=== PATIENT | female | born 1945 | race Caucasian/White ===

== ENCOUNTER 2019-11-22 08:59 | Outpatient (CLI) | payer MEDICARE, OTHER, SELFPAY ==
--- NOTE | ~2019-11-22 | MR_ITS ---
EXAMINATION: MR shoulder RT wo con DATE: 11/22/2019 10:04 INDICATION: Glenoid fracture. Subscapularis weakness. TECHNIQUE: Magnetic resonance imaging (MRI) of the right shoulder was performed without intravenous c ontrast. Sequences included axial PD-weighted FS FSE, coronal oblique PD-weighted FS FSE and T2-weigh rogelio FS FSE, and sagittal oblique T2-weighted FS FSE and T1-weighted FSE. COMPARISON: Right shoulder MRI 04/24/2016 FINDINGS: Coracoacromial arch: The acromion undersurface is curved in morphology with anterior hook (type III). There is severe acro mioclavicular joint osteoarthritis. There is severe subacromial/subdeltoid bursitis in communication with an acromioclavicular joint effusion. Rotator cuff: There is severe supraspinatus and infraspinatus tendinopathy. There is an articular-sided partial-thi ckness tear of supraspinatus tendon and infraspinatus tendons measuring 3.3 cm anterior to posterior by 2.5 cm proximal to distal by up to 60% tendon thickness. There is bursal-sided fraying of supraspi natus and infraspinous tendons and supraspinatus muscle. Teres minor tendon is normal. There is sever e subscapularis tendinopathy. There is no asymmetric fatty atrophy of the rotator cuff muscle bellies . Biceps tendon and glenoid labrum: There is a complete tear of proximal biceps tendon. There is extensive tearing of the glenoid labrum. Fluid: There is a large glenohumeral joint effusion with loose bodies measuring up to 1.7 cm. Bones/cartilage: There is extensive partial thickness cartilage loss of glenoid and humeral head. There is full-thickn ess cartilage loss of central, anterior, and inferior glenoid with cortical remodeling and subchondra l edema-like marrow signal intensity. IMPRESSION: 1. Severe acromioclavicular joint osteoarthritis. 2. Severe rotator cuff tendinopathy with partial-thickness rotator cuff tear. 3. Complete tear of proximal biceps tendon. 4. Severe acromioclavicular joint osteoarthritis. 5. Large glenohumeral joint effusion with loose bodies. 6. Severe subacromial/subdeltoid bursitis communicating with an acromioclavicular joint effusion. Reviewed, dictated and finalized at location A. IMPRESSION: 1. Severe acromioclavicular joint osteoarthritis. 2. Severe rotator cuff tendinopathy with partial-thickness rotator cuff tear. 3. Complete tear of proximal biceps tendon. 4. Severe acromioclavicular joint osteoarthritis. 5. Large glenohumeral joint effusion with loose bodies. 6. Severe subacromial/subdeltoid bursitis communicating with an acromioclavicul ar joint effusion.
== END 2019-11-22 09:00 | disposition home or self-care (01) ==
LOC: ANHIMG 09:06
PROVIDERS: PCP Family Medicine; Visit Provider Orthopaedic Surgery
DX: M19.011 Primary osteoarthritis, right shoulder (principal); M25.411 Effusion, right shoulder; S46.221A Laceration of muscle, fascia and tendon of other parts of biceps, right arm, initial encounter; X58.XXXA Exposure to other specified factors, initial encounter
CPT/HCPCS: 73221

== ENCOUNTER → 2020-02-27 09:18 | Outpatient (CLI) | payer MEDICARE, OTHER, SELFPAY ==
--- NOTE | ~2020-02-27 | MMUS_ITS ---
EXAMINATION: MM diagnostic aury LT w curry, US breast LT limited HISTORY: Six-month follow-up for probably benign left breast mass TECHNIQUE: Craniocaudal, mediolateral, and mediolateral oblique 3-D tomosynthesis images of the left breast were performed and synthetic 2-D images were generated. CAD analysis was submitted and interpr eted. High resolution limited left breast ultrasound was performed. COMPARISON: 07/25/2019, 07/10/2019, 06/09/2018, 06/07/2017 BREAST PARENCHYMAL COMPOSITION: There are scattered areas of fibroglandular density. FINDINGS: MAMMOGRAPHIC FINDINGS: There is an 8 mm oval, obscured, equal density mass in the middle third of the lower breast at the 6: 00 location 5.6 cm from the nipple which has not significantly changed. No suspicious calcification o r architectural distortion are identified. ULTRASOUND: There is a 10 mm x 7 mm oval, circumscribed, parallel, complex cystic and solid mass at the 5:30 loca tion 4 cm from the nipple which appears to have microlobulated margin. No definite posterior features or internal vascularity are noted. IMPRESSION: 1. Suspicious left breast mass. 2. Ultrasound-guided biopsy is recommended. BI-RADS category 4, suspicious findings. Reviewed, dictated and finalized at location A. IMPRESSION: 1. Suspicious left breast mass. 2. Ultrasound-guided biopsy is recommended. BI-RADS category 4, suspicious findings.
== END ==
PROVIDERS: PCP Family Medicine; Visit Provider Obstetrics & Gynecology
DX: R92.8 Other abnormal and inconclusive findings on diagnostic imaging of breast (principal)
CPT/HCPCS: 76642; 77061; 77065; G0279

== ENCOUNTER 2020-08-05 08:53 | Outpatient (CLI) | payer MEDICARE, OTHER, SELFPAY ==
[2020-08-05 09:49] LABS: Hematocrit 44.2 % (37.0-47.0); Mean Corpuscular HGB Conc 33.9 g/dl (32-36); Mean Corpuscular Hemoglobin 31.3 pg (26-34); Mean Corpuscular Volume 92.1 fl (80-100); Mean Platelet Volume 8.9 fl (7.4-10.4); Platelet Count Result 252 k/mm3 (150-375); Red Cell Distribution Width 13.5 % (11.5-14.5); White Blood Count 5.6 K/mm3 (4.5-10.0)
[2020-08-05 10:05] LABS: Alanine Aminotransferase 17 U/L (4-35); Albumin Level 4.3 g/dL (3.5-5.1); Alkaline Phosphatase 91 U/L (38-126); Anion Gap 8 mmol/L (8-16); Aspartate Amino Transferase 30 U/L (14-36); Bilirubin,Total 0.8 mg/dL (0.2-1.3); Blood Urea Nitrogen 21 mg/dL (7-17); Calcium 9.2 mg/dL (8.4-10.2); Carbon Dioxide 31 mmol/L (22-30); Chloride 102 mmol/L (98-107); Estimated Glomerular Filt Rate > 60; Glucose 101 mg/dL (65-105); Potassium 4.2 mmol/L (3.4-5.0); Sodium 141 mmol/L (137-145)
[2020-08-05 10:31] LABS: Vitamin D 25 Hydroxy 40.5 ng/mL
== END 2020-08-05 08:54 | disposition home or self-care (01) ==
LOC: ANHLAB 08:55
PROVIDERS: PCP Family Medicine; Visit Provider Nurse Practitioner Family
DX: R53.83 Other fatigue (principal); I10 Essential (primary) hypertension; E53.8 Deficiency of other specified B group vitamins; Z13.1 Encounter for screening for diabetes mellitus; Z79.899 Other long term (current) drug therapy
CPT/HCPCS: 36415; 80053; 82306; 82607; 84443; 85027

== ENCOUNTER 2020-11-17 14:51 | Outpatient (CLI) | payer MEDICARE, OTHER, SELFPAY ==
--- NOTE | ~2020-11-17 | XR_ITS ---
EXAMINATION: XR_[id number]_CR DATE: 11/17/2020 15:18 INDICATION: Neck pain. TECHNIQUE: 4 views of cervical spine on 5 radiographs were obtained. COMPARISON: None. FINDINGS: There is 4 degrees levocurvature of cervical spine. There is 2 mm retrolisthesis of C4 on C 5 and C5 on C6 and 2 mm anterolisthesis of C6 on C7. There is kyphosis of cervical spine. Vertebral b jeffrey heights are normal. There is mildly decreased disc height at C3-C4 and moderately decreased disc height at C4-C5 and C5-C6. There is multilevel uncovertebral joint osteoarthritis, severe on the left at C4-C5 and bilaterally at C5-C6. There is multilevel mild to moderate facet joint osteoarthritis. There is mild central canal stenosis at C4-C5 and C5-C6. No prevertebral soft tissue swelling. IMPRESSION: 1. Moderate cervical spondylosis. Reviewed, dictated and finalized at location A.
== END 2020-11-17 14:52 | disposition home or self-care (01) ==
PROVIDERS: PCP Family Medicine; Visit Provider Nurse Practitioner Family
DX: M54.2 Cervicalgia (principal); M47.812 Spondylosis without myelopathy or radiculopathy, cervical region
CPT/HCPCS: 72040

== ENCOUNTER 2021-05-01 10:16 | Emergency (ER) | payer MEDICARE, OTHER, SELFPAY ==
[2021-05-01 10:39] VITALS: BP 144/80; PULSE 60; RESP 14; TEMP 36.6; O2SAT 100
--- NOTE | 2021-05-01 13:31 | ECG_ITS ---
Measurements Intervals [place] Rate: 59 P: 23 MT: 133 QRS: -29 QRSD: 127 T: 18 QT: 452 QTc: 449 Interpretive Statements SINUS BRADYCARDIA WITH SINUS ARRHYTHMIA INTRAVENTRICULAR CONDUCTION DELAY DELAYED PRECORDIAL R/S TRANSITION BASELINE ARTIFACT- I, II, III, AVR, AVL, AVF BORDERLINE ECG Electronically Signed On 05-01-2021 19:02:10 CDT by Ugo Villa D.O.
[2021-05-01] MEDS: MECLIZINE HCL 25 MG TABLET PO (13:58)
--- NOTE | 2021-05-01 15:00 | ED.GENADULT ---
HPI - General Adult General Chief complaint: Dizziness Stated complaint: dizzy Time Seen by Provider: 05/01/21 13:15 History of Present Illness HPI narrative: Patient is a 76-year-old female who presents ER with dizziness. Began this morning while eating breakfast. Spinning in nature. Associate with nausea. No sweats or chest pain. She reports has been having left ear pain for a few days and had had sinus congestion over the last week. She stopped taking her Mucinex. Has not had similar symptoms before. Symptoms seem to have improved prior to arrival here. Related Data Home Medications Medication Instructions Recorded Confirmed oxybutynin chloride 10 mg 10 mg PO DAILY 07/31/19 01/14/21 tablet,extended release 24 hr aspirin 325 mg tablet 325 mg PO DAILY 05/19/20 01/14/21 multivitamin,zh-wzvv-oiknmvqd 1 tablet PO DAILY 05/19/20 01/14/21 Allergies Allergy/AdvReac Type Severity Reaction Status Date / Time Cephalosporins Allergy Severe RASH Verified 01/21/21 12:34 erythromycin base Allergy Severe RASH Verified 01/21/21 12:34 ketoconazole Allergy Severe RASH Verified 01/21/21 12:34 Penicillins Allergy Severe HALLUCINATI Verified 01/21/21 12:34 ONS Quinolones Allergy Severe SWELLING Verified 01/21/21 12:34 tetracycline Allergy Severe RASH Verified 01/21/21 12:34 cefazolin [From Ancef] Allergy Mild Rash Verified 01/21/21 12:34 bacitracin Allergy Unknown Unknown Verified 01/21/21 12:34 ciprofloxacin Allergy Unknown DIFFICULTY Verified 01/21/21 12:34 BREATHING gramicidin D Allergy Unknown Unknown Verified 01/21/21 12:34 hydrocodone Allergy Unknown Unknown Verified 01/21/21 12:34 nitrofurantoin Allergy Unknown Unknown Verified 01/21/21 12:34 polymyxin B Allergy Unknown Unknown Verified 01/21/21 12:34 BACITRACIN ZINC Allergy Unknown Unknown Uncoded 01/21/21 12:34 CEPHALEXIN MONOHYDRATE Allergy Unknown EYES Uncoded 01/21/21 12:34 SWELLED, HIVES, MOUTH SWELLING CIPROFLOXACIN HCL Allergy Unknown DIFFICULTY Uncoded 01/21/21 12:34 BREATHING HYDROCODONE BIT Allergy Unknown Unknown Uncoded 01/21/21 12:34 NEOMYCIN SULFATE Allergy Unknown Unknown Uncoded 01/21/21 12:34 NITROFURANTOIN MACROCRYSTAL Allergy Unknown Unknown Uncoded 01/21/21 12:34 POLYMYXIN B SULFATE Allergy Unknown Unknown Uncoded 01/21/21 12:34 Review of Systems Review of Systems: All systems reviewed & are unremarkable except as noted in HPI and below Constitutional: Constitutional: Denies chills, Denies fever(s) and Denies weakness ENT: Reports dizziness, Reports nasal congestion and Denies sore throat Comments: Ear pain Cardiovascular: Cardiovascular: Denies chest pain, Denies rapid heart rate and Denies radiating jaw, neck or arm pain Respiratory: Respiratory: Denies cough and Denies dyspnea Gastrointestinal: Gastrointestinal: Denies abdominal pain, Denies diarrhea, Reports nausea and Denies vomiting Neurologic: Denies confusion, Denies headache(s), Denies focal weakness and Denies numbness PMFSH Past Medical History Medical History BMI 38.0-38.9,adult Essential (primary) hypertension H/O vaginal delivery x3 Mixed hyperlipidemia Morbid (severe) obesity due to excess calories Surgical History Surgical History H/O hand surgery H/O shoulder replacement H/O total hysterectomy History of bladder surgery History of knee replacement bilateral Family History Family History Mother Hypertension Family history of diabetes mellitus in first degree relative Father Carcinoma of colon, Onset Age: 200 Patient's father is Grandparent Family history of malignant neoplasm of breast, Onset Age: 198 Daughter Ovarian cancer Son Son Cornea transplant recipient Other Family histo
== END 2021-05-01 15:46 | disposition home or self-care (01) ==
PROVIDERS: Emergency Provider Emergency Medicine; PCP Family Medicine
DX: R42 Dizziness and giddiness (principal); H61.23 Impacted cerumen, bilateral; I10 Essential (primary) hypertension; E78.2 Mixed hyperlipidemia; E66.01 Morbid (severe) obesity due to excess calories; Z68.37 Body mass index [BMI] 37.0-37.9, adult; Z96.619 Presence of unspecified artificial shoulder joint; Z96.653 Presence of artificial knee joint, bilateral; Z77.22 Contact with and (suspected) exposure to environmental tobacco smoke (acute) (chronic); Z79.82 Long term (current) use of aspirin
CPT/HCPCS: 69209; 69210; 93005; 99283; A9270

== ENCOUNTER → 2021-06-11 10:48 | Outpatient (CLI) | payer MEDICARE, OTHER, SELFPAY ==
--- NOTE | ~2021-06-11 | DEXA_ITS ---
Bone Density Report Name: Raven Gomez Age: 76 Sex: Female Ethnicity: White Date of : 1945 Indication: postmenopausal; screening for osteoporosis; height loss; prior fracture; hysterectomy; Referring Provider: RUY RUANO Study: Bone densitometry was performed. Exam Date: June 11, 2021 Accession number: [id number] Bone Density: Region BMD T-score Z-score Classification AP Spine (L1-L4) 1.019 -0.3 2.2 Normal Femoral Neck (Left) 0.795 -0.5 1.6 Normal Total Hip (Left) 0.997 0.5 2.2 Normal Femoral Neck (Right) 0.768 -0.7 1.4 Normal Total Hip (Right) 0.984 0.3 2.1 Normal Total Hip Mean 0.991 0.4 2.2 Normal World Health Organization criteria for BMD impression classify patients as: Normal (T-score at or above -1.0), Osteopenia (T-score between -1.0 and -2.5), or Osteoporosis (T-score at or below -2.5). 10-year Fracture Risk: FRAX not reported because: All T-scores for Spine Total, Hip Total, Femoral Neck at or above -1.0 Previous Exams: Region Exam Age BMD T-score BMD Change BMD Change Date g/cm2 vs Baseline vs Previous AP Spine(L1-L4) 06/11/2021 76 1.019 -0.3 0.107 0.029* 06/01/2016 71 0.990 -0.5 0.078 0.015 05/28/2014 69 0.975 -0.7 0.063 0.063 08/07/2008 63 0.912 -1.2 Total Hip(Left) 06/11/2021 76 0.997 0.5 0.011 0.000 06/09/2018 73 0.998 0.5 0.011 -0.049* 06/01/2016 71 1.047 0.9 0.061 0.021 05/28/2014 69 1.027 0.7 0.040 0.040 08/07/2008 63 0.987 0.4 Total Hip(Right) 06/11/2021 76 0.984 0.3 -0.035 -0.042* 06/09/2018 73 1.026 0.7 0.007 0.003 06/01/2016 71 1.023 0.7 0.003 -0.003 05/28/2014 69 1.026 0.7 0.006 0.006 08/07/2008 63 1.020 0.6 *Denotes significance at 95% confidence level, LSC for AP Spine = 0.022 g/cm2, LSC for Total Hip = 0.027 g/cm2 Clinical Information Provided by Patient: Has had a low trauma fracture Has used the following medications: Calcium Has the following medical conditions: Hysterectomy Patient maximum height was 66 Menopause Age: 46 Drinks caffeinated beverages Onset of menses at age 13 Number of children 3 Impression: The patient has normal bone mass. The patient has risk factors, including: previous fracture. T
== END ==
PROVIDERS: PCP Family Medicine; Visit Provider Obstetrics & Gynecology
DX: Z78.0 Asymptomatic menopausal state (principal)
CPT/HCPCS: 77080

== ENCOUNTER 2021-07-24 00:36 | Day surgery (SDC) | payer MEDICARE, OTHER, SELFPAY ==
[2021-07-10 08:24] VITALS: BMI 37.8
--- NOTE | 2021-07-23 15:46 | PM.HPGS ---
History of Present Illness History of Present Illness Consent: Risks, benefits, and alternatives have been discussed and questions answered. Patient agrees to proceed with procedure. Chief complaint: hx of colon polyps Narrative: Raven Gomez is a 76 year old female Referred for colon cancer screening. She has a history of polyps having had 1 removed about 5 years ago [facility] Past Medical History Medical History BMI 38.0-38.9,adult BMI 39.0-39.9,adult Essential (primary) hypertension H/O vaginal delivery x3 Mixed hyperlipidemia Surgical History Surgical History H/O hand surgery H/O shoulder replacement H/O total hysterectomy History of bladder surgery History of knee replacement bilateral Family History Family History Mother Hypertension Family history of diabetes mellitus in first degree relative Father Carcinoma of colon, Onset Age: 200 Patient's father is Grandparent Family history of malignant neoplasm of breast, Onset Age: 198 Daughter Ovarian cancer Son Son Cornea transplant recipient Other Family history of lupus erythematosus Family history of malignant neoplasm of ovary Social History Social History Smoking status: Never smoker Second hand tobacco smoke exposure: Yes Alcohol intake: never Substance use: never Substance use type: does not use Living arrangements: alone 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 Gender identity (if verbalized by the patient): Female Sexual Orientation (if Verbalized by the Patient): Straight or Heterosexual Spiritual care concerns: No Agree to blood products: Yes Meds Home Medications and Allergies Home Medications Medication Instructions Recorded Confirmed Type oxybutynin chloride 10 mg 10 mg PO DAILY 07/31/19 07/10/21 History tablet,extended release 24 hr aspirin 325 mg tablet 325 mg PO DAILY 05/19/20 07/10/21 History multivitamin,mu-axco-xziocjhy 1 tablet PO DAILY 05/19/20 07/10/21 History atorvastatin 10 mg tablet 10 mg PO DAILY #90 tablet 03/09/21 07/10/21 Rx furosemide 40 mg tablet 40 mg PO QAM #90 tablet 06/08/21 07/10/21 Rx metoprolol tartrate 50 mg tablet 50 mg PO DAILY #90 tablet 06/08/21 07/10/21 Rx potassium chloride 10 mEq 10 meq PO DAILY #90 tablet 06/08/21 07/10/21 Rx tablet,extended release calcium carb-D3-mag ox-zinc ox 3 tab-cap PO DAILY 07/10/21 07/10/21 History carbamide peroxide [Debrox] 5 drp EACH EAR Q12H PRN 07/10/21 07/10/21 History cetirizine 10 mg PO DAILY 07/10/21 07/10/21 History cilostazol 50 mg PO BID 07/10/21 07/10/21 History naproxen sodium [Aleve] 220 mg PO BID 07/10/21 07/10/21 History Allergies Allergy/AdvReac Type Severity Reaction Status Date / Time Cephalosporins Allergy Severe RASH Verified 07/24/21 12:48 ciprofloxacin Allergy Severe Anaphylaxis Verified 07/24/21 12:48 erythromycin base Allergy Severe RASH Verified 07/24/21 12:48 ketoconazole Allergy Severe RASH Verified 07/24/21 12:48 Penicillins Allergy Severe HALLUCINATI Verified 07/24/21 12:48 ONS Quinolones Allergy Severe SWELLING Verified 07/24/21 12:48 tetracycline Allergy Severe RASH Verified 07/24/21 12:48 bacitracin Allergy Intermediate Hives Verified 07/24/21 12:48 cefazolin [From Ancef] Allergy Mild Rash Verified 07/24/21 12:48 gramicidin D Allergy Unknown Unknown Verified 07/24/21 12:48 hydrocodone Allergy Unknown Unknown Verified 07/24/21 12:48 nitrofurantoin Allergy Unknown Unknown Verified 07/24/21 12:48 polymyxin B Allergy Unknown Unknown Verified 07/24/21 12:48 CEPHALEXIN MONOHYDRATE Allergy Severe Anaphylaxis Uncoded 07/24/21 12:48 CIPROFLOXACIN HCL Allergy Severe Anaphylaxis Uncoded 07/24/21 12:48 BACITRACI
[2021-07-24 12:50] VITALS: BP 136/66; PULSE 54; RESP 22; TEMP 36.4; O2SAT 98; BMI 39.7
[2021-07-24] MEDS: LACTATED RINGERS 1,000 ML 150 ML IV CONT (13:08)
--- NOTE | 2021-07-24 13:09 | WPDANESEPPF ---
Anes - Initial Pre Proc Eval Procedure: Operation Date: 07/24/21 14:00 Proposed Procedures p Screening Colonoscopy - Ramesh Palacios MD Date/Time: 07/24/21 13:09 Surgeon: Ramesh Palacios MD Pre Op Diagnosis: hx of colon polyps Patient Data Age: 76 Gender: F Height: 1.63 m Weight: 105 kg Last Vital Signs Temp 36.4 C L 07/24/21 12:50 Pulse 54 L 07/24/21 12:50 Resp 22 H 07/24/21 12:50 BP 136/66 07/24/21 12:50 Pulse Ox 98 07/24/21 12:50 Allergies Allergy/AdvReac Type Severity Reaction Status Date / Time Cephalosporins Allergy Severe RASH Verified 07/24/21 12:48 ciprofloxacin Allergy Severe Anaphylaxis Verified 07/24/21 12:48 erythromycin base Allergy Severe RASH Verified 07/24/21 12:48 ketoconazole Allergy Severe RASH Verified 07/24/21 12:48 Penicillins Allergy Severe HALLUCINATI Verified 07/24/21 12:48 ONS Quinolones Allergy Severe SWELLING Verified 07/24/21 12:48 tetracycline Allergy Severe RASH Verified 07/24/21 12:48 bacitracin Allergy Intermediate Hives Verified 07/24/21 12:48 cefazolin [From Ancef] Allergy Mild Rash Verified 07/24/21 12:48 gramicidin D Allergy Unknown Unknown Verified 07/24/21 12:48 hydrocodone Allergy Unknown Unknown Verified 07/24/21 12:48 nitrofurantoin Allergy Unknown Unknown Verified 07/24/21 12:48 polymyxin B Allergy Unknown Unknown Verified 07/24/21 12:48 CEPHALEXIN MONOHYDRATE Allergy Severe Anaphylaxis Uncoded 07/24/21 12:48 CIPROFLOXACIN HCL Allergy Severe Anaphylaxis Uncoded 07/24/21 12:48 BACITRACIN ZINC Allergy Unknown Unknown Uncoded 07/24/21 12:48 HYDROCODONE BIT Allergy Unknown Unknown Uncoded 07/24/21 12:48 NEOMYCIN SULFATE Allergy Unknown Unknown Uncoded 07/24/21 12:48 NITROFURANTOIN MACROCRYSTAL Allergy Unknown Unknown Uncoded 07/24/21 12:48 POLYMYXIN B SULFATE Allergy Unknown Unknown Uncoded 07/24/21 12:48 Home Medications Medication Instructions Recorded Confirmed Type oxybutynin chloride 10 mg 10 mg PO DAILY 07/31/19 07/10/21 History tablet,extended release 24 hr aspirin 325 mg tablet 325 mg PO DAILY 05/19/20 07/10/21 History multivitamin,ve-bjxb-qgwteutc 1 tablet PO DAILY 05/19/20 07/10/21 History atorvastatin 10 mg tablet 10 mg PO DAILY #90 tablet 03/09/21 07/10/21 Rx furosemide 40 mg tablet 40 mg PO QAM #90 tablet 06/08/21 07/10/21 Rx metoprolol tartrate 50 mg tablet 50 mg PO DAILY #90 tablet 06/08/21 07/10/21 Rx potassium chloride 10 mEq 10 meq PO DAILY #90 tablet 06/08/21 07/10/21 Rx tablet,extended release calcium carb-D3-mag ox-zinc ox 3 tab-cap PO DAILY 07/10/21 07/10/21 History carbamide peroxide [Debrox] 5 drp EACH EAR Q12H PRN 07/10/21 07/10/21 History cetirizine 10 mg PO DAILY 07/10/21 07/10/21 History cilostazol 50 mg PO BID 07/10/21 07/10/21 History naproxen sodium [Aleve] 220 mg PO BID 07/10/21 07/10/21 History Patient hx anesthesia problems: none Family hx anesthesia problems: none Results Review: All pre-operative results and documents have been reviewed as part of the pre-operative evaluation. [facility] Past Medical History Medical History (Updated 07/24/21 @ 13:09 by Félix Story DO) BMI 38.0-38.9,adult BMI 39.0-39.9,adult Essential (primary) hypertension H/O vaginal delivery x3 Mixed hyperlipidemia Surgical History Surgical History H/O hand surgery H/O shoulder replacement H/O total hysterectomy History of bladder surgery History of knee replacement bilateral Family History Family History Mother Hypertension Family history of diabetes mellitus in first degree relative Father Carcinoma of colon, Onset Age: 200 Patient's father is Grandparent Family history of malignant neoplasm of breast, Onset Age: 198 Daughter Ovarian cancer Son Son Cornea transplant recipient Other Family history of lupus erythemat
[2021-07-24 14:49] VITALS: BP 118/59; PULSE 63; RESP 22; O2SAT 99
[2021-07-24 14:53] VITALS: BP 121/65; PULSE 63; RESP 22; O2SAT 96
[2021-07-24 15:01] VITALS: BP 119/65; PULSE 60; RESP 22; O2SAT 100
== END 2021-07-24 15:15 | disposition home or self-care (01) ==
PROVIDERS: PCP Family Medicine; Visit Provider Internal Medicine Gastroenterology
PROC: 0DJD8ZZ Inspection of Lower Intestinal Tract, Via Natural or Artificial Opening Endoscopic (ICD-10-PCS; CPT 45378; principal; 2021-07-24 14:00)
DX: Z12.11 Encounter for screening for malignant neoplasm of colon (principal); K57.30 Diverticulosis of large intestine without perforation or abscess without bleeding; Z86.010 Personal history of colon polyps; I10 Essential (primary) hypertension; E78.2 Mixed hyperlipidemia; Z79.82 Long term (current) use of aspirin; E66.9 Obesity, unspecified; Z68.39 Body mass index [BMI] 39.0-39.9, adult
CPT/HCPCS: G0105; J2704; J7120

== ENCOUNTER 2021-08-12 08:30 | Outpatient (RCR) | payer MEDICARE, OTHER, SELFPAY ==
--- NOTE | 2021-06-30 11:35 | PTOPEVAL ---
INITIAL PHYSICAL THERAPY EVALUATION and PLAN OF CARE Thank you for referring Raven Gomez to [facility] [place].? Ghada is scheduled to be seen for physical therapy?1x/week for 6 weeks. Please review, sign, date and return this plan of care ARUN. I agree with and certify that the following plan of care is medically necessary. Referring Physician Date Admitting Provider: Attending Provider: Godfrey Siddiqi MD Referring Provider: *PT Outpatient Evaluation Start: 06/30/21 10:16 Freq: Status: Active Protocol: Document 06/30/21 10:15 DEMETRIA (Rec: 06/30/21 11:35 DEMETRIA [id number]) Therapy Assessment Status Assessment Status Assessment Status Evaluation Outpatient Past Medical History Past Medical History Source of Past Medical History Recalled from Previous Visit, Confirmed with Patient/Family Neurological History Hx Neurological Disorders No Significant History Cardiovascular History Hx Hypercholesterolemia Yes Hx Hypertension Yes Respiratory History Hx Respiratory Disorders No Significant History Gastrointestinal History Hx Gastrointestinal Disorders No Significant History Genitourinary History Hx Genitourinary Disorders No Significant History Musculoskeletal History Hx Joint Replacement Yes: TKA Hematological History Hx Hematological Disorders No Significant History Endocrine History Hx Endocrine Disorders No Significant History HEENT History Hx HEENT Disorders No Significant History Integumentary History Hx Skin Disorders No Significant History Reproductive History Hx Other Reproductive Disorders Yes: hysterectomy w bladder suspension 25 yrs ago,Dr Mart bladder surgery Psychosocial History Hx Psychiatric Disorders No Significant History Pain History History of Any Previous or Ongoing No Significant History Instance of Pain Anesthesia History Hx Anesthesia Reactions No Significant History Other History Hx Other Surgeries Yes: Dr Saleh robotic bladder surgery 2010 Evaluation Information Problem Diagnosis Pelvic and perineal pain Onset 4-5 yrs ago Subjective Information Raven reports that she isn't Query Text:As Reported By Patient/ having any pain - but with [employer] Family exam prolapse was noted. Once in a while will have some urinary leakage. Some urge sensation present after taking diuretic in the morning. Will have a pressure sensation in lower pelvic region at times Britany
--- NOTE | 2021-08-12 08:50 | PTOPEVAL ---
PHYSICAL THERAPY DISCHARGE NOTE Thank you for referring Raven Gomez to [facility].?Please review, sign, date and return this plan of care ARUN. I agree with and certify that the following plan of care is medically necessary. Referring Physician Date Attending Provider: Godfrey Siddiqi MD Discharge Diagnosis Pelvic and perineal pain Onset 4-5 yrs ago Subjective Information Raven has no complaints at Query Text:As Reported By Patient/ this time. States that she can Family sleep through the night without having to go to the bathroom. The urgency she once felt when she came into the house after shopping has reduced and she does not have to rodriguez to go to the bathroom. She is very pleased with the results and confortable continuing her exercises. Pain Assessment Timing of Pain Assessment Timing of Pain Assessment Assessment Self Report Self Report Pain Level 0 Pain Score Pain Score 0: Self Report Pelvic Health Evaluation Pelvic Floor Assessment Permission Received for External/ Yes Internal Perineal Exam External Perineal Body Mobility Present Voluntary External Perineal Body Mobility Present Involuntary External Perineal Body Palpation no increase in tenderness or tissue tension Internal Perineal Body Palpation no increase in discomfort or tissue tension Mild bladder prolapse felt with bearing down muscle contraction Sustained Levator Ani Strength 4 Quick Levator Ani Contraction in 15 10 Seconds PT Clinical Summary Urinary Distress Inventory 3% Pelvic Organ Prolapse Distress Inventory - 0% Ghada presents with normal pelvic floor function based on her pelvic floor distress inventory and based on verbalizing how well she is doing. She does not require further skilled therapy intervention; therefore, we will discharge from PT at this time. PT Services Indicated No Rehabilitation Potential Good Patient/Caregiver's Personal Goals for decrease pelvic pressure
== END 2021-08-12 14:33 | disposition home or self-care (01) ==
LOC: ANHPT 08:30
PROVIDERS: PCP Family Medicine; Visit Provider Obstetrics & Gynecology
DX: R10.2 Pelvic and perineal pain (principal)
CPT/HCPCS: 97110; 97161

== ENCOUNTER 2022-06-11 09:29 | Outpatient (CLI) | payer MEDICARE, OTHER, SELFPAY ==
[2022-06-11 19:38] LABS: Basophils Absolute Auto 0.1 K/mm3 (0.0-0.1); Basophils Percent Auto 0.9 % (0.2-1.2); Eosinophils Absolute Auto 0.1 K/mm3 (0-0.3); Eosinophils Percent Auto 2.4 % (0-4.4); Immature Granulocyte Absolute 0.02 K/mm3 (0.00-0.031); Immature Granulocyte Percent A 0.3 % (0-0.5); Lymphocytes Absolute Auto 0.86 K/mm3 (0.9-3.2); Lymphocytes Percent Auto 14.8 % (18.3-44.2); Mean Corpuscular HGB Conc 33.3 g/dl (32-36); Mean Corpuscular Hemoglobin 31.5 pg (26-34); Mean Corpuscular Volume 94.6 fl (80-100); Mean Platelet Volume 9.3 fl (7.4-10.4); Monocytes Absolute Auto 0.4 K/mm3 (0.1-0.6); Monocytes Percent Auto 6.5 % (2.6-8.5); Neutrophils Absolute Auto 4.4 K/mm3 (1.3-6.7); Neutrophils Percent Auto 75.1 % (45.5-73.1); Platelet Count Result 273 k/mm3 (150-375); Red Blood Count 4.44 M/mm3 (4.2-5.4); Red Cell Distribution Width 13.8 % (11.5-14.5); White Blood Count 5.8 K/mm3 (4.5-10.0)
[2022-06-11 19:40] LABS: Alanine Aminotransferase 21 U/L (6-35); Albumin Level 4.3 g/dL (3.5-5.1); Alkaline Phosphatase 101 U/L (38-126); Anion Gap 12 mmol/L (8-16); Aspartate Amino Transferase 43 U/L (14-36); Bilirubin,Total 0.6 mg/dL (0.2-1.3); Blood Urea Nitrogen 18 mg/dL (7-17); Calcium 8.7 mg/dL (8.4-10.2); Carbon Dioxide 24 mmol/L (22-30); Chloride 105 mmol/L (98-107); Cholesterol 143 mg/dL (0-200); Estimated Glomerular Filt Rate > 60; Glucose 100 mg/dL (65-110); HDL Direct 40 mg/dL; Potassium 4.1 mmol/L (3.4-5.0); Sodium 141 mmol/L (137-145); Triglycerides 151 mg/dL (<150)
[2022-06-11 19:51] LABS: LDL Cholesterol Direct 69 mg/dL
== END 2022-06-11 09:30 | disposition home or self-care (01) ==
PROVIDERS: PCP Family Medicine; Visit Provider Physician Assistant Medical
DX: E78.5 Hyperlipidemia, unspecified (principal); E53.8 Deficiency of other specified B group vitamins
CPT/HCPCS: 36415; 80053; 80061; 85025

== ENCOUNTER 2022-07-06 09:01 | Outpatient (CLI) | payer MEDICARE, OTHER, SELFPAY ==
[2022-07-06 09:27] LABS: Aspartate Amino Transferase 29 U/L (14-36)
== END 2022-07-06 09:02 | disposition home or self-care (01) ==
LOC: ANHLAB 09:03
PROVIDERS: PCP Family Medicine; Visit Provider Physician Assistant Medical
DX: R79.89 Other specified abnormal findings of blood chemistry (principal)
CPT/HCPCS: 36415; 84450

== ENCOUNTER 2022-08-19 12:30 | Outpatient (RCR) | payer MEDICARE, OTHER, SELFPAY ==
--- NOTE | 2022-08-19 13:37 | PTOPEVAL1 ---
Assessment and note entered by Elías Mcdonough, PT, DPT Evaluation Information Assessment Status Evaluation Diagnosis Cervicalgia Onset 2 months Subjective Information Pt states she has facial tingling and an itching sensation. She states she has been performing neck stretches and these have been helping. She states this started about 2 months ago, and after 2 weeks of muscle relaxers her pain went away. She has been off of the muscle relaxers for over a month and only has very random tingling sensations that goes away on its own instantly. She denies any headaches, jaw pain, and no tingling in her arms. Reported Pain Level Pain Score 0: Self Report Assessment PT Clinical Summary Ravne presents to therapy today for her initial evaluation with a diagnosis of cervicalgia. She reports a history of intermittent facial tingling that has been decreasing in frequency in the last 2 months. She demonstrates functional cervical motion in all directions, she is mildly limited in cervical extension and lateral flexion but does not report an increase in symptoms any of these motions. She demonstrates good strength ROM. Passive cervical side glides feel equal and do not cause an increase in symptoms. She was instructed in a HEP today to promote improved body and body mechanics during sitting tasks, and was also educated on pillow placement while sleeping. She is scheduled to follow up in 4 wks or sooner if needed. Plan of Care Interventions Electrical Stimulation,Hot Pack/Cold Pack,Manual Therapy,Neuro Re-education,Patient/Caregiver Educati,Therapeutic Activities,Therapeutic Exercise PT Services Indicated Yes Treatment Frequency and follow up in 1 month, if needed Duration These treatments will address the objective and functional deficits as defined above. The patient will be advanced safely and appropriately in order for the patient to progress towards his/her prior level of function. Additional exercises will be introduced and as well as a comprehensive home exercise program upon discharge, if needed, ?to ensure carryover of functional gains achieved in the clinic. This treatment plan has been reviewed and agreement upon by the patient.
--- NOTE | 2022-09-14 10:59 | PTOPDC ---
Assessment and note entered by Elías Mcdonough, PT, DPT Evaluation Information Assessment Status Discharge - Pt Not Present Diagnosis Cervicalgia Onset 2 months Subjective Information Raven called and cancelled her follow up appointment for later this week, she states she is doing well and does not need to continue therapy. Assessment PT Clinical Summary Raven completed her initial evaluation on and has since been completing her HEP daily. She would like to be discharged at this time. If she needs additional therapy at a later date, she will need a new order. Plan of Care Treatment Frequency and to be discharged Duration
== END 2022-09-14 11:47 | disposition home or self-care (01) ==
LOC: ANHGOSHPT 12:30
PROVIDERS: PCP Family Medicine; Visit Provider Physician Assistant Medical
DX: M54.2 Cervicalgia (principal)
CPT/HCPCS: 97110; 97161

== ENCOUNTER → 2022-09-17 11:17 | Outpatient (CLI) | payer MEDICARE, OTHER, SELFPAY ==
--- NOTE | ~2022-09-17 | MM_ITS ---
EXAMINATION: MM screening aury BI w curry HISTORY: Screening TECHNIQUE: Craniocaudal and mediolateral oblique 3-D tomosynthesis images were obtained and synthetic 2-D images were generated. CAD analysis was submitted and interpreted. COMPARISON: Comparison to multiple prior studies sequentially, with oldest reviewed study dated 05/22. BREAST PARENCHYMAL COMPOSITION: There are scattered areas of fibroglandular density. FINDINGS: There is a mass in the mid outer aspect of the right breast, slightly larger than on prior examinations. No new masses, calcifications or architectural distortion in the left breast. No signif icant interval change. IMPRESSION: 1. Enlarging right breast mass, mid outer breast. 2. Additional mammographic views and possible breast ultrasound are recommended. BI-RADS Category 0: Incomplete: Needs additional imaging evaluation. Reviewed, dictated and finalized at location A. CIATE PROFESSOR OF LITERATURE IMPRESSION: 1. Enlarging right breast mass, mid outer breast. 2. Additional mammographic views and possible breast ultrasound are recommended . BI-RADS Category 0: Incomplete: Needs additional imaging evaluation.
== END ==
PROVIDERS: PCP Family Medicine; Visit Provider Obstetrics & Gynecology
DX: Z12.31 Encounter for screening mammogram for malignant neoplasm of breast (principal); N63.0 Unspecified lump in unspecified breast
CPT/HCPCS: 77063; 77067

== ENCOUNTER → 2022-10-08 08:32 | Outpatient (CLI) | payer MEDICARE, OTHER, SELFPAY ==
--- NOTE | ~2022-10-08 | MMUS_ITS ---
EXAMINATION: MM diagnostic aury RT w curry, US breast RT limited HISTORY: Enlarging right breast mass, mid outer breast, reported on 09/17/2022 screening mammogram exa mination TECHNIQUE: Additional 3-D tomosynthesis images of the right breast were performed and synthetic 2-D i mages were generated. CAD analysis was submitted and interpreted. High resolution lower outer quadran t and lower inner quadrant right breast ultrasound examination was performed. COMPARISON: 09/17/2019 bilateral screening mammogram FINDINGS: MAMMOGRAPHIC FINDINGS: Approximately 8 mm circumscribed mass is noted in the posterior lower outer quadrant. Partially circumscribed approximately 4 mm opacity is noted posteriorly in the central lower right br east. ULTRASOUND: 6:00 2 cm from nipple: 2.7 x 3.8 mm probable cyst 7:00 3.5 cm from nipple: 5 x 10 mm sonolucency with through transmission and posterior enhancement, n o internal vascularity, consistent with simple cyst IMPRESSION: 1. Benign findings 2. Routine annual mammographic screening is recommended BI-RADS Category 2: Benign finding(s). Reviewed, dictated and finalized at location A. EY ENGINE FIRER IMPRESSION: 1. Benign findings 2. Routine annual mammographic screening is recommended BI-RADS Category 2: Benign finding(s).
== END ==
PROVIDERS: PCP Family Medicine; Visit Provider Obstetrics & Gynecology
DX: R92.8 Other abnormal and inconclusive findings on diagnostic imaging of breast (principal)
CPT/HCPCS: 76642; 77061; 77065; G0279

== ENCOUNTER 2023-02-01 13:31 | Outpatient (CLI) | payer MEDICARE, OTHER, SELFPAY ==
--- NOTE | ~2023-02-01 | XR_ITS ---
EXAMINATION: XR lg joint inject/asp w image DATE: 02/01/2023 14:41 INDICATION: Osteoarthritis of left shoulder. TECHNIQUE: A time-out was performed to verify the patient's name, date of , and procedure to b e performed. The procedure including the risks, benefits, and alternatives was discussed with the pat ient. Risks discussed included bleeding and infection. The patient understood the risks and agreed to proceed. The skin overlying the left glenohumeral joint was prepped and draped in usual sterile fas hion. Anesthetic was administered with 1% lidocaine subcutaneously. A 22 G needle was advanced unde r fluoroscopic guidance into the joint. Subsequently, injectate consisting of 4 mL 1% lidocaine and 1 mL 80 mg/mL Depo-Medrol was instilled. The needle was removed and the entry site was cleaned and dr essed. There were no immediate complications. Fluoroscopy exposure time was 0.1 minutes. The total n umber of images was 1. FINDINGS: Real-time fluoroscopy demonstrates the needle in the left glenohumeral joint. Patient's gena n prior to procedure:0/10. IMPRESSION: 1. Fluoroscopy guided left glenohumeral joint injection of local anesthetic and steroid. Reviewed, dictated and finalized at location A.
== END 2023-02-01 13:32 | disposition home or self-care (01) ==
LOC: ANHIMG 13:38
PROVIDERS: PCP Family Medicine; Visit Provider Orthopaedic Surgery
DX: M19.012 Primary osteoarthritis, left shoulder (principal)
CPT/HCPCS: 20610; 77002; J1040

== ENCOUNTER 2023-06-09 08:10 | Outpatient (CLI) | payer MEDICARE, OTHER, SELFPAY ==
[2023-06-09 19:03] LABS: Basophils Percent Auto 0.7 % (0.2-1.2); Eosinophils Absolute Auto 0.2 K/mm3 (0-0.3); Eosinophils Percent Auto 2.8 % (0-4.4); Hemoglobin 14.4 g/dL (12.0-15.0); Immature Granulocyte Absolute 0.02 K/mm3 (0.00-0.031); Immature Granulocyte Percent A 0.3 % (0-0.5); Lymphocytes Absolute Auto 1.02 K/mm3 (0.9-3.2); Lymphocytes Percent Auto 16.9 % (18.3-44.2); Mean Corpuscular HGB Conc 32.7 g/dl (32-36); Mean Corpuscular Hemoglobin 30.8 pg (26-34); Mean Corpuscular Volume 94.2 fl (80-100); Mean Platelet Volume 9.3 fl (7.4-10.4); Monocytes Absolute Auto 0.5 K/mm3 (0.1-0.6); Monocytes Percent Auto 8.6 % (2.6-8.5); Neutrophils Absolute Auto 4.3 K/mm3 (1.3-6.7); Neutrophils Percent Auto 70.7 % (45.5-73.1); Platelet Count Result 281 k/mm3 (150-375); Red Blood Count 4.67 M/mm3 (4.2-5.4); Red Cell Distribution Width 13.8 % (11.5-14.5)
[2023-06-09 19:15] LABS: Alanine Aminotransferase 21 U/L (6-35); Albumin Level 4.4 g/dL (3.5-5.1); Alkaline Phosphatase 95 U/L (38-126); Anion Gap 7 mmol/L (8-16); Aspartate Amino Transferase 34 U/L (14-36); Bilirubin,Total 0.7 mg/dL (0.2-1.3); Blood Urea Nitrogen 16 mg/dL (7-17); Calcium 8.8 mg/dL (8.4-10.2); Carbon Dioxide 29 mmol/L (22-30); Chloride 100 mmol/L (98-107); Cholesterol 169 mg/dL (0-200); Estimated Glomerular Filt Rate > 60; Glucose 116 mg/dL (65-110); HDL Direct 41 mg/dL; Potassium 4.1 mmol/L (3.4-5.0); Sodium 136 mmol/L (137-145); Triglycerides 212 mg/dL (<150)
[2023-06-09 21:34] LABS: LDL Cholesterol Direct 79 mg/dL
[2023-06-10 13:35] LABS: Hemoglobin A1C 6.1 % (<5.7)
== END 2023-06-09 08:11 | disposition home or self-care (01) ==
PROVIDERS: PCP Family Medicine; Visit Provider Physician Assistant Medical
DX: R73.01 Impaired fasting glucose (principal); E66.9 Obesity, unspecified; Z79.899 Other long term (current) drug therapy; R79.89 Other specified abnormal findings of blood chemistry; I10 Essential (primary) hypertension; E78.5 Hyperlipidemia, unspecified
CPT/HCPCS: 36415; 80053; 80061; 83036; 84443; 85025

== ENCOUNTER 2023-09-14 08:33 | Outpatient (CLI) | payer MEDICARE, OTHER, SELFPAY ==
[2023-09-14 20:28] LABS: Hemoglobin A1C 6.2 % (<5.7)
== END 2023-09-14 08:34 | disposition home or self-care (01) ==
LOC: ANHGOSHLAB 08:34
PROVIDERS: PCP Family Medicine; Visit Provider Physician Assistant Medical
DX: R73.03 Prediabetes (principal)
CPT/HCPCS: 36415; 83036

== ENCOUNTER 2023-09-27 11:47 | Emergency (ER) | payer MEDICARE, OTHER, SELFPAY ==
--- NOTE | ~2023-09-27 | CT_ITS ---
EXAMINATION: CT brain wo con INDICATION: Facial numbness COMPARISON: None TECHNIQUE: Standard unenhanced head CT. The dose-length product (DLP) was 605.33 mGy-cm. The mA was a djusted according to patient size. Iterative reconstruction technique was employed. FINDINGS: No acute intraparenchymal hemorrhage. No evidence of mass lesion. No evidence of acute infa rction. There is mild periventricular and subcortical hypodensity probably related to small vessel is chemic disease. There is mild prominence of the sulci and ventricles related to cerebral atrophy. Int racranial calcified cerebral atherosclerosis is noted. No extra-axial collections. No mass effect or midline shift. Changes in the globes are likely from ocular lens surgery. The visualized sinuses and mastoid air cells are well aerated. IMPRESSION: 1. No acute intracranial abnormality. 2. Age related findings. Reviewed, dictated and finalized at location L. [facility]
--- NOTE | ~2023-09-27 | XR_ITS ---
EXAMINATION: XR chest 2V DATE: 09/27/2023 12:34 INDICATION: Facial numbness TECHNIQUE: PA and lateral views of the chest are obtained. COMPARISON: 12/11/2015 FINDINGS: The lungs are free of acute opacities. No pleural effusion or pneumothorax. The cardiomedia stinal silhouette is normal. There are bridging osteophytes at multiple levels in the spine, consiste nt with diffuse idiopathic skeletal hyperostosis (DISH). There are changes of right total shoulder ar throplasty. A lucent centered calcification of the left upper quadrant could relate to the splenic ar morris. IMPRESSION: 1. No acute cardiopulmonary abnormality. Reviewed, dictated and finalized at location L. [facility] CHECK[facility]
[2023-09-27 11:51] VITALS: BP 116/90; PULSE 60; RESP 17; TEMP 36.4; O2SAT 99
[2023-09-27 12:00] VITALS: BP 134/64; PULSE 58; RESP 18; TEMP 36.7; O2SAT 100
--- NOTE | 2023-09-27 12:00 | ECG_ITS ---
Measurements Intervals [place] Rate: 54 P: 70 TN: 140 QRS: -14 QRSD: 126 T: -2 QT: 421 QTc: 401 Interpretive Statements SINUS BRADYCARDIA MODERATE INTRAVENTRICULAR CONDUCTION DELAY [110+ ms QRS DURATION] COMPARED TO ECG 05/01/2021 13:24:20 NO SIGNIFICANT CHANGES Electronically Signed On 09-27-2023 13:52:54 LOFTSMAN by Kenney Mccurdy M.D.
[2023-09-27 12:06] LABS: Glucose Point of Care 94 mg/dl (65-105)
[2023-09-27 12:26] LABS: Basophils Percent Auto 0.4 % (0.2-1.2); Eosinophils Absolute Auto 0.1 K/mm3 (0-0.3); Eosinophils Percent Auto 1.6 % (0-4.4); Hematocrit 45.7 % (37.0-47.0); Hemoglobin 15.1 g/dL (12.0-15.0); Immature Granulocyte Absolute 0.02 K/mm3 (0.00-0.031); Immature Granulocyte Percent A 0.3 % (0-0.5); Lymphocytes Absolute Auto 1.15 K/mm3 (0.9-3.2); Lymphocytes Percent Auto 14.9 % (18.3-44.2); Mean Corpuscular Hemoglobin 30.4 pg (26-34); Mean Corpuscular Volume 92.1 fl (80-100); Monocytes Absolute Auto 0.6 K/mm3 (0.1-0.6); Monocytes Percent Auto 7.5 % (2.6-8.5); Neutrophils Absolute Auto 5.8 K/mm3 (1.3-6.7); Neutrophils Percent Auto 75.3 % (45.5-73.1); Platelet Count Result 276 k/mm3 (150-375); Red Blood Count 4.96 M/mm3 (4.2-5.4); Red Cell Distribution Width 13.5 % (11.5-14.5); White Blood Count 7.7 K/mm3 (4.5-10.0)
[2023-09-27 12:36] LABS: Partial Thromboplastin Time 26.9 SECONDS (22.3-36.8); Prothrombin Time 13.1 Seconds (11.1-14.7)
[2023-09-27 12:38] LABS: Alanine Aminotransferase 21 U/L (6-35); Albumin Level 4.5 g/dL (3.5-5.1); Alkaline Phosphatase 94 U/L (38-126); Anion Gap 10 mmol/L (8-16); Aspartate Amino Transferase 31 U/L (14-36); Bilirubin,Total 0.8 mg/dL (0.2-1.3); Blood Urea Nitrogen 18 mg/dL (7-17); Calcium 9.8 mg/dL (8.4-10.2); Carbon Dioxide 26 mmol/L (22-30); Chloride 103 mmol/L (98-107); Estimated CRCL calculation 59 ml/min; Estimated Glomerular Filt Rate > 60; Glucose 95 mg/dL (65-110); Potassium 4.2 mmol/L (3.4-5.0); Sodium 139 mmol/L (137-145)
[2023-09-27 12:49] LABS: Troponin I < 0.012 ng/mL (0.000-0.034)
[2023-09-27 13:00] VITALS: BP 142/73; PULSE 54; RESP 18; TEMP 36.7; O2SAT 100
--- NOTE | 2023-09-27 13:26 | ED.GENADULT ---
HPI - General Adult General Chief complaint: Unspecified Stated complaint: Low blood sugar Time Seen by Provider: 09/27/23 12:38 History of Present Illness HPI narrative: Patient is a 78-year-old female with a history of hyperlipidemia, hypertension presenting with a sensation of quivering. Patient states that since yesterday she has felt like she is sitting on a vibrating bed. She states that she is shaking all over. It comes and goes. States that she has never had this before and she and her grandson wanted her to get checked out. No other complaints. No numbness or weakness. No facial droop, speech or vision changes. No pain anywhere. No fevers or infectious symptoms. Related Data Home Medications Medication Instructions Recorded Confirmed oxybutynin chloride 10 mg 10 mg PO DAILY 07/31/19 06/01/23 tablet,extended release 24 hr aspirin 325 mg tablet 325 mg PO DAILY 05/19/20 06/01/23 multivitamin,tz-noei-ykfxqvet 1 tablet PO DAILY 05/19/20 06/01/23 (Complete Multivitamin tablet) naproxen sodium 220 mg capsule 220 mg PO BID 07/10/21 06/01/23 (Aleve) dorzolamide 2 % eye drops 1 drp LEFT EYE BID 09/28/23 Allergies Allergy/AdvReac Type Severity Reaction Status Date / Time cephalexin Allergy Severe Anaphylaxis Verified 09/28/23 08:48 Cephalosporins Allergy Severe RASH Verified 09/28/23 08:48 ciprofloxacin Allergy Severe Anaphylaxis Verified 09/28/23 08:48 erythromycin base Allergy Severe RASH Verified 09/28/23 08:48 ketoconazole Allergy Severe RASH Verified 09/28/23 08:48 Penicillins Allergy Severe HALLUCINATI Verified 09/28/23 08:48 ONS Quinolones Allergy Severe SWELLING Verified 09/28/23 08:48 tetracycline Allergy Severe RASH Verified 09/28/23 08:48 bacitracin Allergy Intermediate Hives Verified 09/28/23 08:48 cefazolin [From Ancef] Allergy Mild Rash Verified 09/28/23 08:48 dexamethasone Allergy Mild Unknown Verified 09/28/23 08:48 [From Maxitrol (neomycin sulf)] neomycin Allergy Mild Unknown Verified 09/28/23 08:48 [From Maxitrol (neomycin sulf)] gramicidin D Allergy Unknown Unknown Verified 09/28/23 08:48 hydrocodone Allergy Unknown Unknown Verified 09/28/23 08:48 nitrofurantoin Allergy Unknown Unknown Verified 09/28/23 08:48 polymyxin B Allergy Unknown Unknown Verified 09/28/23 08:48 Review of Systems Review of Systems: All systems reviewed & are unremarkable except as noted in HPI and below PMFSH Past Medical History Medical History BMI 38.0-38.9,adult BMI 39.0-39.9,adult Body mass index (BMI) of 40.1 to 44.9 in adult Essential (primary) hypertension H/O vaginal delivery x3 Mixed hyperlipidemia Surgical History Surgical History H/O hand surgery H/O shoulder replacement H/O total hysterectomy History of bladder surgery History of knee replacement bilateral Family History Family History Mother Hypertension Family history of diabetes mellitus in first degree relative Father Carcinoma of colon, Onset Age: 200 Patient's father is Grandparent Family history of malignant neoplasm of breast, Onset Age: 198 Daughter Ovarian cancer Son Son Cornea transplant recipient Sibling Diabetes mellitus Hernia Kidney failure Other Family history of lupus erythematosus Family history of malignant neoplasm of ovary Social History Social History Smoking status: Never smoker Second hand tobacco smoke exposure: Yes Alcohol intake: never Substance use: never Substance use type: does not use Lack of Transportation: No Lack of Food: Sometimes True Current Housing: I Have Housing Concerned About Future Housing: No Difficulty Paying Gas/Electric Bills: No Difficult
[2023-09-27 14:00] VITALS: BP 124/60; PULSE 54; RESP 18; TEMP 36.8; O2SAT 100
== END 2023-09-27 14:22 | disposition home or self-care (01) ==
PROVIDERS: Physician Assistant; Emergency Provider Emergency Medicine; PCP Family Medicine
DX: Z04.89 Encounter for examination and observation for other specified reasons (principal); I10 Essential (primary) hypertension; E78.2 Mixed hyperlipidemia; Z96.619 Presence of unspecified artificial shoulder joint; Z96.653 Presence of artificial knee joint, bilateral; Z90.710 Acquired absence of both cervix and uterus; Z79.82 Long term (current) use of aspirin; Z77.22 Contact with and (suspected) exposure to environmental tobacco smoke (acute) (chronic); I45.9 Conduction disorder, unspecified; R00.1 Bradycardia, unspecified
CPT/HCPCS: 36415; 70450; 71046; 80053; 82948; 84484; 85025; 85610; 85730; 93005; 99284

== ENCOUNTER 2023-11-09 12:53 | Outpatient (CLI) | payer MEDICARE, OTHER, SELFPAY ==
--- NOTE | ~2023-11-09 | XR_ITS ---
Left Shoulder Technique: AP and scapular Y views were obtained. Clinical History: Osteoarthritis Findings: No fracture or dislocation is seen. There is severe degenerative change of the glenohumeral joint, with large inferomedial humeral head osteophyte, as well as joint space narrowing and reactiv e stenosis. There is mild AC joint degenerative change.. Soft tissues are unremarkable. Impression: Severe glenohumeral joint degenerative change. Mild AC joint degenerative change. Reviewed, dictated and finalized at location . Impression: Severe glenohumeral joint degenerative change. Mild AC joint degenerative change.
== END 2023-11-09 12:54 | disposition home or self-care (01) ==
LOC: ANHIMG 12:56
PROVIDERS: PCP Family Medicine; Visit Provider Orthopaedic Surgery
DX: M19.012 Primary osteoarthritis, left shoulder (principal)
CPT/HCPCS: 73030

== ENCOUNTER 2023-12-05 15:54 | Outpatient (CLI) | payer MEDICARE, OTHER, SELFPAY ==
--- NOTE | ~2023-12-05 | CT_ITS ---
EXAMINATION: CT shoulder LT wo con DATE: 12/05/2023 16:17 INDICATION: Left shoulder primary osteoarthritis. Preoperative planning. TECHNIQUE: Computed tomography (CT) of the left shoulder was performed without intravenous contrast. Automated exposure control and iterative reconstruction technique were employed. The dose-length prod uct was 369.47 mGy-cm. COMPARISON: Left shoulder radiographs 11/09/2023 FINDINGS: Bone alignment is normal. No fracture. There is severe osteoarthritis of glenohumeral joint including bone volume loss of the glenoid. There is severe acromioclavicular joint osteoarthritis. T here is no asymmetric fatty atrophy of rotator cuff muscle bellies. IMPRESSION: 1. Severe osteoarthritis of glenohumeral joint and acromioclavicular joint. Reviewed, dictated and finalized at location E.
== END 2023-12-05 15:55 | disposition home or self-care (01) ==
LOC: ANHIMG 15:57
PROVIDERS: PCP Family Medicine; Visit Provider Orthopaedic Surgery
DX: M19.012 Primary osteoarthritis, left shoulder (principal)
CPT/HCPCS: 73200

== ENCOUNTER 2024-01-27 11:37 | Outpatient (CLI) | payer MEDICARE, OTHER, SELFPAY ==
[2024-01-27 12:53] LABS: Basophils Absolute Auto 0.1 K/mm3 (0.0-0.1); Basophils Percent Auto 0.8 % (0.2-1.2); Eosinophils Absolute Auto 0.3 K/mm3 (0-0.3); Eosinophils Percent Auto 2.8 % (0-4.4); Hematocrit 43.6 % (37.0-47.0); Hemoglobin 14.2 g/dL (12.0-15.0); Immature Granulocyte Absolute 0.03 K/mm3 (0.00-0.031); Immature Granulocyte Percent A 0.3 % (0-0.5); Lymphocytes Absolute Auto 1.25 K/mm3 (0.9-3.2); Lymphocytes Percent Auto 13.4 % (18.3-44.2); Mean Corpuscular HGB Conc 32.6 g/dl (32-36); Mean Corpuscular Hemoglobin 30.8 pg (26-34); Mean Corpuscular Volume 94.6 fl (80-100); Mean Platelet Volume 8.9 fl (7.4-10.4); Monocytes Absolute Auto 0.8 K/mm3 (0.1-0.6); Monocytes Percent Auto 8.1 % (2.6-8.5); Neutrophils Percent Auto 74.6 % (45.5-73.1); Platelet Count Result 250 k/mm3 (150-375); Red Blood Count 4.61 M/mm3 (4.2-5.4); Red Cell Distribution Width 13.3 % (11.5-14.5); White Blood Count 9.3 K/mm3 (4.5-10.0)
[2024-01-27 13:04] LABS: Anion Gap 6 mmol/L (4-12); Blood Urea Nitrogen 24 mg/dL (7-17); Calcium 9.3 mg/dL (8.4-10.2); Carbon Dioxide 29 mmol/L (22-30); Chloride 104 mmol/L (98-107); Estimated Glomerular Filt Rate > 60; Glucose 86 mg/dL (65-110); Potassium 4.2 mmol/L (3.4-5.0); Sodium 139 mmol/L (137-145)
[2024-01-27 14:06] LABS: MRSA (PCR) NOT DETECTED (NOT DETECTE)
== END 2024-01-27 11:38 | disposition home or self-care (01) ==
LOC: ANHSURGERY 11:42
PROVIDERS: Anesthesiology; PCP Family Medicine; Visit Provider Orthopaedic Surgery
DX: Z01.818 Encounter for other preprocedural examination (principal); Z51.81 Encounter for therapeutic drug level monitoring; M19.012 Primary osteoarthritis, left shoulder
CPT/HCPCS: 36415; 80048; 85025; 87641

== ENCOUNTER 2024-02-21 00:38 | Day surgery (SDC) | payer MEDICARE, OTHER, SELFPAY ==
[2024-01-27 12:08] VITALS: BP 145/60; PULSE 56; RESP 16; TEMP 36.9; O2SAT 98; BMI 39.2
--- NOTE | 2024-01-27 12:24 | PC.NURSE ---
Report to the Outpatient Waiting Room, entrance under the green pavilion located off [facility], at time __6:00AM on date ___02/21/24____. Planned Procedure Time: ___7:30AM . Time changes happen often and if your time is changed the preop area will call you the afternoon before. - You and your visitor will be asked to self-screen and do not enter if you have any COVID symptoms. - A mask is optional within the hospital at this time. Patients may have clear liquids (water, carbonated beverages, clear teas, apple juice) until 3 hours prior to surgery with a maximum of 20 ounces. - No food from midnight until time of surgery. Take the following medications with a SIP of water the morning of surgery: ___METOPROLOL AND EYE DROPS. MAY TAKE MECLIZINE NEEDED FOR DIZZINESS. DO NOT STOP ANY OF YOUR OTHER PRESCRIPTION MEDICATIONS PRIOR TO SURGERY ?EXCEPT THE FOLLOWING Medications to discontinue per physician __HOLD ALEVE (NSAID), ASPIRIN AND CILOSTAZOL FOR 7 DAYS PRE-OP- LAST DOSE-02/13/24. HOLD ALL VITAMINS/SUPPLEMENTS 3 DAYS PRE-OP PER ANESTHESIA- LAST DOSE 02/17/24. Please no make-up, nail peruvian, hairspray, perfume, deodorant, or body powder the day of surgery. No jewelry (including any body piercings) or valuables the day of surgery, leave them at home. Please take a shower or bath the night before, or the morning of, surgery with an antibacterial soap. Wear comfortable, loose fitting clothing. - Jewelry must be removed prior to entering the operating room. Rings and piercings that are not removed may be cut off. - The hospital will not accept responsibility for valuables. - Please leave all valuables, including medications, at home the day of surgery. If you are going home after surgery, a licensed maintenance truck driver must drive you home. - NO public transportation without another adult if you receive anesthesia. - We recommend that an adult stay with you for 24 hours following discharge. - We also recommend that you do not drive, make important decision, drink alcoholic beverages, or take any drugs that were not prescribed by your health care provider for at least 24 hours after your discharge time. Follow any additional instructions given to you from your surgeon. If you or anyone in your household have experienced Covid symptoms in the past week, please notify your surgeon or the nurse liaison at the phone number below for possible testing. Telephone instructions given to ___PATIENT and asked if any additional questions and then verbalized understanding. Patient advised to call surgeon office or pre surgery nurse liaison [phone] if any additional questions.
[2024-02-21] VITALS (20 sets, daily range): BP systolic 119–151; BP diastolic 54–83; PULSE 58–70; RESP 13–18; TEMP 36.2–36.8; O2SAT 92–100; BMI 38.6
--- NOTE | ~2024-02-21 | XR_ITS ---
EXAMINATION: XR shoulder LT min 2V DATE: 02/21/2024 11:21 INDICATION: Status post left total shoulder arthroplasty TECHNIQUE: AP and transscapular Y views of the left shoulder were obtained. COMPARISON: CT dated 12/05/2023 FINDINGS: Interval placement of a noncemented reverse left total shoulder arthroplasty which is in near-anatomi c alignment. No acute fracture. Moderate left acromioclavicular osteoarthritis. Partially visualized plate and screw fixation at the margin of the AP image likely for fixation at the distal left radius. Expected small amount of postoperative gas in the soft tissues about the left shoulder. IMPRESSION: Placement of a reverse left total shoulder arthroplasty, negative for postoperative purposes. Reviewed, dictated and finalized at location B. IMPRESSION: Placement of a reverse left total shoulder arthroplasty, negative for postopera tive purposes.
[2024-02-21] MEDS: ACETAMINOPHEN 500 MG TABLET 1000 MG PO (06:59)
--- NOTE | 2024-02-21 07:05 | WPDHPUPDATE1 ---
History and Physical Update Update Date/Time: 02/21/24 07:05 History and Physical has been reviewed, including an updated exam of the patient. There are NO changes in the patient's condition. Risks, benefits, and alternatives have been discussed and questions answered. Patient agrees to proceed with procedure.
[2024-02-21] MEDS: LACTATED RINGERS 1,000 ML 30 ML IV CONT ×2 (07:15→09:51)
--- NOTE | 2024-02-21 07:18 | WPDANESEPPF ---
Anes - Initial Pre Proc Eval Procedure: Operation Date: 02/21/24 07:30 Proposed Procedures p Left Reverse Total Shoulder Arthroplasty - Armando Maya MD Date/Time: 02/21/24 07:18 Surgeon: Armando Maya MD Pre Op Diagnosis: Prim O A Left Shoulder Patient Data Age: 78 Gender: F Height: 1.63 m Weight: 102.1 kg Last Vital Signs Temp 36.8 C 02/21/24 06:35 Pulse 58 L 02/21/24 06:35 Resp 16 01/27/24 12:08 BP 151/83 H 02/21/24 06:35 Pulse Ox 99 02/21/24 06:35 O2 Del Method Room Air 02/21/24 06:35 Allergies Allergy/AdvReac Type Severity Reaction Status Date / Time cephalexin Allergy Severe Anaphylaxis Verified 02/21/24 06:08 Cephalosporins Allergy Severe RASH Verified 02/21/24 06:08 ciprofloxacin Allergy Severe Anaphylaxis Verified 02/21/24 06:08 erythromycin base Allergy Severe RASH Verified 02/21/24 06:08 ketoconazole Allergy Severe RASH Verified 02/21/24 06:08 Penicillins Allergy Severe HALLUCINATI Verified 02/21/24 06:08 ONS Quinolones Allergy Severe SWELLING Verified 02/21/24 06:08 tetracycline Allergy Severe RASH Verified 02/21/24 06:08 cefazolin [From Ancef] Allergy Mild Rash Verified 02/21/24 06:08 dexamethasone Allergy Mild Unknown Verified 02/21/24 06:08 [From Maxitrol (neomycin sulf)] neomycin Allergy Mild Unknown Verified 02/21/24 06:08 [From Maxitrol (neomycin sulf)] gramicidin D Allergy Unknown Unknown Verified 02/21/24 06:08 nitrofurantoin Allergy Unknown Unknown Verified 02/21/24 06:08 Home Medications Medication Instructions Recorded Confirmed Type oxybutynin chloride 10 mg 10 mg PO DAILY 07/31/19 01/31/24 History tablet,extended release 24 hr aspirin 325 mg tablet 325 mg PO DAILY 05/19/20 01/31/24 History multivitamin,zn-huil-gwsyogga 1 tablet PO DAILY 05/19/20 01/31/24 History (Complete Multivitamin tablet) naproxen sodium 220 mg capsule 220 mg PO BID 07/10/21 01/31/24 History (Aleve) meclizine 25 mg tablet 25 mg PO BID PRN dizziness #20 tabs 06/01/23 01/31/24 Rx dorzolamide 2 % eye drops 1 drp LEFT EYE BID 09/28/23 01/31/24 History atorvastatin 10 mg tablet (Lipitor) 10 mg PO DAILY #90 tabs 11/02/23 01/31/24 Rx furosemide 40 mg tablet 40 mg PO QAM #90 tabs 11/02/23 01/31/24 Rx potassium chloride 10 mEq 10 meq PO DAILY #90 tabs 11/02/23 01/31/24 Rx tablet,extended release (Klor-Con) blood sugar diagnostic (Accu-Chek #100 ea 01/04/24 01/31/24 Rx Jackie Plus test strips) blood-glucose meter #1 ea 01/04/24 01/31/24 Rx cilostazol 50 mg tablet 50 mg PO BID 01/04/24 01/31/24 History lancets (Accu-Chek Softclix #100 ea 01/04/24 01/31/24 Rx Lancets) metoprolol tartrate 50 mg tablet See Rx Instructions .Route 01/31/24 01/31/24 Rx .COMPLEX #90 tabs Patient hx anesthesia problems: none Family hx anesthesia problems: none Results Review: All pre-operative results and documents have been reviewed as part of the pre-operative evaluation. [facility] Past Medical History Medical History BMI 38.0-38.9,adult Essential (primary) hypertension H/O vaginal delivery x3 Mixed hyperlipidemia Surgical History Surgical History H/O hand surgery H/O shoulder replacement H/O total hysterectomy History of bladder surgery History of knee replacement bilateral Family History Family History Mother Hypertension Family history of diabetes mellitus in first degree relative Father Carcinoma of colon, Onset Age: 200 Patient's father is Grandparent Family history of malignant neoplasm of breast, Onset Age: 198 Daughter Ovarian cancer Son Son Cornea transplant recipient Sibling Diabetes mellitus Hernia Kidney failure Other Family history of lupus erythematosus Family h
[2024-02-21] MEDS: CLINDAMYCIN 900 MG/D5W 50 ML 900 MG/50 ML PIGGYBACK 50 MG IVPB (07:22)
[2024-02-21] MEDS: TRANEXAMIC ACID 1,000MG/ISO100 1,000 MG/100 ML BAG 200 MG IVPB (07:22)
[2024-02-21] MEDS: SODIUM CHLORIDE 0.9% IV 37.7 ML, MORPHINE SULFATE INJ (*CRX) 2 MG, ROPivacaine HCL 1% 2... INFILTRATE (08:15)
[2024-02-21] MEDS: VANCOMYCIN HCL 1,000 MG VIAL 1000 MG TOPICAL (08:15)
--- NOTE | 2024-02-21 09:33 | P.OP_ITS ---
Procedure Note - Detailed Date of Procedure 02/21/24 Pre-op Diagnosis Severe osteoarthritis, left shoulder Post-op Diagnosis Same Procedure Performed Reverse total shoulder arthroplasty, left Surgeon Armando Maya MD Musical String Maker Inés Mcintosh PA-C Anesthesia General and Regional (Interscalene block.) Findings Satisfactory bone quality. 10 degree posterior glenoid wear. Corrected with 5 degree augmented base plate. Size 1 humerus due to slightly soft bone. The cephalic vein was suture ligated. Description of Procedure The patient was given an interscalene block in the preoperative area. Preoperative antibiotics were given. The patient was transferred to the operating room and a general anesthetic was administered. The beach chair position was used at 45 degrees. All bony prominences were padded. The head was carefully stabilized on the [facility] head of merchandise buying. A sterile prep and drape was performed in the usual manner with ChloraPrep. A longitudinal incision was created at the anterior shoulder just lateral to the deltopectoral interval. Careful dissection was performed to expose the interval and protect the cephalic vein. The vein was retracted medially. Anterior circumflex vessel branches were suture ligated. The biceps was tenotomized. A subscapularis tenotomy was performed. The inferior capsule was released, exposing the humeral head. Osteophytes were removed. Care was taken to stay on bone to protect the axillary nerve. The anatomic head cut was taken with the oscillating saw. The guide pin was placed, central drilling performed, and the broach trial inserted. The neck anteversion and inclination were carefully assessed. The cut protector was placed, and attention was turned to the glenoid. Retractors were placed. Releases were carried out for exposure. The subscapularis was mobilized, the i nferior capsule and long head of triceps released, and the superior and middle glenohumeral ligaments released as well. Labral tissue was resected as needed. The sizing template was used to assess the baseplate position low on the glenoid. A guide pin was placed. Minimal reaming was used to accomplish a flat surface without violating the subchondral bone. Version was corrected according to preoperative templating. The boss was drilled, and the real component was impacted into position. Supplemental locking screws were placed centrally, superiorly, and inferiorly. The glenosphere was impacted into the taper. The proximal humerus was reamed for the inset component. The humeral components were trialed. The real humeral stem, tray, and insert were impacted into position. The shoulder was copiously irrigated periodically with pulsatile lavage. The shoulder was reduced and stability confirmed. 1 gram of Vancomycin powder was placed in the joint. The deltopectoral space was reapproximated with number 1 Vicryl. The remaining tissue was closed with 0 Quill and 2-0 Quill running suture and steri-strips. A sterile silver occlusive dressing and shoulder immobilizer were placed. The patient was transferred to the recovery room. Physician patient support assistant, Inés Mcintosh PA-C, required for surgery; including patient positioning, draping, tissue retraction, maintaining instrument position, cement removal, wound closure, and dressing placement. Implants Shoulder Innovations reverse TSA size 1 stem. +3 polyethylene insert. 5 augmented baseplate. 33 +3 mm glenosphere. Central compression screw. Three peripheral locking screws. Estimated Blood Loss 100 Drains No Pathology None sent Complications No immediate complications Condition Stable Disposition PACU [facility] Billing Surgery - Charge Forward: Surgery Jonathan
--- NOTE | 2024-02-21 11:59 | ADMGEN ---
This patient, Raven Gomez, was admitted to [facility] Surg Room 311-01. Patient/family oriented to hospital policies and general routines including ID bracelet, bed and alarms, visiting hours, pain management, procedures, bathroom and other care routines, personal items, smoking policy, room service/diet, and visiting hours. Information on how to activate the Rapid Response Team has been discussed. Patient/Family are encouraged to report perceived risks to care and to ask questions if they do not understand what they are told or what they should do.
[2024-02-21] MEDS: ACETAMINOPHEN 325 MG TABLET 650 MG PO ×2 (14:04→17:14)
[2024-02-21] MEDS: SENNA/DOCUSATE SODIUM TABLET 2 TAB PO (17:14)
[2024-02-21] MEDS: DORZOLAMIDE HCL 2% OPHTH DROPS 1 DROP LEFT EYE (17:14)
[2024-02-21] MEDS: cilostazoL 50 MG TABLET PO (17:14)
[2024-02-21] MEDS: FAMOTIDINE 20 MG TABLET PO (20:48)
[2024-02-21] MEDS: VANCOMYCIN 1,000 MG/NS 250 ML 1,000 MG/250 ML BAG 100 MG IVPB (20:52)
[2024-02-21] MEDS: CYCLOBENZAPRINE HCL 5 MG TABLET PO (20:56)
[2024-02-22 01:34] VITALS: BP 142/58; PULSE 64; RESP 16; TEMP 36.5; O2SAT 98
[2024-02-22] MEDS: cilostazoL 50 MG TABLET PO (05:23)
[2024-02-22] MEDS: ACETAMINOPHEN 325 MG TABLET 650 MG PO ×2 (05:23→12:50)
[2024-02-22 05:34] VITALS: BP 127/46; PULSE 67; RESP 16; TEMP 36.6; O2SAT 99
[2024-02-22 06:13] LABS: Basophils Percent Auto 0.2 % (0.2-1.2); Eosinophils Percent Auto 0.1 % (0-4.4); Hemoglobin 12.6 g/dL (12.0-15.0); Immature Granulocyte Absolute 0.09 K/mm3 (0.00-0.031); Immature Granulocyte Percent A 0.6 % (0-0.5); Lymphocytes Absolute Auto 0.61 K/mm3 (0.9-3.2); Lymphocytes Percent Auto 3.8 % (18.3-44.2); Mean Corpuscular HGB Conc 32.3 g/dl (32-36); Mean Corpuscular Hemoglobin 30.9 pg (26-34); Mean Corpuscular Volume 95.6 fl (80-100); Mean Platelet Volume 9.4 fl (7.4-10.4); Monocytes Absolute Auto 0.9 K/mm3 (0.1-0.6); Monocytes Percent Auto 5.4 % (2.6-8.5); Neutrophils Absolute Auto 14.6 K/mm3 (1.3-6.7); Neutrophils Percent Auto 89.9 % (45.5-73.1); Platelet Count Result 223 k/mm3 (150-375); Red Blood Count 4.08 M/mm3 (4.2-5.4); Red Cell Distribution Width 13.4 % (11.5-14.5); White Blood Count 16.2 K/mm3 (4.5-10.0)
[2024-02-22 06:24] LABS: Anion Gap 5 mmol/L (4-12); Blood Urea Nitrogen 17 mg/dL (7-17); Calcium 8.5 mg/dL (8.4-10.2); Carbon Dioxide 25 mmol/L (22-30); Chloride 109 mmol/L (98-107); Estimated CRCL calculation 78 ml/min; Estimated Glomerular Filt Rate > 60; Glucose 144 mg/dL (65-110); Potassium 4.1 mmol/L (3.4-5.0); Sodium 139 mmol/L (137-145)
--- NOTE | 2024-02-22 08:00 | PM.DS ---
DS: Admitting Diagnosis Discharge Date 02/22/24 Admitting Diagnosis Glenohumeral joint arthritis. DS: Discharge Diagnosis Discharge Diagnosis (1) Status post reverse total arthroplasty of left shoulder: Code(s): Z96.612 - Presence of left artificial shoulder joint Status: Acute (2) Orthopedic aftercare for joint replacement: Code(s): Z47.1 - Aftercare following joint replacement surgery Status: Acute Plan Postop day 1: Left Reverse total shoulder arthroplasty. Patient tolerated procedure well. No complications. Pain manageable with pain medication. No numbness or tingling. We had a lengthy discussion regarding postoperative wound care, limitations, expectations, and exercises. Patient shows good understanding. She has had initial physical therapy and is tolerating it well. DVT prophylaxis: Continue normal ASA dose. Pain medication: Percocet. Patient has followup appointment with Dr. Maya in 3 weeks. DS: Summary Hospital Course Hospital Course: Patient tolerated procedure well. No complications. Tolerating PT/OT. Returning to baseline. Status at Discharge Functional status at discharge: independent ambulation Overall status at discharge: patient is progressing back to baseline Time Spent with Patient Time attestation: Total time spent providing and/or coordinating discharge services: Exam Narrative: Overweight 78 y/o Female. Resting comfortably in chair. Wearing sling. Dressing dry and intact with no drainage. Moderate swelling. Moderate ecchymosis distal to the incision. No erythema. No hematoma. Range of motion limited due to pain. Calf nontender. Neurologic status intact. No varicosities. Distal pulses palpable. DS: Data Data Completed and Pending Labs on day of discharge: Labs from last 24 hours 02/22/24 05:39 WBC 16.2 H RBC 4.08 L Hgb 12.6 Hct 39.0 MCV 95.6 MCH 30.9 MCHC 32.3 RDW 13.4 Plt Count 223 MPV 9.4 Immature Gran % (Auto) 0.6 H Neut % (Auto) 89.9 H Lymph % (Auto) 3.8 L Petroleum % (Auto) 5.4 Eos % (Auto) 0.1 Baso % (Auto) 0.2 Lymph # (Auto) 0.61 L Petroleum # (Auto) 0.9 H Eos # (Auto) 0.0 Baso # (Auto) 0.0 Abs Immat Gran (auto) 0.09 H Absolute Neuts (auto) 14.6 H Absolute Nucleated RBC 0.000 Nucleated RBC % 0.0 Sodium 139 Potassium 4.1 Chloride 109 H Carbon Dioxide 25 Anion Gap 5 BUN 17 Creatinine 0.60 L Estim Creat Clear Calc 78 Estimated GFR > 60 Glucose 144 H Calcium 8.5 Discharge Plan Discharge Patient Disposition: Home, Self-Care Discharge Instructions: See green instruction sheets Patient Instructions: Pain Management (DC), Joint Replacement Surgery (DC) Stand Alone Forms: General Discharge Instructions Follow-up/Referrals: Inés Mcintosh PA [Physician Slack Cooper] - Discharge Medications: New oxycodone-acetaminophen 5-325 mg tablet 1 - 2 tablet PO Q4-6H MDD 6 PRN (Reason: pain) Qty: 30 0RF Continued oxybutynin chloride 10 mg tablet extended release 24hr 10 mg PO DAILY cilostazol 50 mg tablet 50 mg PO BID Rx Instructions: TAKE 1 TABLET BY MOUTH TWICE DAILY (DME) blood-glucose meter Misc See Rx Instructions .ROUTE .MEDSUPPLY Qty: 1 0RF Rx Instructions: As directed for pre diabetes (DME) lancets [Accu-Chek Softclix Lancets] Misc See Rx Instructions .ROUTE .MEDSUPPLY Qty: 100 0RF Rx Instructions: Check glucose bid prn for pre-diabetes (DME) Accu-Chek Jackie Plus test strp Strip See Rx Instructions .ROUTE .MEDSUPPLY Qty: 100 0RF Rx Instructions: Check glucose bid prn for pre diabetes aspirin 325 mg tablet 325 mg PO DAILY Complete Multivitamin Tablet 1 tablet PO DAILY meclizine 25 mg tablet 25 mg PO BID PRN (Reason: dizziness) Qty: 20 0RF dorzolamide 2 % drops 1 drp LEFT EYE BID naproxen sodium [Aleve] 220 mg Capsule 220 mg PO BID metoprolol tartrate
[2024-02-22] MEDS: ASPIRIN 325 MG TABLET PO (08:34)
[2024-02-22] MEDS: ATORVASTATIN 10 MG TABLET PO (08:34)
[2024-02-22] MEDS: oxyCODONE/ACETAMINOPHEN (*CRX) 5-325 MG TABLET 1 TABLET PO (08:35)
[2024-02-22] MEDS: FAMOTIDINE 20 MG TABLET PO (08:35)
[2024-02-22] MEDS: DORZOLAMIDE HCL 2% OPHTH DROPS 1 DROP LEFT EYE (08:35)
[2024-02-22] MEDS: FUROSEMIDE 40 MG TABLET PO (08:35)
[2024-02-22] MEDS: SENNA/DOCUSATE SODIUM TABLET 2 TAB PO (08:35)
[2024-02-22] MEDS: polyethylene glycoL 3350 17 GM POWD.PACK PO (08:35)
[2024-02-22] MEDS: oxyBUTYnin CHLORIDE XL 5 MG TAB.ER.24 10 MG PO (08:35)
[2024-02-22] MEDS: VANCOMYCIN 1,000 MG/NS 250 ML 1,000 MG/250 ML BAG 250 MG IVPB (08:36)
[2024-02-22 09:07] VITALS: O2SAT 95
[2024-02-22 09:34] VITALS: BP 151/79; PULSE 64; RESP 16; TEMP 36.6; O2SAT 100
== END 2024-02-22 13:03 | disposition home or self-care (01) ==
LOC: ANHSURGERY 10:02 → ANH3MEDSUR 11:56
PROVIDERS: Physician Assistant Surgical; PCP Family Medicine; Visit Provider Orthopaedic Surgery
PROC: (CPT 23472; principal; 2024-02-21 07:30)
DX: M19.012 Primary osteoarthritis, left shoulder (principal); M25.712 Osteophyte, left shoulder; I10 Essential (primary) hypertension; E78.2 Mixed hyperlipidemia; E66.9 Obesity, unspecified; Z68.38 Body mass index [BMI] 38.0-38.9, adult; Z79.82 Long term (current) use of aspirin; Z79.1 Long term (current) use of non-steroidal anti-inflammatories (NSAID); Z98.890 Other specified postprocedural states; Z80.0 Family history of malignant neoplasm of digestive organs; Z80.3 Family history of malignant neoplasm of breast; Z80.41 Family history of malignant neoplasm of ovary
CPT/HCPCS: 23472; 36415; 73030; 80048; 85025; 86850; 86900; 86901; 97110; 97116; 97161; 97165; 97535; A4565; A9270; C1776; J0171; J0330; J1170; J1885; J2250; J2270; J2371; J2405; J2704; J2795; J3010; J3370; J7120

== ENCOUNTER 2024-04-11 08:40 | Outpatient (CLI) | payer MEDICARE, OTHER, SELFPAY ==
--- NOTE | ~2024-04-11 | XR_ITS ---
XR shoulder LT min 2V Ordering provider: Armando Maya MD History: . Z47.1 - Aftercare following joint replacement surgery . Comparison: February 21, 2024 FINDINGS: BONES: No acute fracture or dislocation. JOINT SPACES: The acromioclavicular joint is normal. Left shoulder arthroplasty. SOFT TISSUES: Normal. IMPRESSION: No acute osseous abnormality. Left shoulder arthroplasty. Reviewed, dictated and finalized at location A.
== END 2024-04-11 08:41 | disposition home or self-care (01) ==
PROVIDERS: PCP Family Medicine; Visit Provider Orthopaedic Surgery
DX: Z47.1 Aftercare following joint replacement surgery (principal)
CPT/HCPCS: 73030

== ENCOUNTER 2024-07-10 07:56 | Outpatient (CLI) | payer MEDICARE, OTHER, SELFPAY ==
[2024-07-10 13:45] LABS: Alanine Aminotransferase 16 U/L (6-35); Albumin Level 4.2 g/dL (3.5-5.1); Alkaline Phosphatase 98 U/L (38-126); Anion Gap 5 mmol/L (4-12); Aspartate Amino Transferase 42 U/L (14-36); Basophils Absolute Auto 0.1 K/mm3 (0.0-0.1); Basophils Percent Auto 0.8 % (0.2-1.2); Bilirubin,Total 0.8 mg/dL (0.2-1.3); Blood Urea Nitrogen 14 mg/dL (7-17); Calcium 8.7 mg/dL (8.4-10.2); Carbon Dioxide 32 mmol/L (22-30); Chloride 100 mmol/L (98-107); Cholesterol 159 mg/dL (0-200); Eosinophils Absolute Auto 0.2 K/mm3 (0-0.3); Eosinophils Percent Auto 3.5 % (0-4.4); Estimated Glomerular Filt Rate > 60; Glucose 101 mg/dL (65-110); HDL Direct 41 mg/dL; Hematocrit 44.4 % (37.0-47.0); Hemoglobin 14.5 g/dL (12.0-15.0); Immature Granulocyte Absolute 0.01 K/mm3 (0.00-0.031); Immature Granulocyte Percent A 0.2 % (0-0.5); Lymphocytes Absolute Auto 1.01 K/mm3 (0.9-3.2); Lymphocytes Percent Auto 15.9 % (18.3-44.2); Mean Corpuscular HGB Conc 32.7 g/dl (32-36); Mean Corpuscular Hemoglobin 30.9 pg (26-34); Mean Corpuscular Volume 94.7 fl (80-100); Mean Platelet Volume 9.3 fl (7.4-10.4); Monocytes Absolute Auto 0.5 K/mm3 (0.1-0.6); Monocytes Percent Auto 8.3 % (2.6-8.5); Neutrophils Absolute Auto 4.6 K/mm3 (1.3-6.7); Neutrophils Percent Auto 71.3 % (45.5-73.1); Platelet Count Result 262 k/mm3 (150-375); Red Blood Count 4.69 M/mm3 (4.2-5.4); Red Cell Distribution Width 13.8 % (11.5-14.5); Sodium 137 mmol/L (137-145); Triglycerides 196 mg/dL (<150); White Blood Count 6.4 K/mm3 (4.5-10.0)
[2024-07-10 14:16] LABS: LDL Cholesterol Direct 72 mg/dL
== END 2024-07-10 07:57 | disposition home or self-care (01) ==
LOC: ANHGOSHLAB 07:57
PROVIDERS: PCP Family Medicine; Visit Provider Physician Assistant Medical
DX: E78.5 Hyperlipidemia, unspecified (principal); R73.03 Prediabetes; R79.89 Other specified abnormal findings of blood chemistry; E66.9 Obesity, unspecified
CPT/HCPCS: 36415; 80053; 80061; 85025

== ENCOUNTER 2024-08-08 13:55 | Outpatient (CLI) | payer MEDICARE, OTHER, SELFPAY ==
--- NOTE | ~2024-08-08 | MM_ITS ---
EXAMINATION: MM screening aury BI w curry HISTORY: Screening TECHNIQUE: Craniocaudal and mediolateral oblique 3-D tomosynthesis images were obtained and synthetic 2-D images were generated. CAD analysis was submitted and interpreted. COMPARISON: Comparison to multiple prior studies sequentially, with oldest reviewed study dated 05/22. BREAST PARENCHYMAL COMPOSITION: Not dense: There are scattered areas of fibroglandular density. FINDINGS: The left breast is stable without evidence for malignancy. There is an enlarging mass in th e upper outer quadrant of the right breast, posterior third. IMPRESSION: 1. Enlarging right breast mass. 2. Additional mammographic views and possible breast ultrasound are recommended. BI-RADS Category 0: Incomplete: Needs additional imaging evaluation. Reviewed, dictated and finalized at location B. CIPAL INVESTIGATOR IMPRESSION: 1. Enlarging right breast mass. 2. Additional mammographic views and possible breast ultrasound are recommended . BI-RADS Category 0: Incomplete: Needs additional imaging evaluation.
== END 2024-08-08 13:56 | disposition home or self-care (01) ==
LOC: MICIMG 13:57
PROVIDERS: PCP Family Medicine; Visit Provider Nurse Practitioner Obstetrics & Gynecology
DX: Z12.31 Encounter for screening mammogram for malignant neoplasm of breast (principal); R92.8 Other abnormal and inconclusive findings on diagnostic imaging of breast
CPT/HCPCS: 77063; 77067

== ENCOUNTER 2024-08-10 09:55 | Outpatient (CLI) | payer MEDICARE, OTHER, SELFPAY ==
[2024-08-10 18:25] LABS: Alanine Aminotransferase 15 U/L (6-35); Albumin Level 4.1 g/dL (3.5-5.1); Alkaline Phosphatase 99 U/L (38-126); Aspartate Amino Transferase 54 U/L (14-36); Bilirubin,Total 0.6 mg/dL (0.2-1.3)
== END 2024-08-10 09:56 | disposition home or self-care (01) ==
LOC: ANHGOSHLAB 09:56
PROVIDERS: PCP Family Medicine; Visit Provider Physician Assistant Medical
DX: R74.8 Abnormal levels of other serum enzymes (principal)
CPT/HCPCS: 36415; 80076

== ENCOUNTER 2024-08-29 09:19 | Outpatient (CLI) | payer MEDICARE, OTHER, SELFPAY ==
--- NOTE | ~2024-08-29 | MMUS_ITS ---
EXAMINATION: MM diagnostic aury RT w curry, US breast RT limited HISTORY: Follow-up right breast mass TECHNIQUE: Additional 3-D tomosynthesis images of the right breast were performed and synthetic 2-D i mages were generated. CAD analysis was submitted and interpreted. High resolution Limited right breas t ultrasound was performed. COMPARISON: Comparison to multiple prior studies sequentially, with oldest reviewed study dated 06/22. BREAST PARENCHYMAL COMPOSITION: Not dense: There are scattered areas of fibroglandular density. FINDINGS: MAMMOGRAPHIC FINDINGS: There is a low-density mass in the lower outer quadrant of the right breast, middle-posterior depth. There is a single layering calcification. No suspicious calcifications or architectural distortion. ULTRASOUND: Limited right breast ultrasound: At 7:00, 3 cm from the nipple there is a 1 cm cyst. This corresponds to the area of mammographic concern. No suspicious masses to suggest malignancy. IMPRESSION: 1. No evidence for malignancy in the right breast. Benign finding. 2. Routine yearly screening mammogram and regular clinical breast examination are recommended. BI-RADS Category 2: Benign finding(s). Reviewed, dictated and finalized at location [] RIBUTION CLERK IMPRESSION: 1. No evidence for malignancy in the right breast. Benign finding. 2. Routine yearly screening mammogram and regular clinical breast examination a re recommended. BI-RADS Category 2: Benign finding(s).
== END 2024-08-29 09:20 | disposition home or self-care (01) ==
LOC: MICIMG 09:20
PROVIDERS: PCP Family Medicine; Visit Provider Nurse Practitioner Obstetrics & Gynecology
DX: R92.8 Other abnormal and inconclusive findings on diagnostic imaging of breast (principal)
CPT/HCPCS: 76642; 77061; 77065; G0279

== ENCOUNTER 2024-09-03 09:22 | Outpatient (CLI) | payer MEDICARE, OTHER, SELFPAY ==
--- NOTE | ~2024-09-03 | US_ITS ---
Complete ABDOMINAL ULTRASOUND (Doppler ultrasound interrogation techniques used as needed for this ex am.) Ordering provider: Iliana Harrison, PAC History: . R79.89 - Other specified abnormal findings of blood chemi... . Comparison: None. FINDINGS: PANCREAS: Normal echotexture and size. PORTAL VEIN: Hepatopedal flow demonstrated. LIVER: Normal size and increased echotexture. No focal hepatic lesions or perihepatic fluid collectio ns are identified. BILIARY DUCTS: No intra or extrahepatic biliary dilation. Common bile duct measures 4.4 mm in diamete r which is normal for patient's age. GALLBLADDER: Polyps is seen measuring 1.2 x 1.4 x 1 mm. Multiple gallbladder stones are noted. No sl udge, gallbladder wall thickening or pericholecystic fluid. Negative sonographic Delcid's sign. Spleen: Normal. Measures 10.3 cm. RIGHT KIDNEY: Normal size. 11 X 4.2 X 4.8 cm. No hydronephrosis, solid renal mass, renal calculi or p erinephric fluid collections. Cysts are seen with the largest seen inferiorly measuring 3 x 2.9 x 3. 8 cm. Left kidney:Normal size. 11 X 5.3 X 5.1 cm. No hydronephrosis, solid renal mass, renal calculi or per inephric fluid collections. Aorta: Proximal measures 1.9 cm. Distal measures 2.4 cm. A right iliac artery measures 1 cm. The left measures 1.1 cm. FREE FLUID: None visualized within the upper abdomen. IMPRESSION: Fat infiltration of the liver. Cholelithiasis. Gallbladder polyp. Right renal cyst. Slight dilatation of the distal aorta. Otherwise, normal abdominal ultrasound. Reviewed, dictated and finalized at location A. RUMENTATION TECH IMPRESSION: Fat infiltration of the liver. Cholelithiasis. Gallbladder polyp. Right renal c yst. Slight dilatation of the distal aorta. Otherwise, normal abdominal ultras ound.
== END 2024-09-03 09:23 | disposition home or self-care (01) ==
LOC: ANHIMG 09:24
PROVIDERS: PCP Family Medicine; Visit Provider Physician Assistant Medical
DX: K76.0 Fatty (change of) liver, not elsewhere classified (principal); K80.20 Calculus of gallbladder without cholecystitis without obstruction; N28.1 Cyst of kidney, acquired; R79.89 Other specified abnormal findings of blood chemistry
CPT/HCPCS: 76700

== ENCOUNTER 2024-11-09 09:15 | Outpatient (CLI) | payer MEDICARE, OTHER, SELFPAY ==
--- OUTSIDE RECORDS SUMMARY | 2024-11-09 10:13 | XMS_ITS | Encounter Summary ---
Author Organization [facility] Address [address] [place] [address] Care Team Providers Care Per Diem Physical Therapist Assistant Name Role Phone Wilber Esquivel DO Primary Care Provider Encounter Details Date Type Department Care Team (Late st Contact Info) Description 04/04/[address] 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
--- OUTSIDE RECORDS SUMMARY | 2024-11-09 10:13 | XMS_ITS | Encounter Summary ---
Author Organization [facility] Address [address] [place] [address] Care Team Providers Care Phonograph Cartridge Assembler Name Role Phone Wilber Esquivel DO Primary Care Provider Encounter Details Date Type Department Care Team (Late st Contact Info) Description 07/18/2002 Outpatient [facility] Primary Care - [address] [place] [address] Wilber Esquivel DO * Social History Tobacco Use Types Packs/Day Years Used Date Smoking Tobacco: Never Assessed Comments Unknown Sex and Gender Information Value Date Recorded Sex Assigned at Not on file Legal Sex Female 5:20 AM INLAYER Gender Identity Not on file Sexual Orientation Not on file documented as of this encounter Plan of Treatment Not on file documented as of this encounter Visit Diagnoses Not on filedocumented in this encounter Care Teams Phonograph Cartridge Assembler Relationship Specialty Start Date End Date Wilber Esquivel DO * PCP - General 03/13/01 documented as of this encounter
--- OUTSIDE RECORDS SUMMARY | 2024-11-09 10:13 | XMS_ITS | Encounter Summary ---
Author Organization [facility] Address 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
--- OUTSIDE RECORDS SUMMARY | 2024-11-09 10:13 | XMS_ITS | Encounter Summary ---
Author Organization [facility] Address 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
--- OUTSIDE RECORDS SUMMARY | 2024-11-09 10:13 | XMS_ITS | Encounter Summary ---
Author Organization [facility] Address [address] [place] [address] Care Team Providers Care Electro Optics Engineer Name Role Phone Wilber Esquivel DO Primary Care Provider [phone] Encounter Details Date Type Department Care Team (Late st Contact Info) Description 12/23/2003 Outpatient [facility] Primary Care - [address] [place] [address] Wilber Esquivel DO * Social History Tobacco Use Types Packs/Day Years Used Date Smoking Tobacco: Never Assessed Comments Unknown Sex and Gender Information Value Date Recorded Sex Assigned at Not on file Legal Sex Female 5:20 AM COTTON 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
--- OUTSIDE RECORDS SUMMARY | 2024-11-09 10:13 | XMS_ITS | Encounter Summary ---
Author Organization [facility] Address [address] [place] [address] Care Team Providers Care Dietary Tech Name Role Phone Wilber Esquivel DO Primary Care Provider Encounter Details Date Type Department Care Team (Late st Contact Info) Description 02/13/2003 Outpatient [facility] Primary Care - [address] [place] [address] Wilber Esquivel DO * Social History Tobacco Use Types Packs/Day Years Used Date Smoking Tobacco: Never Assessed Comments Unknown Sex and Gender Information Value Date Recorded Sex Assigned at Not on file Legal Sex Female 5:20 AM STORAGE ADMINISTRATOR Gender Identity Not on file Sexual Orientation Not on file documented as of this encounter Plan of Treatment Not on file documented as of this encounter Visit Diagnoses Not on filedocumented in this encounter Care Teams Dietary Tech Relationship Specialty Start Date End Date Wilber Esquivel DO * PCP - General 03/13/01 documented as of this encounter
--- OUTSIDE RECORDS SUMMARY | 2024-11-09 10:13 | XMS_ITS | Encounter Summary ---
Author Organization [facility] Address [address] [place] [address] Care Team Providers Care Medical Lab Tech Instructor Name Role Phone Wilber Esquivel DO Primary Care Provider Encounter Details Date Type Department Care Team (Late st Contact Info) Description 08/01/2003 Outpatient [facility] Primary Care - [address] [place] [address] Wilber Esquivel DO * Social History Tobacco Use Types Packs/Day Years Used Date Smoking Tobacco: Never Assessed Comments Unknown Sex and Gender Information Value Date Recorded Sex Assigned at Not on file Legal Sex Female 5:20 AM RADIATION THERAPIST Gender Identity Not on file Sexual Orientation Not on file documented as of this encounter Plan of Treatment Not on file documented as of this encounter Visit Diagnoses Not on filedocumented in this encounter Care Teams Medical Lab Tech Instructor Relationship Specialty Start Date End Date Wilber Esquivel DO * PCP - General 03/13/01 documented as of this encounter
--- OUTSIDE RECORDS SUMMARY | 2024-11-09 10:13 | XMS_ITS | Encounter Summary ---
Author Organization [facility] Address 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
--- OUTSIDE RECORDS SUMMARY | 2024-11-09 10:13 | XMS_ITS | Encounter Summary ---
Author Organization [facility] Address 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
--- OUTSIDE RECORDS SUMMARY | 2024-11-09 10:13 | XMS_ITS | Encounter Summary ---
Author Organization Address [address] [place] [address] Care Team Providers Care Appraiser Irrigation Tax Name Role Phone Wilber Esquivel DO Primary Care Provider [phone] Encounter Details Date Type Department Care Team (Latest Contact Info) Description 12/14/2001 Outpatient Historical [facility] Wilber Esquivel DO * BONE & CARTILAGE DIS NOS (Primary Dx) Social History Tobacco Use Types Packs/Day Years Used Date Smoking Tobacco: Never Assessed Comments Unknown Sex and Gender Information Value Date Recorded Sex Assigned at Not on file Legal Sex Female 5:20 AM IMMIGRATION GUARD Gender Identity Not on file Sexual Orientation Not on file documented as of this encounter Plan of Treatment Not on file documented as of this encounter Visit Diagnoses Diagnosis Disorder of bone and cartilage, unspecified- Primary documented in this encounter Care Teams Appraiser Irrigation Tax Relationship Specialty Start Date End Date Wilber Esquivel DO * PCP - General 03/13/01 documented as of this encounter
--- OUTSIDE RECORDS SUMMARY | 2024-11-09 10:13 | XMS_ITS | Encounter Summary ---
Author Organization [facility] Address [address] [place] [address] Care Team Providers Care Starchmaker Name Role Phone Wilber Esquivel DO Primary Care Provider Encounter Details Date Type Department Care Team (Late st Contact Info) Description 12/14/2001 Outpatient [facility] Primary Care - [address] [place] [address] Wilber Esquivel DO * Social History Tobacco Use Types Packs/Day Years Used Date Smoking Tobacco: Never Assessed Comments Unknown Sex and Gender Information Value Date Recorded Sex Assigned at Not on file Legal Sex Female 5:20 AM CONTRACTING ENGINEER Gender Identity Not on file Sexual Orientation Not on file documented as of this encounter Plan of Treatment Not on file documented as of this encounter Visit Diagnoses Not on filedocumented in this encounter Care Teams Starchmaker Relationship Specialty Start Date End Date Wilber Esquivel DO * PCP - General 03/13/01 documented as of this encounter
--- OUTSIDE RECORDS SUMMARY | 2024-11-09 10:13 | XMS_ITS | Encounter Summary ---
Author Organization [facility] Address [address] [place] [address] Care Team Providers Care Oil Well Driller Name Role Phone Wilber Esquivel DO Primary Care Provider [phone] Encounter Details Date Type Department Care Team (Late st Contact Info) Description 03/06/2003 Outpatient [facility] Primary Care - [address] [place] [address] Wilber Esquivel DO * Social History Tobacco Use Types Packs/Day Years Used Date Smoking Tobacco: Never Assessed Comments Unknown Sex and Gender Information Value Date Recorded Sex Assigned at Not on file Legal Sex Female 5:20 AM PHYSICIAN GENERAL INTERNAL MEDICINE Gender Identity Not on file Sexual Orientation Not on file documented as of this encounter Plan of Treatment Not on file documented as of this encounter Visit Diagnoses Not on filedocumented in this encounter Care Teams Oil Well Driller Relationship Specialty Start Date End Date Wilber Esquivel DO * PCP - General 03/13/01 documented as of this encounter
--- OUTSIDE RECORDS SUMMARY | 2024-11-09 10:13 | XMS_ITS | Encounter Summary ---
Author Organization [facility] Address [address] [place] [address] Care Team Providers Care Tunnel Man Name Role Phone Wilber Esquivel DO Primary Care Provider [phone] Encounter Details Date Type Department Care Team (Latest Contact Info) Description 12/26/2003 Outpatient Historical [facility] Wilber Esquivel DO * PNEUMONIA, ORGANISM NOS (Primary Dx) Social History Tobacco Use Types Packs/Day Years Used Date Smoking Tobacco: Never Assessed Comments Unknown Sex and Gender Information Value Date Recorded Sex Assigned at Not on file Legal Sex Female 5:20 AM FINANCE EFFECTIVENESS MANAGER Gender Identity Not on file Sexual Orientation Not on file documented as of this encounter Plan of Treatment Not on file documented as of this encounter Visit Diagnoses Diagnosis Pneumonia, organism unspecified(486)- Primary Pneumonia, organism unspecified documented in this encounter Care Teams Tunnel Man Relationship Specialty Start Date End Date Wilber Esquivel DO * PCP - General 03/13/01 documented as of this encounter
--- OUTSIDE RECORDS SUMMARY | 2024-11-09 10:13 | XMS_ITS | Encounter Summary ---
Author Organization [facility] Address [address] [place] [address] Care Team Providers Care Solar Sales Energy Advisor Name Role Phone Wilber Esquivel DO Primary Care Provider Encounter Details Date Type Department Care Team (Late st Contact Info) Description 07/02/2003 Outpatient [facility] Primary Care - [address] [place] [address] Wilber Esquivel DO * Social History Tobacco Use Types Packs/Day Years Used Date Smoking Tobacco: Never Assessed Comments Unknown Sex and Gender Information Value Date Recorded Sex Assigned at Not on file Legal Sex Female 5:20 AM NUCLEAR MEDICINE TECHNOLOGIST Gender Identity Not on file Sexual Orientation Not on file documented as of this encounter Plan of Treatment Not on file documented as of this encounter Visit Diagnoses Not on filedocumented in this encounter Care Teams Solar Sales Energy Advisor Relationship Specialty Start Date End Date Wilber Esquivel DO * PCP - General 03/13/01 documented as of this encounter
--- OUTSIDE RECORDS SUMMARY | 2024-11-09 10:13 | XMS_ITS | Encounter Summary ---
Author Organization [facility] Address [address] [place] [address] Care Team Providers Care Operating Room Manager Name Role Phone Wilber Esquivel DO Primary Care Provider [phone] Encounter Details Date Type Department Care Team (Latest Contact Info) Description 03/06/2003 Outpatient Historical HIS [facility] Wilber Esquivel DO * SCREENING MAMM-MAILG NEOPL-OTHER (Primary Dx) Social History Tobacco Use Types Packs/Day Years Used Date Smoking Tobacco: Never Assessed Comments Unknown Sex and Gender Information Value Date Recorded Sex Assigned at Not on file Legal Sex Female 5:20 AM CORE FEEDER Gender Identity Not on file Sexual Orientation Not on file documented as of this encounter Plan of Treatment Not on file documented as of this encounter Visit Diagnoses Diagnosis Other screening mammogram- Primary documented in this encounter Care Teams Operating Room Manager Relationship Specialty Start Date End Date Wilber Esquivel DO * PCP - General 03/13/01 documented as of this encounter
--- OUTSIDE RECORDS SUMMARY | 2024-11-09 10:13 | XMS_ITS | Encounter Summary ---
Author Organization [facility] Address [address] [place] [address] Care Team Providers Care Cadd Technician Name Role Phone Wilber Esquivel DO Primary Care Provider Encounter Details Date Type Department Care Team (Late st Contact Info) Description 01/23/2003 Outpatient [facility] Primary Care - [address] [place] [address] Wilber Esquivel DO * Social History Tobacco Use Types Packs/Day Years Used Date Smoking Tobacco: Never Assessed Comments Unknown Sex and Gender Information Value Date Recorded Sex Assigned at Not on file Legal Sex Female 5:20 AM TALLOW PUMPER Gender Identity Not on file Sexual Orientation Not on file documented as of this encounter Plan of Treatment Not on file documented as of this encounter Visit Diagnoses Not on filedocumented in this encounter Care Teams Cadd Technician Relationship Specialty Start Date End Date Wilber Esquivel DO * PCP - General 03/13/01 documented as of this encounter
--- OUTSIDE RECORDS SUMMARY | 2024-11-09 10:13 | XMS_ITS | Encounter Summary ---
Author Organization [facility] Address [address] [place] [address] Care Team Providers Care Human Resources Support Specialist Name Role Phone Wilber Esquivel DO Primary Care Provider [phone] Encounter Details Date Type Department Care Team (Late st Contact Info) Description 06/17/1998 Outpatient [facility] Primary Care - [address] [place] [address] Wilber Esquivel DO * Social History Tobacco Use Types Packs/Day Years Used Date Smoking Tobacco: Never Assessed Comments Unknown Sex and Gender Information Value Date Recorded Sex Assigned at Not on file Legal Sex Female 5:20 AM RISK CONTROL CONSULTANT Gender Identity Not on file Sexual Orientation Not on file documented as of this encounter Plan of Treatment Not on file documented as of this encounter Visit Diagnoses Not on filedocumented in this encounter Care Teams Human Resources Support Specialist Relationship Specialty Start Date End Date Wilber Esquivel DO * PCP - General 03/13/01 documented as of this encounter
--- OUTSIDE RECORDS SUMMARY | 2024-11-09 10:13 | XMS_ITS | Encounter Summary ---
Author Organization [facility] Address [address] [place] [address] Care Team Providers Care Mortar Carrier Name Role Phone Wilber Esquivel DO Primary Care Provider Encounter Details Date Type Department Care Team (Late st Contact Info) Description 09/08/1998 Outpatient [facility] Primary Care - [address] [place] [address] Wilber Esquivel DO * Social History Tobacco Use Types Packs/Day Years Used Date Smoking Tobacco: Never Assessed Comments Unknown Sex and Gender Information Value Date Recorded Sex Assigned at Not on file Legal Sex Female 5:20 AM HOG FEEDER Gender Identity Not on file Sexual Orientation Not on file documented as of this encounter Plan of Treatment Not on file documented as of this encounter Visit Diagnoses Not on filedocumented in this encounter Care Teams Mortar Carrier Relationship Specialty Start Date End Date Wilber Esquivel DO * PCP - General 03/13/01 documented as of this encounter
--- OUTSIDE RECORDS SUMMARY | 2024-11-09 10:13 | XMS_ITS | Encounter Summary ---
Author Organization [facility] Address [address] [place] [address] Care Team Providers Care Tower Equipment Repairer Name Role Phone Wilber Esquivel DO Primary Care Provider Encounter Details Date Type Department Care Team (Late st Contact Info) Description 01/02/2003 Outpatient [facility] Primary Care - [address] [place] [address] Wilber Esquivel DO * Social History Tobacco Use Types Packs/Day Years Used Date Smoking Tobacco: Never Assessed Comments Unknown Sex and Gender Information Value Date Recorded Sex Assigned at Not on file Legal Sex Female 5:20 AM IMPRESSION PRINTER Gender Identity Not on file Sexual Orientation Not on file documented as of this encounter Plan of Treatment Not on file documented as of this encounter Visit Diagnoses Not on filedocumented in this encounter Care Teams Tower Equipment Repairer Relationship Specialty Start Date End Date Wilber Esquivel DO * PCP - General 03/13/01 documented as of this encounter
--- OUTSIDE RECORDS SUMMARY | 2024-11-09 10:14 | XMS_ITS | Encounter Summary ---
Author Organization [facility] Address [address] [place] [address] Care Team Providers Care Ton Container Filler Name Role Phone Wilber Esquivel DO Primary Care Provider Encounter Details Date Type Department Care Team (Late st Contact Info) Description 11/22/2006 Outpatient [facility] Primary Care - [address] [place] [address] Wilber Esquivel DO * Social History Tobacco Use Types Packs/Day Years Used Date Smoking Tobacco: Never Assessed Comments Unknown Sex and Gender Information Value Date Recorded Sex Assigned at Not on file Legal Sex Female 5:20 AM JIG WORKER Gender Identity Not on file Sexual Orientation Not on file documented as of this encounter Plan of Treatment Not on file documented as of this encounter Visit Diagnoses Not on filedocumented in this encounter Care Teams Ton Container Filler Relationship Specialty Start Date End Date Wilber Esquivel DO * PCP - General 03/13/01 documented as of this encounter
--- OUTSIDE RECORDS SUMMARY | 2024-11-09 10:14 | XMS_ITS | Encounter Summary ---
Author Organization [facility] Address [address] [place] [address] Care Team Providers Care Plastic Mould Maker Name Role Phone Wilber Esquivel DO Primary Care Provider Encounter Details Date Type Department Care Team (Late st Contact Info) Description 06/21/2001 Outpatient [facility] Primary Care - [address] [place] [address] Wilber Esquivel DO * Social History Tobacco Use Types Packs/Day Years Used Date Smoking Tobacco: Never Assessed Comments Unknown Sex and Gender Information Value Date Recorded Sex Assigned at Not on file Legal Sex Female 5:20 AM BELT LOOP CUTTER Gender Identity Not on file Sexual Orientation Not on file documented as of this encounter Plan of Treatment Not on file documented as of this encounter Visit Diagnoses Not on filedocumented in this encounter Care Teams Plastic Mould Maker Relationship Specialty Start Date End Date Wilber Esquivel DO * PCP - General 03/13/01 documented as of this encounter
--- OUTSIDE RECORDS SUMMARY | 2024-11-09 10:14 | XMS_ITS | Encounter Summary ---
Author Organization [facility] Address [address] [place] [address] Care Team Providers Care Psychologist Experimental Name Role Phone Wilber Esquivel DO Primary Care Provider [phone] Encounter Details Date Type Department Care Team (Late st Contact Info) Description 12/21/2000 Outpatient [facility] Primary Care - [address] [place] [address] Wilber Esquivel DO * Social History Tobacco Use Types Packs/Day Years Used Date Smoking Tobacco: Never Assessed Comments Unknown Sex and Gender Information Value Date Recorded Sex Assigned at Not on file Legal Sex Female 5:20 AM ALCOHOL RUBBER Gender Identity Not on file Sexual Orientation Not on file documented as of this encounter Plan of Treatment Not on file documented as of this encounter Visit Diagnoses Not on filedocumented in this encounter Care Teams Psychologist Experimental Relationship Specialty Start Date End Date Wilber Esquivel DO * PCP - General 03/13/01 documented as of this encounter
--- OUTSIDE RECORDS SUMMARY | 2024-11-09 10:14 | XMS_ITS | Encounter Summary ---
Author Organization [facility] Address [address] [place] [address] Care Team Providers Care Orthopedic Nurse Name Role Phone Wilber Esquivel DO Primary Care Provider Encounter Details Date Type Department Care Team (Late st Contact Info) Description 1999 Outpatient [facility] Primary Care - [address] [place] [address] Wilber Esquivel DO * Social History Tobacco Use Types Packs/Day Years Used Date Smoking Tobacco: Never Assessed Comments Unknown Sex and Gender Information Value Date Recorded Sex Assigned at Not on file Legal Sex Female 5:20 AM JIRA DEVELOPER Gender Identity Not on file Sexual Orientation Not on file documented as of this encounter Plan of Treatment Not on file documented as of this encounter Visit Diagnoses Not on filedocumented in this encounter Care Teams Orthopedic Nurse Relationship Specialty Start Date End Date Wilber Esquivel DO * PCP - General 03/13/01 documented as of this encounter
--- OUTSIDE RECORDS SUMMARY | 2024-11-09 10:14 | XMS_ITS | Encounter Summary ---
Author Organization [facility] Address [address] [place] [address] Care Team Providers Care Business Education Professor Name Role Phone Wilber Esquivel DO Primary Care Provider Encounter Details Date Type Department Care Team (Late st Contact Info) Description 11/08/2006 Outpatient [facility] Primary Care - [address] [place] [address] Wilber Esquivel DO * Social History Tobacco Use Types Packs/Day Years Used Date Smoking Tobacco: Never Assessed Comments Unknown Sex and Gender Information Value Date Recorded Sex Assigned at Not on file Legal Sex Female 5:20 AM RETORT LOAD EXPEDITER Gender Identity Not on file Sexual Orientation Not on file documented as of this encounter Plan of Treatment Not on file documented as of this encounter Visit Diagnoses Not on filedocumented in this encounter Care Teams Business Education Professor Relationship Specialty Start Date End Date Wilber Esquivel DO * PCP - General 03/13/01 documented as of this encounter
--- OUTSIDE RECORDS SUMMARY | 2024-11-09 10:14 | XMS_ITS | Encounter Summary ---
Author Organization [facility] Address [address] [place] [address] Care Team Providers Care Sportspersons Name Role Phone Wilber Esquivel DO Primary Care Provider [phone] Encounter Details Date Type Department Care Team (Late st Contact Info) Description 02/26/2000 Outpatient [facility] Primary Care - [address] [place] [address] Wilber Esquivel DO * Social History Tobacco Use Types Packs/Day Years Used Date Smoking Tobacco: Never Assessed Comments Unknown Sex and Gender Information Value Date Recorded Sex Assigned at Not on file Legal Sex Female 5:20 AM TAX CREDIT LEASING CONSULTANT Gender Identity Not on file Sexual Orientation Not on file documented as of this encounter Plan of Treatment Not on file documented as of this encounter Visit Diagnoses Not on filedocumented in this encounter Care Teams Sportspersons Relationship Specialty Start Date End Date Wilber Esquivel DO * PCP - General 03/13/01 documented as of this encounter
--- OUTSIDE RECORDS SUMMARY | 2024-11-09 10:14 | XMS_ITS | Encounter Summary ---
Author Organization [facility] Address [address] [place] [address] Care Team Providers Care Touch Up Edger Name Role Phone Wilber Esquivel DO Primary Care Provider [phone] Encounter Details Date Type Department Care Team (Late st Contact Info) Description 10/14/1998 Outpatient [facility] Primary Care - [address] [place] [address] Wilber Esquivel DO * Social History Tobacco Use Types Packs/Day Years Used Date Smoking Tobacco: Never Assessed Comments Unknown Sex and Gender Information Value Date Recorded Sex Assigned at Not on file Legal Sex Female 5:20 AM TECHNICAL DOCUMENT WRITER Gender Identity Not on file Sexual Orientation Not on file documented as of this encounter Plan of Treatment Not on file documented as of this encounter Visit Diagnoses Not on filedocumented in this encounter Care Teams Touch Up Edger Relationship Specialty Start Date End Date Wilber Esquivel DO * PCP - General 03/13/01 documented as of this encounter
--- OUTSIDE RECORDS SUMMARY | 2024-11-09 10:14 | XMS_ITS | Encounter Summary ---
Author Organization [facility] Address [address] [place] [address] Care Team Providers Care Lawn Care Technician Name Role Phone Wilber Esquivel DO Primary Care Provider [phone] Encounter Details Date Type Department Care Team (Late st Contact Info) Description 10/26/2000 Outpatient [facility] Primary Care - [address] [place] [address] Wilber Esquivel DO * Social History Tobacco Use Types Packs/Day Years Used Date Smoking Tobacco: Never Assessed Comments Unknown Sex and Gender Information Value Date Recorded Sex Assigned at Not on file Legal Sex Female 5:20 AM MANAGEMENT TRAINEE PROGRAM STORES Gender Identity Not on file Sexual Orientation Not on file documented as of this encounter Plan of Treatment Not on file documented as of this encounter Visit Diagnoses Not on filedocumented in this encounter Care Teams Lawn Care Technician Relationship Specialty Start Date End Date Wilber Esquivel DO * PCP - General 03/13/01 documented as of this encounter
--- OUTSIDE RECORDS SUMMARY | 2024-11-09 10:14 | XMS_ITS | Clinical Summary ---
Author Organization [facility] Address [address] Manzanaresn: Epic Prelude ADT [place] [address] Care Team Providers Care Dry Mill Operator Name Role Phone Wilber Esquivel DO Primary Care Provider [phone] Social History Tobacco Use Types Packs/Day Years Used Date Smoking Tobacco: Never Assessed Comments Unknown Sex and Gender Information Value Date Recorded Sex Assigned at Not on file Legal Sex Female 5:20 AM MEDICAL TRANSCRIPTION RADIOLOGY Gender Identity Not on file Sexual Orientation Not on file Plan of Treatment Health Maintenance Due Date Last Done Comments DTAP/TDAP/TD VACCINES (1 - Tdap) 1965 PNEUMOCOCCAL VACCINE 50+ YEA RS (1 of 1 - PCV) 1996 ZOSTER VACCINE (1 of 2) 1996 OSTEOPOROSIS SCREENING 2011 RSV VACCINE (60+ or ) (1 - 1-dose 75+ series) 2021 INFLUENZA VACCINE (#1) 2024 Colorectal Cancer Screening Discontinued FIT/FOBT Q 1 year Discontinued 11/30/1999, 11/05/1998 COLORECTAL SCREENING Discontinued FIT-DNA Q 3 years Discontinued Flex Sig/CT Colonography Q 5 years Discontinued Care Teams Dry Mill Operator Relationship Specialty Start Date End Date Wilber Esquivel DO * PCP - General 03/13/01
--- OUTSIDE RECORDS SUMMARY | 2024-11-09 10:14 | XMS_ITS | Encounter Summary ---
Author Organization [facility] Address [address] [place] [address] Care Team Providers Care Rectifying Operator Name Role Phone Wilber Esquivel DO Primary Care Provider Encounter Details Date Type Department Care Team (Late st Contact Info) Description 10/12/2000 Outpatient [facility] Primary Care - [address] [place] [address] Wilber Esquivel DO * Social History Tobacco Use Types Packs/Day Years Used Date Smoking Tobacco: Never Assessed Comments Unknown Sex and Gender Information Value Date Recorded Sex Assigned at Not on file Legal Sex Female 5:20 AM EMPLOYMENT AGENCY MANAGER Gender Identity Not on file Sexual Orientation Not on file documented as of this encounter Plan of Treatment Not on file documented as of this encounter Visit Diagnoses Not on filedocumented in this encounter Care Teams Rectifying Operator Relationship Specialty Start Date End Date Wilber Esquivel DO * PCP - General 03/13/01 documented as of this encounter
--- OUTSIDE RECORDS SUMMARY | 2024-11-09 10:14 | XMS_ITS | Encounter Summary ---
Author Organization [facility] Address [address] [place] [address] Care Team Providers Care Sawmill Relief Worker Name Role Phone Wilber Esquivel DO Primary Care Provider [phone] Encounter Details Date Type Department Care Team (Late st Contact Info) Description 10/16/1999 Outpatient [facility] Primary Care - [address] [place] [address] Wilber Esquivel DO * Social History Tobacco Use Types Packs/Day Years Used Date Smoking Tobacco: Never Assessed Comments Unknown Sex and Gender Information Value Date Recorded Sex Assigned at Not on file Legal Sex Female 5:20 AM OPTICIANRY TEACHER Gender Identity Not on file Sexual Orientation Not on file documented as of this encounter Plan of Treatment Not on file documented as of this encounter Visit Diagnoses Not on filedocumented in this encounter Care Teams Sawmill Relief Worker Relationship Specialty Start Date End Date Wilber Esquivel DO * PCP - General 03/13/01 documented as of this encounter
--- OUTSIDE RECORDS SUMMARY | 2024-11-09 10:14 | XMS_ITS | Encounter Summary ---
Author Organization [facility] Address [address] [place] [address] Care Team Providers Care Field Laborer Name Role Phone Wilber Esquivel DO Primary Care Provider Encounter Details Date Type Department Care Team (Late st Contact Info) Description 06/18/1999 Outpatient [facility] Primary Care - [address] [place] [address] Wilber Esquivel DO * Social History Tobacco Use Types Packs/Day Years Used Date Smoking Tobacco: Never Assessed Comments Unknown Sex and Gender Information Value Date Recorded Sex Assigned at Not on file Legal Sex Female 5:20 AM TOPOLOGY TEACHER Gender Identity Not on file Sexual Orientation Not on file documented as of this encounter Plan of Treatment Not on file documented as of this encounter Visit Diagnoses Not on filedocumented in this encounter Care Teams Field Laborer Relationship Specialty Start Date End Date Wilber Esquivel DO * PCP - General 03/13/01 documented as of this encounter
--- OUTSIDE RECORDS SUMMARY | 2024-11-09 10:14 | XMS_ITS | Encounter Summary ---
Author Organization [facility] Address [address] [place] [address] Care Team Providers Care Rolled Gold Plater Name Role Phone Wilber Esquivel DO Primary Care Provider [phone] Encounter Details Date Type Department Care Team (Latest Contact Info) Description 03/13/2001 Outpatient Historical HIS IMG[facility] Wilber Esquivel DO * Other screening mammogram (Primary Dx) Social History Tobacco Use Types Packs/Day Years Used Date Smoking Tobacco: Never Assessed Comments Unknown Sex and Gender Information Value Date Recorded Sex Assigned at Not on file Legal Sex Female 5:20 AM SHIP DESIGN TEACHER Gender Identity Not on file Sexual Orientation Not on file documented as of this encounter Plan of Treatment Not on file documented as of this encounter Visit Diagnoses Diagnosis Other screening mammogram- Primary documented in this encounter Care Teams Rolled Gold Plater Relationship Specialty Start Date End Date Wilber Esquivel DO * PCP - General 03/13/01 documented as of this encounter
--- OUTSIDE RECORDS SUMMARY | 2024-11-09 10:14 | XMS_ITS | Encounter Summary ---
Author Organization [facility] Address 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
--- OUTSIDE RECORDS SUMMARY | 2024-11-09 10:14 | XMS_ITS | Encounter Summary ---
Author Organization [facility] Address [address] [place] [address] Care Team Providers Care Optical Engineering Manager Name Role Phone Wilber Esquivel DO Primary Care Provider Encounter Details Date Type Department Care Team (Late st Contact Info) Description 01/25/2002 Outpatient [facility] Primary Care - [address] [place] [address] Wilber Esquivel DO * Social History Tobacco Use Types Packs/Day Years Used Date Smoking Tobacco: Never Assessed Comments Unknown Sex and Gender Information Value Date Recorded Sex Assigned at Not on file Legal Sex Female 5:20 AM LOW HEEL BUILDER Gender Identity Not on file Sexual Orientation Not on file documented as of this encounter Plan of Treatment Not on file documented as of this encounter Visit Diagnoses Not on filedocumented in this encounter Care Teams Optical Engineering Manager Relationship Specialty Start Date End Date Wilber Esquivel DO * PCP - General 03/13/01 documented as of this encounter
--- OUTSIDE RECORDS SUMMARY | 2024-11-09 10:14 | XMS_ITS | Encounter Summary ---
Author Organization [facility] Address 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
--- OUTSIDE RECORDS SUMMARY | 2024-11-09 10:14 | XMS_ITS | Encounter Summary ---
Author Organization [facility] Address [address] [place] [address] Care Team Providers Care Unit Operator Name Role Phone Wilber Esquivel DO Primary Care Provider Encounter Details Date Type Department Care Team (Late st Contact Info) Description 07/28/2000 Outpatient [facility] Primary Care - [address] [place] [address] Wilber Esquivel DO * Social History Tobacco Use Types Packs/Day Years Used Date Smoking Tobacco: Never Assessed Comments Unknown Sex and Gender Information Value Date Recorded Sex Assigned at Not on file Legal Sex Female 5:20 AM VISION THERAPIST Gender Identity Not on file Sexual Orientation Not on file documented as of this encounter Plan of Treatment Not on file documented as of this encounter Visit Diagnoses Not on filedocumented in this encounter Care Teams Unit Operator Relationship Specialty Start Date End Date Wilber Esquivel DO * PCP - General 03/13/01 documented as of this encounter
--- OUTSIDE RECORDS SUMMARY | 2024-11-09 10:14 | XMS_ITS | Encounter Summary ---
Author Organization Address [address] [place] [address] Care Team Providers Care Aircraft Armorer Name Role Phone Wilber Esquivel DO Primary Care Provider [phone] Encounter Details Date Type Department Care Team (Late st Contact Info) Description 04/05/2000 Outpatient [facility] Primary Care - [address] [place] [address] Wilber Esquivel DO * Social History Tobacco Use Types Packs/Day Years Used Date Smoking Tobacco: Never Assessed Comments Unknown Sex and Gender Information Value Date Recorded Sex Assigned at Not on file Legal Sex Female 5:20 AM AFTER SCHOOL PROGRAM DIRECTOR Gender Identity Not on file Sexual Orientation Not on file documented as of this encounter Plan of Treatment Not on file documented as of this encounter Visit Diagnoses Not on filedocumented in this encounter Care Teams Aircraft Armorer Relationship Specialty Start Date End Date Wilber Esquivel DO * PCP - General 03/13/01 documented as of this encounter
--- OUTSIDE RECORDS SUMMARY | 2024-11-09 10:14 | XMS_ITS | Encounter Summary ---
Author Organization [facility] Address [address] [place] [address] Care Team Providers Care Stores Despatch Hand Name Role Phone Wibler Esquivel DO Primary Care Provider Encounter Details Date Type Department Care Team (Latest Contact Info) Description 09/24/2006 Outpatient Historical HIS [facility] Wilber Esquivel DO * Essential Hypertension, Benign (Primary Dx) Social History Tobacco Use Types Packs/Day Years Used Date Smoking Tobacco: Never Assessed Comments Unknown Sex and Gender Information Value Date Recorded Sex Assigned at Not on file Legal Sex Female 5:20 AM REFERRAL RN Gender Identity Not on file Sexual Orientation Not on file documented as of this encounter Plan of Treatment Not on file documented as of this encounter Procedures Procedure Name Priority Date/Time Associated Diagnosis Comments HEPATIC FUNCTION PANEL Routine 09/24/2006 10:17 AM REFERRAL RN LIPID PANEL Routine 09/24/2006 10:17 AM REFERRAL RN BASIC METABOLIC PANEL Routine 09/24/2006 10:17 AM REFERRAL RN documented in this encounter Results * HEPATIC FUNCTION PANEL (09/24/2006 10:17 AM REFERRAL RN) ALKALINE PHOSPHATASE 97 35 - 104 U/L INTERFACE SYSTEM AST 22 12 - 32 U/L INTERFACE SYSTEM ALT 21 0 - 31 U/L INTERFACE SYSTEM TOTAL PROTEIN 7.6 6.3 - 8.6 g/dL INTERFACE SYSTEM ALBUMIN 4.4 3.4 - 4.8 g/dL INTERFACE SYSTEM BILIRUBIN TOTAL 0.4 0.2 - 1.0 mg/dL INTERFACE SYSTEM BILIRUBIN DIRECT 0.1 0.0 - 0.3 mg/dL INTERFACE SYSTEM 09/24/2006 10:1 7 AM REFERRAL RN Ceci Cox MD CHEMISTRY ORDERABLES Edited Performing Organization Address [facility] de Phone Number INTERFACE SYSTEM Refer to clinic/hospital department * LIPID PANEL (09/24/2006 10:17 AM REFERRAL RN) CHOLESTEROL 173 100 - 199 mg/dL INTERFACE SYSTEM TRIGLYCERIDE 90 10 - 149 mg/dL INTERFACE SYSTEM HDL 53 40 - 59 mg/dL INTERFACE SYSTEM CHOL/HDL RATIO 3.3 2.0 - 5.0 INTER FACE SYSTEM LDL CALCULATED 102 <=99 mg/dL INTERFACE SYSTEM LIPID PANEL COMMENT See Below INTERFACE SYSTEM Comment: The adult ATP and pediatric NCEP classifications for lipids are available on the [facility] Intranet at: [email or web address] hospital medical centerMino Wireless USAet/[employer]/[email or web address] Select: Lab Policies and Procedures Select: Reference Ranges - Lipids 09/24/2006 10:1 7 AM REFERRAL RN Result [facility] Ceci Cox MD CHEMISTRY ORDERABLES Final R esult Performing Organization Address [facility] de Phone Number INTERFACE SYSTEM Refer to clinic/hospital department * BASIC METABOLIC PANEL (09/24/2006 10:17 AM REFERRAL RN) GLUCOSE 86 65 - 99 mg/dL INTERFACE SYSTEM CREATININE 0.74 0.51 - 0.95 mg/dL INTERFACE SYSTEM CALCIUM 9.0 8.4 - 10.2 mg/dL INTERFACE SYSTEM BUN 18 6 - 20 mg/dL INTERFACE SYSTEM SODIUM 140 135 - 145 mmol/L INTERFACE SYSTEM POTASSIUM 4.0 3.5 - 4.9 mmol/L INTERFACE SYSTEM CHLORIDE 103 96 - 108 mmol/L INTERFACE SYSTEM CO2 29 22 - 30 mmol/L INTERFACE SYSTEM GFR, >60 >=60 mL/min/1.7 sq meter INTERFACE SYSTEM GFR >60 >=60 mL/min/1.7 sq meter INTERFACE SYSTEM Comment: Estimated GFR rate interpretative information for both Americans and non- Americans is available on the [facility] Intranet at: [email or web address] medical [email or web address] mary's sacred heart hospitalTre[facility]/unity/[email or web address] Select: Lab Policies and Procedures Select: Reference Ranges - GFR 09/24/2006 10:1 7 AM REFERRAL RN us Ceci Cox MD CHEMISTRY ORDERABLES Edited INTERFACE SYSTEM Refer to clinic/hospital department documented in this encounter Visit Diagnoses Diagnosis Essential hypertension, benign- Primary documented in this encounter Care Teams Stores Despatch Hand Relationship Specialty Start Date End Date Wilber Esquivel DO * PCP - General 03/13/01 documented as of this encounter
--- OUTSIDE RECORDS SUMMARY | 2024-11-09 10:14 | XMS_ITS | Encounter Summary ---
Author Organization [facility] Address 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) Social History Tobacco Use Types Packs/Day Years Used Date Smoking Tobacco: Never Assessed Comments Unknown Sex and Gender Information Value Date Recorded Sex Assigned at Not on file Legal Sex Female 5:20 AM LOOM CHANGER Gender Identity Not on file Sexual Orientation Not on file documented as of this encounter Plan of Treatment Not on file documented as of this encounter Visit Diagnoses Diagnosis Knee joint replacement by other means- Primary documented in this encounter Care Teams Coal Crusher Operator Relationship Specialty Start Date End Date Wilber Esquivel DO * PCP - General 03/13/01 documented as of this encounter
--- OUTSIDE RECORDS SUMMARY | 2024-11-09 10:14 | XMS_ITS | Encounter Summary ---
Author Organization [facility] Address 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
--- OUTSIDE RECORDS SUMMARY | 2024-11-09 10:14 | XMS_ITS | Encounter Summary ---
Author Organization [facility] Address [address] [place] [address] Care Team Providers Care Director Of Epidemiology Name Role Phone Wilber Esquivel DO Primary Care Provider Encounter Details Date Type Department Care Team (Late st Contact Info) Description 12/07/2000 Outpatient [facility] Primary Care - [address] [place] [address] Wilber Esquivel DO * Social History Tobacco Use Types Packs/Day Years Used Date Smoking Tobacco: Never Assessed Comments Unknown Sex and Gender Information Value Date Recorded Sex Assigned at Not on file Legal Sex Female 5:20 AM ORCHARD MANAGER Gender Identity Not on file Sexual Orientation Not on file documented as of this encounter Plan of Treatment Not on file documented as of this encounter Visit Diagnoses Not on filedocumented in this encounter Care Teams Director Of Epidemiology Relationship Specialty Start Date End Date Wilber Esquivel DO * PCP - General 03/13/01 documented as of this encounter
--- OUTSIDE RECORDS SUMMARY | 2024-11-09 10:14 | XMS_ITS | Encounter Summary ---
Author Organization [facility] Address [address] [place] [address] Care Team Providers Care Health Care Liaison Name Role Phone Wliber Esquivel DO Primary Care Provider [phone] Encounter Details Date Type Department Care Team (Latest Contact Info) Description 01/25/2007 Outpatient Historical HIS [facility] Wilber Esquivel DO * Pure Hypercholesterolemia (Primary Dx) Social History Tobacco Use Types Packs/Day Years Used Date Smoking Tobacco: Never Assessed Comments Unknown Sex and Gender Information Value Date Recorded Sex Assigned at Not on file Legal Sex Female 5:20 AM AREA RELIEF PILOT Gender Identity Not on file Sexual Orientation Not on file documented as of this encounter Plan of Treatment Not on file documented as of this encounter Procedures Procedure Name Priority Date/Time Associated Diagnosis Comments CBC WITH DIFFERENTIAL Routine 01/25/2007 2:57 PM CDT CBC WITH DIFFERENTIAL Routine 01/25/2007 2:57 PM CDT VITAMIN B12 LEVEL Routine 01/25/2007 2:5 7 PM CDT HEPATIC FUNCTION PANEL Routine 01/25/2007 2:57 PM CDT LIPID PANEL Routine 01/25/2007 2:57 PM CDT documented in this encounter Results * CBC WITH DIFFERENTIAL (01/25/2007 2:57 PM CDT) NEUTROPHILS 61 45 - 70 % INTERFAC E SYSTEM LYMPHOCYTES 26 16 - 45 % INTERFAC E SYSTEM MONOCYTES 9 3 - 13 % INTERFACE SYSTEM EOSINOPHILS 4 0 - 7 % INTERFAC E SYSTEM BASOPHILS 1 0 - 2 % INTERFACE SYSTEM NEUTROPHIL ABSOLUTE 3.68 1.90 - 7.00 K/uL INTERFACE SYSTEM LYMPHOCYTE ABSOLUTE 1.54 0.70 - 4.50 K/uL INTERFACE SYSTEM MONOCYTE ABSOLUTE 0.53 0.10 - 1.30 K/uL INTERFACE SYSTEM EOSINOPHIL ABSOLUTE 0.23 0.00 - 0.70 K/uL INTERFACE SYSTEM BASOPHILS ABSOLUTE 0.03 0.00 - 0.20 K/uL INTERFACE SYSTEM 01/25/2007 2:57 PM CDT Narrative INTERFACE SYSTEM - 01/25/2007 5:59 PM CDT Ordered by an unspecified provider. Historical Provider HEMATOLOGY ORDERABLES Edited Performing Organization Address City/[facility] Co de Phone Number INTERFACE SYSTEM Refer to clinic/hospital department * CBC WITH DIFFERENTIAL (01/25/2007 2:57 PM CDT) Pathologist [facility] WBC 6.0 4.0 - 9.8 K/uL INTERFACE SYSTEM RBC 4.75 3.90 - 4.90 M/uL INTERFACE SYSTEM HEMOGLOBIN 13.9 11.8 - 14.8 g/dL INTERFACE SYSTEM HEMATOCRIT 41.2 35.5 - 44.0 % INTERFACE SYSTEM MCV 86.7 82.0 - 99.0 fL INTERFACE SYSTEM MCH 29.3 27.2 - 32.6 pg INTERFACE SYSTEM MCHC 33.7 31.5 - 35.5 % INTERFACE SYSTEM RDW 13.7 11.5 - 14.5 % INTERFACE SYSTEM RDW-STDEV 43.3 37.1 - 48.7 fL INTERFACE SYSTEM PLATELETS 347 140 - 350 K/uL INTERFACE SYSTEM MPV 9.9 9.3 - 12.4 fL INTERFACE SYSTEM 01/25/2007 2:57 PM CDT Narrative INTERFACE SYSTEM - 01/25/2007 5:59 PM CDT Ordered by an unspecified provider. Historical Provider HEMATOLOGY ORDERABLES Edited Performing Organization Address [facility] Co de Phone Number INTERFACE SYSTEM Refer to clinic/hospital department * (ABNORMAL) VITAMIN B12 (01/25/2007 2:57 PM CDT) VITAMIN B12 >1800(H) 211 - 946 pg/mL INTERFACE SYSTEM Comment: Note: New reference range effective 2006. It has been reported that between 5 to 10% of patients with values between 200 and 400 pg/mL may experience neuropsychiatric and hematologic abnormalities due to occult B12 deficiency. Less than 1% of patients with values above 400 pg/mL will have symptoms. 01/25/2007 2:57 PM CDT Narrative INTERFACE SYSTEM - 01/25/2007 7:25 PM CDT Ordered by an unspecified provider. Historical Provider CHEMISTRY ORDERABLES Edited Performing Organization Address [facility] de Phone Number INTERFACE SYSTEM Refer to clinic/hospital department * HEPATIC FUNCTION PANEL (01/25/2007 2:57 PM CDT) ALKALINE PHOSPHATASE 97 35 - 104 U/L INTERFACE SYSTEM AST 30 12 - 32 U/L INTERFACE SYSTEM ALT 22 0 - 31 U/L INTERFACE SYSTEM TOTAL PROTEIN 8.0 6.3 - 8.6 g/dL INTERFACE SYSTEM ALBUMIN 4.5 3.4 - 4.8 g/dL INTERFACE SYSTEM BILIRUBIN TOTAL 0.5 0.2 - 1.0 mg/dL INTERFACE SYSTEM BILIRUBIN DIRECT 0.2 0.0 - 0.3 mg/dL INTERFACE SYSTEM 01/25/2007 2:57 PM CDT Narrative INTERFACE SYSTEM - 01/25/2007 6:08 PM CDT Ordered by an unspecified provider. Historical Provider CHEMISTRY ORDERABLES Edited Performing Organization Address [facility] Co de Phone Number INTERFACE SYSTEM Refer to clinic/hospital department * LIPID PANEL (01/25/2007 2:57 PM CDT) CHOLESTEROL 152 100 - 199 mg/dL INTERFACE SYSTEM TRIGLYCERIDE 77 10 - 149 mg/dL INTERFACE SYSTEM HDL 53 40 - 59 mg/dL INTERFACE SYSTEM CHOL/HDL RATIO 2.9 2.0 - 5.0 INTER FACE SYSTEM LDL CALCULATED 84 <=99 mg/dL INTERFACE SYSTEM LIPID PANEL COMMENT See Below INTERFACE SYSTEM Comment: The adult ATP and pediatric NCEP classifications for lipids are available on the [facility] Intranet at: [email or web address] for childrenTamocosoutheast georg[facility] system brunswicket/unity/[email or web address].nsf Select: Lab Policies and Procedures Select: Reference Ranges - Lipids 01/25/2007 2:57 PM CDT Narrative INTERFACE SYSTEM - 01/25/2007 6:08 PM CDT Ordered by an unspecified provider. us Historical Provider CHEMISTRY ORDERABLES Edited INTERFACE SYSTEM Refer to clinic/hospital department documented in this encounter Visit Diagnoses Diagnosis Pure hypercholesterolemia- Primary documented in this encounter Care Teams Health Care Liaison Relationship Specialty Start Date End Date Wilber Esquivel DO * PCP - General 03/13/01 documented as of this encounter
--- OUTSIDE RECORDS SUMMARY | 2024-11-09 10:14 | XMS_ITS | Encounter Summary ---
Author Organization [facility] Address [address] [place] [address] Care Team Providers Care General Pediatrician Name Role Phone Wilber Esquivel DO Primary Care Provider Encounter Details Date Type Department Care Team (Late st Contact Info) Description 10/14/2006 Outpatient [facility] Primary Care - [address] [place] [address] Wilber Esquivel DO * Social History Tobacco Use Types Packs/Day Years Used Date Smoking Tobacco: Never Assessed Comments Unknown Sex and Gender Information Value Date Recorded Sex Assigned at Not on file Legal Sex Female 5:20 AM SKIVER BLOCKERS Gender Identity Not on file Sexual Orientation Not on file documented as of this encounter Plan of Treatment Not on file documented as of this encounter Visit Diagnoses Not on filedocumented in this encounter Care Teams General Pediatrician Relationship Specialty Start Date End Date Wilber Esquivel DO * PCP - General 03/13/01 documented as of this encounter
--- OUTSIDE RECORDS SUMMARY | 2024-11-09 10:14 | XMS_ITS | Encounter Summary ---
Author Organization [facility] Address [address] [place] [address] Care Team Providers Care Work Checker Name Role Phone Wilber Esquivel DO Primary Care Provider [phone] Encounter Details Date Type Department Care Team (Latest Contact Info) Description 01/25/2002 Outpatient Historical [facility] Wilber Esquivel DO * SCREENING MAMM-MAILG NEOPL-OTHER (Primary Dx) Social History Tobacco Use Types Packs/Day Years Used Date Smoking Tobacco: Never Assessed Comments Unknown Sex and Gender Information Value Date Recorded Sex Assigned at Not on file Legal Sex Female 5:20 AM SUPERVISOR SILVERING DEPARTMENT Gender Identity Not on file Sexual Orientation Not on file documented as of this encounter Plan of Treatment Not on file documented as of this encounter Visit Diagnoses Diagnosis Other screening mammogram- Primary documented in this encounter Care Teams Work Checker Relationship Specialty Start Date End Date Wilber Esquivel DO * PCP - General 03/13/01 documented as of this encounter
--- OUTSIDE RECORDS SUMMARY | 2024-11-09 10:14 | XMS_ITS | Encounter Summary ---
Author Organization [facility] Address [address] [place] [address] Care Team Providers Care Motorcoach Operator Name Role Phone Wilber Esquivel DO Primary Care Provider Encounter Details Date Type Department Care Team (Late st Contact Info) Description 12/06/2006 Outpatient [facility] Primary Care - [address] [place] [address] Wilber Esquivel DO * Social History Tobacco Use Types Packs/Day Years Used Date Smoking Tobacco: Never Assessed Comments Unknown Sex and Gender Information Value Date Recorded Sex Assigned at Not on file Legal Sex Female 5:20 AM CASINO FLOOR WALKER Gender Identity Not on file Sexual Orientation Not on file documented as of this encounter Plan of Treatment Not on file documented as of this encounter Visit Diagnoses Not on filedocumented in this encounter Care Teams Motorcoach Operator Relationship Specialty Start Date End Date Wilber Esquivel DO * PCP - General 03/13/01 documented as of this encounter
--- OUTSIDE RECORDS SUMMARY | 2024-11-09 10:14 | XMS_ITS | Clinical Summary ---
Author Organization [facility] Address [address] [place] [address] Care Team Providers Care Interlocking And Signal Mechanic Name Role Phone Unavailable Primary Care Provider Unavailabl e Social History Tobacco Use Types Packs/Day Years Used Date Smoking Tobacco: Never Assessed Comments Unknown Sex and Gender Information Value Date Recorded Sex Assigned at Not on file Legal Sex Female 12:56 PM CDT Gender Identity Not on file Sexual Orientation Not on file Plan of Treatment Health Maintenance Due Date Last Done Comments Hepatitis C 1964 DTaP, Tdap and Td Vaccines ( 1 - Tdap) 1965 Zoster Vaccines (1 of 2) 1996 Dexa Scan (General) 2011 Pneumococcal Vaccine: 65+ Ye ars (1 of 1 - PCV) 2011 RSV Immunization or 60+ Years (1 - 1-dose 75+ series) 2021 COVID-19 Vaccine (2023-2 5 season) 2024 Influenza Adult (#1) 2024 Meningococcal B Vaccine Aged Out No l onger eligible based on patient's age to complete this topic Meningococcal Vaccine Aged Out No baldemar anjelica eligible based on patient's age to complete this topic RSV Immunizations Under 20 Months Aged Out No longer eligible based on patient's age to complete this topic
--- OUTSIDE RECORDS SUMMARY | 2024-11-09 10:14 | XMS_ITS | Encounter Summary ---
Author Organization [facility] Address [address] [place] [address] Care Team Providers Care Cementer Machine Joiner Name Role Phone Wilber Esquivel DO Primary Care Provider Encounter Details Date Type Department Care Team (Late st Contact Info) Description 12/02/1998 Outpatient [facility] Primary Care - [address] [place] [address] Wilber Esquivel DO * Social History Tobacco Use Types Packs/Day Years Used Date Smoking Tobacco: Never Assessed Comments Unknown Sex and Gender Information Value Date Recorded Sex Assigned at Not on file Legal Sex Female 5:20 AM HAND II CUTTER Gender Identity Not on file Sexual Orientation Not on file documented as of this encounter Plan of Treatment Not on file documented as of this encounter Visit Diagnoses Not on filedocumented in this encounter Care Teams Cementer Machine Joiner Relationship Specialty Start Date End Date Wilber Esquivel DO * PCP - General 03/13/01 documented as of this encounter
--- OUTSIDE RECORDS SUMMARY | 2024-11-09 10:14 | XMS_ITS | Encounter Summary ---
Author Organization [facility] Address [address] [place] [address] Care Team Providers Care Grill Attendant Name Role Phone Wilber Esquivel DO Primary Care Provider [phone] Encounter Details Date Type Department Care Team (Late st Contact Info) Description 11/05/1998 Outpatient [facility] Primary Care - [address] [place] [address] Wilber Esquivel DO * Social History Tobacco Use Types Packs/Day Years Used Date Smoking Tobacco: Never Assessed Comments Unknown Sex and Gender Information Value Date Recorded Sex Assigned at Not on file Legal Sex Female 5:20 AM PRIMER ASSEMBLER Gender Identity Not on file Sexual Orientation Not on file documented as of this encounter Plan of Treatment Not on file documented as of this encounter Visit Diagnoses Not on filedocumented in this encounter Care Teams Grill Attendant Relationship Specialty Start Date End Date Wilber Esquivel DO * PCP - General 03/13/01 documented as of this encounter
--- OUTSIDE RECORDS SUMMARY | 2024-11-09 10:14 | XMS_ITS | Encounter Summary ---
Author Organization [facility] Address [address] [place] [address] Care Team Providers Care Certified Surgical Tech/First Assistant Name Role Phone Wilber Esquivel DO Primary Care Provider [phone] Encounter Details Date Type Department Care Team (Late st Contact Info) Description 08/04/2000 Outpatient [facility] Primary Care - [address] [place] [address] Wilber Esquivel DO * Social History Tobacco Use Types Packs/Day Years Used Date Smoking Tobacco: Never Assessed Comments Unknown Sex and Gender Information Value Date Recorded Sex Assigned at Not on file Legal Sex Female 5:20 AM WELDING ESTIMATOR Gender Identity Not on file Sexual Orientation Not on file documented as of this encounter Plan of Treatment Not on file documented as of this encounter Visit Diagnoses Not on filedocumented in this encounter Care Teams Certified Surgical Tech/First Assistant Relationship Specialty Start Date End Date Wilber Esquivel DO * PCP - General 03/13/01 documented as of this encounter
--- OUTSIDE RECORDS SUMMARY | 2024-11-09 10:14 | XMS_ITS | Encounter Summary ---
Author Organization [facility] Address [address] [place] [address] Care Team Providers Care Line Welder Name Role Phone Wilber Esquivel DO Primary Care Provider [phone] Encounter Details Date Type Department Care Team (Late st Contact Info) Description 06/20/2002 Outpatient [facility] Primary Care - [address] [place] [address] Wilber Esquivel DO * Social History Tobacco Use Types Packs/Day Years Used Date Smoking Tobacco: Never Assessed Comments Unknown Sex and Gender Information Value Date Recorded Sex Assigned at Not on file Legal Sex Female 5:20 AM NUTRITION INTERNSHIP Gender Identity Not on file Sexual Orientation Not on file documented as of this encounter Plan of Treatment Not on file documented as of this encounter Visit Diagnoses Not on filedocumented in this encounter Care Teams Line Welder Relationship Specialty Start Date End Date Wilber Esquivel DO * PCP - General 03/13/01 documented as of this encounter
--- OUTSIDE RECORDS SUMMARY | 2024-11-09 10:14 | XMS_ITS | Encounter Summary ---
Author Organization [facility] Address [address] [place] [address] Care Team Providers Care Industrial Hygenist Name Role Phone Wilber Esquivel DO Primary Care Provider Encounter Details Date Type Department Care Team (Late st Contact Info) Description 11/30/1999 Outpatient [facility] Primary Care - [address] [place] [address] Wilber Esquivel DO * Social History Tobacco Use Types Packs/Day Years Used Date Smoking Tobacco: Never Assessed Comments Unknown Sex and Gender Information Value Date Recorded Sex Assigned at Not on file Legal Sex Female 5:20 AM WINDOW SHADE CUTTER AND MOUNTER Gender Identity Not on file Sexual Orientation Not on file documented as of this encounter Plan of Treatment Not on file documented as of this encounter Visit Diagnoses Not on filedocumented in this encounter Care Teams Industrial Hygenist Relationship Specialty Start Date End Date Wilber Esquivel DO * PCP - General 03/13/01 documented as of this encounter
--- OUTSIDE RECORDS SUMMARY | 2024-11-09 10:14 | XMS_ITS | Encounter Summary ---
Author Organization [facility] Address [address] [place] [address] Care Team Providers Care Early Childhood Aide Classroom Name Role Phone Wibler Esquivel DO Primary Care Provider Encounter Details Date Type Department Care Team (Late st Contact Info) Description 05/28/1999 Outpatient Historical [facility] Primary Care - [address] [place] [address] Wilber Esquivel DO * Social History Tobacco Use Types Packs/Day Years Used Date Smoking Tobacco: Never Assessed Comments Unknown Sex and Gender Information Value Date Recorded Sex Assigned at Not on file Legal Sex Female 5:20 AM GIS ANALYST Gender Identity Not on file Sexual Orientation Not on file documented as of this encounter Plan of Treatment Not on file documented as of this encounter Visit Diagnoses Not on filedocumented in this encounter Care Teams Early Childhood Aide Classroom Relationship Specialty Start Date End Date Wilber Esquivel DO * PCP - General 03/13/01 documented as of this encounter
--- OUTSIDE RECORDS SUMMARY | 2024-11-09 10:14 | XMS_ITS | Encounter Summary ---
Author Organization [facility] Address [address] [place] [address] Care Team Providers Care Plastic Welder Name Role Phone Wilber Esquivel DO Primary Care Provider [phone] Encounter Details Date Type Department Care Team (Late st Contact Info) Description 12/31/1999 Outpatient [facility] Primary Care - [address] [place] [address] Wilber Esquivel DO * Social History Tobacco Use Types Packs/Day Years Used Date Smoking Tobacco: Never Assessed Comments Unknown Sex and Gender Information Value Date Recorded Sex Assigned at Not on file Legal Sex Female 5:20 AM MINE SURVEYOR Gender Identity Not on file Sexual Orientation Not on file documented as of this encounter Plan of Treatment Not on file documented as of this encounter Visit Diagnoses Not on filedocumented in this encounter Care Teams Plastic Welder Relationship Specialty Start Date End Date Wilber Esquivel DO * PCP - General 03/13/01 documented as of this encounter
--- OUTSIDE RECORDS SUMMARY | 2024-11-09 10:14 | XMS_ITS | Encounter Summary ---
Author Organization [facility] Address [address] [place] [address] Care Team Providers Care Commercial Appraiser Name Role Phone Wilber Esquivel DO Primary Care Provider Encounter Details Date Type Department Care Team (Late st Contact Info) Description 12/21/2006 Outpatient [facility] Primary Care - [address] [place] [address] Wilber Esquivel DO * Social History Tobacco Use Types Packs/Day Years Used Date Smoking Tobacco: Never Assessed Comments Unknown Sex and Gender Information Value Date Recorded Sex Assigned at Not on file Legal Sex Female 5:20 AM SLATE MIXER Gender Identity Not on file Sexual Orientation Not on file documented as of this encounter Plan of Treatment Not on file documented as of this encounter Visit Diagnoses Not on filedocumented in this encounter Care Teams Commercial Appraiser Relationship Specialty Start Date End Date Wilber Esquivel DO * PCP - General 03/13/01 documented as of this encounter
--- OUTSIDE RECORDS SUMMARY | 2024-11-09 10:14 | XMS_ITS | Encounter Summary ---
Author Organization [facility] Address [address] [place] [address] Care Team Providers Care Machine Set Up Operator Paper Goods Name Role Phone Wilber Esquivel DO Primary Care Provider Encounter Details Date Type Department Care Team (Late st Contact Info) Description 06/06/2002 Outpatient [facility] Primary Care - [address] [place] [address] Wilber Esquivel DO * Social History Tobacco Use Types Packs/Day Years Used Date Smoking Tobacco: Never Assessed Comments Unknown Sex and Gender Information Value Date Recorded Sex Assigned at Not on file Legal Sex Female 5:20 AM DIRECTOR OF PUPIL PERSONNEL PROGRAM Gender Identity Not on file Sexual Orientation Not on file documented as of this encounter Plan of Treatment Not on file documented as of this encounter Visit Diagnoses Not on filedocumented in this encounter Care Teams Machine Set Up Operator Paper Goods Relationship Specialty Start Date End Date Wilber Esquivel DO * PCP - General 03/13/01 documented as of this encounter
--- OUTSIDE RECORDS SUMMARY | 2024-11-09 10:14 | XMS_ITS | Encounter Summary ---
Author Organization [facility] Address [address] [place] [address] Care Team Providers Care Director Of Assisted Living Name Role Phone Wilber Esquivel DO Primary Care Provider [phone] Encounter Details Date Type Department Care Team (Late st Contact Info) Description 01/25/2007 Outpatient [facility] Primary Care - [address] [place] [address] Wilber Esquivel DO * Social History Tobacco Use Types Packs/Day Years Used Date Smoking Tobacco: Never Assessed Comments Unknown Sex and Gender Information Value Date Recorded Sex Assigned at Not on file Legal Sex Female 5:20 AM SIGNAL INTEGRITY ENGINEER Gender Identity Not on file Sexual Orientation Not on file documented as of this encounter Plan of Treatment Not on file documented as of this encounter Visit Diagnoses Not on filedocumented in this encounter Care Teams Director Of Assisted Living Relationship Specialty Start Date End Date Wilber Esquivel DO * PCP - General 03/13/01 documented as of this encounter
--- OUTSIDE RECORDS SUMMARY | 2024-11-09 10:15 | XMS_ITS | Encounter Summary ---
Author Organization [facility] Address [address] [place] [address] Care Team Providers Care Lead Web Application Developer Name Role Phone Wilber Esquivel DO Primary Care Provider [phone] Encounter Details Date Type Department Care Team (Late st Contact Info) Description 02/04/2004 Outpatient [facility] Primary Care - [address] [place] [address] Wilber Esquivel DO * Social History Tobacco Use Types Packs/Day Years Used Date Smoking Tobacco: Never Assessed Comments Unknown Sex and Gender Information Value Date Recorded Sex Assigned at Not on file Legal Sex Female 5:20 AM EXTENSION COURSE COORDINATOR Gender Identity Not on file Sexual Orientation Not on file documented as of this encounter Plan of Treatment Not on file documented as of this encounter Visit Diagnoses Not on filedocumented in this encounter Care Teams Lead Web Application Developer Relationship Specialty Start Date End Date Wilber Esquivel DO * PCP - General 03/13/01 documented as of this encounter
--- OUTSIDE RECORDS SUMMARY | 2024-11-09 10:15 | XMS_ITS | Encounter Summary ---
Author Organization [facility] Address [address] [place] [address] Care Team Providers Care Wet Roaster Name Role Phone Wilber Esquivel DO Primary Care Provider Encounter Details Date Type Department Care Team (Late st Contact Info) Description 10/11/[address] [facility] Primary Care - [address] [place] [address] Wilber Esquivel DO * Social History Tobacco Use Types Packs/Day Years Used Date Smoking Tobacco: Never Assessed Comments Unknown Sex and Gender Information Value Date Recorded Sex Assigned at Not on file Legal Sex Female 5:20 AM PASSENGER SCREENER Gender Identity Not on file Sexual Orientation Not on file documented as of this encounter Plan of Treatment Not on file documented as of this encounter Visit Diagnoses Not on filedocumented in this encounter Care Teams Wet Roaster Relationship Specialty Start Date End Date Wilber Esquivel DO * PCP - General 03/13/01 documented as of this encounter
--- OUTSIDE RECORDS SUMMARY | 2024-11-09 10:15 | XMS_ITS | Encounter Summary ---
Author Organization [facility] Address [address] [place] [address] Care Team Providers Care Aluminum Molding Machine Operator Name Role Phone Wilber Esquivel DO Primary Care Provider Encounter Details Date Type Department Care Team (Late st Contact Info) Description 12/03/2004 Outpatient [facility] Primary Care - [address] [place] [address] Wilber Esquivel DO * Social History Tobacco Use Types Packs/Day Years Used Date Smoking Tobacco: Never Assessed Comments Unknown Sex and Gender Information Value Date Recorded Sex Assigned at Not on file Legal Sex Female 5:20 AM MEMS PROCESS ENGINEER Gender Identity Not on file Sexual Orientation Not on file documented as of this encounter Plan of Treatment Not on file documented as of this encounter Visit Diagnoses Not on filedocumented in this encounter Care Teams Aluminum Molding Machine Operator Relationship Specialty Start Date End Date Wilber Esquivel DO * PCP - General 03/13/01 documented as of this encounter
--- OUTSIDE RECORDS SUMMARY | 2024-11-09 10:15 | XMS_ITS | Encounter Summary ---
Author Organization [facility] Address [address] [place] [address] Care Team Providers Care Ticket Clerk Name Role Phone Wilber Esquivel DO Primary Care Provider [phone] Encounter Details Date Type Department Care Team (Latest Contact Info) Description 04/06/2005 Outpatient Historical [facility] Wilber Esquivel DO * OSTEOARTHROS NOS-L/LEG (Primary Dx) Social History Tobacco Use Types Packs/Day Years Used Date Smoking Tobacco: Never Assessed Comments Unknown Sex and Gender Information Value Date Recorded Sex Assigned at Not on file Legal Sex Female 5:20 AM SUPERVISOR KOSHER DIETARY SERVICE Gender Identity Not on file Sexual Orientation Not on file documented as of this encounter Plan of Treatment Not on file documented as of this encounter Visit Diagnoses Diagnosis Osteoarthrosis, unspecified whether generalized or localized, lower leg- Primary documented in this encounter Care Teams Ticket Clerk Relationship Specialty Start Date End Date Wilber Esquivel DO * PCP - General 03/13/01 documented as of this encounter
--- OUTSIDE RECORDS SUMMARY | 2024-11-09 10:15 | XMS_ITS | Encounter Summary ---
Author Organization [facility] Address [address] [place] [address] Care Team Providers Care Middle School Coach Name Role Phone Wilber Esquivel DO Primary Care Provider Encounter Details Date Type Department Care Team (Late st Contact Info) Description 07/21/2004 Outpatient [facility] Primary Care - [address] [place] [address] Wilber Esquivel DO * Social History Tobacco Use Types Packs/Day Years Used Date Smoking Tobacco: Never Assessed Comments Unknown Sex and Gender Information Value Date Recorded Sex Assigned at Not on file Legal Sex Female 5:20 AM LEARNING SUPPORT SERVICES DIRECTOR Gender Identity Not on file Sexual Orientation Not on file documented as of this encounter Plan of Treatment Not on file documented as of this encounter Visit Diagnoses Not on filedocumented in this encounter Care Teams Middle School Coach Relationship Specialty Start Date End Date Wilber Esquivel DO * PCP - General 03/13/01 documented as of this encounter
--- OUTSIDE RECORDS SUMMARY | 2024-11-09 10:15 | XMS_ITS | Encounter Summary ---
Author Organization [facility] Address [address] [place] [address] Care Team Providers Care Powerbuilder Name Role Phone Wilber Esquivel DO Primary Care Provider [phone] Encounter Details Date Type Department Care Team (Late st Contact Info) Description 03/11/2005 Outpatient [facility] Primary Care - [address] [place] [address] Wilber Esquivel DO * Social History Tobacco Use Types Packs/Day Years Used Date Smoking Tobacco: Never Assessed Comments Unknown Sex and Gender Information Value Date Recorded Sex Assigned at Not on file Legal Sex Female 5:20 AM WAFER FAB OPERATOR Gender Identity Not on file Sexual Orientation Not on file documented as of this encounter Plan of Treatment Not on file documented as of this encounter Visit Diagnoses Not on filedocumented in this encounter Care Teams Powerbuilder Relationship Specialty Start Date End Date Wilber Esquivel DO * PCP - General 03/13/01 documented as of this encounter
--- OUTSIDE RECORDS SUMMARY | 2024-11-09 10:15 | XMS_ITS | Encounter Summary ---
Author Organization [facility] Address [address] [place] [address] Care Team Providers Care Mowing Machine Operator Name Role Phone Wilber Esquivel DO Primary Care Provider [phone] Encounter Details Date Type Department Care Team (Latest Contact Info) Description 10/11/2006 Outpatient Historical HIS [facility] Wilber Esquivel DO * Pure Hypercholesterolemia (Primary Dx) Social History Tobacco Use Types Packs/Day Years Used Date Smoking Tobacco: Never Assessed Comments Unknown Sex and Gender Information Value Date Recorded Sex Assigned at Not on file Legal Sex Female 5:20 AM FACULTY RESEARCH ASSISTANT Gender Identity Not on file Sexual Orientation Not on file documented as of this encounter Plan of Treatment Not on file documented as of this encounter Procedures Procedure Name Priority Date/Time Associated Diagnosis Comments HEMOGLOBIN A1C Routine 10/11/2006 10:24 AM FACULTY RESEARCH ASSISTANT FOLATE RBC AND HEMATOCRIT Routine 10/11/2006 10:24 AM FACULTY RESEARCH ASSISTANT VITAMIN B12 LEVEL Routine 10/11/2006 10: 24 AM FACULTY RESEARCH ASSISTANT documented in this encounter Results * HEMOGLOBIN A1C (10/11/2006 10:24 AM FACULTY RESEARCH ASSISTANT) HEMOGLOBIN A1C 5.8 4.1 - 6.1 % of Hgb INTERFACE SYSTEM GLUCOSE, MEAN BLOOD 129 mg/dL INTERFACE SYSTEM 10/11/2006 10:2 4 AM FACULTY RESEARCH ASSISTANT Narrative INTERFACE SYSTEM - 10/11/2006 7:41 PM FACULTY RESEARCH ASSISTANT Ordered by an unspecified provider. [facility] Provider CHEMISTRY ORDERABLES Edited Performing Organization Address [facility] Phone Number INTERFACE SYSTEM Refer to clinic/hospital department * FOLATE RBC AND HEMATOCRIT (10/11/2006 10:24 AM FACULTY RESEARCH ASSISTANT) HEMATOCRIT, FOLATE 43.7 35.5 - 44.0 % INTERFACE SYSTEM RBC FOLATE 1036 >=533 ng/mL INTERFACE SYSTEM Comment: RBC Folate Interpretation: Deficient <110 ng/mL 10/11/2006 10:2 4 AM FACULTY RESEARCH ASSISTANT Narrative INTERFACE SYSTEM - 10/11/2006 3:06 PM FACULTY RESEARCH ASSISTANT Ordered by an unspecified provider. [facility] Provider CHEMISTRY ORDERABLES Edited Performing Organization Address [facility] Phone Number INTERFACE SYSTEM Refer to clinic/hospital department * VITAMIN B12 (10/11/2006 10:24 AM FACULTY RESEARCH ASSISTANT) VITAMIN B12 294 243 - 894 pg/mL INTERFACE SYSTEM Comment: It has been reported that between 5 to 10% of patients with values between 200 and 400 pg/mL may experience neuropsychiatric and hematologic abnormalities due to occult B12 deficiency. Less than 1% of patients with values above 400 pg/mL will have symptoms. 10/11/2006 10:2 4 AM FACULTY RESEARCH ASSISTANT Narrative INTERFACE SYSTEM - 10/11/2006 2:16 PM FACULTY RESEARCH ASSISTANT Ordered by an unspecified provider. [facility] Provider CHEMISTRY ORDERABLES Edited Performing Organization Address [facility] Phone Number INTERFACE SYSTEM Refer to clinic/hospital department documented in this encounter Visit Diagnoses Diagnosis Pure hypercholesterolemia- Primary documented in this encounter Care Teams Mowing Machine Operator Relationship Specialty Start Date End Date Wilber Esquivel DO * PCP - General 03/13/01 documented as of this encounter
--- OUTSIDE RECORDS SUMMARY | 2024-11-09 10:15 | XMS_ITS | Encounter Summary ---
Author Organization [facility] Address [address] [place] [address] Care Team Providers Care Silver Steward Name Role Phone Wilber Esquivel DO Primary Care Provider [phone] Encounter Details Date Type Department Care Team (Latest Contact Info) Description 03/18/2004 Outpatient Historical HIS [facility] Wilber Esquivel DO * SCREENING MAMM-MAILG NEOPL-OTHER (Primary Dx) Social History Tobacco Use Types Packs/Day Years Used Date Smoking Tobacco: Never Assessed Comments Unknown Sex and Gender Information Value Date Recorded Sex Assigned at Not on file Legal Sex Female 5:20 AM MANUFACTURED BUILDINGS REPAIRER Gender Identity Not on file Sexual Orientation Not on file documented as of this encounter Plan of Treatment Not on file documented as of this encounter Visit Diagnoses Diagnosis Other screening mammogram- Primary documented in this encounter Care Teams Silver Steward Relationship Specialty Start Date End Date Wilber Esquivel DO * PCP - General 03/13/01 documented as of this encounter
--- OUTSIDE RECORDS SUMMARY | 2024-11-09 10:15 | XMS_ITS | Encounter Summary ---
Author Organization [facility] Address [address] [place] [address] Care Team Providers Care Terrazzo Roller Name Role Phone Wilber Esquivel DO Primary Care Provider [phone] Encounter Details Date Type Department Care Team (Late st Contact Info) Description 01/06/2004 Outpatient [facility] Primary Care - [address] [place] [address] Wilber Esquivel DO * Social History Tobacco Use Types Packs/Day Years Used Date Smoking Tobacco: Never Assessed Comments Unknown Sex and Gender Information Value Date Recorded Sex Assigned at Not on file Legal Sex Female 5:20 AM COUNTER HELPER Gender Identity Not on file Sexual Orientation Not on file documented as of this encounter Plan of Treatment Not on file documented as of this encounter Visit Diagnoses Not on filedocumented in this encounter Care Teams Terrazzo Roller Relationship Specialty Start Date End Date Wilber Esquivel DO * PCP - General 03/13/01 documented as of this encounter
--- OUTSIDE RECORDS SUMMARY | 2024-11-09 10:15 | XMS_ITS | Encounter Summary ---
Author Organization [facility] Address [address] [place] [address] Care Team Providers Care Airport Operations Supervisor Name Role Phone Wilber Esquivel DO Primary Care Provider Encounter Details Date Type Department Care Team (Late st Contact Info) Description 03/18/2005 Outpatient [facility] Primary Care - [address] [place] [address] Wilber Esquivel DO * Social History Tobacco Use Types Packs/Day Years Used Date Smoking Tobacco: Never Assessed Comments Unknown Sex and Gender Information Value Date Recorded Sex Assigned at Not on file Legal Sex Female 5:20 AM HOGSHEAD WEIGHER Gender Identity Not on file Sexual Orientation Not on file documented as of this encounter Plan of Treatment Not on file documented as of this encounter Visit Diagnoses Not on filedocumented in this encounter Care Teams Airport Operations Supervisor Relationship Specialty Start Date End Date Wilber Esquivel DO * PCP - General 03/13/01 documented as of this encounter
--- OUTSIDE RECORDS SUMMARY | 2024-11-09 10:15 | XMS_ITS | Encounter Summary ---
Author Organization [facility] Address [address] [place] [address] Care Team Providers Care Employee Relations Administrator Name Role Phone Wilber Esquivel DO Primary Care Provider Encounter Details Date Type Department Care Team (Late st Contact Info) Description 09/08/2005 Outpatient [facility] Primary Care - [address] [place] [address] Wilber Esquivel DO * Social History Tobacco Use Types Packs/Day Years Used Date Smoking Tobacco: Never Assessed Comments Unknown Sex and Gender Information Value Date Recorded Sex Assigned at Not on file Legal Sex Female 5:20 AM LAMINATED PLASTICS ASSEMBLER AND GLUER Gender Identity Not on file Sexual Orientation Not on file documented as of this encounter Plan of Treatment Not on file documented as of this encounter Visit Diagnoses Not on filedocumented in this encounter Care Teams Employee Relations Administrator Relationship Specialty Start Date End Date Wilber Esquivel DO * PCP - General 03/13/01 documented as of this encounter
--- OUTSIDE RECORDS SUMMARY | 2024-11-09 10:15 | XMS_ITS | Encounter Summary ---
Author Organization [facility] Address [address] [place] [address] Care Team Providers Care Counselor At Law Name Role Phone Wilber Esquivel DO Primary Care Provider [phone] Encounter Details Date Type Department Care Team (Late st Contact Info) Description 06/03/2005 Outpatient [facility] Primary Care - [address] [place] [address] Wilber Esquivel DO * Social History Tobacco Use Types Packs/Day Years Used Date Smoking Tobacco: Never Assessed Comments Unknown Sex and Gender Information Value Date Recorded Sex Assigned at Not on file Legal Sex Female 5:20 AM RECLAMATION ENGINEER Gender Identity Not on file Sexual Orientation Not on file documented as of this encounter Plan of Treatment Not on file documented as of this encounter Visit Diagnoses Not on filedocumented in this encounter Care Teams Counselor At Law Relationship Specialty Start Date End Date Wilber Esquivel DO * PCP - General 03/13/01 documented as of this encounter
--- OUTSIDE RECORDS SUMMARY | 2024-11-09 10:15 | XMS_ITS | Encounter Summary ---
Author Organization [facility] Address 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
--- OUTSIDE RECORDS SUMMARY | 2024-11-09 10:15 | XMS_ITS | Encounter Summary ---
Author Organization [facility] Address [address] [place] [address] Care Team Providers Care Hotel Dining Room Cashier Name Role Phone Wilber Esquivel DO Primary Care Provider [phone] Encounter Details Date Type Department Care Team (Latest Contact Info) Description 03/18/2005 Outpatient Historical HIS 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
--- OUTSIDE RECORDS SUMMARY | 2024-11-09 10:15 | XMS_ITS | Encounter Summary ---
Author Organization [facility] Address [address] [place] [address] Care Team Providers Care Learning And Development Manager Name Role Phone Wilber Esquivel DO Primary Care Provider [phone] Encounter Details Date Type Department Care Team (Late st Contact Info) Description 09/24/2006 Outpatient [facility] [address] Primary Care - [address] [place] [address] Ceci Cox MD NO ADDRESS ON FILE Social History Tobacco Use Types Packs/Day Years Used Date Smoking Tobacco: Never Assessed Comments Unknown Sex and Gender Information Value Date Recorded Sex Assigned at Not on file 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
--- OUTSIDE RECORDS SUMMARY | 2024-11-09 10:15 | XMS_ITS | Encounter Summary ---
Author Organization [facility] Address 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
--- OUTSIDE RECORDS SUMMARY | 2024-11-09 10:15 | XMS_ITS | Encounter Summary ---
Author Organization [facility] Address 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
--- OUTSIDE RECORDS SUMMARY | 2024-11-09 10:15 | XMS_ITS | Encounter Summary ---
Author Organization [facility] Address 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
--- OUTSIDE RECORDS SUMMARY | 2024-11-09 10:15 | XMS_ITS | Encounter Summary ---
Author Organization [facility] Address 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
--- OUTSIDE RECORDS SUMMARY | 2024-11-09 10:15 | XMS_ITS | Encounter Summary ---
Author Organization [facility] Address 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 Gender Identity Not on file Sexual Orientation Not on file documented as of this encounter Plan of Treatment Not on file documented as of this encounter Procedures Procedure Name Priority Date/Time Associated Diagnosis Comments T4 TOTAL Routine 05/16/2006 11:15 AM CDT CBC WITH DIFFERENTIAL Routine 05/16/2006 11:13 AM CDT CBC WITH DIFFERENTIAL Routine 05/16/2006 11:13 AM CDT URINALYSIS W/REFLEX MICROSCOPIC Routine 05/16/2006 11:13 AM CDT TSH Routine 05/16/2006 11:13 AM CDT HEPATIC FUNCTION PANEL Routine 05/16/2006 11:13 AM CDT LIPID PANEL Routine 05/16/2006 11:13 AM CDT BASIC METABOLIC PANEL Routine 05/16/2006 11:13 AM CDT documented in this encounter Results * T4 TOTAL (05/16/2006 11:15 AM CDT) T4 TOTAL 5.8 4.5 - 12.5 ug/dL INTERFACE SYSTEM Comment: [facility] [id number] [place] [address] ALICIA GALAN MD 05/16/2006 11:1 5 AM CDT us Historical Provider CHEMISTRY ORDERABLES Final R esult Performing Organization Address [facility] Phone Number INTERFACE SYSTEM Refer to clinic/hospital department * (ABNORMAL) URINALYSIS (05/16/2006 11:13 AM CDT) COLOR UA Yellow INTERFACE SYSTEM CLARITY UA Slt. Cloudy(A) Clear INTERFACE SYSTEM SPECIFIC GRAVITY UA 1.020 1.001 - 1.035 INTERFACE SYSTEM PH UA 5.5 5.0 - 8.0 INTERFACE SYSTEM LEUKOCYTE ESTERASE UA Trace(A) Negative INTERFACE SYSTEM NITRITE UA Negative Negative INTERFACE SYSTEM PROTEIN UA Trace(A) Negative INTERFACE SYSTEM GLUCOSE UA Negative Negative INTERFACE SYSTEM KETONES UA Negative Negative INTERFACE SYSTEM UROBILINOGEN UA <1 <=1 mg/dL INTE RFACE SYSTEM BILIRUBIN UA Negative Negative INTERFA CE SYSTEM BLOOD UA 1+(A) Negative INTERFACE SYSTEM WBC UA <1 0 - 5 /HPF INTERFACE SYSTEM RBC UA 8(H) 0 - 4 /HPF INTERFACE SYSTEM EPITHELIAL CELLS, URINE 5-10 /HPF INTERFACE SYSTEM 05/16/2006 11:1 3 AM CDT us Historical Provider URINE ORDERABLES Final Resul t Performing Organization Address [facility] Phone Number INTERFACE SYSTEM Refer to clinic/hospital department * (ABNORMAL) CBC WITH DIFFERENTIAL (05/16/2006 11:13 AM CDT) NEUTROPHILS 49 45 - 70 % INTERFAC E SYSTEM LYMPHOCYTES 18 16 - 45 % INTERFAC E SYSTEM MONOCYTES 7 3 - 13 % INTERFACE SYSTEM EOSINOPHILS 25(H) 0 - 7 % INTERFAC E SYSTEM BASOPHILS 1 0 - 2 % INTERFACE SYSTEM NEUTROPHIL ABSOLUTE 4.63 1.90 - 7.00 K/uL INTERFACE SYSTEM LYMPHOCYTE ABSOLUTE 1.72 0.70 - 4.50 K/uL INTERFACE SYSTEM MONOCYTE ABSOLUTE 0.63 0.10 - 1.30 K/uL INTERFACE SYSTEM EOSINOPHIL ABSOLUTE 2.35(H) 0.00 - 0.70 K/uL INTERFACE SYSTEM BASOPHILS ABSOLUTE 0.10 0.00 - 0.20 K/uL INTERFACE SYSTEM 05/16/2006 11:1 3 AM CDT us Historical Provider HEMATOLOGY ORDERABLES Final Result INTERFACE SYSTEM Refer to clinic/hospital department * (ABNORMAL) CBC WITH DIFFERENTIAL (05/16/2006 11:13 AM CDT) WBC 9.4 4.0 - 9.8 K/uL INTERFACE SYSTEM RBC 4.51 3.90 - 4.90 M/uL INTERFACE SYSTEM HEMOGLOBIN 13.6 11.8 - 14.8 g/dL INTERFACE SYSTEM HEMATOCRIT 40.0 35.5 - 44.0 % INTERFACE SYSTEM MCV 88.7 82.0 - 99.0 fL INTERFACE SYSTEM MCH 30.2 27.2 - 32.6 pg INTERFACE SYSTEM MCHC 34.0 31.5 - 35.5 % INTERFACE SYSTEM RDW 13.5 11.5 - 14.5 % INTERFACE SYSTEM RDW-STDEV 44.0 37.1 - 48.7 fL INTERFACE SYSTEM PLATELETS 385(H) 140 - 350 K/uL INTERFACE SYSTEM Comment:WBC and Platelets ve rified by smear review. MPV 10.0 9.3 - 12.4 fL INTERFACE SYSTEM 05/16/2006 11:1 3 AM CDT us Historical Provider HEMATOLOGY ORDERABLES Final Result INTERFACE SYSTEM Refer to clinic/hospital department * TSH (05/16/2006 11:13 AM CDT) TSH 2.50 0.27 - 4.20 uU/mL INTERFACE SYSTEM 05/16/2006 11:1 3 AM CDT Historical Provider CHEMISTRY ORDERABLES Final R esult Performing Organization Address [facility] de Phone Number INTERFACE SYSTEM Refer to clinic/hospital department * (ABNORMAL) HEPATIC FUNCTION PANEL (05/16/2006 11:13 AM CDT) ALKALINE PHOSPHATASE 106(H) 35 - 104 U/L INTERFACE SYSTEM AST 26 12 - 32 U/L INTERFACE SYSTEM ALT 24 0 - 31 U/L INTERFACE SYSTEM TOTAL PROTEIN 7.6 6.3 - 8.6 g/dL INTERFACE SYSTEM ALBUMIN 4.4 3.4 - 4.8 g/dL INTERFACE SYSTEM BILIRUBIN TOTAL 0.4 0.2 - 1.0 mg/dL INTERFACE SYSTEM BILIRUBIN DIRECT 0.1 0.0 - 0.3 mg/dL INTERFACE SYSTEM 05/16/2006 11:1 3 AM CDT Historical Provider CHEMISTRY ORDERABLES Final R [facility] Performing Organization Address [facility] Phone Number INTERFACE SYSTEM Refer to clinic/hospital department * LIPID PANEL (05/16/2006 11:13 AM CDT) CHOLESTEROL 147 100 - 199 mg/dL INTERFACE SYSTEM TRIGLYCERIDE 83 10 - 149 mg/dL INTERFACE SYSTEM HDL 56 40 - 59 mg/dL INTERFACE SYSTEM CHOL/HDL RATIO 2.6 2.0 - 5.0 INTER FACE SYSTEM LDL CALCULATED 74 <=99 mg/dL INTERFACE SYSTEM LIPID PANEL COMMENT See Below INTERFACE SYSTEM Comment: The adult ATP and pediatric NCEP classifications for lipids are available on the [facility] Intranet at: [email or web address] Select: Lab Policies and Procedures Select: Reference Ranges - Lipids 05/16/2006 11:1 3 AM CDT Historical Provider CHEMISTRY ORDERABLES Final R esult Performing Organization Address [facility] Co de Phone Number INTERFACE SYSTEM Refer to clinic/hospital department * BASIC METABOLIC PANEL (05/16/2006 11:13 AM CDT) GLUCOSE 76 65 - 99 mg/dL INTERFACE SYSTEM CREATININE 0.9 0.4 - 1.2 mg/dL INTERFACE SYSTEM CALCIUM 9.0 8.4 - 10.2 mg/dL INTERFACE SYSTEM BUN 15 6 - 20 mg/dL INTERFACE SYSTEM SODIUM 142 135 - 145 mmol/L INTERFACE SYSTEM POTASSIUM 4.3 3.5 - 4.9 mmol/L INTERFACE SYSTEM CHLORIDE 106 96 - 108 mmol/L INTERFACE SYSTEM CO2 28 22 - 30 mmol/L INTERFACE SYSTEM 05/16/2006 11:1 3 AM CDT us Historical Provider CHEMISTRY ORDERABLES Final R esult INTERFACE SYSTEM Refer to clinic/hospital department documented in this encounter Visit Diagnoses Diagnosis Pure hypercholesterolemia- Primary documented in this encounter Care Teams Assistant Director Of Public Works Relationship Specialty Start Date End Date Wilber Esquivel DO * PCP - General 03/13/01 documented as of this encounter
--- OUTSIDE RECORDS SUMMARY | 2024-11-09 10:15 | XMS_ITS | Encounter Summary ---
Author Organization [facility] Address 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
--- OUTSIDE RECORDS SUMMARY | 2024-11-09 10:15 | XMS_ITS | Encounter Summary ---
Author Organization [facility] Address 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
--- OUTSIDE RECORDS SUMMARY | 2024-11-09 10:15 | XMS_ITS | Encounter Summary ---
Author Organization [facility] Address 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
--- OUTSIDE RECORDS SUMMARY | 2024-11-09 10:15 | XMS_ITS | Encounter Summary ---
Author Organization [facility] Address 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
--- OUTSIDE RECORDS SUMMARY | 2024-11-09 10:15 | XMS_ITS | Encounter Summary ---
Author Organization [facility] Address 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
--- OUTSIDE RECORDS SUMMARY | 2024-11-09 10:15 | XMS_ITS | Encounter Summary ---
Author Organization [facility] Address [address] [place] [address] Care Team Providers Care Commodity Broker Name Role Phone Wilber Esquivel DO Primary Care Provider Encounter Details Date Type Department Care Team (Late st Contact Info) Description 01/13/2004 Outpatient [facility] Primary Care - [address] [place] [address] Wilber Esquivel DO * Social History Tobacco Use Types Packs/Day Years Used Date Smoking Tobacco: Never Assessed Comments Unknown Sex and Gender Information Value Date Recorded Sex Assigned at Not on file Legal Sex Female 5:20 AM COOKEE Gender Identity Not on file Sexual Orientation Not on file documented as of this encounter Plan of Treatment Not on file documented as of this encounter Visit Diagnoses Not on filedocumented in this encounter Care Teams Commodity Broker Relationship Specialty Start Date End Date Wilber Esquivel DO * PCP - General 03/13/01 documented as of this encounter
--- OUTSIDE RECORDS SUMMARY | 2024-11-09 10:15 | XMS_ITS | Encounter Summary ---
Author Organization [facility] Address 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
--- OUTSIDE RECORDS SUMMARY | 2024-11-09 10:15 | XMS_ITS | Encounter Summary ---
Author Organization [facility] Address 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
--- OUTSIDE RECORDS SUMMARY | 2024-11-09 10:15 | XMS_ITS | Encounter Summary ---
Author Organization [facility] Address 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
--- OUTSIDE RECORDS SUMMARY | 2024-11-09 10:15 | XMS_ITS | Encounter Summary ---
Author Organization [facility] Address [address] [place] [address] Care Team Providers Care Elementary School Teacher'S Aide Name Role Phone Wilber Esquivel DO Primary Care Provider Encounter Details Date Type Department Care Team (Late st Contact Info) Description 09/28/2004 Outpatient [facility] Primary Care - [address] [place] [address] Wilber Esquivel DO * Social History Tobacco Use Types Packs/Day Years Used Date Smoking Tobacco: Never Assessed Comments Unknown Sex and Gender Information Value Date Recorded Sex Assigned at Not on file Legal Sex Female 5:20 AM CHEF DE CUISINE Gender Identity Not on file Sexual Orientation Not on file documented as of this encounter Plan of Treatment Not on file documented as of this encounter Visit Diagnoses Not on filedocumented in this encounter Care Teams Elementary School Teacher'S Aide Relationship Specialty Start Date End Date Wilber Esquivel DO * PCP - General 03/13/01 documented as of this encounter
[2024-11-09 13:55] LABS: Alanine Aminotransferase 18 U/L (6-35); Albumin Level 4.3 g/dL (3.5-5.1); Alkaline Phosphatase 101 U/L (38-126); Aspartate Amino Transferase 49 U/L (14-36); Bilirubin,Total 0.8 mg/dL (0.2-1.3)
[2024-11-09 14:41] LABS: Hepatitis B Surface Antigen Negative (Negative)
[2024-11-09 14:47] LABS: HAV RESULT Negative (Negative); Hepatitis B Core IgM Result Negative (Negative)
[2024-11-09 14:58] LABS: Hepatitis C Virus Antibody Negative (Negative)
[2024-11-10 06:33] LABS: GGT 21 U/L (3-65)
== END 2024-11-09 09:16 | disposition home or self-care (01) ==
LOC: ANHGOSHLAB 09:16
PROVIDERS: PCP Family Medicine; Visit Provider Physician Assistant Medical
DX: R74.01 Elevation of levels of liver transaminase levels (principal); R79.89 Other specified abnormal findings of blood chemistry
CPT/HCPCS: 36415; 80074; 80076; 82977

== ENCOUNTER 2025-02-01 08:36 | Outpatient (CLI) | payer MEDICARE, OTHER, SELFPAY ==
--- OUTSIDE RECORDS SUMMARY | 2025-02-01 08:41 | XMS_ITS | Encounter Summary ---
Author Organization [facility] Address 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
--- OUTSIDE RECORDS SUMMARY | 2025-02-01 08:41 | XMS_ITS | Encounter Summary ---
Author Organization [facility] Address 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
--- OUTSIDE RECORDS SUMMARY | 2025-02-01 08:41 | XMS_ITS | Encounter Summary ---
Author Organization [facility] Address 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
--- OUTSIDE RECORDS SUMMARY | 2025-02-01 08:41 | XMS_ITS | Encounter Summary ---
Author Organization [facility] Address 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
--- OUTSIDE RECORDS SUMMARY | 2025-02-01 08:41 | XMS_ITS | Encounter Summary ---
Author Organization [facility] Address 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
--- OUTSIDE RECORDS SUMMARY | 2025-02-01 08:41 | XMS_ITS | Encounter Summary ---
Author Organization [facility] Address [address] [place] [address] Care Team Providers Care Dressmaking Teacher Name Role Phone Wilber Esquivel DO Primary Care Provider [phone] Encounter Details Date Type Department Care Team (Late st Contact Info) Description 05/17/2006 Outpatient Historical [facility] Silvano Jones MD [address] [place] [address] [place] [address] Benign Neoplasm of Colon (Primary Dx) Social History Tobacco Use Types Packs/Day Years Used Date Smoking Tobacco: Never Assessed Comments Unknown Sex and Gender Information Value Date Recorded Sex Assigned at Not on file Legal Sex Female 5:20 AM MAMMAL CONTROL AGENT Gender Identity Not on file Sexual Orientation Not on file documented as of this encounter Plan of Treatment Not on file documented as of this encounter Visit Diagnoses Diagnosis Benign neoplasm of colon- Primary documented in this encounter Care Teams Dressmaking Teacher Relationship Specialty Start Date End Date Wilber Esquivel DO * PCP - General 03/13/01 documented as of this encounter
--- OUTSIDE RECORDS SUMMARY | 2025-02-01 08:41 | XMS_ITS | Encounter Summary ---
Author Organization [facility] Address [address] [place] [address] Care Team Providers Care Client Relationship Consultant Name Role Phone Wilber Esquivel DO Primary Care Provider [phone] Encounter Details Date Type Department Care Team (Latest Contact Info) Description 06/03/2005 Outpatient Historical [facility] Wilber Esquivel DO * COUGH (Primary Dx) Social History Tobacco Use Types Packs/Day Years Used Date Smoking Tobacco: Never Assessed Comments Unknown Sex and Gender Information Value Date Recorded Sex Assigned at Not on file Legal Sex Female 5:20 AM DOCUMENT CONTROL ASSOCIATE Gender Identity Not on file Sexual Orientation Not on file documented as of this encounter Plan of Treatment Not on file documented as of this encounter Visit Diagnoses Diagnosis Cough- Primary documented in this encounter Care Teams Client Relationship Consultant Relationship Specialty Start Date End Date Wilber Esquivel DO * PCP - General 03/13/01 documented as of this encounter
--- OUTSIDE RECORDS SUMMARY | 2025-02-01 08:41 | XMS_ITS | Encounter Summary ---
Author Organization Address 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
--- OUTSIDE RECORDS SUMMARY | 2025-02-01 08:41 | XMS_ITS | Encounter Summary ---
Author Organization [facility] Address 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
--- OUTSIDE RECORDS SUMMARY | 2025-02-01 08:41 | XMS_ITS | Encounter Summary ---
Author Organization [facility] Address 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
--- OUTSIDE RECORDS SUMMARY | 2025-02-01 08:41 | XMS_ITS | Encounter Summary ---
Author Organization [facility] Address [address] [place] [address] Care Team Providers Care Glue Drier Operator Name Role Phone Wilber Esquivel DO Primary Care Provider Encounter Details Date Type Department Care Team (Late st Contact Info) Description 06/03/2005 Outpatient [facility] Primary Care - [address] [place] [address] Wilber Esquivel DO * Social History Tobacco Use Types Packs/Day Years Used Date Smoking Tobacco: Never Assessed Comments Unknown Sex and Gender Information Value Date Recorded Sex Assigned at Not on file Legal Sex Female 5:20 AM DAMAGE CUTTER Gender Identity Not on file Sexual Orientation Not on file documented as of this encounter Plan of Treatment Not on file documented as of this encounter Visit Diagnoses Not on filedocumented in this encounter Care Teams Glue Drier Operator Relationship Specialty Start Date End Date Wilber Esquivel DO * PCP - General 03/13/01 documented as of this encounter
--- OUTSIDE RECORDS SUMMARY | 2025-02-01 08:41 | XMS_ITS | Encounter Summary ---
Author Organization [facility] Address 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
--- OUTSIDE RECORDS SUMMARY | 2025-02-01 08:41 | XMS_ITS | Encounter Summary ---
Author Organization [facility] Address 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
--- OUTSIDE RECORDS SUMMARY | 2025-02-01 08:41 | XMS_ITS | Encounter Summary ---
Author Organization [facility] Address [address] [place] [address] Care Team Providers Care Utility Aircrewman Name Role Phone Wilber Esquivel DO Primary Care Provider [phone] Encounter Details Date Type Department Care Team (Latest Contact Info) Description 12/26/2003 Outpatient Historical [facility] Wilber Esquivel DO * PNEUMONIA, ORGANISM NOS (Primary Dx) Social History Tobacco Use Types Packs/Day Years Used Date Smoking Tobacco: Never Assessed Comments Unknown Sex and Gender Information Value Date Recorded Sex Assigned at Not on file Legal Sex Female 5:20 AM PSYCHOLOGIST Gender Identity Not on file Sexual Orientation Not on file documented as of this encounter Plan of Treatment Not on file documented as of this encounter Visit Diagnoses Diagnosis Pneumonia, organism unspecified(486)- Primary Pneumonia, organism unspecified documented in this encounter Care Teams Utility Aircrewman Relationship Specialty Start Date End Date Wilber Esquivel DO * PCP - General 03/13/01 documented as of this encounter
--- OUTSIDE RECORDS SUMMARY | 2025-02-01 08:41 | XMS_ITS | Encounter Summary ---
Author Organization [facility] Address 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 Gender Identity Not on file Sexual Orientation Not on file documented as of this encounter Plan of Treatment Not on file documented as of this encounter Procedures Procedure Name Priority Date/Time Associated Diagnosis Comments HEMOGLOBIN A1C Routine 10/11/2006 10:24 AM LABORER SHELLFISH PROCESSING FOLATE RBC AND HEMATOCRIT Routine 10/11/2006 10:24 AM LABORER SHELLFISH PROCESSING VITAMIN B12 LEVEL Routine 10/11/2006 10: 24 AM LABORER SHELLFISH PROCESSING documented in this encounter Results * HEMOGLOBIN A1C (10/11/2006 10:24 AM LABORER SHELLFISH PROCESSING) HEMOGLOBIN A1C 5.8 4.1 - 6.1 % of Hgb INTERFACE SYSTEM GLUCOSE, MEAN BLOOD 129 mg/dL INTERFACE SYSTEM 10/11/2006 10:2 4 AM LABORER SHELLFISH PROCESSING Narrative INTERFACE SYSTEM - 10/11/2006 7:41 PM LABORER SHELLFISH PROCESSING Ordered by an unspecified provider. [facility] Provider CHEMISTRY ORDERABLES Edited Performing Organization Address [facility] Phone Number INTERFACE SYSTEM Refer to clinic/hospital department * FOLATE RBC AND HEMATOCRIT (10/11/2006 10:24 AM LABORER SHELLFISH PROCESSING) HEMATOCRIT, FOLATE 43.7 35.5 - 44.0 % INTERFACE SYSTEM RBC FOLATE 1036 >=533 ng/mL INTERFACE SYSTEM Comment: RBC Folate Interpretation: Deficient <110 ng/mL 10/11/2006 10:2 4 AM LABORER SHELLFISH PROCESSING Narrative INTERFACE SYSTEM - 10/11/2006 3:06 PM LABORER SHELLFISH PROCESSING Ordered by an unspecified provider. [facility] Provider CHEMISTRY ORDERABLES Edited Performing Organization Address [facility] Phone Number INTERFACE SYSTEM Refer to clinic/hospital department * VITAMIN B12 (10/11/2006 10:24 AM LABORER SHELLFISH PROCESSING) VITAMIN B12 294 243 - 894 pg/mL INTERFACE SYSTEM Comment: It has been reported that between 5 to 10% of patients with values between 200 and 400 pg/mL may experience neuropsychiatric and hematologic abnormalities due to occult B12 deficiency. Less than 1% of patients with values above 400 pg/mL will have symptoms. 10/11/2006 10:2 4 AM LABORER SHELLFISH PROCESSING Narrative INTERFACE SYSTEM - 10/11/2006 2:16 PM LABORER SHELLFISH PROCESSING Ordered by an unspecified provider. [facility] Provider CHEMISTRY ORDERABLES Edited Performing Organization Address [facility] Phone Number INTERFACE SYSTEM Refer to clinic/hospital department documented in this encounter Visit Diagnoses Diagnosis Pure hypercholesterolemia- Primary documented in this encounter Care Teams Bingo Attendant Relationship Specialty Start Date End Date Wilber Esquivel DO * PCP - General 03/13/01 documented as of this encounter
--- OUTSIDE RECORDS SUMMARY | 2025-02-01 08:41 | XMS_ITS | Encounter Summary ---
Author Organization [facility] Address 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
--- OUTSIDE RECORDS SUMMARY | 2025-02-01 08:41 | XMS_ITS | Encounter Summary ---
Author Organization [facility] Address 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
--- OUTSIDE RECORDS SUMMARY | 2025-02-01 08:41 | XMS_ITS | Encounter Summary ---
Author Organization [facility] Address 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
--- OUTSIDE RECORDS SUMMARY | 2025-02-01 08:41 | XMS_ITS | Encounter Summary ---
Author Organization [facility] Address 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
--- OUTSIDE RECORDS SUMMARY | 2025-02-01 08:41 | XMS_ITS | Encounter Summary ---
Author Organization [facility] Address 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
--- OUTSIDE RECORDS SUMMARY | 2025-02-01 08:41 | XMS_ITS | Encounter Summary ---
Author Organization [facility] Address 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
--- OUTSIDE RECORDS SUMMARY | 2025-02-01 08:41 | XMS_ITS | Encounter Summary ---
Author Organization [facility] Address 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
--- OUTSIDE RECORDS SUMMARY | 2025-02-01 08:41 | XMS_ITS | Encounter Summary ---
Author Organization [facility] Address 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
--- OUTSIDE RECORDS SUMMARY | 2025-02-01 08:41 | XMS_ITS | Encounter Summary ---
Author Organization [facility] Address 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
--- OUTSIDE RECORDS SUMMARY | 2025-02-01 08:41 | XMS_ITS | Encounter Summary ---
Author Organization [facility] Address [address] [place] [address] Care Team Providers Care Accounting Office Manager Name Role Phone Wilber Esquivel DO Primary Care Provider [phone] Encounter Details Date Type Department Care Team (Late st Contact Info) Description 12/21/2000 Outpatient [facility] Primary Care - [address] [place] [address] Wilber Esquivel DO * Social History Tobacco Use Types Packs/Day Years Used Date Smoking Tobacco: Never Assessed Comments Unknown Sex and Gender Information Value Date Recorded Sex Assigned at Not on file Legal Sex Female 5:20 AM SORT LINE Gender Identity Not on file Sexual Orientation Not on file documented as of this encounter Plan of Treatment Not on file documented as of this encounter Visit Diagnoses Not on filedocumented in this encounter Care Teams Accounting Office Manager Relationship Specialty Start Date End Date Wilber Esquivel DO * PCP - General 03/13/01 documented as of this encounter
--- OUTSIDE RECORDS SUMMARY | 2025-02-01 08:41 | XMS_ITS | Encounter Summary ---
Author Organization [facility] Address [address] [place] [address] Care Team Providers Care Associate Professor Of Art Name Role Phone Wilber Esquivel DO Primary Care Provider Encounter Details Date Type Department Care Team (Latest Contact Info) Description 03/13/2001 Outpatient Historical [facility] Wilber Esquivel DO * Other screening mammogram (Primary Dx) Social History Tobacco Use Types Packs/Day Years Used Date Smoking Tobacco: Never Assessed Comments Unknown Sex and Gender Information Value Date Recorded Sex Assigned at Not on file Legal Sex Female 5:20 AM DAIRY NUTRITION SPECIALIST Gender Identity Not on file Sexual Orientation Not on file documented as of this encounter Plan of Treatment Not on file documented as of this encounter Visit Diagnoses Diagnosis Other screening mammogram- Primary documented in this encounter Care Teams Associate Professor Of Art Relationship Specialty Start Date End Date Wilber Esquivel DO * PCP - General 03/13/01 documented as of this encounter
--- OUTSIDE RECORDS SUMMARY | 2025-02-01 08:41 | XMS_ITS | Encounter Summary ---
Author Organization [facility] Address [address] [place] [address] Care Team Providers Care Youth Teacher Name Role Phone Wilber Esquivel DO Primary Care Provider Encounter Details Date Type Department Care Team (Late st Contact Info) Description 09/15/1998 Outpatient [facility] Primary Care - [address] [place] [address] Wilber Esquivel DO * Social History Tobacco Use Types Packs/Day Years Used Date Smoking Tobacco: Never Assessed Comments Unknown Sex and Gender Information Value Date Recorded Sex Assigned at Not on file Legal Sex Female 5:20 AM LOCKMAKER Gender Identity Not on file Sexual Orientation Not on file documented as of this encounter Plan of Treatment Not on file documented as of this encounter Visit Diagnoses Not on filedocumented in this encounter Care Teams Youth Teacher Relationship Specialty Start Date End Date Wilber Esquivel DO * PCP - General 03/13/01 documented as of this encounter
--- OUTSIDE RECORDS SUMMARY | 2025-02-01 08:41 | XMS_ITS | Encounter Summary ---
Author Organization [facility] Address [address] [place] [address] Care Team Providers Care Neurological Physiotherapist Name Role Phone Wilber Esquivle DO Primary Care Provider Encounter Details Date Type Department Care Team (Late st Contact Info) Description 09/08/2005 Outpatient [facility] Primary Care - [address] [place] [address] Wilber Esquivel DO * Social History Tobacco Use Types Packs/Day Years Used Date Smoking Tobacco: Never Assessed Comments Unknown Sex and Gender Information Value Date Recorded Sex Assigned at Not on file Legal Sex Female 5:20 AM PRODUCTION COUNTER Gender Identity Not on file Sexual Orientation Not on file documented as of this encounter Plan of Treatment Not on file documented as of this encounter Visit Diagnoses Not on filedocumented in this encounter Care Teams Neurological Physiotherapist Relationship Specialty Start Date End Date Wilber Esquivel DO * PCP - General 03/13/01 documented as of this encounter
--- OUTSIDE RECORDS SUMMARY | 2025-02-01 08:41 | XMS_ITS | Encounter Summary ---
Author Organization [facility] Address [address] [place] [address] Care Team Providers Care Certified Surgical Technologist Name Role Phone Wilber Esquivel DO Primary Care Provider Encounter Details Date Type Department Care Team (Late st Contact Info) Description 07/16/2002 Outpatient Historical [facility] Silvano Jones MD [address] [place] [address] [place] [address] SCREENING MAL NEOP-COLON (Primary Dx) Social History Tobacco Use Types Packs/Day Years Used Date Smoking Tobacco: Never Assessed Comments Unknown Sex and Gender Information Value Date Recorded Sex Assigned at Not on file Legal Sex Female 5:20 AM ACADEMIC SUPPORT CENTER DIRECTOR Gender Identity Not on file Sexual Orientation Not on file documented as of this encounter Plan of Treatment Not on file documented as of this encounter Visit Diagnoses Diagnosis Special screening for malignant neoplasms, colon- Primary documented in this encounter Care Teams Certified Surgical Technologist Relationship Specialty Start Date End Date Wilber Esquivel DO * PCP - General 03/13/01 documented as of this encounter
--- OUTSIDE RECORDS SUMMARY | 2025-02-01 08:41 | XMS_ITS | Encounter Summary ---
Author Organization [facility] Address [address] [place] [address] Care Team Providers Care Inventory Specialist Name Role Phone Wilber Esquivel DO Primary Care Provider Encounter Details Date Type Department Care Team (Late st Contact Info) Description 08/01/2003 Outpatient [facility] Primary Care - [address] [place] [address] Wilber Esquivel DO * Social History Tobacco Use Types Packs/Day Years Used Date Smoking Tobacco: Never Assessed Comments Unknown Sex and Gender Information Value Date Recorded Sex Assigned at Not on file Legal Sex Female 5:20 AM MUFF WINDER Gender Identity Not on file Sexual Orientation Not on file documented as of this encounter Plan of Treatment Not on file documented as of this encounter Visit Diagnoses Not on filedocumented in this encounter Care Teams Inventory Specialist Relationship Specialty Start Date End Date Wilber Esquivel DO * PCP - General 03/13/01 documented as of this encounter
--- OUTSIDE RECORDS SUMMARY | 2025-02-01 08:41 | XMS_ITS | Encounter Summary ---
Author Organization [facility] Address [address] [place] [address] Care Team Providers Care Deputy K 9 Name Role Phone Wilber Esquivel DO Primary Care Provider Encounter Details Date Type Department Care Team (Late st Contact Info) Description 06/20/2002 Outpatient [facility] Primary Care - [address] [place] [address] Wilber Esquivel DO * Social History Tobacco Use Types Packs/Day Years Used Date Smoking Tobacco: Never Assessed Comments Unknown Sex and Gender Information Value Date Recorded Sex Assigned at Not on file Legal Sex Female 5:20 AM VENEER SPLICER Gender Identity Not on file Sexual Orientation Not on file documented as of this encounter Plan of Treatment Not on file documented as of this encounter Visit Diagnoses Not on filedocumented in this encounter Care Teams Deputy K 9 Relationship Specialty Start Date End Date Wilber Esquivel DO * PCP - General 03/13/01 documented as of this encounter
--- OUTSIDE RECORDS SUMMARY | 2025-02-01 08:41 | XMS_ITS | Encounter Summary ---
Author Organization [facility] Address [address] [place] [address] Care Team Providers Care Strike Off Machine Operator Name Role Phone Wilber Esquivel DO Primary Care Provider [phone] Encounter Details Date Type Department Care Team (Late st Contact Info) Description 01/23/2003 Outpatient [facility] Primary Care - [address] [place] [address] Wilber Esquivel DO * Social History Tobacco Use Types Packs/Day Years Used Date Smoking Tobacco: Never Assessed Comments Unknown Sex and Gender Information Value Date Recorded Sex Assigned at Not on file Legal Sex Female 5:20 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
--- OUTSIDE RECORDS SUMMARY | 2025-02-01 08:41 | XMS_ITS | Encounter Summary ---
Author Organization [facility] Address [address] [place] [address] Care Team Providers Care Freelance Digital Project Manager Name Role Phone Wilber Esquivel DO Primary Care Provider [phone] Encounter Details Date Type Department Care Team (Latest Contact Info) Description 03/06/2003 Outpatient Historical [facility] Wilber Esquivel DO * SCREENING MAMM-MAILG NEOPL-OTHER (Primary Dx) Social History Tobacco Use Types Packs/Day Years Used Date Smoking Tobacco: Never Assessed Comments Unknown Sex and Gender Information Value Date Recorded Sex Assigned at Not on file Legal Sex Female 5:20 AM POCKET SETTER Gender Identity Not on file Sexual Orientation Not on file documented as of this encounter Plan of Treatment Not on file documented as of this encounter Visit Diagnoses Diagnosis Other screening mammogram- Primary documented in this encounter Care Teams Freelance Digital Project Manager Relationship Specialty Start Date End Date Wilber Esquivel DO * PCP - General 03/13/01 documented as of this encounter
--- OUTSIDE RECORDS SUMMARY | 2025-02-01 08:41 | XMS_ITS | Encounter Summary ---
Author Organization [facility] Address [address] [place] [address] Care Team Providers Care Primary Health Organisation Manager Name Role Phone Wilber Esquivel DO Primary Care Provider Encounter Details Date Type Department Care Team (Late st Contact Info) Description 04/04/2001 Outpatient [facility] Primary Care - [address] [place] [address] Wilber Esquivel DO * Social History Tobacco Use Types Packs/Day Years Used Date Smoking Tobacco: Never Assessed Comments Unknown Sex and Gender Information Value Date Recorded Sex Assigned at Not on file Legal Sex Female 5:20 AM TEAROOM HOST/HOSTESS Gender Identity Not on file Sexual Orientation Not on file documented as of this encounter Plan of Treatment Not on file documented as of this encounter Visit Diagnoses Not on filedocumented in this encounter Care Teams Primary Health Organisation Manager Relationship Specialty Start Date End Date Wilber Esquivel DO * PCP - General 03/13/01 documented as of this encounter
--- OUTSIDE RECORDS SUMMARY | 2025-02-01 08:41 | XMS_ITS | Encounter Summary ---
Author Organization [facility] Address 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
--- OUTSIDE RECORDS SUMMARY | 2025-02-01 08:41 | XMS_ITS | Encounter Summary ---
Author Organization [facility] Address [address] [place] [address] Care Team Providers Care Equipment Operator/Laborer Name Role Phone Wilber Esquivel DO Primary Care Provider [phone] Encounter Details Date Type Department Care Team (Late st Contact Info) Description 09/24/2006 Outpatient [facility] Primary Care - [address] [place] [address] Ceci Cox MD NO ADDRESS ON FILE Social History Tobacco Use Types Packs/Day Years Used Date Smoking Tobacco: Never Assessed Comments Unknown Sex and Gender Information Value Date Recorded Sex Assigned at Not on file Legal Sex Female 5:20 AM ART HANDLER Gender Identity Not on file Sexual Orientation Not on file documented as of this encounter Plan of Treatment Not on file documented as of this encounter Visit Diagnoses Not on filedocumented in this encounter Care Teams Equipment Operator/Laborer Relationship Specialty Start Date End Date Wilber Esquivel DO * PCP - General 03/13/01 documented as of this encounter
--- OUTSIDE RECORDS SUMMARY | 2025-02-01 08:41 | XMS_ITS | Encounter Summary ---
Author Organization [facility] Address [address] [place] [address] Care Team Providers Care Livestock Feeder Name Role Phone Wilber Esquivel DO Primary Care Provider Encounter Details Date Type Department Care Team (Late st Contact Info) Description 10/14/2006 Outpatient [facility] Primary Care - [address] [place] [address] Wilber Esquivel DO * Social History Tobacco Use Types Packs/Day Years Used Date Smoking Tobacco: Never Assessed Comments Unknown Sex and Gender Information Value Date Recorded Sex Assigned at Not on file Legal Sex Female 5:20 AM STAGE SET DESIGNER Gender Identity Not on file Sexual Orientation Not on file documented as of this encounter Plan of Treatment Not on file documented as of this encounter Visit Diagnoses Not on filedocumented in this encounter Care Teams Livestock Feeder Relationship Specialty Start Date End Date Wilber Esquivel DO * PCP - General 03/13/01 documented as of this encounter
--- OUTSIDE RECORDS SUMMARY | 2025-02-01 08:41 | XMS_ITS | Encounter Summary ---
Author Organization [facility] Address [address] [place] [address] Care Team Providers Care Tool Die Maker Name Role Phone Wilber Esquivel DO Primary Care Provider Encounter Details Date Type Department Care Team (Late st Contact Info) Description 06/06/2002 Outpatient [facility] Primary Care - [address] [place] [address] Wilber Esquivel DO * Social History Tobacco Use Types Packs/Day Years Used Date Smoking Tobacco: Never Assessed Comments Unknown Sex and Gender Information Value Date Recorded Sex Assigned at Not on file Legal Sex Female 5:20 AM DIE REPAIRER FORGING Gender Identity Not on file Sexual Orientation Not on file documented as of this encounter Plan of Treatment Not on file documented as of this encounter Visit Diagnoses Not on filedocumented in this encounter Care Teams Tool Die Maker Relationship Specialty Start Date End Date Wilber Esquivel DO * PCP - General 03/13/01 documented as of this encounter
--- OUTSIDE RECORDS SUMMARY | 2025-02-01 08:41 | XMS_ITS | Encounter Summary ---
Author Organization [facility] Address [address] [place] [address] Care Team Providers Care Hide Worker Name Role Phone Wilber Esquivel DO Primary Care Provider [phone] Encounter Details Date Type Department Care Team (Latest Contact Info) Description 05/16/2006 Outpatient Historical [facility] Wilber Esquivel DO * Pure Hypercholesterolemia (Primary Dx) Social History Tobacco Use Types Packs/Day Years Used Date Smoking Tobacco: Never Assessed Comments Unknown Sex and Gender Information Value Date Recorded Sex Assigned at Not on file Legal Sex Female 5:20 AM OFFSET DUPLICATING MACHINE OPERATOR Gender Identity Not on file [...] INTERFACE SYSTEM Comment: Lab test performed by: [facility] [id number] [place] [address] ALICIA GALAN MD 05/16/2006 11:1 5 AM CDT us Historical Provider CHEMISTRY ORDERABLES Final R esult Performing Organization Address [facility] Phone Number INTERFACE SYSTEM [...] ORDERABLES Final Resul t Performing Organization Address [facility] Phone Number INTERFACE SYSTEM [...] ORDERABLES Final R esult Performing Organization Address City/[facility] de Phone Number INTERFACE SYSTEM Refer to [...] CDT Historical Provider CHEMISTRY ORDERABLES Final [facility] Performing Organization Address [facility] Phone Number INTERFACE SYSTEM [...] classifications for lipids are available on the [facility] Intranet at: [email or web address] Select: Lab Policies and Procedures Select: Reference Ranges - Lipids 05/16/2006 11:1 3 AM CDT Historical Provider CHEMISTRY ORDERABLES Final R esult Performing Organization Address City/[facility] Co de Phone Number INTERFACE SYSTEM [...] Primary documented in this encounter Care Teams Hide Worker Relationship Specialty Start Date End Date Wilber Esquivel DO * PCP - General 03/13/01 documented as of this encounter
--- OUTSIDE RECORDS SUMMARY | 2025-02-01 08:41 | XMS_ITS | Encounter Summary ---
Author Organization [facility] Address [address] [place] [address] Care Team Providers Care Dairy Technician Name Role Phone Wilber Esquivel DO Primary Care Provider [phone] Encounter Details Date Type Department Care Team (Latest Contact Info) Description 03/18/2005 Outpatient Historical [facility] Wilber Esquivel DO * SCREENING MAMM-MAILG NEOPL-OTHER (Primary Dx) Social History Tobacco Use Types Packs/Day Years Used Date Smoking Tobacco: Never Assessed Comments Unknown Sex and Gender Information Value Date Recorded Sex Assigned at Not on file Legal Sex Female 5:20 AM STAFF SOFTWARE ENGINEER Gender Identity Not on file Sexual Orientation Not on file documented as of this encounter Plan of Treatment Not on file documented as of this encounter Visit Diagnoses Diagnosis Other screening mammogram- Primary documented in this encounter Care Teams Dairy Technician Relationship Specialty Start Date End Date Wilber Esquivel DO * PCP - General 03/13/01 documented as of this encounter
--- OUTSIDE RECORDS SUMMARY | 2025-02-01 08:41 | XMS_ITS | Encounter Summary ---
Author Organization [facility] Address [address] [place] [address] Care Team Providers Care Block Cableman Name Role Phone Wilber Esquivel DO Primary Care Provider [phone] Encounter Details Date Type Department Care Team (Late st Contact Info) Description 06/21/2001 Outpatient [facility] Primary Care - [address] [place] [address] Wilber Esquivel DO * Social History Tobacco Use Types Packs/Day Years Used Date Smoking Tobacco: Never Assessed Comments Unknown Sex and Gender Information Value Date Recorded Sex Assigned at Not on file Legal Sex Female 5:20 AM PUBLIC HEALTH DENTIST Gender Identity Not on file Sexual Orientation Not on file documented as of this encounter Plan of Treatment Not on file documented as of this encounter Visit Diagnoses Not on filedocumented in this encounter Care Teams Block Cableman Relationship Specialty Start Date End Date Wilber Esquivel DO * PCP - General 03/13/01 documented as of this encounter
--- OUTSIDE RECORDS SUMMARY | 2025-02-01 08:41 | XMS_ITS | Encounter Summary ---
Author Organization [facility] Address [address] [place] [address] Care Team Providers Care Clinical Coder Name Role Phone Wilber Esquivel DO Primary Care Provider Encounter Details Date Type Department Care Team (Late st Contact Info) Description 01/25/2002 Outpatient [facility] Primary Care - [address] [place] [address] Wilber Esquivel DO * Social History Tobacco Use Types Packs/Day Years Used Date Smoking Tobacco: Never Assessed Comments Unknown Sex and Gender Information Value Date Recorded Sex Assigned at Not on file Legal Sex Female 5:20 AM STAFF RADIOLOGIST Gender Identity Not on file Sexual Orientation Not on file documented as of this encounter Plan of Treatment Not on file documented as of this encounter Visit Diagnoses Not on filedocumented in this encounter Care Teams Clinical Coder Relationship Specialty Start Date End Date Wilber Esquivel DO * PCP - General 03/13/01 documented as of this encounter
--- OUTSIDE RECORDS SUMMARY | 2025-02-01 08:41 | XMS_ITS | Encounter Summary ---
Author Organization [facility] Address [address] [place] [address] Care Team Providers Care Felting Machine Operator Helper Name Role Phone Wilber Esquivel DO Primary Care Provider [phone] Encounter Details Date Type Department Care Team (Late st Contact Info) Description 10/11/2006 Outpatient [facility] Primary Care - [address] [place] [address] Wilber Esquivel DO * Social History Tobacco Use Types Packs/Day Years Used Date Smoking Tobacco: Never Assessed Comments Unknown Sex and Gender Information Value Date Recorded Sex Assigned at Not on file Legal Sex Female 5:20 AM SENIOR PARTNER Gender Identity Not on file Sexual Orientation Not on file documented as of this encounter Plan of Treatment Not on file documented as of this encounter Visit Diagnoses Not on filedocumented in this encounter Care Teams Felting Machine Operator Helper Relationship Specialty Start Date End Date Wilber Esquivel DO * PCP - General 03/13/01 documented as of this encounter
--- OUTSIDE RECORDS SUMMARY | 2025-02-01 08:41 | XMS_ITS | Encounter Summary ---
Author Organization [facility] Address [address] [place] [address] Care Team Providers Care Control Chemist Name Role Phone Wilber Esquivel DO Primary Care Provider [phone] Encounter Details Date Type Department Care Team (Latest Contact Info) Description 09/24/2006 Outpatient Historical HIS [facility] Wilber Esquivel DO * Essential Hypertension, Benign (Primary Dx) Social History Tobacco Use Types Packs/Day Years Used Date Smoking Tobacco: Never Assessed Comments Unknown Sex and Gender Information Value Date Recorded Sex Assigned at Not on file Legal Sex Female 5:20 AM HARDWARE INSTALLATION COORDINATOR Gender Identity Not on file Sexual Orientation Not on file documented as of this encounter Plan of Treatment Not on file documented as of this encounter Procedures Procedure Name Priority Date/Time Associated Diagnosis Comments HEPATIC FUNCTION PANEL Routine 09/24/2006 10:17 AM HARDWARE INSTALLATION COORDINATOR LIPID PANEL Routine 09/24/2006 10:17 AM HARDWARE INSTALLATION COORDINATOR BASIC METABOLIC PANEL Routine 09/24/2006 10:17 AM HARDWARE INSTALLATION COORDINATOR documented in this encounter Results * HEPATIC FUNCTION PANEL (09/24/2006 10:17 AM HARDWARE INSTALLATION COORDINATOR) ALKALINE PHOSPHATASE 97 35 - 104 U/L [...] mg/dL INTERFACE SYSTEM 09/24/2006 10:1 7 AM HARDWARE INSTALLATION COORDINATOR Ceci Cox MD CHEMISTRY ORDERABLES Edited Performing Organization Address [facility] de Phone Number INTERFACE SYSTEM Refer to clinic/hospital department * LIPID PANEL (09/24/2006 10:17 AM HARDWARE INSTALLATION COORDINATOR) CHOLESTEROL 173 100 - 199 mg/dL INTERFACE SYSTEM TRIGLYCERIDE 90 10 - 149 mg/dL INTERFACE SYSTEM HDL 53 40 - 59 mg/dL INTERFACE SYSTEM CHOL/HDL RATIO 3.3 2.0 - 5.0 INTER FACE SYSTEM LDL CALCULATED 102 <=99 mg/dL INTERFACE SYSTEM LIPID PANEL COMMENT See Below INTERFACE SYSTEM Comment: The adult ATP and pediatric NCEP classifications for lipids are available on the [facility] Intranet at: [email or web address] Select: Lab Policies and Procedures Select: Reference Ranges - Lipids 09/24/2006 10:1 7 AM HARDWARE INSTALLATION COORDINATOR Result [facility] Ceci Cox MD CHEMISTRY ORDERABLES Final R esult Performing Organization Address [facility] de Phone Number INTERFACE SYSTEM Refer to clinic/hospital department * BASIC METABOLIC PANEL (09/24/2006 10:17 AM HARDWARE INSTALLATION COORDINATOR) GLUCOSE 86 65 - 99 mg/dL INTERFACE [...] and non- Americans is available on the [facility] Intranet at: [email or web address] Select: Lab Policies and Procedures Select: Reference Ranges - GFR 09/24/2006 10:1 7 AM HARDWARE INSTALLATION COORDINATOR us Ceci Cox MD CHEMISTRY ORDERABLES Edited INTERFACE SYSTEM Refer to clinic/hospital department documented in this encounter Visit Diagnoses Diagnosis Essential hypertension, benign- Primary documented in this encounter Care Teams Control Chemist Relationship Specialty Start Date End Date Wilber Esquivel DO * PCP - General 03/13/01 documented as of this encounter
--- OUTSIDE RECORDS SUMMARY | 2025-02-01 08:41 | XMS_ITS | Encounter Summary ---
Author Organization [facility] Address [address] [place] [address] Care Team Providers Care Heavy Equipment Sales Manager Name Role Phone Wilber Esquivel DO Primary Care Provider [phone] Encounter Details Date Type Department Care Team (Latest Contact Info) Description 05/16/2006 Outpatient Historical [facility] Wilber Esquivel DO * Other Screening Mammogram (Primary Dx) Social History Tobacco Use Types Packs/Day Years Used Date Smoking Tobacco: Never Assessed Comments Unknown Sex and Gender Information Value Date Recorded Sex Assigned at Not on file Legal Sex Female 5:20 AM MALTHOUSE LABORER Gender Identity Not on file Sexual Orientation Not on file documented as of this encounter Plan of Treatment Not on file documented as of this encounter Visit Diagnoses Diagnosis Other screening mammogram- Primary documented in this encounter Care Teams Heavy Equipment Sales Manager Relationship Specialty Start Date End Date Wilber Esquivel DO * PCP - General 03/13/01 documented as of this encounter
--- OUTSIDE RECORDS SUMMARY | 2025-02-01 08:41 | XMS_ITS | Encounter Summary ---
Author Organization [facility] Address [address] [place] [address] Care Team Providers Care Ice Handler Name Role Phone Wilber Esquivel DO Primary Care Provider Encounter Details Date Type Department Care Team (Late st Contact Info) Description 03/13/2001 Outpatient [facility] Primary Care - [address] [place] [address] Wilber Esquivel DO * Social History Tobacco Use Types Packs/Day Years Used Date Smoking Tobacco: Never Assessed Comments Unknown Sex and Gender Information Value Date Recorded Sex Assigned at Not on file Legal Sex Female 5:20 AM CONFIGURATION MANAGEMENT ANALYST Gender Identity Not on file Sexual Orientation Not on file documented as of this encounter Plan of Treatment Not on file documented as of this encounter Visit Diagnoses Not on filedocumented in this encounter Care Teams Ice Handler Relationship Specialty Start Date End Date Wilber Esquivel DO * PCP - General 03/13/01 documented as of this encounter
--- OUTSIDE RECORDS SUMMARY | 2025-02-01 08:41 | XMS_ITS | Encounter Summary ---
Author Organization [facility] Address [address] [place] [address] Care Team Providers Care Excelsior Machine Feeder Name Role Phone Wilber Esquivel DO Primary Care Provider Encounter Details Date Type Department Care Team (Late st Contact Info) Description 06/17/1998 Outpatient [facility] Primary Care - [address] [place] [address] Wilber Esquivel DO * Social History Tobacco Use Types Packs/Day Years Used Date Smoking Tobacco: Never Assessed Comments Unknown Sex and Gender Information Value Date Recorded Sex Assigned at Not on file Legal Sex Female 5:20 AM BUNK ASSEMBLER Gender Identity Not on file Sexual Orientation Not on file documented as of this encounter Plan of Treatment Not on file documented as of this encounter Visit Diagnoses Not on filedocumented in this encounter Care Teams Excelsior Machine Feeder Relationship Specialty Start Date End Date Wilber Esquivel DO * PCP - General 03/13/01 documented as of this encounter
--- OUTSIDE RECORDS SUMMARY | 2025-02-01 08:41 | XMS_ITS | Encounter Summary ---
Author Organization [facility] Address [address] [place] [address] Care Team Providers Care Cigar Packing Examiner Name Role Phone Wilber Esquivel DO Primary Care Provider [phone] Encounter Details Date Type Department Care Team (Latest Contact Info) Description 12/14/2001 Outpatient Historical [facility] Wilber Esquivel DO * BONE & CARTILAGE DIS NOS (Primary Dx) Social History Tobacco Use Types Packs/Day Years Used Date Smoking Tobacco: Never Assessed Comments Unknown Sex and Gender Information Value Date Recorded Sex Assigned at Not on file Legal Sex Female 5:20 AM SIX PACK PACKER Gender Identity Not on file Sexual Orientation Not on file documented as of this encounter Plan of Treatment Not on file documented as of this encounter Visit Diagnoses Diagnosis Disorder of bone and cartilage, unspecified- Primary documented in this encounter Care Teams Cigar Packing Examiner Relationship Specialty Start Date End Date Wilber Esquivel DO * PCP - General 03/13/01 documented as of this encounter
--- OUTSIDE RECORDS SUMMARY | 2025-02-01 08:41 | XMS_ITS | Encounter Summary ---
Author Organization [facility] Address [address] [place] [address] Care Team Providers Care Cabana Attendant Name Role Phone Wilber Esquivel DO Primary Care Provider Encounter Details Date Type Department Care Team (Late st Contact Info) Description 02/13/2003 Outpatient [facility] Primary Care - [address] [place] [address] Wilber Esquivel DO * Social History Tobacco Use Types Packs/Day Years Used Date Smoking Tobacco: Never Assessed Comments Unknown Sex and Gender Information Value Date Recorded Sex Assigned at Not on file Legal Sex Female 5:20 AM CUSTOM SHOE DESIGNER AND MAKER Gender Identity Not on file Sexual Orientation Not on file documented as of this encounter Plan of Treatment Not on file documented as of this encounter Visit Diagnoses Not on filedocumented in this encounter Care Teams Cabana Attendant Relationship Specialty Start Date End Date Wilber Esquivel DO * PCP - General 03/13/01 documented as of this encounter
--- OUTSIDE RECORDS SUMMARY | 2025-02-01 08:42 | XMS_ITS | Encounter Summary ---
Author Organization [facility] Address [address] [place] [address] Care Team Providers Care Tan Room Supervisor Name Role Phone Wilber Esquivel DO Primary Care Provider Encounter Details Date Type Department Care Team (Late st Contact Info) Description 02/26/2000 Outpatient [facility] Primary Care - [address] [place] [address] Wilber Esquivel DO * Social History Tobacco Use Types Packs/Day Years Used Date Smoking Tobacco: Never Assessed Comments Unknown Sex and Gender Information Value Date Recorded Sex Assigned at Not on file Legal Sex Female 5:20 AM EPIC ANALYST Gender Identity Not on file Sexual Orientation Not on file documented as of this encounter Plan of Treatment Not on file documented as of this encounter Visit Diagnoses Not on filedocumented in this encounter Care Teams Tan Room Supervisor Relationship Specialty Start Date End Date Wilber Esquivel DO * PCP - General 03/13/01 documented as of this encounter
--- OUTSIDE RECORDS SUMMARY | 2025-02-01 08:42 | XMS_ITS | Encounter Summary ---
Author Organization [facility] Address [address] [place] [address] Care Team Providers Care Store Administrative Assistant Name Role Phone Wilber Esquivel DO Primary Care Provider Encounter Details Date Type Department Care Team (Late st Contact Info) Description 07/21/2004 Outpatient [facility] Primary Care - [address] [place] [address] Wilber Esquivel DO * Social History Tobacco Use Types Packs/Day Years Used Date Smoking Tobacco: Never Assessed Comments Unknown Sex and Gender Information Value Date Recorded Sex Assigned at Not on file Legal Sex Female 5:20 AM PERSONAL BANKING OFFICER Gender Identity Not on file Sexual Orientation Not on file documented as of this encounter Plan of Treatment Not on file documented as of this encounter Visit Diagnoses Not on filedocumented in this encounter Care Teams Store Administrative Assistant Relationship Specialty Start Date End Date Wilber Esquivel DO * PCP - General 03/13/01 documented as of this encounter
--- OUTSIDE RECORDS SUMMARY | 2025-02-01 08:42 | XMS_ITS | Encounter Summary ---
Author Organization [facility] Address [address] [place] [address] Care Team Providers Care Commercial Leasing Manager Name Role Phone Wilber Esquivel DO Primary Care Provider [phone] Encounter Details Date Type Department Care Team (Late st Contact Info) Description 1999 Outpatient [facility] Primary Care - [address] [place] [address] Wilber Esquivel DO * Social History Tobacco Use Types Packs/Day Years Used Date Smoking Tobacco: Never Assessed Comments Unknown Sex and Gender Information Value Date Recorded Sex Assigned at Not on file Legal Sex Female 5:20 AM CARD TENDER Gender Identity Not on file Sexual Orientation Not on file documented as of this encounter Plan of Treatment Not on file documented as of this encounter Visit Diagnoses Not on filedocumented in this encounter Care Teams Commercial Leasing Manager Relationship Specialty Start Date End Date Wilber Esquivel DO * PCP - General 03/13/01 documented as of this encounter
--- OUTSIDE RECORDS SUMMARY | 2025-02-01 08:42 | XMS_ITS | Encounter Summary ---
Author Organization Address [address] [place] [address] Care Team Providers Care Certified Marine Mechanic Name Role Phone Wilber Esquivel DO Primary Care Provider Encounter Details Date Type Department Care Team (Late st Contact Info) Description 03/18/2005 Outpatient [facility] Primary Care - [address] [place] [address] Wilber Esquivel DO * Social History Tobacco Use Types Packs/Day Years Used Date Smoking Tobacco: Never Assessed Comments Unknown Sex and Gender Information Value Date Recorded Sex Assigned at Not on file Legal Sex Female 5:20 AM CHUTE BOSS Gender Identity Not on file Sexual Orientation Not on file documented as of this encounter Plan of Treatment Not on file documented as of this encounter Visit Diagnoses Not on filedocumented in this encounter Care Teams Certified Marine Mechanic Relationship Specialty Start Date End Date Wilber Esquivel DO * PCP - General 03/13/01 documented as of this encounter
--- OUTSIDE RECORDS SUMMARY | 2025-02-01 08:42 | XMS_ITS | Clinical Summary ---
Author Organization [facility] Address [address] Manzanaresn: Epic Prelude ADT [place] [address] Care Team Providers Care Pin Sorter And Bagger Name Role Phone Wilber Esquivel DO Primary Care Provider [phone] Social History Tobacco Use Types Packs/Day Years Used Date Smoking Tobacco: Never Assessed Comments Unknown Sex and Gender Information Value Date Recorded Sex Assigned at Not on file Legal Sex Female 5:20 AM WEB OPERATIONS MANAGER Gender Identity Not on file Sexual [...] Colonography Q 5 years Discontinued Care Teams Pin Sorter And Bagger Relationship Specialty Start Date End Date Wilber Esquivel DO * PCP - General 03/13/01
--- OUTSIDE RECORDS SUMMARY | 2025-02-01 08:42 | XMS_ITS | Encounter Summary ---
Author Organization [facility] Address [address] [place] [address] Care Team Providers Care Valet Runner Name Role Phone Wibler Esquivel DO Primary Care Provider Encounter Details Date Type Department Care Team (Late st Contact Info) Description 01/06/2004 Outpatient [facility] Primary Care - [address] [place] [address] Wilber Esquivel DO * Social History Tobacco Use Types Packs/Day Years Used Date Smoking Tobacco: Never Assessed Comments Unknown Sex and Gender Information Value Date Recorded Sex Assigned at Not on file Legal Sex Female 5:20 AM GEEK SQUAD AUTOTECH Gender Identity Not on file Sexual Orientation Not on file documented as of this encounter Plan of Treatment Not on file documented as of this encounter Visit Diagnoses Not on filedocumented in this encounter Care Teams Valet Runner Relationship Specialty Start Date End Date Wilber Esquivel DO * PCP - General 03/13/01 documented as of this encounter
--- OUTSIDE RECORDS SUMMARY | 2025-02-01 08:42 | XMS_ITS | Encounter Summary ---
Author Organization [facility] Address [address] [place] [address] Care Team Providers Care Flower Shop Laborer/Designer Name Role Phone Wliber Esquivel DO Primary Care Provider Encounter Details Date Type Department Care Team (Late st Contact Info) Description 02/04/2004 Outpatient [facility] Primary Care - [address] [place] [address] Wilber Esquivel DO * Social History Tobacco Use Types Packs/Day Years Used Date Smoking Tobacco: Never Assessed Comments Unknown Sex and Gender Information Value Date Recorded Sex Assigned at Not on file Legal Sex Female 5:20 AM BRIDGE/STRUCTURE INSPECTION TEAM LEADER Gender Identity Not on file Sexual Orientation Not on file documented as of this encounter Plan of Treatment Not on file documented as of this encounter Visit Diagnoses Not on filedocumented in this encounter Care Teams Flower Shop Laborer/Designer Relationship Specialty Start Date End Date Wilber Esquivel DO * PCP - General 03/13/01 documented as of this encounter
--- OUTSIDE RECORDS SUMMARY | 2025-02-01 08:42 | XMS_ITS | Encounter Summary ---
Author Organization [facility] Address [address] [place] [address] Care Team Providers Care Metal Sprayer Name Role Phone Wilber Esquivel DO Primary Care Provider [phone] Encounter Details Date Type Department Care Team (Latest Contact Info) Description 04/06/2005 Outpatient Historical [facility] Wilber Esquivel DO * OSTEOARTHROS NOS-L/LEG (Primary Dx) Social History Tobacco Use Types Packs/Day Years Used Date Smoking Tobacco: Never Assessed Comments Unknown Sex and Gender Information Value Date Recorded Sex Assigned at Not on file Legal Sex Female 5:20 AM ASSISTANT EXECUTIVE HOUSEKEEPER Gender Identity Not on file Sexual Orientation Not on file documented as of this encounter Plan of Treatment Not on file documented as of this encounter Visit Diagnoses Diagnosis Osteoarthrosis, unspecified whether generalized or localized, lower leg- Primary documented in this encounter Care Teams Metal Sprayer Relationship Specialty Start Date End Date Wilber Esquivel DO * PCP - General 03/13/01 documented as of this encounter
--- OUTSIDE RECORDS SUMMARY | 2025-02-01 08:42 | XMS_ITS | Encounter Summary ---
Author Organization [facility] Address [address] [place] [address] Care Team Providers Care Forex Trader Name Role Phone Wilber Esquivel DO Primary Care Provider [phone] Encounter Details Date Type Department Care Team (Latest Contact Info) Description 03/18/2004 Outpatient Historical [facility] Wilber Esquivel DO * SCREENING MAMM-MAILG NEOPL-OTHER (Primary Dx) Social History Tobacco Use Types Packs/Day Years Used Date Smoking Tobacco: Never Assessed Comments Unknown Sex and Gender Information Value Date Recorded Sex Assigned at Not on file Legal Sex Female 5:20 AM HOSTEL MANAGER Gender Identity Not on file Sexual Orientation Not on file documented as of this encounter Plan of Treatment Not on file documented as of this encounter Visit Diagnoses Diagnosis Other screening mammogram- Primary documented in this encounter Care Teams Forex Trader Relationship Specialty Start Date End Date Wilber Esquivel DO * PCP - General 03/13/01 documented as of this encounter
--- OUTSIDE RECORDS SUMMARY | 2025-02-01 08:42 | XMS_ITS | Encounter Summary ---
Author Organization [facility] Address 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
--- OUTSIDE RECORDS SUMMARY | 2025-02-01 08:42 | XMS_ITS | Encounter Summary ---
Author Organization [facility] Address [address] [place] [address] Care Team Providers Care Tmr Teacher Name Role Phone Wilber Esquivel DO Primary Care Provider Encounter Details Date Type Department Care Team (Late st Contact Info) Description 12/31/1999 Outpatient [facility] Primary Care - [address] [place] [address] Wilber Esquivel DO * Social History Tobacco Use Types Packs/Day Years Used Date Smoking Tobacco: Never Assessed Comments Unknown Sex and Gender Information Value Date Recorded Sex Assigned at Not on file Legal Sex Female 5:20 AM PYROGLAZER Gender Identity Not on file Sexual Orientation Not on file documented as of this encounter Plan of Treatment Not on file documented as of this encounter Visit Diagnoses Not on filedocumented in this encounter Care Teams Tmr Teacher Relationship Specialty Start Date End Date Wilber Esquivel DO * PCP - General 03/13/01 documented as of this encounter
--- OUTSIDE RECORDS SUMMARY | 2025-02-01 08:42 | XMS_ITS | Encounter Summary ---
Author Organization [facility] Address 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 Co de Phone Number INTERFACE SYSTEM Refer to clinic/hospital department * CBC WITH DIFFERENTIAL (01/25/2007 2:57 PM CDT) Pathologist [facility] WBC 6.0 4.0 - 9.8 K/uL INTERFACE [...] Provider HEMATOLOGY ORDERABLES Edited Performing Organization Address City/[facility] Co de Phone Number INTERFACE SYSTEM [...] Provider CHEMISTRY ORDERABLES Edited Performing Organization Address [facility] de Phone Number INTERFACE SYSTEM [...] Provider CHEMISTRY ORDERABLES Edited Performing Organization Address [facility] Co de Phone Number INTERFACE SYSTEM [...] classifications for lipids are available on the [facility] Intranet at: [email or web address] Select: Lab Policies and Procedures Select: Reference Ranges - Lipids 01/25/2007 2:57 PM CDT Narrative INTERFACE SYSTEM - 01/25/2007 6:08 PM CDT Ordered by an unspecified provider. us Historical Provider CHEMISTRY ORDERABLES Edited INTERFACE SYSTEM Refer to clinic/hospital department documented in this encounter Visit Diagnoses Diagnosis Pure hypercholesterolemia- Primary documented in this encounter Care Teams Meatcutter Relationship Specialty Start Date End Date Wilber Esquivel DO * PCP - General 03/13/01 documented as of this encounter
--- OUTSIDE RECORDS SUMMARY | 2025-02-01 08:42 | XMS_ITS | Encounter Summary ---
Author Organization [facility] Address [address] [place] [address] Care Team Providers Care Administration Manager Name Role Phone Wilber Esquivel DO Primary Care Provider Encounter Details Date Type Department Care Team (Late st Contact Info) Description 12/03/2004 Outpatient [facility] Primary Care - [address] [place] [address] Wilbre Esquivel DO * Social History Tobacco Use Types Packs/Day Years Used Date Smoking Tobacco: Never Assessed Comments Unknown Sex and Gender Information Value Date Recorded Sex Assigned at Not on file Legal Sex Female 5:20 AM GRAIN SHOVELER Gender Identity Not on file Sexual Orientation Not on file documented as of this encounter Plan of Treatment Not on file documented as of this encounter Visit Diagnoses Not on filedocumented in this encounter Care Teams Administration Manager Relationship Specialty Start Date End Date Wilber Esquivel DO * PCP - General 03/13/01 documented as of this encounter
--- OUTSIDE RECORDS SUMMARY | 2025-02-01 08:42 | XMS_ITS | Encounter Summary ---
Author Organization [facility] Address [address] [place] [address] Care Team Providers Care Career Guidance Counselor Name Role Phone Wilber Esquivel DO Primary Care Provider Encounter Details Date Type Department Care Team (Late st Contact Info) Description 10/26/2000 Outpatient [facility] Primary Care - [address] [place] [address] Wilber Esquivel DO * Social History Tobacco Use Types Packs/Day Years Used Date Smoking Tobacco: Never Assessed Comments Unknown Sex and Gender Information Value Date Recorded Sex Assigned at Not on file Legal Sex Female 5:20 AM JAZZ MUSICIAN Gender Identity Not on file Sexual Orientation Not on file documented as of this encounter Plan of Treatment Not on file documented as of this encounter Visit Diagnoses Not on filedocumented in this encounter Care Teams Career Guidance Counselor Relationship Specialty Start Date End Date Wilber Esquivel DO * PCP - General 03/13/01 documented as of this encounter
--- OUTSIDE RECORDS SUMMARY | 2025-02-01 08:42 | XMS_ITS | Encounter Summary ---
Author Organization [facility] Address [address] [place] [address] Care Team Providers Care Brass Burnisher Name Role Phone Wilber Esquivel DO Primary Care Provider [phone] Encounter Details Date Type Department Care Team (Late st Contact Info) Description 03/18/2004 Outpatient [facility] Primary Care - [address] [place] [address] Wilber Esquivel DO * Social History Tobacco Use Types Packs/Day Years Used Date Smoking Tobacco: Never Assessed Comments Unknown Sex and Gender Information Value Date Recorded Sex Assigned at Not on file Legal Sex Female 5:20 AM BEAN SPROUT LABORER Gender Identity Not on file Sexual Orientation Not on file documented as of this encounter Plan of Treatment Not on file documented as of this encounter Visit Diagnoses Not on filedocumented in this encounter Care Teams Brass Burnisher Relationship Specialty Start Date End Date Wilber Esquivel DO * PCP - General 03/13/01 documented as of this encounter
--- OUTSIDE RECORDS SUMMARY | 2025-02-01 08:42 | XMS_ITS | Encounter Summary ---
Author Organization [facility] Address [address] [place] [address] Care Team Providers Care Meat And Seafood Clerk Name Role Phone Wilber Esquivel DO Primary Care Provider Encounter Details Date Type Department Care Team (Late st Contact Info) Description 10/14/1998 Outpatient [facility] Primary Care - [address] [place] [address] Wilber Esquivel DO * Social History Tobacco Use Types Packs/Day Years Used Date Smoking Tobacco: Never Assessed Comments Unknown Sex and Gender Information Value Date Recorded Sex Assigned at Not on file Legal Sex Female 5:20 AM STYLIST ASSISTANT Gender Identity Not on file Sexual Orientation Not on file documented as of this encounter Plan of Treatment Not on file documented as of this encounter Visit Diagnoses Not on filedocumented in this encounter Care Teams Meat And Seafood Clerk Relationship Specialty Start Date End Date Wilber Esquivel DO * PCP - General 03/13/01 documented as of this encounter
--- OUTSIDE RECORDS SUMMARY | 2025-02-01 08:42 | XMS_ITS | Encounter Summary ---
Author Organization [facility] Address [address] [place] [address] Care Team Providers Care Band Saw Marker Name Role Phone Wilber Esquivel DO Primary Care Provider [phone] Encounter Details Date Type Department Care Team (Late st Contact Info) Description 08/04/2000 Outpatient [facility] Primary Care - [address] [place] [address] Wilber Esquivel DO * Social History Tobacco Use Types Packs/Day Years Used Date Smoking Tobacco: Never Assessed Comments Unknown Sex and Gender Information Value Date Recorded Sex Assigned at Not on file Legal Sex Female 5:20 AM PUNCH MOLDER Gender Identity Not on file Sexual Orientation Not on file documented as of this encounter Plan of Treatment Not on file documented as of this encounter Visit Diagnoses Not on filedocumented in this encounter Care Teams Band Saw Marker Relationship Specialty Start Date End Date Wilber Esquivel DO * PCP - General 03/13/01 documented as of this encounter
--- OUTSIDE RECORDS SUMMARY | 2025-02-01 08:42 | XMS_ITS | Encounter Summary ---
Author Organization [facility] Address [address] [place] [address] Care Team Providers Care Pen Or Pencil Assembly Machine Operator Name Role Phone Wilber Esquivel DO Primary Care Provider [phone] Encounter Details Date Type Department Care Team (Late st Contact Info) Description 11/19/2004 Outpatient [facility] Primary Care - [address] [place] [address] Wilber Esquivel DO * Social History Tobacco Use Types Packs/Day Years Used Date Smoking Tobacco: Never Assessed Comments Unknown Sex and Gender Information Value Date Recorded Sex Assigned at Not on file Legal Sex Female 5:20 AM DRAW FURNACE TENDER Gender Identity Not on file Sexual Orientation Not on file documented as of this encounter Plan of Treatment Not on file documented as of this encounter Visit Diagnoses Not on filedocumented in this encounter Care Teams Pen Or Pencil Assembly Machine Operator Relationship Specialty Start Date End Date Wilber Esquivel DO * PCP - General 03/13/01 documented as of this encounter
--- OUTSIDE RECORDS SUMMARY | 2025-02-01 08:42 | XMS_ITS | Encounter Summary ---
Author Organization [facility] Address [address] [place] [address] Care Team Providers Care Real Estate Instructor Name Role Phone Wilber Esquivel DO Primary Care Provider Encounter Details Date Type Department Care Team (Late st Contact Info) Description 01/13/2004 Outpatient [facility] Primary Care - [address] [place] [address] Wilber Esquivel DO * Social History Tobacco Use Types Packs/Day Years Used Date Smoking Tobacco: Never Assessed Comments Unknown Sex and Gender Information Value Date Recorded Sex Assigned at Not on file Legal Sex Female 5:20 AM VAUDEVILLE ACTOR Gender Identity Not on file Sexual Orientation Not on file documented as of this encounter Plan of Treatment Not on file documented as of this encounter Visit Diagnoses Not on filedocumented in this encounter Care Teams Real Estate Instructor Relationship Specialty Start Date End Date Wilber Esquivel DO * PCP - General 03/13/01 documented as of this encounter
--- OUTSIDE RECORDS SUMMARY | 2025-02-01 08:42 | XMS_ITS | Encounter Summary ---
Author Organization [facility] Address [address] [place] [address] Care Team Providers Care Senior Systems Programmer Name Role Phone Wilber Esquivel DO Primary Care Provider [phone] Encounter Details Date Type Department Care Team (Late st Contact Info) Description 11/30/1999 Outpatient [facility] Primary Care - [address] [place] [address] Wilber Esquivel DO * Social History Tobacco Use Types Packs/Day Years Used Date Smoking Tobacco: Never Assessed Comments Unknown Sex and Gender Information Value Date Recorded Sex Assigned at Not on file Legal Sex Female 5:20 AM DATABASE ADMINISTRATION MANAGER Gender Identity Not on file Sexual Orientation Not on file documented as of this encounter Plan of Treatment Not on file documented as of this encounter Visit Diagnoses Not on filedocumented in this encounter Care Teams Senior Systems Programmer Relationship Specialty Start Date End Date Wilber Esquivel DO * PCP - General 03/13/01 documented as of this encounter
--- OUTSIDE RECORDS SUMMARY | 2025-02-01 08:42 | XMS_ITS | Encounter Summary ---
Author Organization [facility] Address [address] [place] [address] Care Team Providers Care Paper Box Maker Name Role Phone Wilber Esquivel DO Primary Care Provider Encounter Details Date Type Department Care Team (Late st Contact Info) Description 05/28/1999 Outpatient Historical [facility] Primary Care - [address] [place] [address] Wilber Esquivel DO * Social History Tobacco Use Types Packs/Day Years Used Date Smoking Tobacco: Never Assessed Comments Unknown Sex and Gender Information Value Date Recorded Sex Assigned at Not on file Legal Sex Female 5:20 AM CONSUMER INSIGHTS SPECIALIST Gender Identity Not on file Sexual Orientation Not on file documented as of this encounter Plan of Treatment Not on file documented as of this encounter Visit Diagnoses Not on filedocumented in this encounter Care Teams Paper Box Maker Relationship Specialty Start Date End Date Wilber Esquivel DO * PCP - General 03/13/01 documented as of this encounter
--- OUTSIDE RECORDS SUMMARY | 2025-02-01 08:42 | XMS_ITS | Encounter Summary ---
Author Organization [facility] Address 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) Social History Tobacco Use Types Packs/Day Years Used Date Smoking Tobacco: Never Assessed Comments Unknown Sex and Gender Information Value Date Recorded Sex Assigned at Not on file Legal Sex Female 5:20 AM HEEL SEAT FLAP STAPLER Gender Identity Not on file Sexual Orientation Not on file documented as of this encounter Plan of Treatment Not on file documented as of this encounter Visit Diagnoses Diagnosis Knee joint replacement by other means- Primary documented in this encounter Care Teams Lombardi Developer Relationship Specialty Start Date End Date Wilber Esquivel DO * PCP - General 03/13/01 documented as of this encounter
--- OUTSIDE RECORDS SUMMARY | 2025-02-01 08:42 | XMS_ITS | Encounter Summary ---
Author Organization [facility] Address [address] [place] [address] Care Team Providers Care Production Or Plant Engineer Name Role Phone Wilber Esquivel DO Primary Care Provider [phone] Encounter Details Date Type Department Care Team (Late st Contact Info) Description 01/25/2007 Outpatient [facility] Primary Care - [address] [place] [address] Wilber Esquivel DO * Social History Tobacco Use Types Packs/Day Years Used Date Smoking Tobacco: Never Assessed Comments Unknown Sex and Gender Information Value Date Recorded Sex Assigned at Not on file Legal Sex Female 5:20 AM HELP DESK CONSULTANT Gender Identity Not on file Sexual Orientation Not on file documented as of this encounter Plan of Treatment Not on file documented as of this encounter Visit Diagnoses Not on filedocumented in this encounter Care Teams Production Or Plant Engineer Relationship Specialty Start Date End Date Wilber Esquivel DO * PCP - General 03/13/01 documented as of this encounter
--- OUTSIDE RECORDS SUMMARY | 2025-02-01 08:42 | XMS_ITS | Encounter Summary ---
Author Organization [facility] Address [address] [place] [address] Care Team Providers Care Cheese Maker Name Role Phone Wilber Esquivel DO Primary Care Provider [phone] Encounter Details Date Type Department Care Team (Latest Contact Info) Description 11/19/2004 Outpatient Historical [facility] Wilber Esquivel DO * CERVICAL DISC DEGEN (Primary Dx) Social History Tobacco Use Types Packs/Day Years Used Date Smoking Tobacco: Never Assessed Comments Unknown Sex and Gender Information Value Date Recorded Sex Assigned at Not on file Legal Sex Female 5:20 AM OPTICAL GLASS INSPECTOR Gender Identity Not on file Sexual Orientation Not on file documented as of this encounter Plan of Treatment Not on file documented as of this encounter Visit Diagnoses Diagnosis Degeneration of cervical intervertebral disc- Primary documented in this encounter Care Teams Cheese Maker Relationship Specialty Start Date End Date Wilber Esquivel DO * PCP - General 03/13/01 documented as of this encounter
--- OUTSIDE RECORDS SUMMARY | 2025-02-01 08:42 | XMS_ITS | Encounter Summary ---
Author Organization [facility] Address [address] [place] [address] Care Team Providers Care Gas Roller Operator Name Role Phone Wilber Esquivel DO Primary Care Provider [phone] Encounter Details Date Type Department Care Team (Late st Contact Info) Description 12/31/2004 Outpatient [facility] Primary Care - [address] [place] [address] Wilber Esquivel DO * Social History Tobacco Use Types Packs/Day Years Used Date Smoking Tobacco: Never Assessed Comments Unknown Sex and Gender Information Value Date Recorded Sex Assigned at Not on file Legal Sex Female 5:20 AM MANAGER FIRE Gender Identity Not on file Sexual Orientation Not on file documented as of this encounter Plan of Treatment Not on file documented as of this encounter Visit Diagnoses Not on filedocumented in this encounter Care Teams Gas Roller Operator Relationship Specialty Start Date End Date Wilber Esquivel DO * PCP - General 03/13/01 documented as of this encounter
--- OUTSIDE RECORDS SUMMARY | 2025-02-01 08:42 | XMS_ITS | Encounter Summary ---
Author Organization [facility] Address [address] [place] [address] Care Team Providers Care Motorcycle Racer Name Role Phone Wilber Esquivel DO Primary Care Provider [phone] Encounter Details Date Type Department Care Team (Late st Contact Info) Description 11/05/1998 Outpatient [facility] Primary Care - [address] [place] [address] Wilber Esquivel DO * Social History Tobacco Use Types Packs/Day Years Used Date Smoking Tobacco: Never Assessed Comments Unknown Sex and Gender Information Value Date Recorded Sex Assigned at Not on file Legal Sex Female 5:20 AM HOME FURNISHINGS SALES REPRESENTATIVE Gender Identity Not on file Sexual Orientation Not on file documented as of this encounter Plan of Treatment Not on file documented as of this encounter Visit Diagnoses Not on filedocumented in this encounter Care Teams Motorcycle Racer Relationship Specialty Start Date End Date Wilber Esquivel DO * PCP - General 03/13/01 documented as of this encounter
--- OUTSIDE RECORDS SUMMARY | 2025-02-01 08:42 | XMS_ITS | Encounter Summary ---
Author Organization [facility] Address [address] [place] [address] Care Team Providers Care Buckle Sorter Name Role Phone Wilber Esquivel DO Primary Care Provider [phone] Encounter Details Date Type Department Care Team (Late st Contact Info) Description 10/08/2004 Outpatient [facility] Primary Care - [address] [place] [address] Wilber Esquivel DO * Social History Tobacco Use Types Packs/Day Years Used Date Smoking Tobacco: Never Assessed Comments Unknown Sex and Gender Information Value Date Recorded Sex Assigned at Not on file Legal Sex Female 5:20 AM CASHIER SELF SERVICE GASOLINE Gender Identity Not on file Sexual Orientation Not on file documented as of this encounter Plan of Treatment Not on file documented as of this encounter Visit Diagnoses Not on filedocumented in this encounter Care Teams Buckle Sorter Relationship Specialty Start Date End Date Wilber Esquivel DO * PCP - General 03/13/01 documented as of this encounter
--- OUTSIDE RECORDS SUMMARY | 2025-02-01 08:42 | XMS_ITS | Encounter Summary ---
Author Organization [facility] Address [address] [place] [address] Care Team Providers Care Tone Artist Apprentice Name Role Phone Wilber Esquivel DO Primary Care Provider Encounter Details Date Type Department Care Team (Late st Contact Info) Description 12/02/1998 Outpatient [facility] Primary Care - [address] [place] [address] Wilber Esquivel DO * Social History Tobacco Use Types Packs/Day Years Used Date Smoking Tobacco: Never Assessed Comments Unknown Sex and Gender Information Value Date Recorded Sex Assigned at Not on file Legal Sex Female 5:20 AM TITLE I TEACHER Gender Identity Not on file Sexual Orientation Not on file documented as of this encounter Plan of Treatment Not on file documented as of this encounter Visit Diagnoses Not on filedocumented in this encounter Care Teams Tone Artist Apprentice Relationship Specialty Start Date End Date Wilber Esquivel DO * PCP - General 03/13/01 documented as of this encounter
--- OUTSIDE RECORDS SUMMARY | 2025-02-01 08:42 | XMS_ITS | Encounter Summary ---
Author Organization [facility] Address [address] [place] [address] Care Team Providers Care Line Haul Truck Driver Name Role Phone Wilber Esquivel DO Primary Care Provider Encounter Details Date Type Department Care Team (Late st Contact Info) Description 09/28/2004 Outpatient [facility] Primary Care - [address] [place] [address] Wilber Esquivel DO * Social History Tobacco Use Types Packs/Day Years Used Date Smoking Tobacco: Never Assessed Comments Unknown Sex and Gender Information Value Date Recorded Sex Assigned at Not on file Legal Sex Female 5:20 AM EFFICIENCY EXPERT Gender Identity Not on file Sexual Orientation Not on file documented as of this encounter Plan of Treatment Not on file documented as of this encounter Visit Diagnoses Not on filedocumented in this encounter Care Teams Line Haul Truck Driver Relationship Specialty Start Date End Date Wilber Esquivel DO * PCP - General 03/13/01 documented as of this encounter
--- OUTSIDE RECORDS SUMMARY | 2025-02-01 08:42 | XMS_ITS | Encounter Summary ---
Author Organization [facility] Address [address] [place] [address] Care Team Providers Care Laboratory Machinist Name Role Phone Wilber Esquivel DO Primary Care Provider Encounter Details Date Type Department Care Team (Late st Contact Info) Description 04/27/2005 Outpatient [facility] Primary Care - [address] [place] [address] Wilber Esquivel DO * Social History Tobacco Use Types Packs/Day Years Used Date Smoking Tobacco: Never Assessed Comments Unknown Sex and Gender Information Value Date Recorded Sex Assigned at Not on file Legal Sex Female 5:20 AM EMPLOYMENT CASE MANAGER Gender Identity Not on file Sexual Orientation Not on file documented as of this encounter Plan of Treatment Not on file documented as of this encounter Visit Diagnoses Not on filedocumented in this encounter Care Teams Laboratory Machinist Relationship Specialty Start Date End Date Wilber Esquivel DO * PCP - General 03/13/01 documented as of this encounter
--- OUTSIDE RECORDS SUMMARY | 2025-02-01 08:42 | XMS_ITS | Encounter Summary ---
Author Organization [facility] Address [address] [place] [address] Care Team Providers Care Drywall Professional Name Role Phone Wilber Esquivel DO Primary Care Provider [phone] Encounter Details Date Type Department Care Team (Late st Contact Info) Description 01/04/2007 Outpatient [facility] Primary Care - [address] [place] [address] Wilber Esquivel DO * Social History Tobacco Use Types Packs/Day Years Used Date Smoking Tobacco: Never Assessed Comments Unknown Sex and Gender Information Value Date Recorded Sex Assigned at Not on file Legal Sex Female 5:20 AM PRESCRIPTION EYEGLASS MAKER Gender Identity Not on file Sexual Orientation Not on file documented as of this encounter Plan of Treatment Not on file documented as of this encounter Visit Diagnoses Not on filedocumented in this encounter Care Teams Drywall Professional Relationship Specialty Start Date End Date Wilber Esquivel DO * PCP - General 03/13/01 documented as of this encounter
--- OUTSIDE RECORDS SUMMARY | 2025-02-01 08:42 | XMS_ITS | Encounter Summary ---
Author Organization [facility] Address 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
--- OUTSIDE RECORDS SUMMARY | 2025-02-01 08:42 | XMS_ITS | Encounter Summary ---
Author Organization [facility] Address [address] [place] [address] Care Team Providers Care Liquefied Natural Gas Operator Name Role Phone Wilber Esquivel DO Primary Care Provider [phone] Encounter Details Date Type Department Care Team (Late st Contact Info) Description 10/16/1999 Outpatient [facility] Primary Care - [address] [place] [address] Wilber Esquivel DO * Social History Tobacco Use Types Packs/Day Years Used Date Smoking Tobacco: Never Assessed Comments Unknown Sex and Gender Information Value Date Recorded Sex Assigned at Not on file Legal Sex Female 5:20 AM 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
--- OUTSIDE RECORDS SUMMARY | 2025-02-01 08:42 | XMS_ITS | Encounter Summary ---
Author Organization [facility] Address [address] [place] [address] Care Team Providers Care Talent Acquisition Sourcer Name Role Phone Wilber Esquivel DO Primary Care Provider [phone] Encounter Details Date Type Department Care Team (Late st Contact Info) Description 04/06/2005 Outpatient [facility] Primary Care - [address] [place] [address] Wilber Esquivel DO * Social History Tobacco Use Types Packs/Day Years Used Date Smoking Tobacco: Never Assessed Comments Unknown Sex and Gender Information Value Date Recorded Sex Assigned at Not on file 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
--- OUTSIDE RECORDS SUMMARY | 2025-02-01 08:42 | XMS_ITS | Encounter Summary ---
Author Organization [facility] Address 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
--- OUTSIDE RECORDS SUMMARY | 2025-02-01 08:42 | XMS_ITS | Encounter Summary ---
Author Organization [facility] Address 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
[2025-02-01 12:23] LABS: Basophils Percent Auto 0.5 % (0.2-1.2); Eosinophils Absolute Auto 0.3 K/mm3 (0-0.3); Eosinophils Percent Auto 4.5 % (0-4.4); Hematocrit 43.7 % (37.0-47.0); Hemoglobin 14.4 g/dL (12.0-15.0); Immature Granulocyte Absolute 0.03 K/mm3 (0.00-0.031); Immature Granulocyte Percent A 0.5 % (0-0.5); Lymphocytes Absolute Auto 0.74 K/mm3 (0.9-3.2); Lymphocytes Percent Auto 12.3 % (18.3-44.2); Mean Corpuscular Hemoglobin 31.2 pg (26-34); Mean Corpuscular Volume 94.6 fl (80-100); Mean Platelet Volume 9.3 fl (7.4-10.4); Monocytes Absolute Auto 0.5 K/mm3 (0.1-0.6); Monocytes Percent Auto 7.5 % (2.6-8.5); Neutrophils Absolute Auto 4.5 K/mm3 (1.3-6.7); Neutrophils Percent Auto 74.7 % (45.5-73.1); Platelet Count Result 308 k/mm3 (150-375); Red Blood Count 4.62 M/mm3 (4.2-5.4); Red Cell Distribution Width 13.8 % (11.5-14.5)
[2025-02-01 12:31] LABS: Iron 71 ug/dL (37-170)
[2025-02-01 12:34] LABS: Prothrombin Time 12.8 Seconds (11.1-14.7)
[2025-02-01 12:35] LABS: Alanine Aminotransferase 21 U/L (6-35); Albumin Level 4.3 g/dL (3.5-5.1); Alkaline Phosphatase 107 U/L (38-126); Anion Gap 8 mmol/L (4-12); Aspartate Amino Transferase 48 U/L (14-36); Bilirubin,Total 0.6 mg/dL (0.2-1.3); Blood Urea Nitrogen 15 mg/dL (7-17); Calcium 9.4 mg/dL (8.4-10.2); Carbon Dioxide 28 mmol/L (22-30); Chloride 103 mmol/L (98-107); Estimated Glomerular Filt Rate 59; Glucose 121 mg/dL (65-110); Potassium 4.2 mmol/L (3.4-5.0); Sodium 139 mmol/L (137-145); Total Protein 7.4 g/dL (6.3-8.2)
[2025-02-01 12:41] LABS: Percent Iron Saturation 23 % (20-50)
[2025-02-02 06:49] LABS: Ceruloplasmin 27 mg/dL (14-48)
[2025-02-05 23:38] LABS: Actin Antibody (IgG) <20 U (<20)
[2025-02-06 06:33] LABS: LKM 1 Antibody <=20.0 U (<=20.0)
[2025-02-06 20:18] LABS: Mitochondrial (M2) Ab (IgG) <20.0 U
== END 2025-02-01 08:37 | disposition home or self-care (01) ==
LOC: ANHGOSHLAB 08:38
PROVIDERS: PCP Family Medicine; Visit Provider Nurse Practitioner Family
DX: R79.89 Other specified abnormal findings of blood chemistry (principal)
CPT/HCPCS: 36415; 80053; 81596; 82104; 82390; 82728; 83520; 83540; 83550; 85025; 85610; 86038; 86039; 86364; 86376

== ENCOUNTER 2025-04-11 11:00 | Outpatient (RCR) | payer MEDICARE, OTHER, SELFPAY ==
--- NOTE | 2025-01-31 10:20 | OPREHPOC ---
Outpatient Therapy Plan of Care This is a Multidisciplinary Plan of Care that may contain components documented by all disciplines (PT, OT, and ST.) PT Problem 1 PT Problem #1 Knowledge Deficit PT Goal 1 Goal / Goal Update Patient to demonstrate independence with HEP for improved self-reliance of symptom management. Target Visit 5 PT Problem 2 PT Problem #2 Impaired Strength PT Goal 1 Goal / Goal Update 1. Patient to perform 5xSTS from 15 sec to 12 sec to demonstrate an increase in B LE functional strength. 2. Patient to demonstrate B hip abduction strength >=4+/5 for improved functional stability required for ADLs. Target Visit 10 PT Problem 3 PT Problem #3 Impaired Balance PT Goal 1 Goal / Goal Update Patient to improve outcome measure score on the Tinetti from 13 to 19 points or greater to improve fall risk from high to moderate to increase safety with mobility. Target Visit 10 PT Problem 4 PT Problem #4 Impaired Endurance PT Goal 1 Goal / Goal Update Patient to improve distance ambulated during 2MWT from 300 feet to 350 feet to demonstrate an improvement in ADL endurance. Target Visit 10
--- NOTE | 2025-01-31 10:20 | PTOPEVAL1 ---
Assessment and note entered by Norma Chung, PT Evaluation Information Assessment Status Evaluation Diagnosis historyof falls, ataxia unspecified ICD-10 Condition Codes (PT) Repeated falls R29.6,Abnormalities of gait and mobility R26.9 Onset Aug Subjective Information Pt presents to skilled PT with decreased balance posing fall risk/safety risk. Pt has had 2 falls in the last 6 months, was outside working in her yard and felt unsteady both times. She reports difficulty with raising her feet high enough to clear her retaining wall and the flight of stairs in her home. She did not seek medical care at the time of her falls. Pt does not use an AD. Pt has had vertigo in the past but this feels different. She keeps telling her doctor she thinks she has neuropathy, she reports burning in the tops of her feet. She also reports zingers going up to her knees at random. She reports having to sit or stand still after a transitional movement before she starts walking to get her bearings. Pt has trouble with sit to stand/standing/walking/ stairs. Reported Pain Level Pain Score 0: Self Report Assessment PT Clinical Summary Pt is a 79 year old female who presents to physical therapy with a primary complaint of repeated falls and unsteadiness on feet. Pt demonstrates B hip weakness, decreased mobility, abnormal posture, gait deficit, and decreased endurance that limit their ability to perform ADLs . the pt is also a high fall risk per her Tinetti score of 13/28. Pt will benefit from skilled physical therapy to address the above listed deficits and return to PLOF. HEP instructed and written handout provided, EX tolerated well with no adverse effects to note post-session. Pt was educated on importance of adherence to HEP. Pt was also educated on anatomy, prognosis, safety, home environment modifications , and PT POC. Plan of Care Interventions Gait Training,Hot Pack/Cold Pack,Manual Therapy, Neuro Re-education,Therapeutic Activities, Therapeutic Exercise PT Services Indicated Yes Treatment Frequency and 2/wk for 10 visits Duration These treatments will address the objective and functional deficits as defined above. The patient will be advanced safely and appropriately in order for the patient to progress towards his/her prior level of function. Additional exercises will be introduced and as well as a comprehensive home exercise program upon discharge, if needed, ?to ensure carryover of functional gains achieved in the clinic. This treatment plan has been reviewed and agreement upon by the patient.
--- NOTE | 2025-02-21 15:41 | PCPTNOTE ---
Pt was called and stated she forget her appointment scheduled for today. Pt was reminded about her future appointments with verbal confirmation.
--- NOTE | 2025-03-07 13:15 | OPREHPOC ---
Outpatient Therapy Plan of Care This is a Multidisciplinary Plan of Care that may contain components documented by all disciplines (PT, OT, and ST.) PT Problem 1 PT Problem #1 Knowledge Deficit PT Goal 1 Goal / Goal Update Patient to demonstrate independence with HEP for improved self-reliance of symptom management. Target Visit 5 Progress Met PT Problem 2 PT Problem #2 Impaired Strength PT Goal 1 Goal / Goal Update 1. Patient to perform 5xSTS from 15 sec to 12 sec to demonstrate an increase in B LE functional strength. (03/07/25 no change) 2. Patient to demonstrate B hip abduction strength >=4+/5 for improved functional stability required for ADLs. (03/07/25 progressing, R 4+/5, L 4/5) Target Visit 10 Progress Partially Met PT Problem 3 PT Problem #3 Impaired Balance PT Goal 1 Goal / Goal Update Patient to improve outcome measure score on the Tinetti from 13 to 19 points or greater to improve fall risk from high to moderate to increase safety with mobility. (03/07/25 progression ) Target Visit 10 Progress Partially Met PT Problem 4 PT Problem #4 Impaired Endurance PT Goal 1 Goal / Goal Update Patient to improve distance ambulated during 2MWT from 300 feet to 350 feet to demonstrate an improvement in ADL endurance. Target Visit 10 Progress Met PT Goal 2 Goal / Goal Update Patient to improve distance ambulated during 2MWT with a SC from 275 feet to 325 feet to demonstrate an improvement in ADL endurance. Target Visit 10
--- NOTE | 2025-03-07 13:15 | PTOPEVAL1 ---
Assessment and note entered by Norma Chung, PT Evaluation Information Assessment Status Evaluation Diagnosis history of falls, ataxia unspecified ICD-10 Condition Codes (PT) Repeated falls R29.6,Abnormalities of gait and mobility R26.9 Onset Aug Subjective Information Pt denies falling since first starting therapy. She reports using the straight cane about 45% of the time. She mainly uses it if she has to go to an unknown environment, longer distances, or uneven surfaces. She thinks it provides her with stability and balance. She does not think the numbness has changed in her feet. Overall, since first starting therapy the pt reports feeling 55% improvement. She feels off balance the most when initially standing up, quick turns, and prolonged walking. Reported Pain Level Pain Score 0: Self Report Assessment PT Clinical Summary Patient's condition has improved overall as evidenced by advancements in symptoms, mobility, strength, and overall balance. However, some limitations are still present evident by a Tinetti score of 16/28, limited L hip abduction strength, no change in 5xSTS time, and decreased endurance. Patient would benefit from continued skilled PT services to address the above listed impairments and facilitate a return to their PLOF. Plan of Care Interventions Gait Training,Hot Pack/Cold Pack,Manual Therapy, Neuro Re-education,Therapeutic Activities, Therapeutic Exercise PT Services Indicated Yes Treatment Frequency and 2/wk for 10 visits Duration These treatments will address the objective and functional deficits as defined above. The patient will be advanced safely and appropriately in order for the patient to progress towards his/her prior level of function. Additional exercises will be introduced and as well as a comprehensive home exercise program upon discharge, if needed, ?to ensure carryover of functional gains achieved in the clinic. This treatment plan has been reviewed and agreement upon by the patient.
--- NOTE | 2025-03-15 09:09 | PCPTNOTE ---
Pt called to cancel her appt this date, states she is having GI issues
--- NOTE | 2025-04-11 11:31 | PTOPDC ---
Assessment and note entered by Norma Chung, PT Evaluation Information Assessment Status Discharge Diagnosis history of falls, ataxia unspecified ICD-10 Condition Codes (PT) Repeated falls R29.6,Abnormalities of gait and mobility R26.9 Onset Aug Subjective Information Pt denies falling since first starting therapy. She reports using the straight cane about 45-50% of the time. She mainly uses it if she has to go to the grocery store, longer distances, or uneven surfaces. She thinks it provides her with stability and balance. She does not use it in the house. Overall, since first starting therapy the pt reports feeling 55% improvement. She feels off balance the most with prolonged walking, feels like she is staggering. she reports having a family h/o Parkinson's and wants to ask her doctor about this at her next visit. She feels like she is quivering inside sometimes, no external tremors noted. Reported Pain Level Pain Score 0: Self Report Assessment PT Clinical Summary Pt has made steady improvements throughout her skilled PT sessions completing 18 total. Her B hip abduction strength during MMT has improved. However, functionally she still displays a Trendelenburg gait pattern. She continues to demonstrate limited balance and scores 16/28 on the Tinetti. Her STS score has also been unchanged since her last progress note. Her endurance and safety with a straight cane has improved overall. The pt subjective reports of improvement also remains at 55% this date. At this time the pt has optimized her CLOF and has plateaued is her ability to make progress towards her remaining therapy goals. The patient displayed curiosity in her familial history of Parkinson's disease and was educated on common signs and symptoms. Pt was educated on the current gait deficits and balance impairments she has. Pt was educated that PT can not diagnose her with this disease and she will be consulting with her physician at her upcoming appointment regarding this topic. Plan of Care PT Services Indicated Yes
--- NOTE | 2025-04-11 11:38 | PCPTNOTE ---
spoke with receptionist telephone operator at Dr. Galeano office to inform them of pt's DC from Pt and her questions about PD
== END 2025-04-11 16:21 | disposition home or self-care (01) ==
LOC: ANHGOSHPT 11:00
PROVIDERS: PCP Family Medicine; Visit Provider Physician Assistant Medical
DX: R27.0 Ataxia, unspecified (principal); Z91.81 History of falling
CPT/HCPCS: 97110; 97112; 97116; 97161; 97530

== ENCOUNTER 2025-04-30 09:27 | Outpatient (CLI) | payer MEDICARE, OTHER, SELFPAY ==
--- OUTSIDE RECORDS SUMMARY | 2025-04-30 10:30 | XMS_ITS | Encounter Summary ---
Author Organization [facility] Address 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
--- OUTSIDE RECORDS SUMMARY | 2025-04-30 10:30 | XMS_ITS | Encounter Summary ---
Author Organization [facility] Address 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
--- OUTSIDE RECORDS SUMMARY | 2025-04-30 10:31 | XMS_ITS | Encounter Summary ---
Author Organization [facility] Address 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
--- OUTSIDE RECORDS SUMMARY | 2025-04-30 10:31 | XMS_ITS | Encounter Summary ---
Author Organization [facility] Address [address] [place] [address] Care Team Providers Care Burial Vault Deliverer And Installer Name Role Phone Wilber Esquivel DO Primary Care Provider Encounter Details Date Type Department Care Team (Late st Contact Info) Description 04/06/2005 Outpatient [facility] Primary Care - [address] [place] [address] Wilber Esquivel DO * Social History Tobacco Use Types Packs/Day Years Used Date Smoking Tobacco: Never Assessed Comments Unknown Sex and Gender Information Value Date Recorded Sex Assigned at Not on file Legal Sex Female 5:20 AM MILLING MACHINE OPERATOR GEAR Gender Identity Not on file Sexual Orientation Not on file documented as of this encounter Plan of Treatment Not on file documented as of this encounter Visit Diagnoses Not on filedocumented in this encounter Care Teams Burial Vault Deliverer And Installer Relationship Specialty Start Date End Date Wilber Esquivel DO * PCP - General 03/13/01 documented as of this encounter
--- OUTSIDE RECORDS SUMMARY | 2025-04-30 10:31 | XMS_ITS | Encounter Summary ---
Author Organization [facility] Address [address] [place] [address] Care Team Providers Care Pattern Changer Name Role Phone Wilber Esquivel DO Primary Care Provider Encounter Details Date Type Department Care Team (Late st Contact Info) Description 11/30/1999 Outpatient [facility] Primary Care - [address] [place] [address] Wilber Esquivel DO * Social History Tobacco Use Types Packs/Day Years Used Date Smoking Tobacco: Never Assessed Comments Unknown Sex and Gender Information Value Date Recorded Sex Assigned at Not on file Legal Sex Female 5:20 AM BLOCKING MACHINE OPERATOR SECOND Gender Identity Not on file Sexual Orientation Not on file documented as of this encounter Plan of Treatment Not on file documented as of this encounter Visit Diagnoses Not on filedocumented in this encounter Care Teams Pattern Changer Relationship Specialty Start Date End Date Wilber Esquivel DO * PCP - General 03/13/01 documented as of this encounter
--- OUTSIDE RECORDS SUMMARY | 2025-04-30 10:31 | XMS_ITS | Encounter Summary ---
Author Organization [facility] Address 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
--- OUTSIDE RECORDS SUMMARY | 2025-04-30 10:31 | XMS_ITS | Encounter Summary ---
Author Organization [facility] Address [address] [place] [address] Care Team Providers Care Media Producer Name Role Phone Wilber Esquivel DO Primary Care Provider [phone] Encounter Details Date Type Department Care Team (Latest Contact Info) Description 06/03/2005 Outpatient Historical [facility] IMG-LAB [facility] Wilber Esquivel DO * COUGH (Primary Dx) Social History Tobacco Use Types Packs/Day Years Used Date Smoking Tobacco: Never Assessed Comments Unknown Sex and Gender Information Value Date Recorded Sex Assigned at Not on file Legal Sex Female 5:20 AM PERINATOLOGY PHYSICIAN Gender Identity Not on file Sexual Orientation Not on file documented as of this encounter Plan of Treatment Not on file documented as of this encounter Visit Diagnoses Diagnosis Cough- Primary documented in this encounter Care Teams Media Producer Relationship Specialty Start Date End Date Wilber Esquivel DO * PCP - General 03/13/01 documented as of this encounter
--- OUTSIDE RECORDS SUMMARY | 2025-04-30 10:31 | XMS_ITS | Encounter Summary ---
Author Organization [facility] Address 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
--- OUTSIDE RECORDS SUMMARY | 2025-04-30 10:31 | XMS_ITS | Encounter Summary ---
Author Organization [facility] Address 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
--- OUTSIDE RECORDS SUMMARY | 2025-04-30 10:31 | XMS_ITS | Encounter Summary ---
Author Organization [facility] Address [address] [place] [address] Care Team Providers Care Zigzagger Name Role Phone Wilber Esquivel DO Primary Care Provider [phone] Encounter Details Date Type Department Care Team (Late st Contact Info) Description 03/27/1998 Outpatient [facility] Primary Care - [address] [place] [address] Wilber Esquivel DO * Social History Tobacco Use Types Packs/Day Years Used Date Smoking Tobacco: Never Assessed Comments Unknown Sex and Gender Information Value Date Recorded Sex Assigned at Not on file Legal Sex Female 5:20 AM VOLTMETER OPERATOR Gender Identity Not on file Sexual Orientation Not on file documented as of this encounter Plan of Treatment Not on file documented as of this encounter Visit Diagnoses Not on filedocumented in this encounter Care Teams Zigzagger Relationship Specialty Start Date End Date Wilber Esquivel DO * PCP - General 03/13/01 documented as of this encounter
--- OUTSIDE RECORDS SUMMARY | 2025-04-30 10:31 | XMS_ITS | Encounter Summary ---
Author Organization [facility] Address [address] [place] [address] Care Team Providers Care Manager Program Name Role Phone Wilber Esquivel DO Primary Care Provider Encounter Details Date Type Department Care Team (Late st Contact Info) Description 07/18/2002 Outpatient [facility] Primary Care - [address] [place] [address] Wilber Esquivel DO * Social History Tobacco Use Types Packs/Day Years Used Date Smoking Tobacco: Never Assessed Comments Unknown Sex and Gender Information Value Date Recorded Sex Assigned at Not on file Legal Sex Female 5:20 AM LAW LIBRARIAN Gender Identity Not on file Sexual Orientation Not on file documented as of this encounter Plan of Treatment Not on file documented as of this encounter Visit Diagnoses Not on filedocumented in this encounter Care Teams Manager Program Relationship Specialty Start Date End Date Wilber Esquivel DO * PCP - General 03/13/01 documented as of this encounter
--- OUTSIDE RECORDS SUMMARY | 2025-04-30 10:31 | XMS_ITS | Encounter Summary ---
Author Organization [facility] Address [address] [place] [address] Care Team Providers Care Superintendent Of Schools Name Role Phone Wilber Esquivel DO Primary Care Provider Encounter Details Date Type Department Care Team (Late st Contact Info) Description 01/23/2003 Outpatient [facility] Primary Care - [address] [place] [address] Wilber Esquivel DO * Social History Tobacco Use Types Packs/Day Years Used Date Smoking Tobacco: Never Assessed Comments Unknown Sex and Gender Information Value Date Recorded Sex Assigned at Not on file Legal Sex Female 5:20 AM HEALTH DATA ADMINISTRATOR Gender Identity Not on file Sexual Orientation Not on file documented as of this encounter Plan of Treatment Not on file documented as of this encounter Visit Diagnoses Not on filedocumented in this encounter Care Teams Superintendent Of Schools Relationship Specialty Start Date End Date Wilber Esquivel DO * PCP - General 03/13/01 documented as of this encounter
--- OUTSIDE RECORDS SUMMARY | 2025-04-30 10:31 | XMS_ITS | Encounter Summary ---
Author Organization [facility] Address 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
--- OUTSIDE RECORDS SUMMARY | 2025-04-30 10:31 | XMS_ITS | Encounter Summary ---
Author Organization [facility] Address [address] [place] [address] Care Team Providers Care Micropaleontologist Name Role Phone Wilber Esquivel DO Primary Care Provider [phone] Encounter Details Date Type Department Care Team (Late st Contact Info) Description 11/08/2006 Outpatient [facility] Primary Care - [address] [place] [address] Wilber Esquivel DO * Social History Tobacco Use Types Packs/Day Years Used Date Smoking Tobacco: Never Assessed Comments Unknown Sex and Gender Information Value Date Recorded Sex Assigned at Not on file Legal Sex Female 5:20 AM FAMILY ASSESSMENT WORKER Gender Identity Not on file Sexual Orientation Not on file documented as of this encounter Plan of Treatment Not on file documented as of this encounter Visit Diagnoses Not on filedocumented in this encounter Care Teams Micropaleontologist Relationship Specialty Start Date End Date Wilber Esquivel DO * PCP - General 03/13/01 documented as of this encounter
--- OUTSIDE RECORDS SUMMARY | 2025-04-30 10:31 | XMS_ITS | Encounter Summary ---
Author Organization [facility] Address 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
--- OUTSIDE RECORDS SUMMARY | 2025-04-30 10:31 | XMS_ITS | Encounter Summary ---
Author Organization [facility] Address 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
--- OUTSIDE RECORDS SUMMARY | 2025-04-30 10:31 | XMS_ITS | Encounter Summary ---
Author Organization [facility] Address 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
--- OUTSIDE RECORDS SUMMARY | 2025-04-30 10:31 | XMS_ITS | Encounter Summary ---
Author Organization [facility] Address 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
--- OUTSIDE RECORDS SUMMARY | 2025-04-30 10:31 | XMS_ITS | Encounter Summary ---
Author Organization [facility] Address [address] [place] [address] Care Team Providers Care Advertising Clerk Name Role Phone Wilber Esquivel DO Primary Care Provider Encounter Details Date Type Department Care Team (Late st Contact Info) Description 04/27/2005 Outpatient [facility] [address] Primary Care - [address] [place] [address] Wilber Esquivel DO * Social History Tobacco Use Types Packs/Day Years Used Date Smoking Tobacco: Never Assessed Comments Unknown Sex and Gender Information Value Date Recorded Sex Assigned at Not on file Legal Sex Female 5:20 AM PIN DRAFTER OPERATOR Gender Identity Not on file Sexual Orientation Not on file documented as of this encounter Plan of Treatment Not on file documented as of this encounter Visit Diagnoses Not on filedocumented in this encounter Care Teams Advertising Clerk Relationship Specialty Start Date End Date Wilber Esquivel DO * PCP - General 03/13/01 documented as of this encounter
--- OUTSIDE RECORDS SUMMARY | 2025-04-30 10:31 | XMS_ITS | Encounter Summary ---
Author Organization [facility] Address [address] [place] [address] Care Team Providers Care Gumming Machine Operator Name Role Phone Wilber Esquivel DO Primary Care Provider Encounter Details Date Type Department Care Team (Late st Contact Info) Description 12/31/1999 Outpatient [facility] Primary Care - [address] [place] [address] Wilber Esquivel DO * Social History Tobacco Use Types Packs/Day Years Used Date Smoking Tobacco: Never Assessed Comments Unknown Sex and Gender Information Value Date Recorded Sex Assigned at Not on file Legal Sex Female 5:20 AM PHYSICIAN ASSISTANT PRIMARY CARE Gender Identity Not on file Sexual Orientation Not on file documented as of this encounter Plan of Treatment Not on file documented as of this encounter Visit Diagnoses Not on filedocumented in this encounter Care Teams Gumming Machine Operator Relationship Specialty Start Date End Date Wilber Esquivel DO * PCP - General 03/13/01 documented as of this encounter
--- OUTSIDE RECORDS SUMMARY | 2025-04-30 10:31 | XMS_ITS | Encounter Summary ---
Author Organization [facility] Address 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
--- OUTSIDE RECORDS SUMMARY | 2025-04-30 10:31 | XMS_ITS | Encounter Summary ---
Author Organization [facility] Address [address] [place] [address] Care Team Providers Care Automatic Dispenser Mechanic Name Role Phone Wilber Esquivel DO Primary Care Provider [phone] Encounter Details Date Type Department Care Team (Late st Contact Info) Description 06/03/2005 Outpatient [facility] Primary Care - [address] [place] [address] Wilber Esquivel DO * Social History Tobacco Use Types Packs/Day Years Used Date Smoking Tobacco: Never Assessed Comments Unknown Sex and Gender Information Value Date Recorded Sex Assigned at Not on file Legal Sex Female 5:20 AM BILLING ASSISTANT Gender Identity Not on file Sexual Orientation Not on file documented as of this encounter Plan of Treatment Not on file documented as of this encounter Visit Diagnoses Not on filedocumented in this encounter Care Teams Automatic Dispenser Mechanic Relationship Specialty Start Date End Date Wilber Esquivel DO * PCP - General 03/13/01 documented as of this encounter
--- OUTSIDE RECORDS SUMMARY | 2025-04-30 10:31 | XMS_ITS | Encounter Summary ---
Author Organization [facility] Address [address] [place] [address] Care Team Providers Care Molding Technician Name Role Phone Wilber Esquivel DO Primary Care Provider [phone] Encounter Details Date Type Department Care Team (Late st Contact Info) Description 07/02/2003 Outpatient [facility] Primary Care - [address] [place] [address] Wilber Esquivel DO * Social History Tobacco Use Types Packs/Day Years Used Date Smoking Tobacco: Never Assessed Comments Unknown Sex and Gender Information Value Date Recorded Sex Assigned at Not on file Legal Sex Female 5:20 AM ELECTRICAL WIRING LINEMAN Gender Identity Not on file Sexual Orientation Not on file documented as of this encounter Plan of Treatment Not on file documented as of this encounter Visit Diagnoses Not on filedocumented in this encounter Care Teams Molding Technician Relationship Specialty Start Date End Date Wilber Esquivel DO * PCP - General 03/13/01 documented as of this encounter
--- OUTSIDE RECORDS SUMMARY | 2025-04-30 10:31 | XMS_ITS | Encounter Summary ---
Author Organization [facility] Address [address] [place] [address] Care Team Providers Care Rn Relief Charge Name Role Phone Wilber Esquivel DO Primary Care Provider [phone] Encounter Details Date Type Department Care Team (Latest Contact Info) Description 03/06/2003 Outpatient Historical 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
--- OUTSIDE RECORDS SUMMARY | 2025-04-30 10:31 | XMS_ITS | Encounter Summary ---
Author Organization [facility] Address [address] [place] [address] Care Team Providers Care Clinical Account Manager Name Role Phone Wilber Esquivel DO Primary Care Provider Encounter Details Date Type Department Care Team (Late st Contact Info) Description 11/22/2006 Outpatient [facility] Primary Care - [address] [place] [address] Wilber Esquivel DO * Social History Tobacco Use Types Packs/Day Years Used Date Smoking Tobacco: Never Assessed Comments Unknown Sex and Gender Information Value Date Recorded Sex Assigned at Not on file Legal Sex Female 5:20 AM CONCRETE PAVING SUPERVISOR Gender Identity Not on file Sexual Orientation Not on file documented as of this encounter Plan of Treatment Not on file documented as of this encounter Visit Diagnoses Not on filedocumented in this encounter Care Teams Clinical Account Manager Relationship Specialty Start Date End Date Wilber Esquivel DO * PCP - General 03/13/01 documented as of this encounter
--- OUTSIDE RECORDS SUMMARY | 2025-04-30 10:31 | XMS_ITS | Encounter Summary ---
Author Organization [facility] Address [address] [place] [address] Care Team Providers Care Lithoduplicator Operator Name Role Phone Wilber Esquivel DO Primary Care Provider Encounter Details Date Type Department Care Team (Late st Contact Info) Description 12/21/2006 Outpatient [facility] Primary Care - [address] [place] [address] Wilbre Esquivel DO * Social History Tobacco Use Types Packs/Day Years Used Date Smoking Tobacco: Never Assessed Comments Unknown Sex and Gender Information Value Date Recorded Sex Assigned at Not on file Legal Sex Female 5:20 AM BUSINESS OPERATIONS MANAGER Gender Identity Not on file Sexual Orientation Not on file documented as of this encounter Plan of Treatment Not on file documented as of this encounter Visit Diagnoses Not on filedocumented in this encounter Care Teams Lithoduplicator Operator Relationship Specialty Start Date End Date Wilber Esquivel DO * PCP - General 03/13/01 documented as of this encounter
--- OUTSIDE RECORDS SUMMARY | 2025-04-30 10:31 | XMS_ITS | Encounter Summary ---
Author Organization [facility] Address 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
--- OUTSIDE RECORDS SUMMARY | 2025-04-30 10:31 | XMS_ITS | Encounter Summary ---
Author Organization [facility] Address [address] [place] [address] Care Team Providers Care Cable Mechanic Name Role Phone Wilber Esquivel DO Primary Care Provider Encounter Details Date Type Department Care Team (Late st Contact Info) Description 03/18/2005 Outpatient [facility] Primary Care - [address] [place] [address] Wilber Esquivel DO * Social History Tobacco Use Types Packs/Day Years Used Date Smoking Tobacco: Never Assessed Comments Unknown Sex and Gender Information Value Date Recorded Sex Assigned at Not on file Legal Sex Female 5:20 AM DOUGHNUT FRYER Gender Identity Not on file Sexual Orientation Not on file documented as of this encounter Plan of Treatment Not on file documented as of this encounter Visit Diagnoses Not on filedocumented in this encounter Care Teams Cable Mechanic Relationship Specialty Start Date End Date Wilber Esquivel DO * PCP - General 03/13/01 documented as of this encounter
--- OUTSIDE RECORDS SUMMARY | 2025-04-30 10:31 | XMS_ITS | Encounter Summary ---
Author Organization [facility] Address 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
--- OUTSIDE RECORDS SUMMARY | 2025-04-30 10:31 | XMS_ITS | Encounter Summary ---
Author Organization [facility] Address [address] [place] [address] Care Team Providers Care Pressurised Container Filler Name Role Phone Wilber Esquivel DO Primary Care Provider [phone] Encounter Details Date Type Department Care Team (Late st Contact Info) Description 09/24/2006 Outpatient [facility] Primary Care - [address] [place] [address] Ceci Cox MD NO ADDRESS ON FILE Social History Tobacco Use Types Packs/Day Years Used Date Smoking Tobacco: Never Assessed Comments Unknown Sex and Gender Information Value Date Recorded Sex Assigned at Not on file Legal Sex Female 5:20 AM DIRECTOR AND PROFESSOR Gender Identity Not on file Sexual Orientation Not on file documented as of this encounter Plan of Treatment Not on file documented as of this encounter Visit Diagnoses Not on filedocumented in this encounter Care Teams Pressurised Container Filler Relationship Specialty Start Date End Date Wilber Esquivel DO * PCP - General 03/13/01 documented as of this encounter
--- OUTSIDE RECORDS SUMMARY | 2025-04-30 10:31 | XMS_ITS | Encounter Summary ---
Author Organization [facility] Address 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) Social History Tobacco Use Types Packs/Day Years Used Date Smoking Tobacco: Never Assessed Comments Unknown Sex and Gender Information Value Date Recorded Sex Assigned at Not on file Legal Sex Female 5:20 AM FOUNDATION ENGINEER Gender Identity Not on file Sexual Orientation Not on file documented as of this encounter Plan of Treatment Not on file documented as of this encounter Visit Diagnoses Diagnosis Knee joint replacement by other means- Primary documented in this encounter Care Teams Direct Marketing Executive Relationship Specialty Start Date End Date Wilber Esquivel DO * PCP - General 03/13/01 documented as of this encounter
--- OUTSIDE RECORDS SUMMARY | 2025-04-30 10:31 | XMS_ITS | Encounter Summary ---
Author Organization [facility] Address 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
--- OUTSIDE RECORDS SUMMARY | 2025-04-30 10:31 | XMS_ITS | Encounter Summary ---
Author Organization [facility] Address [address] [place] [address] Care Team Providers Care Can Repairer Name Role Phone Wilber Esquivel DO Primary Care Provider [phone] Encounter Details Date Type Department Care Team (Latest Contact Info) Description 03/13/2001 Outpatient Historical [facility] Wibler Esquivel DO * Other screening mammogram (Primary Dx) Social History Tobacco Use Types Packs/Day Years Used Date Smoking Tobacco: Never Assessed Comments Unknown Sex and Gender Information Value Date Recorded Sex Assigned at Not on file Legal Sex Female 5:20 AM MANAGER RESOURCE Gender Identity Not on file Sexual Orientation Not on file documented as of this encounter Plan of Treatment Not on file documented as of this encounter Visit Diagnoses Diagnosis Other screening mammogram- Primary documented in this encounter Care Teams Can Repairer Relationship Specialty Start Date End Date Wilber Esquivel DO * PCP - General 03/13/01 documented as of this encounter
--- OUTSIDE RECORDS SUMMARY | 2025-04-30 10:31 | XMS_ITS | Encounter Summary ---
Author Organization [facility] Address [address] [place] [address] Care Team Providers Care Furnace Worker Name Role Phone Wilber Esquivel DO Primary Care Provider [phone] Encounter Details Date Type Department Care Team (Late st Contact Info) Description 01/02/2003 Outpatient [facility] Primary Care - [address] [place] [address] Wilber Esquivel DO * Social History Tobacco Use Types Packs/Day Years Used Date Smoking Tobacco: Never Assessed Comments Unknown Sex and Gender Information Value Date Recorded Sex Assigned at Not on file Legal Sex Female 5:20 AM FIELD STAFF Gender Identity Not on file Sexual Orientation Not on file documented as of this encounter Plan of Treatment Not on file documented as of this encounter Visit Diagnoses Not on filedocumented in this encounter Care Teams Furnace Worker Relationship Specialty Start Date End Date Wilber Esquivel DO * PCP - General 03/13/01 documented as of this encounter
--- OUTSIDE RECORDS SUMMARY | 2025-04-30 10:31 | XMS_ITS | Encounter Summary ---
Author Organization [facility] Address [address] [place] [address] Care Team Providers Care Chief Development Officer Name Role Phone Wilber Esquivel DO Primary Care Provider Encounter Details Date Type Department Care Team (Late st Contact Info) Description 04/05/2000 Outpatient [facility] Primary Care - [address] [place] [address] Wilber Esquivel DO * Social History Tobacco Use Types Packs/Day Years Used Date Smoking Tobacco: Never Assessed Comments Unknown Sex and Gender Information Value Date Recorded Sex Assigned at Not on file Legal Sex Female 5:20 AM STENCILING MACHINE TENDER Gender Identity Not on file Sexual Orientation Not on file documented as of this encounter Plan of Treatment Not on file documented as of this encounter Visit Diagnoses Not on filedocumented in this encounter Care Teams Chief Development Officer Relationship Specialty Start Date End Date Wilber Esquivel DO * PCP - General 03/13/01 documented as of this encounter
--- OUTSIDE RECORDS SUMMARY | 2025-04-30 10:31 | XMS_ITS | Encounter Summary ---
Author Organization [facility] Address 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
--- OUTSIDE RECORDS SUMMARY | 2025-04-30 10:31 | XMS_ITS | Encounter Summary ---
Author Organization [facility] Address 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
--- OUTSIDE RECORDS SUMMARY | 2025-04-30 10:31 | XMS_ITS | Encounter Summary ---
Author Organization [facility] Address [address] [place] [address] Care Team Providers Care Instrument Worker Name Role Phone Wilber Esquivel DO Primary Care Provider Encounter Details Date Type Department Care Team (Late st Contact Info) Description 01/13/2004 Outpatient [facility] Primary Care - [address] [place] [address] Wilber Esquivel DO * Social History Tobacco Use Types Packs/Day Years Used Date Smoking Tobacco: Never Assessed Comments Unknown Sex and Gender Information Value Date Recorded Sex Assigned at Not on file Legal Sex Female 5:20 AM EXAMINATION SCORER Gender Identity Not on file Sexual Orientation Not on file documented as of this encounter Plan of Treatment Not on file documented as of this encounter Visit Diagnoses Not on filedocumented in this encounter Care Teams Instrument Worker Relationship Specialty Start Date End Date Wilber Esquivel DO * PCP - General 03/13/01 documented as of this encounter
--- OUTSIDE RECORDS SUMMARY | 2025-04-30 10:31 | XMS_ITS | Encounter Summary ---
Author Organization [facility] Address 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
--- OUTSIDE RECORDS SUMMARY | 2025-04-30 10:31 | XMS_ITS | Encounter Summary ---
Author Organization [facility] Address 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
--- OUTSIDE RECORDS SUMMARY | 2025-04-30 10:31 | XMS_ITS | Encounter Summary ---
Author Organization [facility] Address 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
--- OUTSIDE RECORDS SUMMARY | 2025-04-30 10:31 | XMS_ITS | Encounter Summary ---
Author Organization [facility] Address [address] [place] [address] Care Team Providers Care Record Changer Assembler Name Role Phone Wilber Esquivel DO Primary Care Provider Encounter Details Date Type Department Care Team (Late st Contact Info) Description 08/04/2000 Outpatient [facility] Primary Care - [address] [place] [address] Wilber Esquivel DO * Social History Tobacco Use Types Packs/Day Years Used Date Smoking Tobacco: Never Assessed Comments Unknown Sex and Gender Information Value Date Recorded Sex Assigned at Not on file Legal Sex Female 5:20 AM POST MANAGER Gender Identity Not on file Sexual Orientation Not on file documented as of this encounter Plan of Treatment Not on file documented as of this encounter Visit Diagnoses Not on filedocumented in this encounter Care Teams Record Changer Assembler Relationship Specialty Start Date End Date Wilber Esquivel DO * PCP - General 03/13/01 documented as of this encounter
--- OUTSIDE RECORDS SUMMARY | 2025-04-30 10:31 | XMS_ITS | Encounter Summary ---
Author Organization [facility] Address [address] [place] [address] Care Team Providers Care Sub Arc Operator Name Role Phone Wilber Esquivel DO Primary Care Provider [phone] Encounter Details Date Type Department Care Team (Late st Contact Info) Description 06/20/2002 Outpatient [facility] Primary Care - [address] [place] [address] Wilber Esquivel DO * Social History Tobacco Use Types Packs/Day Years Used Date Smoking Tobacco: Never Assessed Comments Unknown Sex and Gender Information Value Date Recorded Sex Assigned at Not on file Legal Sex Female 5:20 AM SQE Gender Identity Not on file Sexual Orientation Not on file documented as of this encounter Plan of Treatment Not on file documented as of this encounter Visit Diagnoses Not on filedocumented in this encounter Care Teams Sub Arc Operator Relationship Specialty Start Date End Date Wilber Esquivel DO * PCP - General 03/13/01 documented as of this encounter
--- OUTSIDE RECORDS SUMMARY | 2025-04-30 10:31 | XMS_ITS | Encounter Summary ---
Author Organization [facility] Address 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
--- OUTSIDE RECORDS SUMMARY | 2025-04-30 10:31 | XMS_ITS | Encounter Summary ---
Author Organization [facility] Address [address] [place] [address] Care Team Providers Care Agronomist Name Role Phone Wilber Esquivel DO Primary Care Provider Encounter Details Date Type Department Care Team (Late st Contact Info) Description 10/11/2006 Outpatient [facility] Primary Care - [address] [place] [address] Wilber Esquivel DO * Social History Tobacco Use Types Packs/Day Years Used Date Smoking Tobacco: Never Assessed Comments Unknown Sex and Gender Information Value Date Recorded Sex Assigned at Not on file Legal Sex Female 5:20 AM STAKE SETTER Gender Identity Not on file Sexual Orientation Not on file documented as of this encounter Plan of Treatment Not on file documented as of this encounter Visit Diagnoses Not on filedocumented in this encounter Care Teams Agronomist Relationship Specialty Start Date End Date Wilber Esquivel DO * PCP - General 03/13/01 documented as of this encounter
--- OUTSIDE RECORDS SUMMARY | 2025-04-30 10:31 | XMS_ITS | Encounter Summary ---
Author Organization [facility] Address 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
--- OUTSIDE RECORDS SUMMARY | 2025-04-30 10:31 | XMS_ITS | Encounter Summary ---
Author Organization [facility] Address [address] [place] [address] Care Team Providers Care Attending Anesthesiologist Name Role Phone Wilber Esquivel DO Primary Care Provider Encounter Details Date Type Department Care Team (Late st Contact Info) Description 12/07/2000 Outpatient [facility] Primary Care - [address] [place] [address] Wilber Esquivel DO * Social History Tobacco Use Types Packs/Day Years Used Date Smoking Tobacco: Never Assessed Comments Unknown Sex and Gender Information Value Date Recorded Sex Assigned at Not on file Legal Sex Female 5:20 AM DICER OPERATOR Gender Identity Not on file Sexual Orientation Not on file documented as of this encounter Plan of Treatment Not on file documented as of this encounter Visit Diagnoses Not on filedocumented in this encounter Care Teams Attending Anesthesiologist Relationship Specialty Start Date End Date Wilber Esquivel DO * PCP - General 03/13/01 documented as of this encounter
--- OUTSIDE RECORDS SUMMARY | 2025-04-30 10:31 | XMS_ITS | Encounter Summary ---
Author Organization [facility] Address [address] [place] [address] Care Team Providers Care Monkey Breeder Name Role Phone Wilber Esquivel DO Primary Care Provider Encounter Details Date Type Department Care Team (Late st Contact Info) Description 05/17/2006 Outpatient Historical [facility] Silvano Jones MD [address] [place] [address] [place] [address] Benign Neoplasm of Colon (Primary Dx) Social History Tobacco Use Types Packs/Day Years Used Date Smoking Tobacco: Never Assessed Comments Unknown Sex and Gender Information Value Date Recorded Sex Assigned at Not on file Legal Sex Female 5:20 AM PRINCIPLE INDUSTRIAL HYGIENIST Gender Identity Not on file Sexual Orientation Not on file documented as of this encounter Plan of Treatment Not on file documented as of this encounter Visit Diagnoses Diagnosis Benign neoplasm of colon- Primary documented in this encounter Care Teams Monkey Breeder Relationship Specialty Start Date End Date Wilber Esquivel DO * PCP - General 03/13/01 documented as of this encounter
--- OUTSIDE RECORDS SUMMARY | 2025-04-30 10:31 | XMS_ITS | Encounter Summary ---
Author Organization [facility] Address 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
--- OUTSIDE RECORDS SUMMARY | 2025-04-30 10:31 | XMS_ITS | Encounter Summary ---
Author Organization [facility] Address 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
--- OUTSIDE RECORDS SUMMARY | 2025-04-30 10:31 | XMS_ITS | Encounter Summary ---
Author Organization [facility] Address 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
--- OUTSIDE RECORDS SUMMARY | 2025-04-30 10:31 | XMS_ITS | Encounter Summary ---
Author Organization [facility] Address [address] [place] [address] Care Team Providers Care Tank Systems Maintainer Name Role Phone Wilber Esquivel DO Primary Care Provider Encounter Details Date Type Department Care Team (Late st Contact Info) Description 04/04/2001 Outpatient [facility] Primary Care - [address] [place] [address] Wilber Esquivel DO * Social History Tobacco Use Types Packs/Day Years Used Date Smoking Tobacco: Never Assessed Comments Unknown Sex and Gender Information Value Date Recorded Sex Assigned at Not on file Legal Sex Female 5:20 AM 3D SPECIALIST Gender Identity Not on file Sexual Orientation Not on file documented as of this encounter Plan of Treatment Not on file documented as of this encounter Visit Diagnoses Not on filedocumented in this encounter Care Teams Tank Systems Maintainer Relationship Specialty Start Date End Date Wilber Esquivel DO * PCP - General 03/13/01 documented as of this encounter
--- OUTSIDE RECORDS SUMMARY | 2025-04-30 10:31 | XMS_ITS | Encounter Summary ---
Author Organization [facility] Address [address] [place] [address] Care Team Providers Care Grants Analyst Name Role Phone Wilber Esquivel DO Primary Care Provider Encounter Details Date Type Department Care Team (Late st Contact Info) Description 05/16/2006 Outpatient [facility] Primary Care - [address] [place] [address] Wilber Esquivel DO * Social History Tobacco Use Types Packs/Day Years Used Date Smoking Tobacco: Never Assessed Comments Unknown Sex and Gender Information Value Date Recorded Sex Assigned at Not on file Legal Sex Female 5:20 AM SLIP FEEDER Gender Identity Not on file Sexual Orientation Not on file documented as of this encounter Plan of Treatment Not on file documented as of this encounter Visit Diagnoses Not on filedocumented in this encounter Care Teams Grants Analyst Relationship Specialty Start Date End Date Wilber Esquivel DO * PCP - General 03/13/01 documented as of this encounter
--- OUTSIDE RECORDS SUMMARY | 2025-04-30 10:31 | XMS_ITS | Encounter Summary ---
Author Organization [facility] Address [address] [place] [address] Care Team Providers Care Vinyl Welder And Fabricator Name Role Phone Wilber Esquivel DO Primary Care Provider [phone] Encounter Details Date Type Department Care Team (Late st Contact Info) Description 03/18/2004 Outpatient [facility] Primary Care - [address] [place] [address] Wilber Esquivel DO * Social History Tobacco Use Types Packs/Day Years Used Date Smoking Tobacco: Never Assessed Comments Unknown Sex and Gender Information Value Date Recorded Sex Assigned at Not on file Legal Sex Female 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
--- OUTSIDE RECORDS SUMMARY | 2025-04-30 10:31 | XMS_ITS | Encounter Summary ---
Author Organization [facility] Address [address] [place] [address] Care Team Providers Care Home Day Care Provider Name Role Phone Wilber Esquivel DO Primary Care Provider Encounter Details Date Type Department Care Team (Late st Contact Info) Description 10/14/1998 Outpatient [facility] Primary Care - [address] [place] [address] Wilber Esquivel DO * Social History Tobacco Use Types Packs/Day Years Used Date Smoking Tobacco: Never Assessed Comments Unknown Sex and Gender Information Value Date Recorded Sex Assigned at Not on file Legal Sex Female 5:20 AM ADAPTED PHYSICAL EDUCATION AIDE Gender Identity Not on file Sexual Orientation Not on file documented as of this encounter Plan of Treatment Not on file documented as of this encounter Visit Diagnoses Not on filedocumented in this encounter Care Teams Home Day Care Provider Relationship Specialty Start Date End Date Wilber Esquivel DO * PCP - General 03/13/01 documented as of this encounter
--- OUTSIDE RECORDS SUMMARY | 2025-04-30 10:31 | XMS_ITS | Encounter Summary ---
Author Organization [facility] Address [address] [place] [address] Care Team Providers Care Promotions Executive Name Role Phone Wilber Esquivel DO Primary Care Provider [phone] Encounter Details Date Type Department Care Team (Latest Contact Info) Description 11/19/2004 Outpatient Historical [facility] Wilber Esquivel DO * CERVICAL DISC DEGEN (Primary Dx) Social History Tobacco Use Types Packs/Day Years Used Date Smoking Tobacco: Never Assessed Comments Unknown Sex and Gender Information Value Date Recorded Sex Assigned at Not on file Legal Sex Female 5:20 AM PEDIATRIC HOSPITALIST Gender Identity Not on file Sexual Orientation Not on file documented as of this encounter Plan of Treatment Not on file documented as of this encounter Visit Diagnoses Diagnosis Degeneration of cervical intervertebral disc- Primary documented in this encounter Care Teams Promotions Executive Relationship Specialty Start Date End Date Wilber Esquivel DO * PCP - General 03/13/01 documented as of this encounter
--- OUTSIDE RECORDS SUMMARY | 2025-04-30 10:31 | XMS_ITS | Encounter Summary ---
Author Organization [facility] Address [address] [place] [address] Care Team Providers Care Console Attendant Name Role Phone Wilber Esquivel DO Primary Care Provider Encounter Details Date Type Department Care Team (Late st Contact Info) Description 10/14/2006 Outpatient [facility] Primary Care - [address] [place] [address] Wilber Esquivel DO * Social History Tobacco Use Types Packs/Day Years Used Date Smoking Tobacco: Never Assessed Comments Unknown Sex and Gender Information Value Date Recorded Sex Assigned at Not on file Legal Sex Female 5:20 AM COMMUNICATIONS TOWER CLIMBER Gender Identity Not on file Sexual Orientation Not on file documented as of this encounter Plan of Treatment Not on file documented as of this encounter Visit Diagnoses Not on filedocumented in this encounter Care Teams Console Attendant Relationship Specialty Start Date End Date Wilber Esquivel DO * PCP - General 03/13/01 documented as of this encounter
--- OUTSIDE RECORDS SUMMARY | 2025-04-30 10:31 | XMS_ITS | Encounter Summary ---
Author Organization [facility] Address [address] [place] [address] Care Team Providers Care Correctional Security Officer Name Role Phone Wilber Esquivel DO Primary Care Provider [phone] Encounter Details Date Type Department Care Team (Latest Contact Info) Description 10/11/2006 Outpatient Historical HIS [facility] Wilber Esquivel DO * Pure Hypercholesterolemia (Primary Dx) Social History Tobacco Use Types Packs/Day Years Used Date Smoking Tobacco: Never Assessed Comments Unknown Sex and Gender Information Value Date Recorded Sex Assigned at Not on file Legal Sex Female 5:20 AM INSPECTOR FILTER TIP Gender Identity Not on file Sexual Orientation Not on file documented as of this encounter Plan of Treatment Not on file documented as of this encounter Procedures Procedure Name Priority Date/Time Associated Diagnosis Comments HEMOGLOBIN A1C Routine 10/11/2006 10:24 AM INSPECTOR FILTER TIP FOLATE RBC AND HEMATOCRIT Routine 10/11/2006 10:24 AM INSPECTOR FILTER TIP VITAMIN B12 LEVEL Routine 10/11/2006 10: 24 AM INSPECTOR FILTER TIP documented in this encounter Results * HEMOGLOBIN A1C (10/11/2006 10:24 AM INSPECTOR FILTER TIP) HEMOGLOBIN A1C 5.8 4.1 - 6.1 % of Hgb INTERFACE SYSTEM GLUCOSE, MEAN BLOOD 129 mg/dL INTERFACE SYSTEM 10/11/2006 10:2 4 AM INSPECTOR FILTER TIP Narrative INTERFACE SYSTEM - 10/11/2006 7:41 PM INSPECTOR FILTER TIP Ordered by an unspecified provider. [facility] Provider CHEMISTRY ORDERABLES Edited Performing Organization Address [facility] Phone Number INTERFACE SYSTEM Refer to clinic/hospital department * FOLATE RBC AND HEMATOCRIT (10/11/2006 10:24 AM INSPECTOR FILTER TIP) HEMATOCRIT, FOLATE 43.7 35.5 - 44.0 % INTERFACE SYSTEM RBC FOLATE 1036 >=533 ng/mL INTERFACE SYSTEM Comment: RBC Folate Interpretation: Deficient <110 ng/mL 10/11/2006 10:2 4 AM INSPECTOR FILTER TIP Narrative INTERFACE SYSTEM - 10/11/2006 3:06 PM INSPECTOR FILTER TIP Ordered by an unspecified provider. [facility] Provider CHEMISTRY ORDERABLES Edited Performing Organization Address [facility] Phone Number INTERFACE SYSTEM Refer to clinic/hospital department * VITAMIN B12 (10/11/2006 10:24 AM INSPECTOR FILTER TIP) VITAMIN B12 294 243 - 894 pg/mL INTERFACE SYSTEM Comment: It has been reported that between 5 to 10% of patients with values between 200 and 400 pg/mL may experience neuropsychiatric and hematologic abnormalities due to occult B12 deficiency. Less than 1% of patients with values above 400 pg/mL will have symptoms. 10/11/2006 10:2 4 AM INSPECTOR FILTER TIP Narrative INTERFACE SYSTEM - 10/11/2006 2:16 PM INSPECTOR FILTER TIP Ordered by an unspecified provider. [facility] Provider CHEMISTRY ORDERABLES Edited Performing Organization Address [facility] Phone Number INTERFACE SYSTEM Refer to clinic/hospital department documented in this encounter Visit Diagnoses Diagnosis Pure hypercholesterolemia- Primary documented in this encounter Care Teams Correctional Security Officer Relationship Specialty Start Date End Date Wilber Esquivel DO * PCP - General 03/13/01 documented as of this encounter
--- OUTSIDE RECORDS SUMMARY | 2025-04-30 10:31 | XMS_ITS | Encounter Summary ---
Author Organization [facility] Address [address] [place] [address] Care Team Providers Care Property Clerk Name Role Phone Wilber Esquivel DO Primary Care Provider [phone] Encounter Details Date Type Department Care Team (Latest Contact Info) Description 12/14/2001 Outpatient Historical [facility] Wilber Esquivel DO * BONE & CARTILAGE DIS NOS (Primary Dx) Social History Tobacco Use Types Packs/Day Years Used Date Smoking Tobacco: Never Assessed Comments Unknown Sex and Gender Information Value Date Recorded Sex Assigned at Not on file Legal Sex Female 5:20 AM CAKE FROSTER Gender Identity Not on file Sexual Orientation Not on file documented as of this encounter Plan of Treatment Not on file documented as of this encounter Visit Diagnoses Diagnosis Disorder of bone and cartilage, unspecified- Primary documented in this encounter Care Teams Property Clerk Relationship Specialty Start Date End Date Wilber Esquivel DO * PCP - General 03/13/01 documented as of this encounter
--- OUTSIDE RECORDS SUMMARY | 2025-04-30 10:31 | XMS_ITS | Encounter Summary ---
Author Organization [facility] Address [address] [place] [address] Care Team Providers Care Glove Wrapper Name Role Phone Wilber Esquivel DO Primary Care Provider Encounter Details Date Type Department Care Team (Late st Contact Info) Description 10/26/2000 Outpatient [facility] Primary Care - [address] [place] [address] Wilber Esquivel DO * Social History Tobacco Use Types Packs/Day Years Used Date Smoking Tobacco: Never Assessed Comments Unknown Sex and Gender Information Value Date Recorded Sex Assigned at Not on file Legal Sex Female 5:20 AM FNP Gender Identity Not on file Sexual Orientation Not on file documented as of this encounter Plan of Treatment Not on file documented as of this encounter Visit Diagnoses Not on filedocumented in this encounter Care Teams Glove Wrapper Relationship Specialty Start Date End Date Wilber Esquivel DO * PCP - General 03/13/01 documented as of this encounter
--- OUTSIDE RECORDS SUMMARY | 2025-04-30 10:31 | XMS_ITS | Encounter Summary ---
Author Organization [facility] Address [address] [place] [address] Care Team Providers Care Lead Sales Consultant Name Role Phone Wilber Esquivel DO Primary Care Provider [phone] Encounter Details Date Type Department Care Team (Latest Contact Info) Description 09/24/2006 Outpatient Historical HIS [facility] Wilber Esquivel DO * Essential Hypertension, Benign (Primary Dx) Social History Tobacco Use Types Packs/Day Years Used Date Smoking Tobacco: Never Assessed Comments Unknown Sex and Gender Information Value Date Recorded Sex Assigned at Not on file Legal Sex Female 5:20 AM ORTHOPEDIC NURSE PRACTITIONER Gender Identity Not on file Sexual Orientation Not on file documented as of this encounter Plan of Treatment Not on file documented as of this encounter Procedures Procedure Name Priority Date/Time Associated Diagnosis Comments HEPATIC FUNCTION PANEL Routine 09/24/2006 10:17 AM ORTHOPEDIC NURSE PRACTITIONER LIPID PANEL Routine 09/24/2006 10:17 AM ORTHOPEDIC NURSE PRACTITIONER BASIC METABOLIC PANEL Routine 09/24/2006 10:17 AM ORTHOPEDIC NURSE PRACTITIONER documented in this encounter Results * HEPATIC FUNCTION PANEL (09/24/2006 10:17 AM ORTHOPEDIC NURSE PRACTITIONER) ALKALINE PHOSPHATASE 97 35 - 104 U/L [...] mg/dL INTERFACE SYSTEM 09/24/2006 10:1 7 AM ORTHOPEDIC NURSE PRACTITIONER Ceci Cox MD CHEMISTRY ORDERABLES Edited Performing Organization Address [facility] de Phone Number INTERFACE SYSTEM Refer to clinic/hospital department * LIPID PANEL (09/24/2006 10:17 AM ORTHOPEDIC NURSE PRACTITIONER) CHOLESTEROL 173 100 - 199 mg/dL INTERFACE SYSTEM TRIGLYCERIDE 90 10 - 149 mg/dL INTERFACE SYSTEM HDL 53 40 - 59 mg/dL INTERFACE SYSTEM CHOL/HDL RATIO 3.3 2.0 - 5.0 INTER FACE SYSTEM LDL CALCULATED 102 <=99 mg/dL INTERFACE SYSTEM LIPID PANEL COMMENT See Below INTERFACE SYSTEM Comment: The adult ATP and pediatric NCEP classifications for lipids are available on the [facility] Intranet at: [email or web address] Select: Lab Policies and Procedures Select: Reference Ranges - Lipids 09/24/2006 10:1 7 AM ORTHOPEDIC NURSE PRACTITIONER Result [facility] Ceci Cox MD CHEMISTRY ORDERABLES Final R esult Performing Organization Address [facility] de Phone Number INTERFACE SYSTEM Refer to clinic/hospital department * BASIC METABOLIC PANEL (09/24/2006 10:17 AM ORTHOPEDIC NURSE PRACTITIONER) GLUCOSE 86 65 - 99 mg/dL INTERFACE [...] and non- Americans is available on the [facility] Intranet at: [email or web address] [email or web address] Select: Lab Policies and Procedures Select: Reference Ranges - GFR 09/24/2006 10:1 7 AM ORTHOPEDIC NURSE PRACTITIONER us Ceci Cox MD CHEMISTRY ORDERABLES Edited INTERFACE SYSTEM Refer to clinic/hospital department documented in this encounter Visit Diagnoses Diagnosis Essential hypertension, benign- Primary documented in this encounter Care Teams Lead Sales Consultant Relationship Specialty Start Date End Date Wilber Esquivel DO * PCP - General 03/13/01 documented as of this encounter
--- OUTSIDE RECORDS SUMMARY | 2025-04-30 10:31 | XMS_ITS | Encounter Summary ---
Author Organization [facility] Address [address] [place] [address] Care Team Providers Care Dramatic Critic Name Role Phone Wilber Esquivel DO Primary Care Provider Encounter Details Date Type Department Care Team (Late st Contact Info) Description 02/13/2003 Outpatient [facility] Primary Care - [address] [place] [address] Wilber Esquivel DO * Social History Tobacco Use Types Packs/Day Years Used Date Smoking Tobacco: Never Assessed Comments Unknown Sex and Gender Information Value Date Recorded Sex Assigned at Not on file Legal Sex Female 5:20 AM CHEMICAL ANALYTICAL SAMPLER Gender Identity Not on file Sexual Orientation Not on file documented as of this encounter Plan of Treatment Not on file documented as of this encounter Visit Diagnoses Not on filedocumented in this encounter Care Teams Dramatic Critic Relationship Specialty Start Date End Date Wilber Esquivel DO * PCP - General 03/13/01 documented as of this encounter
--- OUTSIDE RECORDS SUMMARY | 2025-04-30 10:31 | XMS_ITS | Encounter Summary ---
Author Organization [facility] Address [address] [place] [address] Care Team Providers Care Flight Crew Scheduler Name Role Phone Wilber Esquivel DO Primary Care Provider [phone] Encounter Details Date Type Department Care Team (Latest Contact Info) Description 04/06/2005 Outpatient Historical [facility] Wilber Esquivel DO * OSTEOARTHROS NOS-L/LEG (Primary Dx) Social History Tobacco Use Types Packs/Day Years Used Date Smoking Tobacco: Never Assessed Comments Unknown Sex and Gender Information Value Date Recorded Sex Assigned at Not on file Legal Sex Female 5:20 AM CHEF GERMAN Gender Identity Not on file Sexual Orientation Not on file documented as of this encounter Plan of Treatment Not on file documented as of this encounter Visit Diagnoses Diagnosis Osteoarthrosis, unspecified whether generalized or localized, lower leg- Primary documented in this encounter Care Teams Flight Crew Scheduler Relationship Specialty Start Date End Date Wilber Esquivel DO * PCP - General 03/13/01 documented as of this encounter
--- OUTSIDE RECORDS SUMMARY | 2025-04-30 10:31 | XMS_ITS | Encounter Summary ---
Author Organization [facility] Address [address] [place] [address] Care Team Providers Care Head Coach Name Role Phone Wilber Esquivel DO Primary Care Provider [phone] Encounter Details Date Type Department Care Team (Latest Contact Info) Description 03/18/2004 Outpatient Historical HIS [facility] Wilber Esquivel DO * SCREENING MAMM-MAILG NEOPL-OTHER (Primary Dx) Social History Tobacco Use Types Packs/Day Years Used Date Smoking Tobacco: Never Assessed Comments Unknown Sex and Gender Information Value Date Recorded Sex Assigned at Not on file Legal Sex Female 5:20 AM EMPLOYMENT LAW ATTORNEY Gender Identity Not on file Sexual Orientation Not on file documented as of this encounter Plan of Treatment Not on file documented as of this encounter Visit Diagnoses Diagnosis Other screening mammogram- Primary documented in this encounter Care Teams Head Coach Relationship Specialty Start Date End Date Wilber Esquivel DO * PCP - General 03/13/01 documented as of this encounter
--- OUTSIDE RECORDS SUMMARY | 2025-04-30 10:31 | XMS_ITS | Encounter Summary ---
Author Organization [facility] Address [address] [place] [address] Care Team Providers Care Fitter Machinist Name Role Phone Wilber Esquivel DO Primary Care Provider [phone] Encounter Details Date Type Department Care Team (Latest Contact Info) Description 05/16/2006 Outpatient Historical HIS [facility] Wilber Esquivel DO * Pure Hypercholesterolemia (Primary Dx) Social History Tobacco Use Types Packs/Day Years Used Date Smoking Tobacco: Never Assessed Comments Unknown Sex and Gender Information Value Date Recorded Sex Assigned at Not on file Legal Sex Female 5:20 AM FINANCIAL INTERN Gender Identity Not on file Sexual [...] INTERFACE SYSTEM Comment: Lab [facility] performed [facility]: [facility] [id number] [place] [address] ALICIA GALAN MD 05/16/2006 11:1 5 AM CDT us Historical Provider CHEMISTRY ORDERABLES Final R esult Performing Organization Address [facility] Phone Number INTERFACE SYSTEM Refer to clinic/hospital [...] ORDERABLES Final Resul t Performing Organization Address [facility] Phone Number INTERFACE SYSTEM Refer to clinic/hospital [...] ORDERABLES Final R esult Performing Organization Address [facility] de Phone Number INTERFACE SYSTEM Refer [...] CDT Historical Provider CHEMISTRY ORDERABLES [facility] Performing Organization Address [facility] Phone Number INTERFACE SYSTEM Refer to clinic/hospital [...] classifications for lipids are available on the [facility] Intranet at: [email or web address] Select: Lab Policies and Procedures Select: Reference Ranges - Lipids 05/16/2006 11:1 3 AM CDT Historical Provider CHEMISTRY ORDERABLES Final R esult Performing Organization Address [facility] de Phone Number INTERFACE SYSTEM Refer [...] Primary documented in this encounter Care Teams Fitter Machinist Relationship Specialty Start Date End Date Wilber Esquivel DO * PCP - General 03/13/01 documented as of this encounter
--- OUTSIDE RECORDS SUMMARY | 2025-04-30 10:31 | XMS_ITS | Encounter Summary ---
Author Organization [facility] Address [address] [place] [address] Care Team Providers Care Mutton Puncher Name Role Phone Wilber Esquivel DO Primary Care Provider Encounter Details Date Type Department Care Team (Late st Contact Info) Description 12/31/2004 Outpatient [facility] Primary Care - [address] [place] [address] Wilber Esquivel DO * Social History Tobacco Use Types Packs/Day Years Used Date Smoking Tobacco: Never Assessed Comments Unknown Sex and Gender Information Value Date Recorded Sex Assigned at Not on file Legal Sex Female 5:20 AM GREEN HOUSE MANAGER Gender Identity Not on file Sexual Orientation Not on file documented as of this encounter Plan of Treatment Not on file documented as of this encounter Visit Diagnoses Not on filedocumented in this encounter Care Teams Mutton Puncher Relationship Specialty Start Date End Date Wilber Esquivel DO * PCP - General 03/13/01 documented as of this encounter
--- OUTSIDE RECORDS SUMMARY | 2025-04-30 10:31 | XMS_ITS | Encounter Summary ---
Author Organization [facility] Address [address] [place] [address] Care Team Providers Care Medical Sales Associate Name Role Phone Wilber Esquivel DO Primary Care Provider [phone] Encounter Details Date Type Department Care Team (Late st Contact Info) Description 10/12/2000 Outpatient [facility] Primary Care - [address] [place] [address] Wilber Esquivel DO * Social History Tobacco Use Types Packs/Day Years Used Date Smoking Tobacco: Never Assessed Comments Unknown Sex and Gender Information Value Date Recorded Sex Assigned at Not on file Legal Sex Female 5:20 AM SAFETY COMPANION Gender Identity Not on file Sexual Orientation Not on file documented as of this encounter Plan of Treatment Not on file documented as of this encounter Visit Diagnoses Not on filedocumented in this encounter Care Teams Medical Sales Associate Relationship Specialty Start Date End Date Wilber Esquivel DO * PCP - General 03/13/01 documented as of this encounter
--- OUTSIDE RECORDS SUMMARY | 2025-04-30 10:31 | XMS_ITS | Encounter Summary ---
Author Organization [facility] Address [address] [place] [address] Care Team Providers Care Design Project Manager Name Role Phone Wilber Esquivel DO Primary Care Provider [phone] Encounter Details Date Type Department Care Team (Latest Contact Info) Description 03/18/2005 Outpatient Historical [facility] Wilber Esquivel DO * SCREENING MAMM-MAILG NEOPL-OTHER (Primary Dx) Social History Tobacco Use Types Packs/Day Years Used Date Smoking Tobacco: Never Assessed Comments Unknown Sex and Gender Information Value Date Recorded Sex Assigned at Not on file Legal Sex Female 5:20 AM GHOST WRITER Gender Identity Not on file Sexual Orientation Not on file documented as of this encounter Plan of Treatment Not on file documented as of this encounter Visit Diagnoses Diagnosis Other screening mammogram- Primary documented in this encounter Care Teams Design Project Manager Relationship Specialty Start Date End Date Wilber Esquivel DO * PCP - General 03/13/01 documented as of this encounter
--- OUTSIDE RECORDS SUMMARY | 2025-04-30 10:31 | XMS_ITS | Encounter Summary ---
Author Organization [facility] Address [address] [place] [address] Care Team Providers Care Tourist Adviser Name Role Phone Wilber Esquivel DO Primary Care Provider Encounter Details Date Type Department Care Team (Late st Contact Info) Description 09/08/2005 Outpatient [facility] Primary Care - [address] [place] [address] Wilber Esquivel DO * Social History Tobacco Use Types Packs/Day Years Used Date Smoking Tobacco: Never Assessed Comments Unknown Sex and Gender Information Value Date Recorded Sex Assigned at Not on file Legal Sex Female 5:20 AM SENIOR DATA WAREHOUSE ARCHITECT Gender Identity Not on file Sexual Orientation Not on file documented as of this encounter Plan of Treatment Not on file documented as of this encounter Visit Diagnoses Not on filedocumented in this encounter Care Teams Tourist Adviser Relationship Specialty Start Date End Date Wilber Esquivel DO * PCP - General 03/13/01 documented as of this encounter
--- OUTSIDE RECORDS SUMMARY | 2025-04-30 10:31 | XMS_ITS | Encounter Summary ---
Author Organization [facility] Address [address] [place] [address] Care Team Providers Care Travel Agent Name Role Phone Wilber Esquivel DO Primary Care Provider [phone] Encounter Details Date Type Department Care Team (Latest Contact Info) Description 01/25/2002 Outpatient Historical HIS [facility] Wilber Esquivel DO * SCREENING MAMM-MAILG NEOPL-OTHER (Primary Dx) Social History Tobacco Use Types Packs/Day Years Used Date Smoking Tobacco: Never Assessed Comments Unknown Sex and Gender Information Value Date Recorded Sex Assigned at Not on file Legal Sex Female 5:20 AM ENGINE ROOM HELPER Gender Identity Not on file Sexual Orientation Not on file documented as of this encounter Plan of Treatment Not on file documented as of this encounter Visit Diagnoses Diagnosis Other screening mammogram- Primary documented in this encounter Care Teams Travel Agent Relationship Specialty Start Date End Date Wilber Esquivel DO * PCP - General 03/13/01 documented as of this encounter
--- OUTSIDE RECORDS SUMMARY | 2025-04-30 10:31 | XMS_ITS | Encounter Summary ---
Author Organization [facility] Address [address] [place] [address] Care Team Providers Care Lockstitch Topstitcher Name Role Phone Wilber Esquivel DO Primary Care Provider [phone] Encounter Details Date Type Department Care Team (Late st Contact Info) Description 06/21/2001 Outpatient [facility] Primary Care - [address] [place] [address] Wilber Esquivel DO * Social History Tobacco Use Types Packs/Day Years Used Date Smoking Tobacco: Never Assessed Comments Unknown Sex and Gender Information Value Date Recorded Sex Assigned at Not on file Legal Sex Female 5:20 AM BALLROOM DANCER Gender Identity Not on file Sexual Orientation Not on file documented as of this encounter Plan of Treatment Not on file documented as of this encounter Visit Diagnoses Not on filedocumented in this encounter Care Teams Lockstitch Topstitcher Relationship Specialty Start Date End Date Wilber Esquivel DO * PCP - General 03/13/01 documented as of this encounter
--- OUTSIDE RECORDS SUMMARY | 2025-04-30 10:32 | XMS_ITS | Encounter Summary ---
Author Organization [facility] Address [address] [place] [address] Care Team Providers Care Sas Statistical Programmer Name Role Phone Wilber Esquivel DO Primary Care Provider [phone] Encounter Details Date Type Department Care Team (Late st Contact Info) Description 06/18/1999 Outpatient [facility] Primary Care - [address] [place] [address] Wilber Esquivel DO * Social History Tobacco Use Types Packs/Day Years Used Date Smoking Tobacco: Never Assessed Comments Unknown Sex and Gender Information Value Date Recorded Sex Assigned at Not on file Legal Sex Female 5:20 AM SECONDARY CONNECTOR ARMATURE Gender Identity Not on file Sexual Orientation Not on file documented as of this encounter Plan of Treatment Not on file documented as of this encounter Visit Diagnoses Not on filedocumented in this encounter Care Teams Sas Statistical Programmer Relationship Specialty Start Date End Date Wilber Esquivel DO * PCP - General 03/13/01 documented as of this encounter
--- OUTSIDE RECORDS SUMMARY | 2025-04-30 10:32 | XMS_ITS | Encounter Summary ---
Author Organization [facility] Address [address] [place] [address] Care Team Providers Care Environmental Director Name Role Phone Wilber Esquivel DO Primary Care Provider Encounter Details Date Type Department Care Team (Late st Contact Info) Description 01/25/2007 Outpatient [facility] [address] Primary Care - [address] [place] [address] Wilber Esquivel DO * Social History Tobacco Use Types Packs/Day Years Used Date Smoking Tobacco: Never Assessed Comments Unknown Sex and Gender Information Value Date Recorded Sex Assigned at Not on file Legal Sex Female 5:20 AM FAST FOOD CREW LEAD Gender Identity Not on file Sexual Orientation Not on file documented as of this encounter Plan of Treatment Not on file documented as of this encounter Visit Diagnoses Not on filedocumented in this encounter Care Teams Environmental Director Relationship Specialty Start Date End Date Wilber Esquivel DO * PCP - General 03/13/01 documented as of this encounter
--- OUTSIDE RECORDS SUMMARY | 2025-04-30 10:32 | XMS_ITS | Encounter Summary ---
Author Organization [facility] Address [address] [place] [address] Care Team Providers Care Commercial Loan Specialist Name Role Phone Wilber Esquivel DO Primary Care Provider Encounter Details Date Type Department Care Team (Late st Contact Info) Description 11/19/2004 Outpatient [facility] Primary Care - [address] [place] [address] Wilber Esquivel DO * Social History Tobacco Use Types Packs/Day Years Used Date Smoking Tobacco: Never Assessed Comments Unknown Sex and Gender Information Value Date Recorded Sex Assigned at Not on file Legal Sex Female 5:20 AM FILE CLERK DATA ENTRY Gender Identity Not on file Sexual Orientation Not on file documented as of this encounter Plan of Treatment Not on file documented as of this encounter Visit Diagnoses Not on filedocumented in this encounter Care Teams Commercial Loan Specialist Relationship Specialty Start Date End Date Wilber Esquivel DO * PCP - General 03/13/01 documented as of this encounter
--- OUTSIDE RECORDS SUMMARY | 2025-04-30 10:32 | XMS_ITS | Encounter Summary ---
Author Organization [facility] Address [address] [place] [address] Care Team Providers Care Direct Support Staff Member Name Role Phone Wilber Esquivel DO Primary Care Provider [phone] Encounter Details Date Type Department Care Team (Late st Contact Info) Description 12/30/2003 Outpatient [facility] Primary Care - [address] [place] [address] Wilber Esquivel DO * Social History Tobacco Use Types Packs/Day Years Used Date Smoking Tobacco: Never Assessed Comments Unknown Sex and Gender Information Value Date Recorded Sex Assigned at Not on file Legal Sex Female 5:20 AM ADMEASURER Gender Identity Not on file Sexual Orientation Not on file documented as of this encounter Plan of Treatment Not on file documented as of this encounter Visit Diagnoses Not on filedocumented in this encounter Care Teams Direct Support Staff Member Relationship Specialty Start Date End Date Wilber Esquivel DO * PCP - General 03/13/01 documented as of this encounter
--- OUTSIDE RECORDS SUMMARY | 2025-04-30 10:32 | XMS_ITS | Clinical Summary ---
Author Organization [facility] Address [address] [place]n: Epic Prelude ADT [place] [address] Care Team Providers Care Trimmer Buffing Wheel Name Role Phone Wilber Esquivel DO Primary Care Provider [phone] Social History Tobacco Use Types Packs/Day Years Used Date Smoking Tobacco: Never Assessed Comments Unknown Sex and Gender Information Value Date Recorded Sex Assigned at Not on file Legal Sex Female 5:20 AM SALES AMBASSADOR Gender Identity Not on file Sexual Orientation Not on file Plan of Treatment Health Maintenance Due Date Last Done Comments DTAP/TDAP/TD VACCINES (1 - Tdap) 1965 PNEUMOCOCCAL VACCINE 50+ YEA RS (1 of 1 - PCV) 1996 ZOSTER VACCINE (1 of 2) 1996 OSTEOPOROSIS SCREENING 2011 RSV VACCINE (60+ or ) (1 - 1-dose 75+ series) 2021 INFLUENZA VACCINE (#1) 2025 Colorectal Cancer Screening Discontinued FIT/FOBT Q 1 year Discontinued 11/30/1999, 11/05/1998 COLORECTAL SCREENING Discontinued FIT-DNA Q 3 years Discontinued Flex Sig/CT Colonography Q 5 years Discontinued Care Teams Trimmer Buffing Wheel Relationship Specialty Start Date End Date Wilber Esquivel DO * PCP - General 03/13/01
--- OUTSIDE RECORDS SUMMARY | 2025-04-30 10:32 | XMS_ITS | Encounter Summary ---
Author Organization [facility] Address [address] [place] [address] Care Team Providers Care Phlebotomy Services Technician Name Role Phone Wilber Esquivel DO Primary Care Provider Encounter Details Date Type Department Care Team (Late st Contact Info) Description 01/04/2007 Outpatient [facility] Primary Care - [address] [place] [address] Wilber Esquivel DO * Social History Tobacco Use Types Packs/Day Years Used Date Smoking Tobacco: Never Assessed Comments Unknown Sex and Gender Information Value Date Recorded Sex Assigned at Not on file Legal Sex Female 5:20 AM SOFTWARE QUALITY ASSURANCE ENGINEER Gender Identity Not on file Sexual Orientation Not on file documented as of this encounter Plan of Treatment Not on file documented as of this encounter Visit Diagnoses Not on filedocumented in this encounter Care Teams Phlebotomy Services Technician Relationship Specialty Start Date End Date Wilber Esquivel DO * PCP - General 03/13/01 documented as of this encounter
--- OUTSIDE RECORDS SUMMARY | 2025-04-30 10:32 | XMS_ITS | Encounter Summary ---
Author Organization [facility] Address [address] [place] [address] Care Team Providers Care Oil Analyst Name Role Phone Wilber Esquivel DO Primary Care Provider [phone] Encounter Details Date Type Department Care Team (Late st Contact Info) Description 10/08/2004 Outpatient [facility] Primary Care - [address] [place] [address] Wilber Esquivel DO * Social History Tobacco Use Types Packs/Day Years Used Date Smoking Tobacco: Never Assessed Comments Unknown Sex and Gender Information Value Date Recorded Sex Assigned at Not on file Legal Sex Female 5:20 AM AIRPORT RAMP ATTENDANT Gender Identity Not on file Sexual Orientation Not on file documented as of this encounter Plan of Treatment Not on file documented as of this encounter Visit Diagnoses Not on filedocumented in this encounter Care Teams Oil Analyst Relationship Specialty Start Date End Date Wilber Esquivel DO * PCP - General 03/13/01 documented as of this encounter
--- OUTSIDE RECORDS SUMMARY | 2025-04-30 10:32 | XMS_ITS | Encounter Summary ---
Author Organization [facility] Address 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
--- OUTSIDE RECORDS SUMMARY | 2025-04-30 10:32 | XMS_ITS | Encounter Summary ---
Author Organization [facility] Address [address] [place] [address] Care Team Providers Care Billing Collections Specialist Name Role Phone Wilber Esquivel DO Primary Care Provider [phone] Encounter Details Date Type Department Care Team (Late st Contact Info) Description 01/06/2004 Outpatient [facility] Primary Care - [address] [place] [address] Wilber Esquivel DO * Social History Tobacco Use Types Packs/Day Years Used Date Smoking Tobacco: Never Assessed Comments Unknown Sex and Gender Information Value Date Recorded Sex Assigned at Not on file Legal Sex Female 5:20 AM SWEAT BOX ATTENDANT Gender Identity Not on file Sexual Orientation Not on file documented as of this encounter Plan of Treatment Not on file documented as of this encounter Visit Diagnoses Not on filedocumented in this encounter Care Teams Billing Collections Specialist Relationship Specialty Start Date End Date Wilber Esquivel DO * PCP - General 03/13/01 documented as of this encounter
--- OUTSIDE RECORDS SUMMARY | 2025-04-30 10:32 | XMS_ITS | Encounter Summary ---
Author Organization [facility] Address 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
--- OUTSIDE RECORDS SUMMARY | 2025-04-30 10:32 | XMS_ITS | Encounter Summary ---
Author Organization [facility] Address [address] [place] [address] Care Team Providers Care Car Inspection And Repair Manager Name Role Phone Wilber Esquivel DO Primary Care Provider [phone] Encounter Details Date Type Department Care Team (Late st Contact Info) Description 05/28/1999 Outpatient Historical [facility] Primary Care - [address] [place] [address] Wilber Esquivel DO * Social History Tobacco Use Types Packs/Day Years Used Date Smoking Tobacco: Never Assessed Comments Unknown Sex and Gender Information Value Date Recorded Sex Assigned at Not on file Legal Sex Female 5:20 AM BUSINESS ATTORNEY Gender Identity Not on file Sexual Orientation Not on file documented as of this encounter Plan of Treatment Not on file documented as of this encounter Visit Diagnoses Not on filedocumented in this encounter Care Teams Car Inspection And Repair Manager Relationship Specialty Start Date End Date Wilber Esquivel DO * PCP - General 03/13/01 documented as of this encounter
--- OUTSIDE RECORDS SUMMARY | 2025-04-30 10:32 | XMS_ITS | Encounter Summary ---
Author Organization [facility] Address [address] [place] [address] Care Team Providers Care Electric Scoop Operator Name Role Phone Wilber Esquivel DO Primary Care Provider Encounter Details Date Type Department Care Team (Late st Contact Info) Description 09/28/2004 Outpatient [facility] Primary Care - [address] [place] [address] Wilber Esquivel DO * Social History Tobacco Use Types Packs/Day Years Used Date Smoking Tobacco: Never Assessed Comments Unknown Sex and Gender Information Value Date Recorded Sex Assigned at Not on file Legal Sex Female 5:20 AM EXPORT FREIGHT SPECIALIST Gender Identity Not on file Sexual Orientation Not on file documented as of this encounter Plan of Treatment Not on file documented as of this encounter Visit Diagnoses Not on filedocumented in this encounter Care Teams Electric Scoop Operator Relationship Specialty Start Date End Date Wilber Esquivel DO * PCP - General 03/13/01 documented as of this encounter
--- OUTSIDE RECORDS SUMMARY | 2025-04-30 10:32 | XMS_ITS | Encounter Summary ---
Author Organization [facility] Address [address] [place] [address] Care Team Providers Care Back Sewer Name Role Phone Wilber Esquivel DO Primary Care Provider Encounter Details Date Type Department Care Team (Late st Contact Info) Description 07/21/2004 Outpatient [facility] Primary Care - [address] [place] [address] Wilber Esquivel DO * Social History Tobacco Use Types Packs/Day Years Used Date Smoking Tobacco: Never Assessed Comments Unknown Sex and Gender Information Value Date Recorded Sex Assigned at Not on file Legal Sex Female 5:20 AM GEOPHYSICS TEACHER Gender Identity Not on file Sexual Orientation Not on file documented as of this encounter Plan of Treatment Not on file documented as of this encounter Visit Diagnoses Not on filedocumented in this encounter Care Teams Back Sewer Relationship Specialty Start Date End Date Wilber Esquivel DO * PCP - General 03/13/01 documented as of this encounter
--- OUTSIDE RECORDS SUMMARY | 2025-04-30 10:32 | XMS_ITS | Encounter Summary ---
Author Organization [facility] Address [address] [place] [address] Care Team Providers Care Pathology Collector Name Role Phone Wilber Esquivel DO Primary Care Provider [phone] Encounter Details Date Type Department Care Team (Latest Contact Info) Description 01/25/2007 Outpatient Historical [facility] Wilber Esquivel DO * Pure Hypercholesterolemia (Primary Dx) Social History Tobacco Use Types Packs/Day Years Used Date Smoking Tobacco: Never Assessed Comments Unknown Sex and Gender Information Value Date Recorded Sex Assigned at Not on file Legal Sex Female 5:20 AM AUTHOR'S AGENT Gender Identity Not on file Sexual [...] Provider HEMATOLOGY ORDERABLES Edited Performing Organization Address City/[facility] Co de Phone Number INTERFACE SYSTEM Refer to clinic/hospital department * CBC WITH DIFFERENTIAL (01/25/2007 2:57 PM CDT) Pathologist [facility] WBC 6.0 4.0 - 9.8 K/uL INTERFACE [...] Provider HEMATOLOGY ORDERABLES Edited Performing Organization Address City/[facility] Co de Phone Number INTERFACE [...] Provider CHEMISTRY ORDERABLES Edited Performing Organization Address [facility] de Phone Number INTERFACE SYSTEM Refer to [...] Provider CHEMISTRY ORDERABLES Edited Performing Organization Address [facility] Co de Phone Number INTERFACE [...] on the [facility] Intranet at: [email or web address] Select: Lab Policies and Procedures Select: Reference Ranges - Lipids 01/25/2007 2:57 PM CDT Narrative INTERFACE SYSTEM - 01/25/2007 6:08 PM CDT Ordered by an unspecified provider. us Historical Provider CHEMISTRY ORDERABLES Edited INTERFACE SYSTEM Refer to clinic/hospital department documented in this encounter Visit Diagnoses Diagnosis Pure hypercholesterolemia- Primary documented in this encounter Care Teams Pathology Collector Relationship Specialty Start Date End Date Wilber Esquivel DO * PCP - General 03/13/01 documented as of this encounter
[2025-04-30 13:50] LABS: Thyroid Stimulating Hormone 3.220 uIU/mL (0.465-4.680)
[2025-04-30 14:08] LABS: Vitamin B12 376.0 pg/mL (239-931)
== END 2025-04-30 09:28 | disposition home or self-care (01) ==
PROVIDERS: PCP Family Medicine; Visit Provider Physician Assistant Medical
DX: E55.9 Vitamin D deficiency, unspecified (principal); I10 Essential (primary) hypertension; E53.8 Deficiency of other specified B group vitamins; R20.0 Anesthesia of skin; R20.2 Paresthesia of skin
CPT/HCPCS: 36415; 82306; 82607; 84443

== ENCOUNTER 2025-06-19 09:09 | Outpatient (CLI) | payer MEDICARE, OTHER, SELFPAY ==
--- OUTSIDE RECORDS SUMMARY | 2025-06-19 09:55 | XMS_ITS | Encounter Summary ---
Author Organization [facility] Address [address] [place] [address] Care Team Providers Care Finance Consultant Name Role Phone Wilber Esquivel DO Primary Care Provider Encounter Details Date Type Department Care Team (Late st Contact Info) Description 09/15/1998 Outpatient [facility] Primary Care - [address] [place] [address] Wilber Esquivel DO * Social History Tobacco Use Types Packs/Day Years Used Date Smoking Tobacco: Never Assessed Comments Unknown Sex and Gender Information Value Date Recorded Sex Assigned at Not on file Legal Sex Female 5:20 AM MUD MIXER Gender Identity Not on file Sexual Orientation Not on file documented as of this encounter Plan of Treatment Not on file documented as of this encounter Visit Diagnoses Not on filedocumented in this encounter Care Teams Finance Consultant Relationship Specialty Start Date End Date Wilber Esquivel DO * PCP - General 03/13/01 documented as of this encounter
--- OUTSIDE RECORDS SUMMARY | 2025-06-19 09:55 | XMS_ITS | Encounter Summary ---
Author Organization [facility] Address [address] [place] [address] Care Team Providers Care Punch Machine Hand Name Role Phone Wilber Esquivel DO Primary Care Provider Encounter Details Date Type Department Care Team (Late st Contact Info) Description 01/23/2003 Outpatient [facility] Primary Care - [address] [place] [address] Wilber Esquivel DO * Social History Tobacco Use Types Packs/Day Years Used Date Smoking Tobacco: Never Assessed Comments Unknown Sex and Gender Information Value Date Recorded Sex Assigned at Not on file Legal Sex Female 5:20 AM PLASTICS NURSE Gender Identity Not on file Sexual Orientation Not on file documented as of this encounter Plan of Treatment Not on file documented as of this encounter Visit Diagnoses Not on filedocumented in this encounter Care Teams Punch Machine Hand Relationship Specialty Start Date End Date Wilber Esquivel DO * PCP - General 03/13/01 documented as of this encounter
--- OUTSIDE RECORDS SUMMARY | 2025-06-19 09:55 | XMS_ITS | Encounter Summary ---
Author Organization [facility] Address [address] [place] [address] Care Team Providers Care Merchandise For Resale Purchasing Agent Name Role Phone Wilber Esquivel DO Primary Care Provider Encounter Details Date Type Department Care Team (Late st Contact Info) Description 03/06/2003 Outpatient [facility] Primary Care - [address] [place] [address] Wilber Esquivel DO * Social History Tobacco Use Types Packs/Day Years Used Date Smoking Tobacco: Never Assessed Comments Unknown Sex and Gender Information Value Date Recorded Sex Assigned at Not on file Legal Sex Female 5:20 AM BRICK CLEANER Gender Identity Not on file Sexual Orientation Not on file documented as of this encounter Plan of Treatment Not on file documented as of this encounter Visit Diagnoses Not on filedocumented in this encounter Care Teams Merchandise For Resale Purchasing Agent Relationship Specialty Start Date End Date Wilber Esquivel DO * PCP - General 03/13/01 documented as of this encounter
--- OUTSIDE RECORDS SUMMARY | 2025-06-19 09:55 | XMS_ITS | Encounter Summary ---
Author Organization [facility] Address [address] [place] [address] Care Team Providers Care Asphalt Spreader Name Role Phone Wilber Esquivel DO Primary Care Provider [phone] Encounter Details Date Type Department Care Team (Latest Contact Info) Description 03/06/2003 Outpatient Historical [facility] Wilber Esquivel DO * SCREENING MAMM-MAILG NEOPL-OTHER (Primary Dx) Social History Tobacco Use Types Packs/Day Years Used Date Smoking Tobacco: Never Assessed Comments Unknown Sex and Gender Information Value Date Recorded Sex Assigned at Not on file Legal Sex Female 5:20 AM FPGA ENGINEER Gender Identity Not on file Sexual Orientation Not on file documented as of this encounter Plan of Treatment Not on file documented as of this encounter Visit Diagnoses Diagnosis Other screening mammogram- Primary documented in this encounter Care Teams Asphalt Spreader Relationship Specialty Start Date End Date Wilber Esquivel DO * PCP - General 03/13/01 documented as of this encounter
--- OUTSIDE RECORDS SUMMARY | 2025-06-19 09:55 | XMS_ITS | Encounter Summary ---
Author Organization [facility] Address [address] [place] [address] Care Team Providers Care Stubber Name Role Phone Wilber Esquivel DO Primary Care Provider [phone] Encounter Details Date Type Department Care Team (Latest Contact Info) Description 12/26/2003 Outpatient [facility] Wilber Esquivel DO * PNEUMONIA, ORGANISM NOS (Primary Dx) Social History Tobacco Use Types Packs/Day Years Used Date Smoking Tobacco: Never Assessed Comments Unknown Sex and Gender Information Value Date Recorded Sex Assigned at Not on file Legal Sex Female 5:20 AM FOUNDER AND PRESIDENT Gender Identity Not on file Sexual Orientation Not on file documented as of this encounter Plan of Treatment Not on file documented as of this encounter Visit Diagnoses Diagnosis Pneumonia, organism unspecified(486)- Primary Pneumonia, organism unspecified documented in this encounter Care Teams Stubber Relationship Specialty Start Date End Date Wilber Esquivel DO * PCP - General 03/13/01 documented as of this encounter
--- OUTSIDE RECORDS SUMMARY | 2025-06-19 09:55 | XMS_ITS | Encounter Summary ---
Author Organization [facility] Address [address] [place] [address] Care Team Providers Care Linux Systems Analyst Name Role Phone Wilber Esquivel DO Primary Care Provider [phone] Encounter Details Date Type Department Care Team (Late st Contact Info) Description 09/08/1998 Outpatient [facility] Primary Care - [address] [place] [address] Wilber Esquivel DO * Social History Tobacco Use Types Packs/Day Years Used Date Smoking Tobacco: Never Assessed Comments Unknown Sex and Gender Information Value Date Recorded Sex Assigned at Not on file Legal Sex Female 5:20 AM LOBBY ATTENDANT Gender Identity Not on file Sexual Orientation Not on file documented as of this encounter Plan of Treatment Not on file documented as of this encounter Visit Diagnoses Not on filedocumented in this encounter Care Teams Linux Systems Analyst Relationship Specialty Start Date End Date Wibler Esquivel DO * PCP - General 03/13/01 documented as of this encounter
--- OUTSIDE RECORDS SUMMARY | 2025-06-19 09:56 | XMS_ITS | Encounter Summary ---
Author Organization [facility] Address [address] [place] [address] Care Team Providers Care Manager Helpdesk Name Role Phone Wilber Esquivel DO Primary Care Provider Encounter Details Date Type Department Care Team (Late st Contact Info) Description 12/02/1998 Outpatient [facility] Primary Care - [address] [place] [address] Wilber Esquivel DO * Social History Tobacco Use Types Packs/Day Years Used Date Smoking Tobacco: Never Assessed Comments Unknown Sex and Gender Information Value Date Recorded Sex Assigned at Not on file Legal Sex Female 5:20 AM CURTAIN INSPECTOR Gender Identity Not on file Sexual Orientation Not on file documented as of this encounter Plan of Treatment Not on file documented as of this encounter Visit Diagnoses Not on filedocumented in this encounter Care Teams Manager Helpdesk Relationship Specialty Start Date End Date Wilber Esquivel DO * PCP - General 03/13/01 documented as of this encounter
--- OUTSIDE RECORDS SUMMARY | 2025-06-19 09:56 | XMS_ITS | Encounter Summary ---
Author Organization [facility] Address [address] [place] [address] Care Team Providers Care Ham Sawyer Name Role Phone Wilber Esquivel DO Primary Care Provider [phone] Encounter Details Date Type Department Care Team (Late st Contact Info) Description 02/13/2003 Outpatient [facility] Primary Care - [address] [place] [address] Wilber Esquivel DO * Social History Tobacco Use Types Packs/Day Years Used Date Smoking Tobacco: Never Assessed Comments Unknown Sex and Gender Information Value Date Recorded Sex Assigned at Not on file Legal Sex Female 5:20 AM RN LABOR DELIVERY Gender Identity Not on file Sexual Orientation Not on file documented as of this encounter Plan of Treatment Not on file documented as of this encounter Visit Diagnoses Not on filedocumented in this encounter Care Teams Ham Sawyer Relationship Specialty Start Date End Date Wilber Esquivel DO * PCP - General 03/13/01 documented as of this encounter
--- OUTSIDE RECORDS SUMMARY | 2025-06-19 09:56 | XMS_ITS | Encounter Summary ---
Author Organization [facility] Address [address] [place] [address] Care Team Providers Care Telephone Services Sales Representative Name Role Phone Wilber Esquivel DO Primary Care Provider [phone] Encounter Details Date Type Department Care Team (Latest Contact Info) Description 01/25/2002 Outpatient Historical HIS IMG-[facility] Wilber Esquivel DO * SCREENING MAMM-MAILG NEOPL-OTHER (Primary Dx) Social History Tobacco Use Types Packs/Day Years Used Date Smoking Tobacco: Never Assessed Comments Unknown Sex and Gender Information Value Date Recorded Sex Assigned at Not on file Legal Sex Female 5:20 AM SUBCONTRACT ADMINISTRATOR Gender Identity Not on file Sexual Orientation Not on file documented as of this encounter Plan of Treatment Not on file documented as of this encounter Visit Diagnoses Diagnosis Other screening mammogram- Primary documented in this encounter Care Teams Telephone Services Sales Representative Relationship Specialty Start Date End Date Wilber Esquivel DO * PCP - General 03/13/01 documented as of this encounter
--- OUTSIDE RECORDS SUMMARY | 2025-06-19 09:56 | XMS_ITS | Encounter Summary ---
Author Organization [facility] Address [address] [place] [address] Care Team Providers Care Medical Record Technician Name Role Phone Wilber Esquivel DO Primary Care Provider [phone] Encounter Details Date Type Department Care Team (Latest Contact Info) Description 12/14/2001 Outpatient Historical HIS IMG-LAB [facility] Wilber Esquivel DO * BONE & CARTILAGE DIS NOS (Primary Dx) Social History Tobacco Use Types Packs/Day Years Used Date Smoking Tobacco: Never Assessed Comments Unknown Sex and Gender Information Value Date Recorded Sex Assigned at Not on file Legal Sex Female 5:20 AM ELECTRIC SERVICEMAN Gender Identity Not on file Sexual Orientation Not on file documented as of this encounter Plan of Treatment Not on file documented as of this encounter Visit Diagnoses Diagnosis Disorder of bone and cartilage, unspecified- Primary documented in this encounter Care Teams Medical Record Technician Relationship Specialty Start Date End Date Wilber Esquivel DO * PCP - General 03/13/01 documented as of this encounter
--- OUTSIDE RECORDS SUMMARY | 2025-06-19 09:56 | XMS_ITS | Encounter Summary ---
Author Organization [facility] Address [address] [place] [address] Care Team Providers Care Pulvi Mixer Operator Name Role Phone Wilber Esquivel DO Primary Care Provider [phone] Encounter Details Date Type Department Care Team (Late st Contact Info) Description 10/16/1999 Outpatient [facility] Primary Care - [address] [place] [address] Wilber Esquivel DO * Social History Tobacco Use Types Packs/Day Years Used Date Smoking Tobacco: Never Assessed Comments Unknown Sex and Gender Information Value Date Recorded Sex Assigned at Not on file Legal Sex Female 5:20 AM MID TEACHER Gender Identity Not on file Sexual Orientation Not on file documented as of this encounter Plan of Treatment Not on file documented as of this encounter Visit Diagnoses Not on filedocumented in this encounter Care Teams Pulvi Mixer Operator Relationship Specialty Start Date End Date Wilber Esquivel DO * PCP - General 03/13/01 documented as of this encounter
--- OUTSIDE RECORDS SUMMARY | 2025-06-19 09:56 | XMS_ITS | Encounter Summary ---
Author Organization [facility] Address 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
--- OUTSIDE RECORDS SUMMARY | 2025-06-19 09:56 | XMS_ITS | Encounter Summary ---
Author Organization [facility] Address [address] [place] [address] Care Team Providers Care Middle School Music Teacher Name Role Phone Wilber Esquivel DO Primary Care Provider Encounter Details Date Type Department Care Team (Late st Contact Info) Description 07/18/2002 Outpatient [facility] Primary Care - [address] [place] [address] Wilber Esquivel DO * Social History Tobacco Use Types Packs/Day Years Used Date Smoking Tobacco: Never Assessed Comments Unknown Sex and Gender Information Value Date Recorded Sex Assigned at Not on file Legal Sex Female 5:20 AM CARDIOLOGY PHYSICIAN Gender Identity Not on file Sexual Orientation Not on file documented as of this encounter Plan of Treatment Not on file documented as of this encounter Visit Diagnoses Not on filedocumented in this encounter Care Teams Middle School Music Teacher Relationship Specialty Start Date End Date Wilber Esquivel DO * PCP - General 03/13/01 documented as of this encounter
--- OUTSIDE RECORDS SUMMARY | 2025-06-19 09:56 | XMS_ITS | Encounter Summary ---
Author Organization [facility] Address 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
--- OUTSIDE RECORDS SUMMARY | 2025-06-19 09:56 | XMS_ITS | Encounter Summary ---
Author Organization [facility] Address [address] [place] [address] Care Team Providers Care Flexographic Press Operator Name Role Phone Wilber Esquivel DO Primary Care Provider Encounter Details Date Type Department Care Team (Late st Contact Info) Description 12/14/2001 Outpatient [facility] Primary Care - [address] [place] [address] Wilber Esquivel DO * Social History Tobacco Use Types Packs/Day Years Used Date Smoking Tobacco: Never Assessed Comments Unknown Sex and Gender Information Value Date Recorded Sex Assigned at Not on file Legal Sex Female 5:20 AM EXTENSION DIVISION DIRECTOR Gender Identity Not on file Sexual Orientation Not on file documented as of this encounter Plan of Treatment Not on file documented as of this encounter Visit Diagnoses Not on filedocumented in this encounter Care Teams Flexographic Press Operator Relationship Specialty Start Date End Date Wilber Esquivel DO * PCP - General 03/13/01 documented as of this encounter
--- OUTSIDE RECORDS SUMMARY | 2025-06-19 09:56 | XMS_ITS | Encounter Summary ---
Author Organization [facility] Address 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
--- OUTSIDE RECORDS SUMMARY | 2025-06-19 09:56 | XMS_ITS | Clinical Summary ---
Author Organization [facility] Address [address] Manzanaresn: Epic Prelude ADT [place] [address] Care Team Providers Care Receptionist Name Role Phone Wilber Esquivel DO Primary Care Provider [phone] Social History Tobacco Use Types Packs/Day Years Used Date Smoking Tobacco: Never Assessed Comments Unknown Sex and Gender Information Value Date Recorded Sex Assigned at Not on file Legal Sex Female 5:20 AM DIRECTOR BUSINESS SYSTEMS Gender Identity Not on file Sexual Orientation [...] Colonography Q 5 years Discontinued Care Teams Receptionist Relationship Specialty Start Date End Date Wilber Esquivel DO * PCP - General 03/13/01
--- OUTSIDE RECORDS SUMMARY | 2025-06-19 09:56 | XMS_ITS | Clinical Summary ---
Author Organization [facility] Address [address] [place] [address] Care Team Providers Care Director Enterprise Data Architecture Name Role Phone Unavailable Primary Care Provider [...] Td Vaccines ( 1 - Tdap) 1965 Pneumococcal Vaccine: 50+ Ye ars (1 of 1 - PCV) 1996 Zoster Vaccines (1 of 2) 1996 Dexa Scan (General) 2011 RSV Immunization or 60+ Years (1 - 1-dose 75+ series) 2021 COVID-19 Vaccine ( - 2024-2 6 season) 2025 Influenza Adult (#1) 2025 Hepatitis A Vaccines Aged Out No long er eligible based on patient's age to complete this topic Meningococcal B Vaccine Aged Out No l onger eligible based on patient's age to complete this topic Meningococcal Vaccine Aged Out No baldemar anjelica eligible based on patient's age to complete this topic RSV Immunizations Under 20 Months Aged Out No longer eligible based on patient's age to complete this topic
--- OUTSIDE RECORDS SUMMARY | 2025-06-19 09:56 | XMS_ITS | Encounter Summary ---
Author Organization [facility] Address 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
--- OUTSIDE RECORDS SUMMARY | 2025-06-19 09:56 | XMS_ITS | Encounter Summary ---
Author Organization [facility] Address 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
--- OUTSIDE RECORDS SUMMARY | 2025-06-19 09:56 | XMS_ITS | Encounter Summary ---
Author Organization [facility] Address 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
--- OUTSIDE RECORDS SUMMARY | 2025-06-19 09:56 | XMS_ITS | Encounter Summary ---
Author Organization Address [address] [place] [address] Care Team Providers Care Assembler Garment Form Name Role Phone Wilber Esquivel DO Primary Care Provider [phone] Encounter Details Date Type Department Care Team (Late st Contact Info) Description 11/30/1999 Outpatient [facility] Primary Care - [address] [place] [address] Wilber Esquivel DO * Social History Tobacco Use Types Packs/Day Years Used Date Smoking Tobacco: Never Assessed Comments Unknown Sex and Gender Information Value Date Recorded Sex Assigned at Not on file Legal Sex Female 5:20 AM LITHOGRAPHIC 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
--- OUTSIDE RECORDS SUMMARY | 2025-06-19 09:56 | XMS_ITS | Encounter Summary ---
Author Organization [facility] Address 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
--- OUTSIDE RECORDS SUMMARY | 2025-06-19 09:56 | XMS_ITS | Encounter Summary ---
Author Organization [facility] Address [address] [place] [address] Care Team Providers Care Necktie Operator Pockets And Pieces Name Role Phone Wilber Esquivel DO Primary Care Provider [phone] Encounter Details Date Type Department Care Team (Late st Contact Info) Description 01/04/[address] [facility] Primary Care - [address] [place] [address] Wilber Esquivel DO * Social History Tobacco Use Types Packs/Day Years Used Date Smoking Tobacco: Never Assessed Comments Unknown Sex and Gender Information Value Date Recorded Sex Assigned at Not on file Legal Sex Female 5:20 AM FORMING ACID DUMPER Gender Identity Not on file Sexual Orientation Not on file documented as of this encounter Plan of Treatment Not on file documented as of this encounter Visit Diagnoses Not on filedocumented in this encounter Care Teams Necktie Operator Pockets And Pieces Relationship Specialty Start Date End Date Wilber Esquivel DO * PCP - General 03/13/01 documented as of this encounter
--- OUTSIDE RECORDS SUMMARY | 2025-06-19 09:56 | XMS_ITS | Encounter Summary ---
Author Organization [facility] Address [address] [place] [address] Care Team Providers Care Plant Engineering Manager Name Role Phone Wilber Esquivel DO Primary Care Provider [phone] Encounter Details Date Type Department Care Team (Late st Contact Info) Description 10/14/1998 Outpatient [facility] Primary Care - [address] [place] [address] Wilber Esquivel DO * Social History Tobacco Use Types Packs/Day Years Used Date Smoking Tobacco: Never Assessed Comments Unknown Sex and Gender Information Value Date Recorded Sex Assigned at Not on file Legal Sex Female 5:20 AM CYLINDER BATCHER Gender Identity Not on file Sexual Orientation Not on file documented as of this encounter Plan of Treatment Not on file documented as of this encounter Visit Diagnoses Not on filedocumented in this encounter Care Teams Plant Engineering Manager Relationship Specialty Start Date End Date Wilber Esquivel DO * PCP - General 03/13/01 documented as of this encounter
--- OUTSIDE RECORDS SUMMARY | 2025-06-19 09:56 | XMS_ITS | Encounter Summary ---
Author Organization [facility] Address 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
--- OUTSIDE RECORDS SUMMARY | 2025-06-19 09:56 | XMS_ITS | Encounter Summary ---
Author Organization [facility] Address [address] [place] [address] Care Team Providers Care Tracer Lathe Set Up Operator Name Role Phone Wilber Esquivel DO Primary Care Provider [phone] Encounter Details Date Type Department Care Team (Latest Contact Info) Description 03/13/2001 Outpatient Historical HIS IMG[facility]LAB [facility] Wilber Esquivel DO * Other screening mammogram (Primary Dx) Social History Tobacco Use Types Packs/Day Years Used Date Smoking Tobacco: Never Assessed Comments Unknown Sex and Gender Information Value Date Recorded Sex Assigned at Not on file Legal Sex Female 5:20 AM ROUTE DELIVERY MANAGER Gender Identity Not on file Sexual Orientation Not on file documented as of this encounter Plan of Treatment Not on file documented as of this encounter Visit Diagnoses Diagnosis Other screening mammogram- Primary documented in this encounter Care Teams Tracer Lathe Set Up Operator Relationship Specialty Start Date End Date Wilber Esquivel DO * PCP - General 03/13/01 documented as of this encounter
--- OUTSIDE RECORDS SUMMARY | 2025-06-19 09:56 | XMS_ITS | Encounter Summary ---
Author Organization [facility] Address [address] [place] [address] Care Team Providers Care Steam Crane Operator Name Role Phone Wilber Esquivel DO Primary Care Provider [phone] Encounter Details Date Type Department Care Team (Late st Contact Info) Description 06/18/1999 Outpatient [facility] Primary Care - [address] [place] [address] Wilber Esquivel DO * Social History Tobacco Use Types Packs/Day Years Used Date Smoking Tobacco: Never Assessed Comments Unknown Sex and Gender Information Value Date Recorded Sex Assigned at Not on file Legal Sex Female 5:20 AM CASE LOADER OPERATOR Gender Identity Not on file Sexual Orientation Not on file documented as of this encounter Plan of Treatment Not on file documented as of this encounter Visit Diagnoses Not on filedocumented in this encounter Care Teams Steam Crane Operator Relationship Specialty Start Date End Date Wilber Esquivel DO * PCP - General 03/13/01 documented as of this encounter
--- OUTSIDE RECORDS SUMMARY | 2025-06-19 09:56 | XMS_ITS | Encounter Summary ---
Author Organization [facility] Address 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) Social History Tobacco Use Types Packs/Day Years Used Date Smoking Tobacco: Never Assessed Comments Unknown Sex and Gender Information Value Date Recorded Sex Assigned at Not on file Legal Sex Female 5:20 AM LOCOMOTIVE REPAIRER DIESEL Gender Identity Not on file Sexual Orientation Not on file documented as of this encounter Plan of Treatment Not on file documented as of this encounter Visit Diagnoses Diagnosis Knee joint replacement by other means- Primary documented in this encounter Care Teams Nuclear Technologist Relationship Specialty Start Date End Date Wilber Esquivel DO * PCP - General 03/13/01 documented as of this encounter
--- OUTSIDE RECORDS SUMMARY | 2025-06-19 09:56 | XMS_ITS | Encounter Summary ---
Author Organization [facility] Address 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
--- OUTSIDE RECORDS SUMMARY | 2025-06-19 09:56 | XMS_ITS | Encounter Summary ---
Author Organization [facility] Address [address] [place] [address] Care Team Providers Care Milling General Superintendent Name Role Phone Wilber Esquivel DO Primary Care Provider [phone] Encounter Details Date Type Department Care Team (Late st Contact Info) Description 01/25/2002 Outpatient [facility] Primary Care - [address] [place] [address] Wilber Esquivel DO * Social History Tobacco Use Types Packs/Day Years Used Date Smoking Tobacco: Never Assessed Comments Unknown Sex and Gender Information Value Date Recorded Sex Assigned at Not on file Legal Sex Female 5:20 AM SOFTWARE DATABASE ARCHITECT Gender Identity Not on file Sexual Orientation Not on file documented as of this encounter Plan of Treatment Not on file documented as of this encounter Visit Diagnoses Not on filedocumented in this encounter Care Teams Milling General Superintendent Relationship Specialty Start Date End Date Wilber Esquivel DO * PCP - General 03/13/01 documented as of this encounter
--- OUTSIDE RECORDS SUMMARY | 2025-06-19 09:56 | XMS_ITS | Encounter Summary ---
Author Organization [facility] Address [address] [place] [address] Care Team Providers Care Sports Management Intern Name Role Phone Wilber Esquivel DO Primary Care Provider Encounter Details Date Type Department Care Team (Late st Contact Info) Description 12/31/1999 Outpatient [facility] Primary Care - [address] [place] [address] Wilber Esquivel DO * Social History Tobacco Use Types Packs/Day Years Used Date Smoking Tobacco: Never Assessed Comments Unknown Sex and Gender Information Value Date Recorded Sex Assigned at Not on file Legal Sex Female 5:20 AM MONUMENT SETTER Gender Identity Not on file Sexual Orientation Not on file documented as of this encounter Plan of Treatment Not on file documented as of this encounter Visit Diagnoses Not on filedocumented in this encounter Care Teams Sports Management Intern Relationship Specialty Start Date End Date Wilber Esquivel DO * PCP - General 03/13/01 documented as of this encounter
--- OUTSIDE RECORDS SUMMARY | 2025-06-19 09:56 | XMS_ITS | Encounter Summary ---
Author Organization [facility] Address [address] [place] [address] Care Team Providers Care Electric Brain Wave Equipment Mechanic Name Role Phone Wilber Esquivel DO Primary Care Provider Encounter Details Date Type Department Care Team (Late st Contact Info) Description 03/27/1998 Outpatient [facility] Primary Care - [address] [place] [address] Wilber Esquivel DO * Social History Tobacco Use Types Packs/Day Years Used Date Smoking Tobacco: Never Assessed Comments Unknown Sex and Gender Information Value Date Recorded Sex Assigned at Not on file Legal Sex Female 5:20 AM STEEL POURER Gender Identity Not on file Sexual Orientation Not on file documented as of this encounter Plan of Treatment Not on file documented as of this encounter Visit Diagnoses Not on filedocumented in this encounter Care Teams Electric Brain Wave Equipment Mechanic Relationship Specialty Start Date End Date Wilber Esquivel DO * PCP - General 03/13/01 documented as of this encounter
--- OUTSIDE RECORDS SUMMARY | 2025-06-19 09:56 | XMS_ITS | Encounter Summary ---
Author Organization [facility] Address [address] [place] [address] Care Team Providers Care Asset Availability Leader Name Role Phone Wilber Esquivel DO Primary Care Provider Encounter Details Date Type Department Care Team (Late st Contact Info) Description 07/16/2002 Outpatient Historical [facility] Silvano Jones MD [address] [place] [address] [place] [address] SCREENING MAL NEOP-COLON (Primary Dx) Social History Tobacco Use Types Packs/Day Years Used Date Smoking Tobacco: Never Assessed Comments Unknown Sex and Gender Information Value Date Recorded Sex Assigned at Not on file Legal Sex Female 5:20 AM GLOBAL CTO Gender Identity Not on file Sexual Orientation Not on file documented as of this encounter Plan of Treatment Not on file documented as of this encounter Visit Diagnoses Diagnosis Special screening for malignant neoplasms, colon- Primary documented in this encounter Care Teams Asset Availability Leader Relationship Specialty Start Date End Date Wilber Esquivel DO * PCP - General 03/13/01 documented as of this encounter
--- OUTSIDE RECORDS SUMMARY | 2025-06-19 09:56 | XMS_ITS | Encounter Summary ---
Author Organization [facility] Address 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
--- OUTSIDE RECORDS SUMMARY | 2025-06-19 09:56 | XMS_ITS | Encounter Summary ---
Author Organization [facility] Address [address] [place] [address] Care Team Providers Care Timber Harvester Operator Name Role Phone Wilber Esquivel DO Primary Care Provider Encounter Details Date Type Department Care Team (Late st Contact Info) Description 07/02/[address] 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
--- OUTSIDE RECORDS SUMMARY | 2025-06-19 09:56 | XMS_ITS | Encounter Summary ---
Author Organization [facility] Address [address] [place] [address] Care Team Providers Care Store Stocker Name Role Phone Wilber Esquivel DO Primary Care Provider Encounter Details Date Type Department Care Team (Late st Contact Info) Description 04/04/2001 Outpatient [facility] Primary Care - [address] [place] [address] Wilber Esquivel DO * Social History Tobacco Use Types Packs/Day Years Used Date Smoking Tobacco: Never Assessed Comments Unknown Sex and Gender Information Value Date Recorded Sex Assigned at Not on file Legal Sex Female 5:20 AM DATA CONTROL ASSISTANT Gender Identity Not on file Sexual Orientation Not on file documented as of this encounter Plan of Treatment Not on file documented as of this encounter Visit Diagnoses Not on filedocumented in this encounter Care Teams Store Stocker Relationship Specialty Start Date End Date Wilber Esquivel DO * PCP - General 03/13/01 documented as of this encounter
--- OUTSIDE RECORDS SUMMARY | 2025-06-19 09:56 | XMS_ITS | Encounter Summary ---
Author Organization [facility] Address [address] [place] [address] Care Team Providers Care Broom Builder Name Role Phone Wilber Esquivel DO Primary Care Provider [phone] Encounter Details Date Type Department Care Team (Late st Contact Info) Description 03/13/2001 Outpatient [facility] Primary Care - [address] [place] [address] Wilber Esquivel DO * Social History Tobacco Use Types Packs/Day Years Used Date Smoking Tobacco: Never Assessed Comments Unknown Sex and Gender Information Value Date Recorded Sex Assigned at Not on file Legal Sex Female 5:20 AM WOOD SKI MAKER Gender Identity Not on file Sexual Orientation Not on file documented as of this encounter Plan of Treatment Not on file documented as of this encounter Visit Diagnoses Not on filedocumented in this encounter Care Teams Broom Builder Relationship Specialty Start Date End Date Wilber Esquivel DO * PCP - General 03/13/01 documented as of this encounter
--- OUTSIDE RECORDS SUMMARY | 2025-06-19 09:56 | XMS_ITS | Encounter Summary ---
Author Organization [facility] Address 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
--- OUTSIDE RECORDS SUMMARY | 2025-06-19 09:56 | XMS_ITS | Encounter Summary ---
Author Organization [facility] Address [address] [place] [address] Care Team Providers Care Concrete Stone Finisher Name Role Phone Wilber Esquivel DO Primary Care Provider [phone] Encounter Details Date Type Department Care Team (Latest Contact Info) Description 01/25/2007 Outpatient Historical [facility] Wilber Esquivel DO * Pure Hypercholesterolemia (Primary Dx) Social History Tobacco Use Types Packs/Day Years Used Date Smoking Tobacco: Never Assessed Comments Unknown Sex and Gender Information Value Date Recorded Sex Assigned at Not on file Legal Sex Female 5:20 AM MANAGER APPLICATION Gender Identity Not on file Sexual Orientation [...] Provider HEMATOLOGY ORDERABLES Edited Performing Organization Address City/[facility] Co de Phone Number INTERFACE SYSTEM Refer to clinic/hospital department * CBC WITH DIFFERENTIAL (01/25/2007 2:57 PM CDT) Pathologist [facility] WBC 6.0 4.0 - 9.8 K/uL INTERFACE [...] Provider HEMATOLOGY ORDERABLES Edited Performing Organization Address City/[facility] Co de Phone Number INTERFACE SYSTEM Refer [...] Provider CHEMISTRY ORDERABLES Edited Performing Organization Address [facility] de Phone Number INTERFACE SYSTEM [...] Provider CHEMISTRY ORDERABLES Edited Performing Organization Address [facility] Co de Phone Number INTERFACE SYSTEM Refer [...] classifications for lipids are available on the [facility] Intranet at: [email or web address] centerThe Networking Effectnortheast [facility] [email or web address] Select: Lab Policies and Procedures Select: Reference Ranges - Lipids 01/25/2007 2:57 PM CDT Narrative INTERFACE SYSTEM - 01/25/2007 6:08 PM CDT Ordered by an unspecified provider. us Historical Provider CHEMISTRY ORDERABLES Edited INTERFACE SYSTEM Refer to clinic/hospital department documented in this encounter Visit Diagnoses Diagnosis Pure hypercholesterolemia- Primary documented in this encounter Care Teams Concrete Stone Finisher Relationship Specialty Start Date End Date Wilber Esquivel DO * PCP - General 03/13/01 documented as of this encounter
--- OUTSIDE RECORDS SUMMARY | 2025-06-19 09:56 | XMS_ITS | Encounter Summary ---
Author Organization [facility] Address [address] [place] [address] Care Team Providers Care Practice Support Specialist Name Role Phone Wilber Esquivel DO Primary Care Provider Encounter Details Date Type Department Care Team (Late st Contact Info) Description 10/12/2000 Outpatient [facility] Primary Care - [address] [place] [address] Wilber Esquivel DO * Social History Tobacco Use Types Packs/Day Years Used Date Smoking Tobacco: Never Assessed Comments Unknown Sex and Gender Information Value Date Recorded Sex Assigned at Not on file Legal Sex Female 5:20 AM SOFTWARE TESTER Gender Identity Not on file Sexual Orientation Not on file documented as of this encounter Plan of Treatment Not on file documented as of this encounter Visit Diagnoses Not on filedocumented in this encounter Care Teams Practice Support Specialist Relationship Specialty Start Date End Date Wilber Esquivel DO * PCP - General 03/13/01 documented as of this encounter
--- OUTSIDE RECORDS SUMMARY | 2025-06-19 09:56 | XMS_ITS | Encounter Summary ---
Author Organization [facility] Address [address] [place] [address] Care Team Providers Care Radar Tester Name Role Phone Wilber Esquivel DO Primary Care Provider Encounter Details Date Type Department Care Team (Late st Contact Info) Description 02/26/[address] [facility] Primary Care - [address] [place] [address] Wilber Esquivel DO * Social History Tobacco Use Types Packs/Day Years Used Date Smoking Tobacco: Never Assessed Comments Unknown Sex and Gender Information Value Date Recorded Sex Assigned at Not on file Legal Sex Female 5:20 AM TELEGRAPH OFFICE ROUTE AIDE Gender Identity Not on file Sexual Orientation Not on file documented as of this encounter Plan of Treatment Not on file documented as of this encounter Visit Diagnoses Not on filedocumented in this encounter Care Teams Radar Tester Relationship Specialty Start Date End Date Wilber Esquivel DO * PCP - General 03/13/01 documented as of this encounter
--- OUTSIDE RECORDS SUMMARY | 2025-06-19 09:56 | XMS_ITS | Encounter Summary ---
Author Organization [facility] Address [address] [place] [address] Care Team Providers Care Business Analytics Intern Name Role Phone Wilber Esquivel DO Primary Care Provider Encounter Details Date Type Department Care Team (Late st Contact Info) Description 12/26/2003 Outpatient [facility] Primary Care - [address] [place] [address] Wilber Esquivel DO * Social History Tobacco Use Types Packs/Day Years Used Date Smoking Tobacco: Never Assessed Comments Unknown Sex and Gender Information Value Date Recorded Sex Assigned at Not on file Legal Sex Female 5:20 AM BATTERY STACKER Gender Identity Not on file Sexual Orientation Not on file documented as of this encounter Plan of Treatment Not on file documented as of this encounter Visit Diagnoses Not on filedocumented in this encounter Care Teams Business Analytics Intern Relationship Specialty Start Date End Date Wilber Esquivel DO * PCP - General 03/13/01 documented as of this encounter
--- OUTSIDE RECORDS SUMMARY | 2025-06-19 09:56 | XMS_ITS | Encounter Summary ---
Author Organization [facility] Address [address] [place] [address] Care Team Providers Care Edger Automatic Name Role Phone Wilber Esquivel DO Primary Care Provider Encounter Details Date Type Department Care Team (Late st Contact Info) Description 10/26/2000 Outpatient [facility] Primary Care - [address] [place] [address] Wilber Esquivel DO * Social History Tobacco Use Types Packs/Day Years Used Date Smoking Tobacco: Never Assessed Comments Unknown Sex and Gender Information Value Date Recorded Sex Assigned at Not on file Legal Sex Female 5:20 AM MAIL ROOM CLERK Gender Identity Not on file Sexual Orientation Not on file documented as of this encounter Plan of Treatment Not on file documented as of this encounter Visit Diagnoses Not on filedocumented in this encounter Care Teams Edger Automatic Relationship Specialty Start Date End Date Wilber Esquivel DO * PCP - General 03/13/01 documented as of this encounter
--- OUTSIDE RECORDS SUMMARY | 2025-06-19 09:56 | XMS_ITS | Encounter Summary ---
Author Organization [facility] Address [address] [place] [address] Care Team Providers Care Body And Fender Worker Name Role Phone Wilber Esquivel DO Primary Care Provider [phone] Encounter Details Date Type Department Care Team (Late st Contact Info) Description 08/04/2000 Outpatient [facility] Primary Care - [address] [place] [address] Wilber Esquivel DO * Social History Tobacco Use Types Packs/Day Years Used Date Smoking Tobacco: Never Assessed Comments Unknown Sex and Gender Information Value Date Recorded Sex Assigned at Not on file Legal Sex Female 5:20 AM 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
--- OUTSIDE RECORDS SUMMARY | 2025-06-19 09:56 | XMS_ITS | Encounter Summary ---
Author Organization [facility] Address [address] [place] [address] Care Team Providers Care Welt Stitcher Name Role Phone Wilber Esquivel DO Primary Care Provider [phone] Encounter Details Date Type Department Care Team (Late st Contact Info) Description 08/01/2003 Outpatient [facility] Primary Care - [address] [place] [address] Wilber Esquivel DO * Social History Tobacco Use Types Packs/Day Years Used Date Smoking Tobacco: Never Assessed Comments Unknown Sex and Gender Information Value Date Recorded Sex Assigned at Not on file Legal Sex Female 5:20 AM RESEARCH ASSOCIATE MOLECULAR BIOLOGY Gender Identity Not on file Sexual Orientation Not on file documented as of this encounter Plan of Treatment Not on file documented as of this encounter Visit Diagnoses Not on filedocumented in this encounter Care Teams Welt Stitcher Relationship Specialty Start Date End Date Wilber Esquivel DO * PCP - General 03/13/01 documented as of this encounter
--- OUTSIDE RECORDS SUMMARY | 2025-06-19 09:56 | XMS_ITS | Encounter Summary ---
Author Organization [facility] Address [address] [place] [address] Care Team Providers Care Beamer Operator Name Role Phone Wilber Esquivel DO Primary Care Provider Encounter Details Date Type Department Care Team (Late st Contact Info) Description 06/06/2002 Outpatient [facility] Primary Care - [address] [place] [address] Wilber Esquivel DO * Social History Tobacco Use Types Packs/Day Years Used Date Smoking Tobacco: Never Assessed Comments Unknown Sex and Gender Information Value Date Recorded Sex Assigned at Not on file Legal Sex Female 5:20 AM TELEHEALTH COORDINATOR Gender Identity Not on file Sexual Orientation Not on file documented as of this encounter Plan of Treatment Not on file documented as of this encounter Visit Diagnoses Not on filedocumented in this encounter Care Teams Beamer Operator Relationship Specialty Start Date End Date Wilber Esquivel DO * PCP - General 03/13/01 documented as of this encounter
--- OUTSIDE RECORDS SUMMARY | 2025-06-19 09:56 | XMS_ITS | Encounter Summary ---
Author Organization [facility] Address [address] [place] [address] Care Team Providers Care Walnut Dehydrator Operator Name Role Phone Wilber Esquivel DO Primary Care Provider [phone] Encounter Details Date Type Department Care Team (Late st Contact Info) Description 11/05/1998 Outpatient [facility] Primary Care - [address] [place] [address] Wilber Esquivel DO * Social History Tobacco Use Types Packs/Day Years Used Date Smoking Tobacco: Never Assessed Comments Unknown Sex and Gender Information Value Date Recorded Sex Assigned at Not on file Legal Sex Female 5:20 AM RAIL MANAGER Gender Identity Not on file Sexual Orientation Not on file documented as of this encounter Plan of Treatment Not on file documented as of this encounter Visit Diagnoses Not on filedocumented in this encounter Care Teams Walnut Dehydrator Operator Relationship Specialty Start Date End Date Wilber Esquivel DO * PCP - General 03/13/01 documented as of this encounter
--- OUTSIDE RECORDS SUMMARY | 2025-06-19 09:56 | XMS_ITS | Encounter Summary ---
Author Organization [facility] Address [address] [place] [address] Care Team Providers Care Rice Farmworker Name Role Phone Wilber Esquivel DO Primary Care Provider Encounter Details Date Type Department Care Team (Late st Contact Info) Description 04/05/2000 Outpatient [facility] Primary Care - [address] [place] [address] Wilber Esquivel DO * Social History Tobacco Use Types Packs/Day Years Used Date Smoking Tobacco: Never Assessed Comments Unknown Sex and Gender Information Value Date Recorded Sex Assigned at Not on file Legal Sex Female 5:20 AM CAN MAKER Gender Identity Not on file Sexual Orientation Not on file documented as of this encounter Plan of Treatment Not on file documented as of this encounter Visit Diagnoses Not on filedocumented in this encounter Care Teams Rice Farmworker Relationship Specialty Start Date End Date Wilber Esquivel DO * PCP - General 03/13/01 documented as of this encounter
--- OUTSIDE RECORDS SUMMARY | 2025-06-19 09:57 | XMS_ITS | Encounter Summary ---
Author Organization [facility] Address [address] [place] [address] Care Team Providers Care Occupational Therapist Name Role Phone Wilber Esquivel DO Primary Care Provider [phone] Encounter Details Date Type Department Care Team (Late st Contact Info) Description 12/06/2006 Outpatient [facility] Primary Care - [address] [place] [address] Wilber Esquivel DO * Social History Tobacco Use Types Packs/Day Years Used Date Smoking Tobacco: Never Assessed Comments Unknown Sex and Gender Information Value Date Recorded Sex Assigned at Not on file Legal Sex Female 5:20 AM REFRACTORY MANAGER Gender Identity Not on file Sexual Orientation Not on file documented as of this encounter Plan of Treatment Not on file documented as of this encounter Visit Diagnoses Not on filedocumented in this encounter Care Teams Occupational Therapist Relationship Specialty Start Date End Date Wilber Esquivel DO * PCP - General 03/13/01 documented as of this encounter
--- OUTSIDE RECORDS SUMMARY | 2025-06-19 09:57 | XMS_ITS | Encounter Summary ---
Author Organization [facility] Address [address] [place] [address] Care Team Providers Care Car Rider Name Role Phone Wilber Esquivel DO Primary Care Provider Encounter Details Date Type Department Care Team (Late st Contact Info) Description 03/18/2004 Outpatient [facility] Primary Care - [address] [place] [address] Wilber Esquivel DO * Social History Tobacco Use Types Packs/Day Years Used Date Smoking Tobacco: Never Assessed Comments Unknown Sex and Gender Information Value Date Recorded Sex Assigned at Not on file Legal Sex Female 5:20 AM VICE PRESIDENT OF BRAND MANAGEMENT Gender Identity Not on file Sexual Orientation Not on file documented as of this encounter Plan of Treatment Not on file documented as of this encounter Visit Diagnoses Not on filedocumented in this encounter Care Teams Car Rider Relationship Specialty Start Date End Date Wilber Esquivel DO * PCP - General 03/13/01 documented as of this encounter
--- OUTSIDE RECORDS SUMMARY | 2025-06-19 09:57 | XMS_ITS | Encounter Summary ---
Author Organization [facility] Address [address] [place] [address] Care Team Providers Care Pourer Buggy Ladle Name Role Phone Wilber Esquivel DO Primary Care Provider Encounter Details Date Type Department Care Team (Late st Contact Info) Description 11/08/2006 Outpatient [facility] Primary Care - [address] [place] [address] Wilber Esquivel DO * Social History Tobacco Use Types Packs/Day Years Used Date Smoking Tobacco: Never Assessed Comments Unknown Sex and Gender Information Value Date Recorded Sex Assigned at Not on file Legal Sex Female 5:20 AM HAMMER ADJUSTER Gender Identity Not on file Sexual Orientation Not on file documented as of this encounter Plan of Treatment Not on file documented as of this encounter Visit Diagnoses Not on filedocumented in this encounter Care Teams Pourer Buggy Ladle Relationship Specialty Start Date End Date Wilber Esquivel DO * PCP - General 03/13/01 documented as of this encounter
--- OUTSIDE RECORDS SUMMARY | 2025-06-19 09:57 | XMS_ITS | Encounter Summary ---
Author Organization [facility] Address [address] [place] [address] Care Team Providers Care Senior Software Developer Name Role Phone Wilber Esquivel DO Primary Care Provider Encounter Details Date Type Department Care Team (Late st Contact Info) Description 03/11/2005 Outpatient [facility] Primary Care - [address] [place] [address] Wilber Esquivel DO * Social History Tobacco Use Types Packs/Day Years Used Date Smoking Tobacco: Never Assessed Comments Unknown Sex and Gender Information Value Date Recorded Sex Assigned at Not on file Legal Sex Female 5:20 AM POLICE MAGISTRATE Gender Identity Not on file Sexual Orientation Not on file documented as of this encounter Plan of Treatment Not on file documented as of this encounter Visit Diagnoses Not on filedocumented in this encounter Care Teams Senior Software Developer Relationship Specialty Start Date End Date Wilber Esquivel DO * PCP - General 03/13/01 documented as of this encounter
--- OUTSIDE RECORDS SUMMARY | 2025-06-19 09:57 | XMS_ITS | Encounter Summary ---
Author Organization [facility] Address [address] [place] [address] Care Team Providers Care Dog Pound Attendant Name Role Phone Wilber Esquivel DO Primary Care Provider Encounter Details Date Type Department Care Team (Late st Contact Info) Description 06/03/2005 Outpatient [facility] Primary Care - [address] [place] [address] Wilber Esquivel DO * Social History Tobacco Use Types Packs/Day Years Used Date Smoking Tobacco: Never Assessed Comments Unknown Sex and Gender Information Value Date Recorded Sex Assigned at Not on file Legal Sex Female 5:20 AM COPY TECHNICIAN Gender Identity Not on file Sexual Orientation Not on file documented as of this encounter Plan of Treatment Not on file documented as of this encounter Visit Diagnoses Not on filedocumented in this encounter Care Teams Dog Pound Attendant Relationship Specialty Start Date End Date Wilber Esquivel DO * PCP - General 03/13/01 documented as of this encounter
--- OUTSIDE RECORDS SUMMARY | 2025-06-19 09:57 | XMS_ITS | Encounter Summary ---
Author Organization [facility] Address [address] [place] [address] Care Team Providers Care Parts Washer Name Role Phone Wilber Esquivel DO Primary Care Provider Encounter Details Date Type Department Care Team (Late st Contact Info) Description 05/16/2006 Outpatient [facility] Primary Care - [address] [place] [address] Wilber Esquivel DO * Social History Tobacco Use Types Packs/Day Years Used Date Smoking Tobacco: Never Assessed Comments Unknown Sex and Gender Information Value Date Recorded Sex Assigned at Not on file Legal Sex Female 5:20 AM ASSOCIATE SOFTWARE DEVELOPMENT ENGINEER Gender Identity Not on file Sexual Orientation Not on file documented as of this encounter Plan of Treatment Not on file documented as of this encounter Visit Diagnoses Not on filedocumented in this encounter Care Teams Parts Washer Relationship Specialty Start Date End Date Wilber Esquivel DO * PCP - General 03/13/01 documented as of this encounter
--- OUTSIDE RECORDS SUMMARY | 2025-06-19 09:57 | XMS_ITS | Encounter Summary ---
Author Organization [facility] Address [address] [place] [address] Care Team Providers Care Meal Room Hand Name Role Phone Wilber Esquivel DO Primary Care Provider [phone] Encounter Details Date Type Department Care Team (Late st Contact Info) Description 09/08/2005 Outpatient [facility] Primary Care - [address] [place] [address] Wilber Esquivel DO * Social History Tobacco Use Types Packs/Day Years Used Date Smoking Tobacco: Never Assessed Comments Unknown Sex and Gender Information Value Date Recorded Sex Assigned at Not on file Legal Sex Female 5:20 AM SPA DIRECTOR Gender Identity Not on file Sexual Orientation Not on file documented as of this encounter Plan of Treatment Not on file documented as of this encounter Visit Diagnoses Not on filedocumented in this encounter Care Teams Meal Room Hand Relationship Specialty Start Date End Date Wilber Esquivel DO * PCP - General 03/13/01 documented as of this encounter
--- OUTSIDE RECORDS SUMMARY | 2025-06-19 09:57 | XMS_ITS | Encounter Summary ---
Author Organization [facility] Address [address] [place] [address] Care Team Providers Care It Support Engineer Name Role Phone Wilber Esquivel DO Primary Care Provider [phone] Encounter Details Date Type Department Care Team (Latest Contact Info) Description 03/18/2005 Outpatient [facility] Wilber Esquivel DO * SCREENING MAMM-MAILG NEOPL-OTHER (Primary Dx) Social History Tobacco Use Types Packs/Day Years Used Date Smoking Tobacco: Never Assessed Comments Unknown Sex and Gender Information Value Date Recorded Sex Assigned at Not on file Legal Sex Female 5:20 AM CLINICAL MATERIAL HANDLER Gender Identity Not on file Sexual Orientation Not on file documented as of this encounter Plan of Treatment Not on file documented as of this encounter Visit Diagnoses Diagnosis Other screening mammogram- Primary documented in this encounter Care Teams It Support Engineer Relationship Specialty Start Date End Date Wilber Esquivel DO * PCP - General 03/13/01 documented as of this encounter
--- OUTSIDE RECORDS SUMMARY | 2025-06-19 09:57 | XMS_ITS | Encounter Summary ---
Author Organization [facility] Address [address] [place] [address] Care Team Providers Care Wireless Technician Name Role Phone Wilber Esquivel DO Primary Care Provider [phone] Encounter Details Date Type Department Care Team (Late st Contact Info) Description 05/17/2006 Outpatient Historical [facility] Silvano Jones MD [address] [place] [address] [place] [address] Benign Neoplasm of Colon (Primary Dx) Social History Tobacco Use Types Packs/Day Years Used Date Smoking Tobacco: Never Assessed Comments Unknown Sex and Gender Information Value Date Recorded Sex Assigned at Not on file Legal Sex Female 5:20 AM DECONTAMINATION WORKER Gender Identity Not on file Sexual Orientation Not on file documented as of this encounter Plan of Treatment Not on file documented as of this encounter Visit Diagnoses Diagnosis Benign neoplasm of colon- Primary documented in this encounter Care Teams Wireless Technician Relationship Specialty Start Date End Date Wilber Esquivel DO * PCP - General 03/13/01 documented as of this encounter
--- OUTSIDE RECORDS SUMMARY | 2025-06-19 09:57 | XMS_ITS | Encounter Summary ---
Author Organization [facility] Address [address] [place] [address] Care Team Providers Care French Folder Name Role Phone Wilber Esquivel DO Primary Care Provider Encounter Details Date Type Department Care Team (Late st Contact Info) Description 03/18/2005 Outpatient [facility] Primary Care - [address] [place] [address] Wilber Esquivel DO * Social History Tobacco Use Types Packs/Day Years Used Date Smoking Tobacco: Never Assessed Comments Unknown Sex and Gender Information Value Date Recorded Sex Assigned at Not on file Legal Sex Female 5:20 AM EDUCATIONAL THERAPIST Gender Identity Not on file Sexual Orientation Not on file documented as of this encounter Plan of Treatment Not on file documented as of this encounter Visit Diagnoses Not on filedocumented in this encounter Care Teams French Folder Relationship Specialty Start Date End Date Wilber Esquivel DO * PCP - General 03/13/01 documented as of this encounter
--- OUTSIDE RECORDS SUMMARY | 2025-06-19 09:57 | XMS_ITS | Encounter Summary ---
Author Organization [facility] Address [address] [place] [address] Care Team Providers Care Theoretical Physicist Name Role Phone Wilber Esquivel DO Primary Care Provider Encounter Details Date Type Department Care Team (Late st Contact Info) Description 12/30/2003 Outpatient [facility] Primary Care - [address] [place] [address] Wilber Esquivel DO * Social History Tobacco Use Types Packs/Day Years Used Date Smoking Tobacco: Never Assessed Comments Unknown Sex and Gender Information Value Date Recorded Sex Assigned at Not on file Legal Sex Female 5:20 AM DELIVERY ROUTE DRIVER Gender Identity Not on file Sexual Orientation Not on file documented as of this encounter Plan of Treatment Not on file documented as of this encounter Visit Diagnoses Not on filedocumented in this encounter Care Teams Theoretical Physicist Relationship Specialty Start Date End Date Wilber Esquivel DO * PCP - General 03/13/01 documented as of this encounter
--- OUTSIDE RECORDS SUMMARY | 2025-06-19 09:57 | XMS_ITS | Encounter Summary ---
Author Organization [facility] Address [address] [place] [address] Care Team Providers Care Police Chief Name Role Phone Wilber Esquivel DO Primary Care Provider Encounter Details Date Type Department Care Team (Late st Contact Info) Description 02/04/2004 Outpatient [facility] Primary Care - [address] [place] [address] Wilber Esquivel DO * Social History Tobacco Use Types Packs/Day Years Used Date Smoking Tobacco: Never Assessed Comments Unknown Sex and Gender Information Value Date Recorded Sex Assigned at Not on file Legal Sex Female 5:20 AM CLIENT PROGRAM MANAGER Gender Identity Not on file Sexual Orientation Not on file documented as of this encounter Plan of Treatment Not on file documented as of this encounter Visit Diagnoses Not on filedocumented in this encounter Care Teams Police Chief Relationship Specialty Start Date End Date Wilber Esquivel DO * PCP - General 03/13/01 documented as of this encounter
--- OUTSIDE RECORDS SUMMARY | 2025-06-19 09:57 | XMS_ITS | Encounter Summary ---
Author Organization [facility] Address [address] [place] [address] Care Team Providers Care Infectious Diseases Physician Name Role Phone Wilber Esquivel DO Primary Care Provider Encounter Details Date Type Department Care Team (Latest Contact Info) Description 05/16/2006 Outpatient Historical [facility] Wilber Esquivel DO * Pure Hypercholesterolemia (Primary Dx) Social History Tobacco Use Types Packs/Day Years Used Date Smoking Tobacco: Never Assessed Comments Unknown Sex and Gender Information Value Date Recorded Sex Assigned at Not on file Legal Sex Female 5:20 AM MICA BUILDER Gender Identity Not on file Sexual [...] INTERFACE SYSTEM Comment: [facility] [address] [place] [address] ALICIA GALAN MD 05/16/2006 11:1 5 AM CDT us Historical Provider CHEMISTRY ORDERABLES Final R esult Performing Organization Address [facility] Phone Number INTERFACE SYSTEM Refer [...] ORDERABLES Final Resul t Performing Organization Address [facility] Phone Number INTERFACE SYSTEM Refer [...] ORDERABLES Final R esult Performing Organization Address City/[facility] de Phone Number INTERFACE SYSTEM Refer to [...] CDT Historical Provider CHEMISTRY [facility]ABLES [facility] Per[facility] Organization Address [facility] Phone Number INTERFACE SYSTEM Refer [...] classifications for lipids are available on the [facility] Intranet at: [email or web address] Select: Lab Policies and Procedures Select: Reference Ranges - Lipids 05/16/2006 11:1 3 AM CDT Historical Provider CHEMISTRY ORDERABLES Final R esult Performing Organization Address City/[facility] Co de Phone Number INTERFACE SYSTEM [...] Primary documented in this encounter Care Teams Infectious Diseases Physician Relationship Specialty Start Date End Date Wilber Esquivel DO * PCP - General 03/13/01 documented as of this encounter
--- OUTSIDE RECORDS SUMMARY | 2025-06-19 09:57 | XMS_ITS | Encounter Summary ---
Author Organization [facility] Address [address] [place] [address] Care Team Providers Care Manager Aerospace Name Role Phone Wilber Esquivel DO Primary Care Provider Encounter Details Date Type Department Care Team (Late st Contact Info) Description 01/06/2004 Outpatient [facility] Primary Care - [address] [place] [address] Wilber Esquivel DO * Social History Tobacco Use Types Packs/Day Years Used Date Smoking Tobacco: Never Assessed Comments Unknown Sex and Gender Information Value Date Recorded Sex Assigned at Not on file Legal Sex Female 5:20 AM CONTROL ROOM TECHNICIAN Gender Identity Not on file Sexual Orientation Not on file documented as of this encounter Plan of Treatment Not on file documented as of this encounter Visit Diagnoses Not on filedocumented in this encounter Care Teams Manager Aerospace Relationship Specialty Start Date End Date Wilber Esquivel DO * PCP - General 03/13/01 documented as of this encounter
--- OUTSIDE RECORDS SUMMARY | 2025-06-19 09:57 | XMS_ITS | Encounter Summary ---
Author Organization [facility] Address 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
--- OUTSIDE RECORDS SUMMARY | 2025-06-19 09:57 | XMS_ITS | Encounter Summary ---
Author Organization [facility] Address [address] [place] [address] Care Team Providers Care Labor Economics Teacher Name Role Phone Wilber Esquivel DO Primary Care Provider [phone] Encounter Details Date Type Department Care Team (Late st Contact Info) Description 12/21/2006 Outpatient [facility] Primary Care - [address] [place] [address] Wilber Esquivel DO * Social History Tobacco Use Types Packs/Day Years Used Date Smoking Tobacco: Never Assessed Comments Unknown Sex and Gender Information Value Date Recorded Sex Assigned at Not on file Legal Sex Female 5:20 AM HOME BASED ASSISTANT Gender Identity Not on file Sexual Orientation Not on file documented as of this encounter Plan of Treatment Not on file documented as of this encounter Visit Diagnoses Not on filedocumented in this encounter Care Teams Labor Economics Teacher Relationship Specialty Start Date End Date Wilber Esquivel DO * PCP - General 03/13/01 documented as of this encounter
--- OUTSIDE RECORDS SUMMARY | 2025-06-19 09:57 | XMS_ITS | Encounter Summary ---
Author Organization [facility] Address [address] [place] [address] Care Team Providers Care Drying Machine Back Tender Name Role Phone Wilber Esquivel DO Primary Care Provider [phone] Encounter Details Date Type Department Care Team (Latest Contact Info) Description 05/16/2006 Outpatient Historical [facility] Wilber Esquivel DO * Other Screening Mammogram (Primary Dx) Social History Tobacco Use Types Packs/Day Years Used Date Smoking Tobacco: Never Assessed Comments Unknown Sex and Gender Information Value Date Recorded Sex Assigned at Not on file Legal Sex Female 5:20 AM WASTE MINIMIZATION TECHNICIAN Gender Identity Not on file Sexual Orientation Not on file documented as of this encounter Plan of Treatment Not on file documented as of this encounter Visit Diagnoses Diagnosis Other screening mammogram- Primary documented in this encounter Care Teams Drying Machine Back Tender Relationship Specialty Start Date End Date Wilber Esquivel DO * PCP - General 03/13/01 documented as of this encounter
--- OUTSIDE RECORDS SUMMARY | 2025-06-19 09:57 | XMS_ITS | Encounter Summary ---
Author Organization [facility] Address [address] [place] [address] Care Team Providers Care Corrections Unit Supervisor Name Role Phone Wilber Esquivel DO Primary Care Provider Encounter Details Date Type Department Care Team (Late st Contact Info) Description 11/22/2006 Outpatient [facility] Primary Care - [address] [place] [address] Wilber Esquivel DO * Social History Tobacco Use Types Packs/Day Years Used Date Smoking Tobacco: Never Assessed Comments Unknown Sex and Gender Information Value Date Recorded Sex Assigned at Not on file Legal Sex Female 5:20 AM NET FRONT END DEVELOPER Gender Identity Not on file Sexual Orientation Not on file documented as of this encounter Plan of Treatment Not on file documented as of this encounter Visit Diagnoses Not on filedocumented in this encounter Care Teams Corrections Unit Supervisor Relationship Specialty Start Date End Date Wilber Esquivel DO * PCP - General 03/13/01 documented as of this encounter
--- OUTSIDE RECORDS SUMMARY | 2025-06-19 09:57 | XMS_ITS | Encounter Summary ---
Author Organization [facility] Address 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
--- OUTSIDE RECORDS SUMMARY | 2025-06-19 09:57 | XMS_ITS | Encounter Summary ---
Author Organization [facility] Address [address] [place] [address] Care Team Providers Care Certified Cytotechnologist Name Role Phone Wilber Esquivel DO Primary Care Provider [phone] Encounter Details Date Type Department Care Team (Late st Contact Info) Description 12/31/2004 Outpatient [facility] Primary Care - [address] [place] [address] Wilber Esquivel DO * Social History Tobacco Use Types Packs/Day Years Used Date Smoking Tobacco: Never Assessed Comments Unknown Sex and Gender Information Value Date Recorded Sex Assigned at Not on file Legal Sex Female 5:20 AM PROJECT MANAGER INDUSTRIAL Gender Identity Not on file Sexual Orientation Not on file documented as of this encounter Plan of Treatment Not on file documented as of this encounter Visit Diagnoses Not on filedocumented in this encounter Care Teams Certified Cytotechnologist Relationship Specialty Start Date End Date Wilber Esquivel DO * PCP - General 03/13/01 documented as of this encounter
--- OUTSIDE RECORDS SUMMARY | 2025-06-19 09:57 | XMS_ITS | Encounter Summary ---
Author Organization [facility] Address [address] [place] [address] Care Team Providers Care Fire Prevention Inspector Name Role Phone Wilber Esquivel DO Primary Care Provider [phone] Encounter Details Date Type Department Care Team (Latest Contact Info) Description 03/18/2004 Outpatient Historical [facility] Wilber Esquivel DO * SCREENING MAMM-MAILG NEOPL-OTHER (Primary Dx) Social History Tobacco Use Types Packs/Day Years Used Date Smoking Tobacco: Never Assessed Comments Unknown Sex and Gender Information Value Date Recorded Sex Assigned at Not on file Legal Sex Female 5:20 AM SUBSCRIPTION AGENT Gender Identity Not on file Sexual Orientation Not on file documented as of this encounter Plan of Treatment Not on file documented as of this encounter Visit Diagnoses Diagnosis Other screening mammogram- Primary documented in this encounter Care Teams Fire Prevention Inspector Relationship Specialty Start Date End Date Wilber Esquivel DO * PCP - General 03/13/01 documented as of this encounter
--- OUTSIDE RECORDS SUMMARY | 2025-06-19 09:57 | XMS_ITS | Encounter Summary ---
Author Organization [facility] Address 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
--- OUTSIDE RECORDS SUMMARY | 2025-06-19 09:57 | XMS_ITS | Encounter Summary ---
Author Organization [facility] Address [address] [place] [address] Care Team Providers Care Farmworker Name Role Phone Wilber Esquivel DO Primary Care Provider [phone] Encounter Details Date Type Department Care Team (Latest Contact Info) Description 11/19/2004 Outpatient Historical [facility] Wilber Esquivel DO * CERVICAL DISC DEGEN (Primary Dx) Social History Tobacco Use Types Packs/Day Years Used Date Smoking Tobacco: Never Assessed Comments Unknown Sex and Gender Information Value Date Recorded Sex Assigned at Not on file Legal Sex Female 5:20 AM HAND LACER Gender Identity Not on file Sexual Orientation Not on file documented as of this encounter Plan of Treatment Not on file documented as of this encounter Visit Diagnoses Diagnosis Degeneration of cervical intervertebral disc- Primary documented in this encounter Care Teams Farmworker Relationship Specialty Start Date End Date Wilber Esquivel DO * PCP - General 03/13/01 documented as of this encounter
--- OUTSIDE RECORDS SUMMARY | 2025-06-19 09:57 | XMS_ITS | Encounter Summary ---
Author Organization [facility] Address [address] [place] [address] Care Team Providers Care Signal System Testing Maintainer Name Role Phone Wilber Esquivel DO Primary Care Provider [phone] Encounter Details Date Type Department Care Team (Latest Contact Info) Description 04/06/2005 Outpatient Historical [facility] Wilber Esquivel DO * OSTEOARTHROS NOS-L/LEG (Primary Dx) Social History Tobacco Use Types Packs/Day Years Used Date Smoking Tobacco: Never Assessed Comments Unknown Sex and Gender Information Value Date Recorded Sex Assigned at Not on file Legal Sex Female 5:20 AM MEDICAL OFFICE 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
--- OUTSIDE RECORDS SUMMARY | 2025-06-19 09:57 | XMS_ITS | Encounter Summary ---
Author Organization [facility] Address [address] [place] [address] Care Team Providers Care Business Services Specialist Sales Name Role Phone Wilber Esquivel DO Primary Care Provider [phone] Encounter Details Date Type Department Care Team (Late st Contact Info) Description 09/28/[address] [facility] Primary Care - [address] [place] [address] Wilber Esquivel DO * Social History Tobacco Use Types Packs/Day Years Used Date Smoking Tobacco: Never Assessed Comments Unknown Sex and Gender Information Value Date Recorded Sex Assigned at Not on file Legal Sex Female 5:20 AM PRINCIPAL LIBRARIAN Gender Identity Not on file Sexual Orientation Not on file documented as of this encounter Plan of Treatment Not on file documented as of this encounter Visit Diagnoses Not on filedocumented in this encounter Care Teams Business Services Specialist Sales Relationship Specialty Start Date End Date Wilber Esquivel DO * PCP - General 03/13/01 documented as of this encounter
--- OUTSIDE RECORDS SUMMARY | 2025-06-19 09:57 | XMS_ITS | Encounter Summary ---
Author Organization [facility] Address [address] [place] [address] Care Team Providers Care Buhr Dresser Name Role Phone Wilber Esquivel DO Primary Care Provider Encounter Details Date Type Department Care Team (Late st Contact Info) Description 07/21/[address] [facility] Primary Care - [address] [place] [address] Wilber Esquivel DO * Social History Tobacco Use Types Packs/Day Years Used Date Smoking Tobacco: Never Assessed Comments Unknown Sex and Gender Information Value Date Recorded Sex Assigned at Not on file Legal Sex Female 5:20 AM ENVIRONMENTAL SCIENTIST Gender Identity Not on file Sexual Orientation Not on file documented as of this encounter Plan of Treatment Not on file documented as of this encounter Visit Diagnoses Not on filedocumented in this encounter Care Teams Buhr Dresser Relationship Specialty Start Date End Date Wilber Esquivel DO * PCP - General 03/13/01 documented as of this encounter
--- OUTSIDE RECORDS SUMMARY | 2025-06-19 09:57 | XMS_ITS | Encounter Summary ---
Author Organization [facility] Address [address] [place] [address] Care Team Providers Care Ornament Setter Name Role Phone Wilber Esquivel DO Primary Care Provider [phone] Encounter Details Date Type Department Care Team (Late st Contact Info) Description 12/03/2004 Outpatient [facility] Primary Care - [address] [place] [address] Wilber Esquivel DO * Social History Tobacco Use Types Packs/Day Years Used Date Smoking Tobacco: Never Assessed Comments Unknown Sex and Gender Information Value Date Recorded Sex Assigned at Not on file Legal Sex Female 5:20 AM CLINICAL DATA RESEARCH Gender Identity Not on file Sexual Orientation Not on file documented as of this encounter Plan of Treatment Not on file documented as of this encounter Visit Diagnoses Not on filedocumented in this encounter Care Teams Ornament Setter Relationship Specialty Start Date End Date Wilber Esquivel DO * PCP - General 03/13/01 documented as of this encounter
--- OUTSIDE RECORDS SUMMARY | 2025-06-19 09:57 | XMS_ITS | Encounter Summary ---
Author Organization [facility] Address [address] [place] [address] Care Team Providers Care Link Trainer Teacher Name Role Phone Wilber Esquivel DO Primary Care Provider [phone] Encounter Details Date Type Department Care Team (Late st Contact Info) Description 10/14/2006 Outpatient [facility] Primary Care - [address] [place] [address] Wilber Esquivel DO * Social History Tobacco Use Types Packs/Day Years Used Date Smoking Tobacco: Never Assessed Comments Unknown Sex and Gender Information Value Date Recorded Sex Assigned at Not on file Legal Sex Female 5:20 AM SECURITY BUSINESS ANALYST Gender Identity Not on file Sexual Orientation Not on file documented as of this encounter Plan of Treatment Not on file documented as of this encounter Visit Diagnoses Not on filedocumented in this encounter Care Teams Link Trainer Teacher Relationship Specialty Start Date End Date Wilber Esquivel DO * PCP - General 03/13/01 documented as of this encounter
--- OUTSIDE RECORDS SUMMARY | 2025-06-19 09:57 | XMS_ITS | Encounter Summary ---
Author Organization [facility] Address [address] [place] [address] Care Team Providers Care Sales And Retail Management Recruiter Name Role Phone Wilber Esquivel DO Primary Care Provider Encounter Details Date Type Department Care Team (Late st Contact Info) Description 04/06/2005 Outpatient [facility] Primary Care - [address] [place] [address] Wilber Esquivel DO * Social History Tobacco Use Types Packs/Day Years Used Date Smoking Tobacco: Never Assessed Comments Unknown Sex and Gender Information Value Date Recorded Sex Assigned at Not on file Legal Sex Female 5:20 AM PLUGGER MAN Gender Identity Not on file Sexual Orientation Not on file documented as of this encounter Plan of Treatment Not on file documented as of this encounter Visit Diagnoses Not on filedocumented in this encounter Care Teams Sales And Retail Management Recruiter Relationship Specialty Start Date End Date Wilber Esquivel DO * PCP - General 03/13/01 documented as of this encounter
--- OUTSIDE RECORDS SUMMARY | 2025-06-19 09:57 | XMS_ITS | Encounter Summary ---
Author Organization [facility] Address [address] [place] [address] Care Team Providers Care Occupational Therapy Instructor Name Role Phone Wilber Esquivel DO Primary Care Provider [phone] Encounter Details Date Type Department Care Team (Latest Contact Info) Description 09/24/2006 Outpatient Historical HIS [facility] Wilber Esquivel DO * Essential Hypertension, Benign (Primary Dx) Social History Tobacco Use Types Packs/Day Years Used Date Smoking Tobacco: Never Assessed Comments Unknown Sex and Gender Information Value Date Recorded Sex Assigned at Not on file Legal Sex Female 5:20 AM INSTRUMENTATION ENGINEER Gender Identity Not on file Sexual Orientation Not on file documented as of this encounter Plan of Treatment Not on file documented as of this encounter Procedures Procedure Name Priority Date/Time Associated Diagnosis Comments HEPATIC FUNCTION PANEL Routine 09/24/2006 10:17 AM INSTRUMENTATION ENGINEER LIPID PANEL Routine 09/24/2006 10:17 AM INSTRUMENTATION ENGINEER BASIC METABOLIC PANEL Routine 09/24/2006 10:17 AM INSTRUMENTATION ENGINEER documented in this encounter Results * HEPATIC FUNCTION PANEL (09/24/2006 10:17 AM INSTRUMENTATION ENGINEER) ALKALINE PHOSPHATASE 97 35 - 104 U/L [...] mg/dL INTERFACE SYSTEM 09/24/2006 10:1 7 AM INSTRUMENTATION ENGINEER Ceci Cox MD CHEMISTRY ORDERABLES Edited Performing Organization Address [facility] de Phone Number INTERFACE SYSTEM Refer to clinic/hospital department * LIPID PANEL (09/24/2006 10:17 AM INSTRUMENTATION ENGINEER) CHOLESTEROL 173 100 - 199 mg/dL INTERFACE [...] available on the [facility] Intranet at: [email or web address] Select: Lab Policies and Procedures Select: Reference Ranges - Lipids 09/24/2006 10:1 7 AM INSTRUMENTATION ENGINEER Result [facility] Ceci Cox MD CHEMISTRY ORDERABLES Final R esult Performing Organization Address [facility] de Phone Number INTERFACE SYSTEM Refer to clinic/hospital department * BASIC METABOLIC PANEL (09/24/2006 10:17 AM INSTRUMENTATION ENGINEER) GLUCOSE 86 65 - 99 mg/dL INTERFACE [...] and non- Americans is available on the [facility] Intranet at: [email or web address] Select: Lab Policies and Procedures Select: Reference Ranges - GFR 09/24/2006 10:1 7 AM INSTRUMENTATION ENGINEER us Ceci Cox MD CHEMISTRY ORDERABLES Edited INTERFACE SYSTEM Refer to clinic/hospital department documented in this encounter Visit Diagnoses Diagnosis Essential hypertension, benign- Primary documented in this encounter Care Teams Occupational Therapy Instructor Relationship Specialty Start Date End Date Wilber Esquivel DO * PCP - General 03/13/01 documented as of this encounter
--- OUTSIDE RECORDS SUMMARY | 2025-06-19 09:57 | XMS_ITS | Encounter Summary ---
Author Organization [facility] Address [address] [place] [address] Care Team Providers Care Area Secretary Name Role Phone Wilber Esquivel DO Primary Care Provider [phone] Encounter Details Date Type Department Care Team (Late st Contact Info) Description 01/13/2004 Outpatient [facility] Primary Care - [address] [place] [address] Wilber Esquivel DO * Social History Tobacco Use Types Packs/Day Years Used Date Smoking Tobacco: Never Assessed Comments Unknown Sex and Gender Information Value Date Recorded Sex Assigned at Not on file Legal Sex Female 5:20 AM TIRE MOUNTER Gender Identity Not on file Sexual Orientation Not on file documented as of this encounter Plan of Treatment Not on file documented as of this encounter Visit Diagnoses Not on filedocumented in this encounter Care Teams Area Secretary Relationship Specialty Start Date End Date Wilber Esquivel DO * PCP - General 03/13/01 documented as of this encounter
--- OUTSIDE RECORDS SUMMARY | 2025-06-19 09:57 | XMS_ITS | Encounter Summary ---
Author Organization [facility] Address [address] [place] [address] Care Team Providers Care Reverse Engineer Name Role Phone Wilber Esquivel DO Primary Care Provider [phone] Encounter Details Date Type Department Care Team (Late st Contact Info) Description 11/19/2004 Outpatient [facility] Primary Care - [address] [place] [address] Wilber Esquivel DO * Social History Tobacco Use Types Packs/Day Years Used Date Smoking Tobacco: Never Assessed Comments Unknown Sex and Gender Information Value Date Recorded Sex Assigned at Not on file Legal Sex Female 5:20 AM INSURANCE BUSINESS ANALYST Gender Identity Not on file Sexual Orientation Not on file documented as of this encounter Plan of Treatment Not on file documented as of this encounter Visit Diagnoses Not on filedocumented in this encounter Care Teams Reverse Engineer Relationship Specialty Start Date End Date Wilber Esquivel DO * PCP - General 03/13/01 documented as of this encounter
--- OUTSIDE RECORDS SUMMARY | 2025-06-19 09:57 | XMS_ITS | Encounter Summary ---
Author Organization [facility] Address [address] [place] [address] Care Team Providers Care Grip Boss Name Role Phone Wilber Esquivel DO Primary Care Provider [phone] Encounter Details Date Type Department Care Team (Late st Contact Info) Description 09/24/2006 Outpatient [facility] Primary Care - [address] [place] [address] Ceci Cox MD NO ADDRESS ON FILE Social History Tobacco Use Types Packs/Day Years Used Date Smoking Tobacco: Never Assessed Comments Unknown Sex and Gender Information Value Date Recorded Sex Assigned at Not on file Legal Sex Female 5:20 AM ELECTROENCEPHALOGRAPH TECHNOLOGIST Gender Identity Not on file Sexual Orientation Not on file documented as of this encounter Plan of Treatment Not on file documented as of this encounter Visit Diagnoses Not on filedocumented in this encounter Care Teams Grip Boss Relationship Specialty Start Date End Date Wilber Esquivel DO * PCP - General 03/13/01 documented as of this encounter
--- OUTSIDE RECORDS SUMMARY | 2025-06-19 09:57 | XMS_ITS | Encounter Summary ---
Author Organization [facility] Address [address] [place] [address] Care Team Providers Care Silo Painter Name Role Phone Wilber Esquivel DO Primary Care Provider [phone] Encounter Details Date Type Department Care Team (Latest Contact Info) Description 10/11/2006 Outpatient Historical HIS [facility] Wilber Esquivel DO * Pure Hypercholesterolemia (Primary Dx) Social History Tobacco Use Types Packs/Day Years Used Date Smoking Tobacco: Never Assessed Comments Unknown Sex and Gender Information Value Date Recorded Sex Assigned at Not on file Legal Sex Female 5:20 AM GRAINING PRESS OPERATOR Gender Identity Not on file Sexual Orientation Not on file documented as of this encounter Plan of Treatment Not on file documented as of this encounter Procedures Procedure Name Priority Date/Time Associated Diagnosis Comments HEMOGLOBIN A1C Routine 10/11/2006 10:24 AM GRAINING PRESS OPERATOR FOLATE RBC AND HEMATOCRIT Routine 10/11/2006 10:24 AM GRAINING PRESS OPERATOR VITAMIN B12 LEVEL Routine 10/11/2006 10: 24 AM GRAINING PRESS OPERATOR documented in this encounter Results * HEMOGLOBIN A1C (10/11/2006 10:24 AM GRAINING PRESS OPERATOR) HEMOGLOBIN A1C 5.8 4.1 - 6.1 % of Hgb INTERFACE SYSTEM GLUCOSE, MEAN BLOOD 129 mg/dL INTERFACE SYSTEM 10/11/2006 10:2 4 AM GRAINING PRESS OPERATOR Narrative INTERFACE SYSTEM - 10/11/2006 7:41 PM GRAINING PRESS OPERATOR Ordered by an unspecified provider. [facility] Provider CHEMISTRY ORDERABLES Edited Performing Organization Address [facility] Phone Number INTERFACE SYSTEM Refer to clinic/hospital department * FOLATE RBC AND HEMATOCRIT (10/11/2006 10:24 AM GRAINING PRESS OPERATOR) HEMATOCRIT, FOLATE 43.7 35.5 - 44.0 % INTERFACE SYSTEM RBC FOLATE 1036 >=533 ng/mL INTERFACE SYSTEM Comment: RBC Folate Interpretation: Deficient <110 ng/mL 10/11/2006 10:2 4 AM GRAINING PRESS OPERATOR Narrative INTERFACE SYSTEM - 10/11/2006 3:06 PM GRAINING PRESS OPERATOR Ordered by an unspecified provider. [facility] Provider CHEMISTRY ORDERABLES Edited Performing Organization Address [facility] Phone Number INTERFACE SYSTEM Refer to clinic/hospital department * VITAMIN B12 (10/11/2006 10:24 AM GRAINING PRESS OPERATOR) VITAMIN B12 294 243 - 894 pg/mL INTERFACE SYSTEM Comment: It has been reported that between 5 to 10% of patients with values between 200 and 400 pg/mL may experience neuropsychiatric and hematologic abnormalities due to occult B12 deficiency. Less than 1% of patients with values above 400 pg/mL will have symptoms. 10/11/2006 10:2 4 AM GRAINING PRESS OPERATOR Narrative INTERFACE SYSTEM - 10/11/2006 2:16 PM GRAINING PRESS OPERATOR Ordered by an unspecified provider. [facility] Provider CHEMISTRY ORDERABLES Edited Performing Organization Address [facility] Phone Number INTERFACE SYSTEM Refer to clinic/hospital department documented in this encounter Visit Diagnoses Diagnosis Pure hypercholesterolemia- Primary documented in this encounter Care Teams Silo Painter Relationship Specialty Start Date End Date Wilber Esquivel DO * PCP - General 03/13/01 documented as of this encounter
--- OUTSIDE RECORDS SUMMARY | 2025-06-19 09:57 | XMS_ITS | Encounter Summary ---
Author Organization [facility] Address [address] [place] [address] Care Team Providers Care Control Tower Operator Name Role Phone Wilber Esquivel DO Primary Care Provider Encounter Details Date Type Department Care Team (Latest Contact Info) Description 03/18/2005 Outpatient Historical [facility] Wilber Esquivel DO * BONE & CARTILAGE DIS NOS (Primary Dx) Social History Tobacco Use Types Packs/Day Years Used Date Smoking Tobacco: Never Assessed Comments Unknown Sex and Gender Information Value Date Recorded Sex Assigned at Not on file Legal Sex Female 5:20 AM SHEET ROCK TAPER HELPER Gender Identity Not on file Sexual Orientation Not on file documented as of this encounter Plan of Treatment Not on file documented as of this encounter Visit Diagnoses Diagnosis Disorder of bone and cartilage, unspecified- Primary documented in this encounter Care Teams Control Tower Operator Relationship Specialty Start Date End Date Wilber Esquivel DO * PCP - General 03/13/01 documented as of this encounter
--- OUTSIDE RECORDS SUMMARY | 2025-06-19 09:57 | XMS_ITS | Encounter Summary ---
Author Organization [facility] Address [address] [place] [address] Care Team Providers Care Recruitment Officer Name Role Phone Wilber Esquivel DO Primary Care Provider Encounter Details Date Type Department Care Team (Late st Contact Info) Description 04/27/2005 Outpatient [facility] [address] Primary Care - [address] [place] [address] Wilber Esquivel DO * Social History Tobacco Use Types Packs/Day Years Used Date Smoking Tobacco: Never Assessed Comments Unknown Sex and Gender Information Value Date Recorded Sex Assigned at Not on file Legal Sex Female 5:20 AM SUPERVISOR TUBING Gender Identity Not on file Sexual Orientation Not on file documented as of this encounter Plan of Treatment Not on file documented as of this encounter Visit Diagnoses Not on filedocumented in this encounter Care Teams Recruitment Officer Relationship Specialty Start Date End Date Wilber Esquivel DO * PCP - General 03/13/01 documented as of this encounter
--- OUTSIDE RECORDS SUMMARY | 2025-06-19 09:57 | XMS_ITS | Encounter Summary ---
Author Organization [facility] Address [address] [place] [address] Care Team Providers Care Dry Press Operator Helper Name Role Phone Wilber Esquivel DO Primary Care Provider [phone] Encounter Details Date Type Department Care Team (Latest Contact Info) Description 06/03/2005 Outpatient Historical [facility] Wilber Esquivel DO * COUGH (Primary Dx) Social History Tobacco Use Types Packs/Day Years Used Date Smoking Tobacco: Never Assessed Comments Unknown Sex and Gender Information Value Date Recorded Sex Assigned at Not on file Legal Sex Female 5:20 AM SURG PHYSICIAN ASST Gender Identity Not on file Sexual Orientation Not on file documented as of this encounter Plan of Treatment Not on file documented as of this encounter Visit Diagnoses Diagnosis Cough- Primary documented in this encounter Care Teams Dry Press Operator Helper Relationship Specialty Start Date End Date Wilber Esquivel DO * PCP - General 03/13/01 documented as of this encounter
--- NOTE | 2025-06-19 11:15 | NEURO_ITS ---
Impression: # Borderline diabetic complains of numbness of feet. ? # Mild asymmetrical axonal neuropathy. ? # Needle/EMG exam mildly neurogenic. ?Nerve Conduction Studies ?Stim Site NR Peak (ms) P-T Amp (?V) Site1 Site2 Delta-P (ms) Dist (cm) Panchito (m/s) Left Sup Fibular Anti Sensory (Ant Lat Mall) 14 cm ? 3.3 11.6 14 cm Ant Lat Mall 3.3 16.0 48 Right Sup Fibular Anti Sensory (Ant Lat Mall) 14 cm ? 2.9 11.2 14 cm Ant Lat Mall 2.9 16.0 55 Left Sural Anti Sensory (Lat Mall) Calf ? 3.8 11.9 Calf Lat Mall 3.8 16.0 42 Right Sural Anti Sensory (Lat Mall) Calf ? 3.6 1.3 Calf Lat Mall 3.6 16.0 44 ?Stim Site NR Onset (ms) O-P Amp (mV) Site1 Site2 Delta-0 (ms) Dist (cm) Panchito (m/s) Left Peroneal Motor (Vastus Med) Ankle ? 4.1 2.2 Popit Ankle 8.4 38.0 45 Popit ? 12.5 1.9 Right Peroneal Motor (Vastus Med) Ankle ? 3.4 3.0 Popit Ankle 8.7 37.0 43 Popit ? 12.1 2.2 Left Tibial Motor (Abd Hooks Brev) Ankle ? 4.5 1.5 Knee Ankle 9.5 40.0 42 Knee ? 14.0 1.3 Right Tibial Motor (Abd Hooks Brev) Ankle ? 4.1 0.2 Knee Ankle 9.1 41.0 45 Knee ? 13.2 0.8 F Wave Studies ?NR F-Lat (ms) L-R F-Lat (ms) Left Peroneal (Mrkrs) (EDB) ? 50.39 1.64 Right Peroneal (Mrkrs) (EDB) ? 52.03 1.64 Left Tibial (Mrkrs) (Abd Hallucis) ? 51.46 1.17 Right Tibial (Mrkrs) (Abd Hallucis) ? 52.63 1.17 Electromyography ?Side Muscle Nerve Root Ins Act Fibs Amp Dur Recrt Comment Right AntTibialis Dp Br Fibular L4-5 Nml Nml Nml Nml Nml Right Gastroc Tibial S1-2 Nml Nml Nml Nml Nml Right Fibularis Long Sup Br Fibular L5-S1 Nml Nml Nml Nml Nml Right Flex Dig Long Tibial L5-S2 Nml Nml Nml Nml Nml Right Ext Dig Brev Dp Br Fibular L5, S1 Nml Nml Nml Nml Nml Right QuadratusFem QuadFemoris L4-5, S1 Nml Nml Nml Nml Nml Left AntTibialis Dp Br Fibular L4-5 Nml Nml Nml Nml Nml Left Gastroc Tibial S1-2 Nml Nml Nml Nml Nml Left Fibularis Long Sup Br Fibular L5-S1 Nml Nml Nml Nml Nml Left Flex Dig Long Tibial L5-S2 Nml Nml Nml Nml Nml Left Ext Dig Brev Dp Br Fibular L5, S1 Nml Nml Nml Nml Nml Left QuadratusFem QuadFemoris L4-5, S1 Nml Nml Nml Nml Nml
== END 2025-06-19 09:10 | disposition home or self-care (01) ==
LOC: ANHNEURO 09:10
PROVIDERS: PCP Family Medicine; Visit Provider Physician Assistant Medical
DX: G62.89 Other specified polyneuropathies (principal); R20.0 Anesthesia of skin
CPT/HCPCS: 95886; 95910

== ENCOUNTER 2025-07-15 08:50 | Outpatient (CLI) | payer MEDICARE, OTHER, SELFPAY ==
--- NOTE | ~2025-07-15 | US_ITS ---
EXAMINATION: Duplex Doppler ultrasound bilateral lower extremity arterial flow: DATE: 07/15/2025. INDICATION: Type II cavity. No evidence neuropathy. Bilateral lower extremity pain. Bilateral knee replacement. TECHNIQUE: Arterial Doppler examination of both lower extremities as per protocol. Pressure indices were not obtained. Examination was performed at rest. COMPARISON: None. FINDINGS: Peak velocities and spectral pattern obtained are enclosed on the PACS images. Triphasic pattern is noted at the common femoral, superficial femoral, popliteal, posterior tibial, peroneal and dorsalis pedis of both lower extremities. Peak velocities are symmetrical between the 2 extremities. Mild diffuse atherosclerotic disease at the femoral and popliteal levels are noted. IMPRESSION: 1. Mild diffuse atherosclerotic disease. No evidence to suggest hemodynamically significant obstruction of the major arteries in both lower extremities. Reviewed, dictated and finalized at location T. ISITIONS LOGISTICS ANALYST
--- OUTSIDE RECORDS SUMMARY | 2025-07-15 09:27 | XMS_ITS | Encounter Summary ---
Author Organization [facility] Address [address] [place] [address] Care Team Providers Care Tubing Drier Name Role Phone Wilber Esquivel DO Primary Care Provider [phone] Encounter Details Date Type Department Care Team (Latest Contact Info) Description 12/26/2003 Outpatient Historical [facility] Wilber Esquivel DO * PNEUMONIA, ORGANISM NOS (Primary Dx) Social History Tobacco Use Types Packs/Day Years Used Date Smoking Tobacco: Never Assessed Comments Unknown Sex and Gender Information Value Date Recorded Sex Assigned at Not on file Legal Sex Female 5:20 AM LARRIMAN HELPER Gender Identity Not on file Sexual Orientation Not on file documented as of this encounter Plan of Treatment Not on file documented as of this encounter Visit Diagnoses Diagnosis Pneumonia, organism unspecified(486)- Primary Pneumonia, organism unspecified documented in this encounter Care Teams Tubing Drier Relationship Specialty Start Date End Date Wilber Esquivel DO * PCP - General 03/13/01 documented as of this encounter
--- OUTSIDE RECORDS SUMMARY | 2025-07-15 09:27 | XMS_ITS | Encounter Summary ---
Author Organization [facility] Address [address] [place] [address] Care Team Providers Care Table Cover Folder Name Role Phone Wilber Esquivel DO Primary Care Provider [phone] Encounter Details Date Type Department Care Team (Late st Contact Info) Description 03/06/2003 Outpatient [facility] Primary Care - [address] [place] [address] Wilber Esquivel DO * Social History Tobacco Use Types Packs/Day Years Used Date Smoking Tobacco: Never Assessed Comments Unknown Sex and Gender Information Value Date Recorded Sex Assigned at Not on file Legal Sex Female 5:20 AM HARDWARE DEVELOPER Gender Identity Not on file Sexual Orientation Not on file documented as of this encounter Plan of Treatment Not on file documented as of this encounter Visit Diagnoses Not on filedocumented in this encounter Care Teams Table Cover Folder Relationship Specialty Start Date End Date Wilber Esquivel DO * PCP - General 03/13/01 documented as of this encounter
--- OUTSIDE RECORDS SUMMARY | 2025-07-15 09:28 | XMS_ITS | Encounter Summary ---
Author Organization [facility] Address [address] [place] [address] Care Team Providers Care Tow Truck Dispatcher Name Role Phone Wilber Esquivel DO Primary Care Provider Encounter Details Date Type Department Care Team (Late st Contact Info) Description 06/17/1998 Outpatient [facility] Primary Care - [address] [place] [address] Wilber Esquivel DO * Social History Tobacco Use Types Packs/Day Years Used Date Smoking Tobacco: Never Assessed Comments Unknown Sex and Gender Information Value Date Recorded Sex Assigned at Not on file Legal Sex Female 5:20 AM FUEL ATTENDANT Gender Identity Not on file Sexual Orientation Not on file documented as of this encounter Plan of Treatment Not on file documented as of this encounter Visit Diagnoses Not on filedocumented in this encounter Care Teams Tow Truck Dispatcher Relationship Specialty Start Date End Date Wilber Esquivel DO * PCP - General 03/13/01 documented as of this encounter
--- OUTSIDE RECORDS SUMMARY | 2025-07-15 09:28 | XMS_ITS | Encounter Summary ---
Author Organization [facility] Address [address] [place] [address] Care Team Providers Care Dry Mill Operator Name Role Phone Wilber Esquivel DO Primary Care Provider Encounter Details Date Type Department Care Team (Late st Contact Info) Description 12/14/2001 Outpatient [facility] Primary Care - [address] [place] [address] Wilber Esquivel DO * Social History Tobacco Use Types Packs/Day Years Used Date Smoking Tobacco: Never Assessed Comments Unknown Sex and Gender Information Value Date Recorded Sex Assigned at Not on file Legal Sex Female 5:20 AM PHOTOENGRAVER APPRENTICE Gender Identity Not on file Sexual Orientation Not on file documented as of this encounter Plan of Treatment Not on file documented as of this encounter Visit Diagnoses Not on filedocumented in this encounter Care Teams Dry Mill Operator Relationship Specialty Start Date End Date Wilber Esquivel DO * PCP - General 03/13/01 documented as of this encounter
--- OUTSIDE RECORDS SUMMARY | 2025-07-15 09:28 | XMS_ITS | Encounter Summary ---
Author Organization [facility] Address [address] [place] [address] Care Team Providers Care Bologna Lacer Name Role Phone Wilber Esquivel DO Primary Care Provider Encounter Details Date Type Department Care Team (Late st Contact Info) Description 01/04/2007 Outpatient [facility] Primary Care - [address] [place] [address] Wilber Esquivel DO * Social History Tobacco Use Types Packs/Day Years Used Date Smoking Tobacco: Never Assessed Comments Unknown Sex and Gender Information Value Date Recorded Sex Assigned at Not on file Legal Sex Female 5:20 AM COMMISSARY SUPERINTENDENT Gender Identity Not on file Sexual Orientation Not on file documented as of this encounter Plan of Treatment Not on file documented as of this encounter Visit Diagnoses Not on filedocumented in this encounter Care Teams Bologna Lacer Relationship Specialty Start Date End Date Wilber Esquivel DO * PCP - General 03/13/01 documented as of this encounter
--- OUTSIDE RECORDS SUMMARY | 2025-07-15 09:28 | XMS_ITS | Encounter Summary ---
Author Organization [facility] Address [address] [place] [address] Care Team Providers Care Corn Sheller Operator Name Role Phone Wilber Esquivel DO Primary Care Provider [phone] Encounter Details Date Type Department Care Team (Late st Contact Info) Description 11/08/2006 Outpatient [facility] Primary Care - [address] [place] [address] Wilber Esquivel DO * Social History Tobacco Use Types Packs/Day Years Used Date Smoking Tobacco: Never Assessed Comments Unknown Sex and Gender Information Value Date Recorded Sex Assigned at Not on file Legal Sex Female 5:20 AM ASSEMBLER CHASSIS Gender Identity Not on file Sexual Orientation Not on file documented as of this encounter Plan of Treatment Not on file documented as of this encounter Visit Diagnoses Not on filedocumented in this encounter Care Teams Corn Sheller Operator Relationship Specialty Start Date End Date Wilber Esquivel DO * PCP - General 03/13/01 documented as of this encounter
--- OUTSIDE RECORDS SUMMARY | 2025-07-15 09:28 | XMS_ITS | Encounter Summary ---
Author Organization [facility] Address [address] [place] [address] Care Team Providers Care Permit Review Assistant Name Role Phone Wilber Esquivel DO Primary Care Provider [phone] Encounter Details Date Type Department Care Team (Latest Contact Info) Description 01/25/2002 Outpatient Historical [facility] IMG[facility] Wilber Esquivel DO * SCREENING MAMM-MAILG NEOPL-OTHER (Primary Dx) Social History Tobacco Use Types Packs/Day Years Used Date Smoking Tobacco: Never Assessed Comments Unknown Sex and Gender Information Value Date Recorded Sex Assigned at Not on file Legal Sex Female 5:20 AM HOMEWORKER Gender Identity Not on file Sexual Orientation Not on file documented as of this encounter Plan of Treatment Not on file documented as of this encounter Visit Diagnoses Diagnosis Other screening mammogram- Primary documented in this encounter Care Teams Permit Review Assistant Relationship Specialty Start Date End Date Wilber Esquivel DO * PCP - General 03/13/01 documented as of this encounter
--- OUTSIDE RECORDS SUMMARY | 2025-07-15 09:28 | XMS_ITS | Clinical Summary ---
Author Organization [facility] Address [address] 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
--- OUTSIDE RECORDS SUMMARY | 2025-07-15 09:28 | XMS_ITS | Encounter Summary ---
Author Organization [facility] Address [address] [place] [address] Care Team Providers Care Senior Analyst Market Intelligence Name Role Phone Wilber Esquivel DO Primary Care Provider [phone] Encounter Details Date Type Department Care Team (Late st Contact Info) Description 06/03/2005 Outpatient [facility] Primary Care - [address] [place] [address] Wilber Esquivel DO * Social History Tobacco Use Types Packs/Day Years Used Date Smoking Tobacco: Never Assessed Comments Unknown Sex and Gender Information Value Date Recorded Sex Assigned at Not on file Legal Sex Female 5:20 AM ASSISTANT EDUCATION DIRECTOR Gender Identity Not on file Sexual Orientation Not on file documented as of this encounter Plan of Treatment Not on file documented as of this encounter Visit Diagnoses Not on filedocumented in this encounter Care Teams Senior Analyst Market Intelligence Relationship Specialty Start Date End Date Wilber Esquivel DO * PCP - General 03/13/01 documented as of this encounter
--- OUTSIDE RECORDS SUMMARY | 2025-07-15 09:28 | XMS_ITS | Encounter Summary ---
Author Organization [facility] Address [address] [place] [address] Care Team Providers Care Radiology Ct Technologist Name Role Phone Wilber Esquivel DO Primary Care Provider [phone] Encounter Details Date Type Department Care Team (Latest Contact Info) Description 09/24/2006 Outpatient Historical [facility] Wilber Esquivel DO * Essential Hypertension, Benign (Primary Dx) Social History Tobacco Use Types Packs/Day Years Used Date Smoking Tobacco: Never Assessed Comments Unknown Sex and Gender Information Value Date Recorded Sex Assigned at Not on file Legal Sex Female 5:20 AM DATABASE DBA Gender Identity Not on file Sexual Orientation Not on file documented as of this encounter Plan of Treatment Not on file documented as of this encounter Procedures Procedure Name Priority Date/Time Associated Diagnosis Comments HEPATIC FUNCTION PANEL Routine 09/24/2006 10:17 AM DATABASE DBA LIPID PANEL Routine 09/24/2006 10:17 AM DATABASE DBA BASIC METABOLIC PANEL Routine 09/24/2006 10:17 AM DATABASE DBA documented in this encounter Results * HEPATIC FUNCTION PANEL (09/24/2006 10:17 AM DATABASE DBA) ALKALINE PHOSPHATASE 97 35 - 104 U/L [...] mg/dL INTERFACE SYSTEM 09/24/2006 10:1 7 AM DATABASE DBA Ceci Cox MD CHEMISTRY ORDERABLES Edited Performing Organization Address [facility] [address]/[facility] de Phone Number INTERFACE SYSTEM Refer to clinic/hospital department * LIPID PANEL (09/24/2006 10:17 AM DATABASE DBA) CHOLESTEROL 173 100 - 199 mg/dL INTERFACE SYSTEM TRIGLYCERIDE 90 10 - 149 mg/dL INTERFACE SYSTEM HDL 53 40 - 59 mg/dL INTERFACE SYSTEM CHOL/HDL RATIO 3.3 2.0 - 5.0 INTER FACE SYSTEM LDL CALCULATED 102 <=99 mg/dL INTERFACE SYSTEM LIPID PANEL COMMENT See Below INTERFACE SYSTEM Comment: The adult ATP and pediatric NCEP classifications for lipids are available on the [facility] Intranet at: [email or web address] Select: Lab Policies and Procedures Select: Reference Ranges - Lipids 09/24/2006 10:1 7 AM DATABASE DBA Result [facility] Ceci Cox MD CHEMISTRY ORDERABLES Final R esult Performing Organization Address [facility] [address]/[facility] de Phone Number INTERFACE SYSTEM Refer to clinic/hospital department * BASIC METABOLIC PANEL (09/24/2006 10:17 AM DATABASE DBA) GLUCOSE 86 65 - 99 mg/dL INTERFACE [...] and non- Americans is available on the [facility] Intranet at: [email or web address] Select: Lab Policies and Procedures Select: Reference Ranges - GFR 09/24/2006 10:1 7 AM DATABASE DBA us Ceci Cox MD CHEMISTRY ORDERABLES Edited INTERFACE SYSTEM Refer to clinic/hospital department documented in this encounter Visit Diagnoses Diagnosis Essential hypertension, benign- Primary documented in this encounter Care Teams Radiology Ct Technologist Relationship Specialty Start Date End Date Wilber Esquivel DO * PCP - General 03/13/01 documented as of this encounter
--- OUTSIDE RECORDS SUMMARY | 2025-07-15 09:28 | XMS_ITS | Encounter Summary ---
Author Organization [facility] Address 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
--- OUTSIDE RECORDS SUMMARY | 2025-07-15 09:28 | XMS_ITS | Encounter Summary ---
Author Organization [facility] Address 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
--- OUTSIDE RECORDS SUMMARY | 2025-07-15 09:28 | XMS_ITS | Encounter Summary ---
Author Organization [facility] Address [address] [place] [address] Care Team Providers Care Men'S Basketball Coach Name Role Phone Wilber Esquivel DO Primary Care Provider [phone] Encounter Details Date Type Department Care Team (Latest Contact Info) Description 12/14/2001 Outpatient Historical HIS [facility] Wilber Esquivel DO * BONE & CARTILAGE DIS NOS (Primary Dx) Social History Tobacco Use Types Packs/Day Years Used Date Smoking Tobacco: Never Assessed Comments Unknown Sex and Gender Information Value Date Recorded Sex Assigned at Not on file Legal Sex Female 5:20 AM BOATSWAIN'S MATE Gender Identity Not on file Sexual Orientation Not on file documented as of this encounter Plan of Treatment Not on file documented as of this encounter Visit Diagnoses Diagnosis Disorder of bone and cartilage, unspecified- Primary documented in this encounter Care Teams Men'S Basketball Coach Relationship Specialty Start Date End Date Wilber Esquivel DO * PCP - General 03/13/01 documented as of this encounter
--- OUTSIDE RECORDS SUMMARY | 2025-07-15 09:28 | XMS_ITS | Encounter Summary ---
Author Organization [facility] Address 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
--- OUTSIDE RECORDS SUMMARY | 2025-07-15 09:28 | XMS_ITS | Encounter Summary ---
Author Organization [facility] Address 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
--- OUTSIDE RECORDS SUMMARY | 2025-07-15 09:28 | XMS_ITS | Encounter Summary ---
Author Organization [facility] Address [address] [place] [address] Care Team Providers Care Extractor Plant Operator Name Role Phone Wilber Esquivel DO Primary Care Provider [phone] Encounter Details Date Type Department Care Team (Latest Contact Info) Description 03/18/2004 Outpatient Historical [facility] IM[facility] Wilber Esquivel DO * SCREENING MAMM-MAILG NEOPL-OTHER (Primary Dx) Social History Tobacco Use Types Packs/Day Years Used Date Smoking Tobacco: Never Assessed Comments Unknown Sex and Gender Information Value Date Recorded Sex Assigned at Not on file Legal Sex Female 5:20 AM WELL PULLER HEAD Gender Identity Not on file Sexual Orientation Not on file documented as of this encounter Plan of Treatment Not on file documented as of this encounter Visit Diagnoses Diagnosis Other screening mammogram- Primary documented in this encounter Care Teams Extractor Plant Operator Relationship Specialty Start Date End Date Wilber Esquivel DO * PCP - General 03/13/01 documented as of this encounter
--- OUTSIDE RECORDS SUMMARY | 2025-07-15 09:28 | XMS_ITS | Encounter Summary ---
Author Organization [facility] Address [address] [place] [address] Care Team Providers Care Higher Level Teaching Assistant Name Role Phone Wilber Esquivel DO Primary Care Provider Encounter Details Date Type Department Care Team (Late st Contact Info) Description 04/06/2005 Outpatient [facility] Primary Care - [address] [place] [address] Wilber Esquivel DO * Social History Tobacco Use Types Packs/Day Years Used Date Smoking Tobacco: Never Assessed Comments Unknown Sex and Gender Information Value Date Recorded Sex Assigned at Not on file Legal Sex Female 5:20 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
--- OUTSIDE RECORDS SUMMARY | 2025-07-15 09:28 | XMS_ITS | Encounter Summary ---
Author Organization [facility] Address [address] [place] [address] Care Team Providers Care Genetic Counselor Name Role Phone Wilber Esquivel DO Primary Care Provider [phone] Encounter Details Date Type Department Care Team (Late st Contact Info) Description 03/13/2001 Outpatient [facility] Primary Care - [address] [place] [address] Wilber Esquivel DO * Social History Tobacco Use Types Packs/Day Years Used Date Smoking Tobacco: Never Assessed Comments Unknown Sex and Gender Information Value Date Recorded Sex Assigned at Not on file Legal Sex Female 5:20 AM HOT MILL OPERATOR Gender Identity Not on file Sexual Orientation Not on file documented as of this encounter Plan of Treatment Not on file documented as of this encounter Visit Diagnoses Not on filedocumented in this encounter Care Teams Genetic Counselor Relationship Specialty Start Date End Date Wilber Esquivel DO * PCP - General 03/13/01 documented as of this encounter
--- OUTSIDE RECORDS SUMMARY | 2025-07-15 09:28 | XMS_ITS | Encounter Summary ---
Author Organization [facility] Address [address] [place] [address] Care Team Providers Care Training Lead Name Role Phone Wilber Esquivel DO Primary Care Provider [phone] Encounter Details Date Type Department Care Team (Late st Contact Info) Description 12/03/2004 Outpatient [facility] Primary Care - [address] [place] [address] Wilber Esquivel DO * Social History Tobacco Use Types Packs/Day Years Used Date Smoking Tobacco: Never Assessed Comments Unknown Sex and Gender Information Value Date Recorded Sex Assigned at Not on file Legal Sex Female 5:20 AM EMERGENCY MEDICINE NURSE PRACTITIONER Gender Identity Not on file Sexual Orientation Not on file documented as of this encounter Plan of Treatment Not on file documented as of this encounter Visit Diagnoses Not on filedocumented in this encounter Care Teams Training Lead Relationship Specialty Start Date End Date Wilber Esquivel DO * PCP - General 03/13/01 documented as of this encounter
--- OUTSIDE RECORDS SUMMARY | 2025-07-15 09:28 | XMS_ITS | Encounter Summary ---
Author Organization [facility] Address [address] [place] [address] Care Team Providers Care Horse Breaker Name Role Phone Wilber Esquivel DO Primary Care Provider Encounter Details Date Type Department Care Team (Late st Contact Info) Description 03/27/1998 Outpatient [facility] Primary Care - [address] [place] [address] Wilber Esquivel DO * Social History Tobacco Use Types Packs/Day Years Used Date Smoking Tobacco: Never Assessed Comments Unknown Sex and Gender Information Value Date Recorded Sex Assigned at Not on file Legal Sex Female 5:20 AM NEUROLOGY PHYSICIAN ASSISTANT Gender Identity Not on file Sexual Orientation Not on file documented as of this encounter Plan of Treatment Not on file documented as of this encounter Visit Diagnoses Not on filedocumented in this encounter Care Teams Horse Breaker Relationship Specialty Start Date End Date Wilber Esquivel DO * PCP - General 03/13/01 documented as of this encounter
--- OUTSIDE RECORDS SUMMARY | 2025-07-15 09:28 | XMS_ITS | Encounter Summary ---
Author Organization [facility] Address [address] [place] [address] Care Team Providers Care Sap Senior Developer Name Role Phone Wilber Esquivel DO Primary Care Provider [phone] Encounter Details Date Type Department Care Team (Latest Contact Info) Description 05/16/2006 Outpatient Historical [facility] Wilber Esquivel DO * Other Screening Mammogram (Primary Dx) Social History Tobacco Use Types Packs/Day Years Used Date Smoking Tobacco: Never Assessed Comments Unknown Sex and Gender Information Value Date Recorded Sex Assigned at Not on file Legal Sex Female 5:20 AM PICTURE PAINTER Gender Identity Not on file Sexual Orientation Not on file documented as of this encounter Plan of Treatment Not on file documented as of this encounter Visit Diagnoses Diagnosis Other screening mammogram- Primary documented in this encounter Care Teams Sap Senior Developer Relationship Specialty Start Date End Date Wilber Esquivel DO * PCP - General 03/13/01 documented as of this encounter
--- OUTSIDE RECORDS SUMMARY | 2025-07-15 09:28 | XMS_ITS | Encounter Summary ---
Author Organization [facility] Address 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
--- OUTSIDE RECORDS SUMMARY | 2025-07-15 09:28 | XMS_ITS | Encounter Summary ---
Author Organization [facility] Address [address] [place] [address] Care Team Providers Care Food Adviser Name Role Phone Wilber Esquivel DO Primary Care Provider [phone] Encounter Details Date Type Department Care Team (Late st Contact Info) Description 05/28/1999 Outpatient Historical [facility] Primary Care - [address] [place] [address] Wilber Esquivel DO * Social History Tobacco Use Types Packs/Day Years Used Date Smoking Tobacco: Never Assessed Comments Unknown Sex and Gender Information Value Date Recorded Sex Assigned at Not on file Legal Sex Female 5:20 AM CEMENT LOADER Gender Identity Not on file Sexual Orientation Not on file documented as of this encounter Plan of Treatment Not on file documented as of this encounter Visit Diagnoses Not on filedocumented in this encounter Care Teams Food Adviser Relationship Specialty Start Date End Date Wilber Esquivel DO * PCP - General 03/13/01 documented as of this encounter
--- OUTSIDE RECORDS SUMMARY | 2025-07-15 09:28 | XMS_ITS | Encounter Summary ---
Author Organization [facility] Address [address] [place] [address] Care Team Providers Care Glass Ribbon Machine Operator Assistant Name Role Phone Wilber Esquivel DO Primary Care Provider [phone] Encounter Details Date Type Department Care Team (Late st Contact Info) Description 06/18/1999 Outpatient [facility] Primary Care - [address] [place] [address] Wilber Esquivel DO * Social History Tobacco Use Types Packs/Day Years Used Date Smoking Tobacco: Never Assessed Comments Unknown Sex and Gender Information Value Date Recorded Sex Assigned at Not on file Legal Sex Female 5:20 AM FEED MANAGER Gender Identity Not on file Sexual Orientation Not on file documented as of this encounter Plan of Treatment Not on file documented as of this encounter Visit Diagnoses Not on filedocumented in this encounter Care Teams Glass Ribbon Machine Operator Assistant Relationship Specialty Start Date End Date Wilber Esquivel DO * PCP - General 03/13/01 documented as of this encounter
--- OUTSIDE RECORDS SUMMARY | 2025-07-15 09:28 | XMS_ITS | Encounter Summary ---
Author Organization [facility] Address [address] [place] [address] Care Team Providers Care Supervisor Reclamation Name Role Phone Wilber Esquivel DO Primary Care Provider Encounter Details Date Type Department Care Team (Late st Contact Info) Description 11/30/[address] 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
--- OUTSIDE RECORDS SUMMARY | 2025-07-15 09:28 | XMS_ITS | Encounter Summary ---
Author Organization [facility] Address 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) Social History Tobacco Use Types Packs/Day Years Used Date Smoking Tobacco: Never Assessed Comments Unknown Sex and Gender Information Value Date Recorded Sex Assigned at Not on file Legal Sex Female 5:20 AM NEAR EAST ARCHEOLOGY PROFESSOR Gender Identity Not on file Sexual Orientation Not on file documented as of this encounter Plan of Treatment Not on file documented as of this encounter Visit Diagnoses Diagnosis Knee joint replacement by other means- Primary documented in this encounter Care Teams Water Treatment Technician Relationship Specialty Start Date End Date Wilber Esquivel DO * PCP - General 03/13/01 documented as of this encounter
--- OUTSIDE RECORDS SUMMARY | 2025-07-15 09:28 | XMS_ITS | Clinical Summary ---
Author Organization [facility] Address [address] [place] [address] Care Team Providers Care Fund Accountant Name Role Phone Unavailable Primary Care Provider [...]
--- OUTSIDE RECORDS SUMMARY | 2025-07-15 09:28 | XMS_ITS | Encounter Summary ---
Author Organization [facility] Address [address] [place] [address] Care Team Providers Care Forklift Technician Name Role Phone Wilber Esquivel DO Primary Care Provider [phone] Encounter Details Date Type Department Care Team (Late st Contact Info) Description 03/11/2005 Outpatient [facility] Primary Care - [address] [place] [address] Wilber Esquivel DO * Social History Tobacco Use Types Packs/Day Years Used Date Smoking Tobacco: Never Assessed Comments Unknown Sex and Gender Information Value Date Recorded Sex Assigned at Not on file Legal Sex Female 5:20 AM REGULATOR ASSEMBLER Gender Identity Not on file Sexual Orientation Not on file documented as of this encounter Plan of Treatment Not on file documented as of this encounter Visit Diagnoses Not on filedocumented in this encounter Care Teams Forklift Technician Relationship Specialty Start Date End Date Wilber Esquivel DO * PCP - General 03/13/01 documented as of this encounter
--- OUTSIDE RECORDS SUMMARY | 2025-07-15 09:28 | XMS_ITS | Encounter Summary ---
Author Organization [facility] Address [address] [place] [address] Care Team Providers Care Government Contracts Manager Name Role Phone Wilber Esquivel DO Primary Care Provider Encounter Details Date Type Department Care Team (Late st Contact Info) Description 12/07/2000 Outpatient [facility] Primary Care - [address] [place] [address] Wilber Esquivel DO * Social History Tobacco Use Types Packs/Day Years Used Date Smoking Tobacco: Never Assessed Comments Unknown Sex and Gender Information Value Date Recorded Sex Assigned at Not on file Legal Sex Female 5:20 AM ARMATURE COIL WINDER Gender Identity Not on file Sexual Orientation Not on file documented as of this encounter Plan of Treatment Not on file documented as of this encounter Visit Diagnoses Not on filedocumented in this encounter Care Teams Government Contracts Manager Relationship Specialty Start Date End Date Wilber Esquivel DO * PCP - General 03/13/01 documented as of this encounter
--- OUTSIDE RECORDS SUMMARY | 2025-07-15 09:28 | XMS_ITS | Encounter Summary ---
Author Organization [facility] Address [address] [place] [address] Care Team Providers Care Family Partner Name Role Phone Wilber Esquivel DO Primary Care Provider Encounter Details Date Type Department Care Team (Late st Contact Info) Description 10/14/2006 Outpatient [facility] Primary Care - [address] [place] [address] Wilber Esquivel DO * Social History Tobacco Use Types Packs/Day Years Used Date Smoking Tobacco: Never Assessed Comments Unknown Sex and Gender Information Value Date Recorded Sex Assigned at Not on file Legal Sex Female 5:20 AM SPECIAL EFFECTS PERSON Gender Identity Not on file Sexual Orientation Not on file documented as of this encounter Plan of Treatment Not on file documented as of this encounter Visit Diagnoses Not on filedocumented in this encounter Care Teams Family Partner Relationship Specialty Start Date End Date Wilber Esquivel DO * PCP - General 03/13/01 documented as of this encounter
--- OUTSIDE RECORDS SUMMARY | 2025-07-15 09:28 | XMS_ITS | Encounter Summary ---
Author Organization [facility] Address [address] [place] [address] Care Team Providers Care Paper Cone Machine Operator Name Role Phone Wilber Esquivel DO Primary Care Provider Encounter Details Date Type Department Care Team (Late st Contact Info) Description 01/23/2003 Outpatient [facility] Primary Care - [address] [place] [address] Wilber Esquivel DO * Social History Tobacco Use Types Packs/Day Years Used Date Smoking Tobacco: Never Assessed Comments Unknown Sex and Gender Information Value Date Recorded Sex Assigned at Not on file Legal Sex Female 5:20 AM PATIENT CARE ASSISTANT Gender Identity Not on file Sexual Orientation Not on file documented as of this encounter Plan of Treatment Not on file documented as of this encounter Visit Diagnoses Not on filedocumented in this encounter Care Teams Paper Cone Machine Operator Relationship Specialty Start Date End Date Wilber Esquivel DO * PCP - General 03/13/01 documented as of this encounter
--- OUTSIDE RECORDS SUMMARY | 2025-07-15 09:28 | XMS_ITS | Encounter Summary ---
Author Organization [facility] Address [address] [place] [address] Care Team Providers Care Director Of Cardiac Cath Lab Name Role Phone Wilber Esquivel DO Primary Care Provider Encounter Details Date Type Department Care Team (Late st Contact Info) Description 12/21/2000 Outpatient [facility] Primary Care - [address] [place] [address] Wilber Esquivel DO * Social History Tobacco Use Types Packs/Day Years Used Date Smoking Tobacco: Never Assessed Comments Unknown Sex and Gender Information Value Date Recorded Sex Assigned at Not on file Legal Sex Female 5:20 AM DIESEL ENGINEER Gender Identity Not on file Sexual Orientation Not on file documented as of this encounter Plan of Treatment Not on file documented as of this encounter Visit Diagnoses Not on filedocumented in this encounter Care Teams Director Of Cardiac Cath Lab Relationship Specialty Start Date End Date Wilber Esquivel DO * PCP - General 03/13/01 documented as of this encounter
--- OUTSIDE RECORDS SUMMARY | 2025-07-15 09:28 | XMS_ITS | Encounter Summary ---
Author Organization [facility] Address [address] [place] [address] Care Team Providers Care Vice President Quality Name Role Phone Wilber Esquivel DO Primary Care Provider Encounter Details Date Type Department Care Team (Late st Contact Info) Description 09/15/1998 Outpatient [facility] Primary Care - [address] [place] [address] Wilber Esquivel DO * Social History Tobacco Use Types Packs/Day Years Used Date Smoking Tobacco: Never Assessed Comments Unknown Sex and Gender Information Value Date Recorded Sex Assigned at Not on file Legal Sex Female 5:20 AM FLOW NURSE Gender Identity Not on file Sexual Orientation Not on file documented as of this encounter Plan of Treatment Not on file documented as of this encounter Visit Diagnoses Not on filedocumented in this encounter Care Teams Vice President Quality Relationship Specialty Start Date End Date Wilber Esquivel DO * PCP - General 03/13/01 documented as of this encounter
--- OUTSIDE RECORDS SUMMARY | 2025-07-15 09:28 | XMS_ITS | Encounter Summary ---
Author Organization [facility] Address [address] [place] [address] Care Team Providers Care Flower Cutter Name Role Phone Wilber Esquivel DO Primary Care Provider [phone] Encounter Details Date Type Department Care Team (Late st Contact Info) Description 12/26/2003 Outpatient [facility] Primary Care - [address] [place] [address] Wilber Esquivel DO * Social History Tobacco Use Types Packs/Day Years Used Date Smoking Tobacco: Never Assessed Comments Unknown Sex and Gender Information Value Date Recorded Sex Assigned at Not on file Legal Sex Female 5:20 AM SOLUTION ENGINEER Gender Identity Not on file Sexual Orientation Not on file documented as of this encounter Plan of Treatment Not on file documented as of this encounter Visit Diagnoses Not on filedocumented in this encounter Care Teams Flower Cutter Relationship Specialty Start Date End Date Wilber Esquivel DO * PCP - General 03/13/01 documented as of this encounter
--- OUTSIDE RECORDS SUMMARY | 2025-07-15 09:28 | XMS_ITS | Encounter Summary ---
Author Organization [facility] Address [address] [place] [address] Care Team Providers Care Verifying Specialist Name Role Phone Wilber Esquivel DO Primary Care Provider [phone] Encounter Details Date Type Department Care Team (Latest Contact Info) Description 03/18/2005 Outpatient Historical HIS IMG-LAB [facility] Wilber Esquivel DO * BONE & CARTILAGE DIS NOS (Primary Dx) Social History Tobacco Use Types Packs/Day Years Used Date Smoking Tobacco: Never Assessed Comments Unknown Sex and Gender Information Value Date Recorded Sex Assigned at Not on file Legal Sex Female 5:20 AM NURSING CONSULTANT Gender Identity Not on file Sexual Orientation Not on file documented as of this encounter Plan of Treatment Not on file documented as of this encounter Visit Diagnoses Diagnosis Disorder of bone and cartilage, unspecified- Primary documented in this encounter Care Teams Verifying Specialist Relationship Specialty Start Date End Date Wilber Esquivel DO * PCP - General 03/13/01 documented as of this encounter
--- OUTSIDE RECORDS SUMMARY | 2025-07-15 09:28 | XMS_ITS | Encounter Summary ---
Author Organization [facility] Address [address] [place] [address] Care Team Providers Care Manufacturing Development Engineer Name Role Phone Wilber Esquivel DO Primary Care Provider [phone] Encounter Details Date Type Department Care Team (Late st Contact Info) Description 10/26/2000 Outpatient [facility] Primary Care - [address] [place] [address] Wilber Esquivel DO * Social History Tobacco Use Types Packs/Day Years Used Date Smoking Tobacco: Never Assessed Comments Unknown Sex and Gender Information Value Date Recorded Sex Assigned at Not on file Legal Sex Female 5:20 AM WORKING SECOND HAND Gender Identity Not on file Sexual Orientation Not on file documented as of this encounter Plan of Treatment Not on file documented as of this encounter Visit Diagnoses Not on filedocumented in this encounter Care Teams Manufacturing Development Engineer Relationship Specialty Start Date End Date Wilber Esquivel DO * PCP - General 03/13/01 documented as of this encounter
--- OUTSIDE RECORDS SUMMARY | 2025-07-15 09:28 | XMS_ITS | Encounter Summary ---
Author Organization [facility] Address [address] [place] [address] Care Team Providers Care Benefits Advisor Name Role Phone Wilber Esquivel DO Primary Care Provider [phone] Encounter Details Date Type Department Care Team (Late st Contact Info) Description 10/11/2006 Outpatient [facility] Primary Care - [address] [place] [address] Wilber Esquivel DO * Social History Tobacco Use Types Packs/Day Years Used Date Smoking Tobacco: Never Assessed Comments Unknown Sex and Gender Information Value Date Recorded Sex Assigned at Not on file Legal Sex Female 5:20 AM BONE CHAR KILN OPERATOR Gender Identity Not on file Sexual Orientation Not on file documented as of this encounter Plan of Treatment Not on file documented as of this encounter Visit Diagnoses Not on filedocumented in this encounter Care Teams Benefits Advisor Relationship Specialty Start Date End Date Wilber Esquivel DO * PCP - General 03/13/01 documented as of this encounter
--- OUTSIDE RECORDS SUMMARY | 2025-07-15 09:28 | XMS_ITS | Encounter Summary ---
Author Organization [facility] Address [address] [place] [address] Care Team Providers Care Char House Supervisor Name Role Phone Wilber Esquivel DO Primary Care Provider Encounter Details Date Type Department Care Team (Late st Contact Info) Description 04/04/2001 Outpatient [facility] Primary Care - [address] [place] [address] Wilber Esquivel DO * Social History Tobacco Use Types Packs/Day Years Used Date Smoking Tobacco: Never Assessed Comments Unknown Sex and Gender Information Value Date Recorded Sex Assigned at Not on file Legal Sex Female 5:20 AM DEVELOPMENT ARCHITECT Gender Identity Not on file Sexual Orientation Not on file documented as of this encounter Plan of Treatment Not on file documented as of this encounter Visit Diagnoses Not on filedocumented in this encounter Care Teams Char House Supervisor Relationship Specialty Start Date End Date Wilber Esquivel DO * PCP - General 03/13/01 documented as of this encounter
--- OUTSIDE RECORDS SUMMARY | 2025-07-15 09:28 | XMS_ITS | Encounter Summary ---
Author Organization [facility] Address [address] [place] [address] Care Team Providers Care Shaft Sinker Name Role Phone Wilber Esquivel DO Primary Care Provider [phone] Encounter Details Date Type Department Care Team (Late st Contact Info) Description 09/24/2006 Outpatient [facility] Primary Care - [address] [place] [address] Ceci Cox MD NO ADDRESS ON FILE Social History Tobacco Use Types Packs/Day Years Used Date Smoking Tobacco: Never Assessed Comments Unknown Sex and Gender Information Value Date Recorded Sex Assigned at Not on file Legal Sex Female 5:20 AM GUIDANCE SERVICES COORDINATOR Gender Identity Not on file Sexual Orientation Not on file documented as of this encounter Plan of Treatment Not on file documented as of this encounter Visit Diagnoses Not on filedocumented in this encounter Care Teams Shaft Sinker Relationship Specialty Start Date End Date Wilber Esquivel DO * PCP - General 03/13/01 documented as of this encounter
--- OUTSIDE RECORDS SUMMARY | 2025-07-15 09:28 | XMS_ITS | Encounter Summary ---
Author Organization [facility] Address [address] [place] [address] Care Team Providers Care Balcony Worker Name Role Phone Wilber Esquivel DO Primary Care Provider [phone] Encounter Details Date Type Department Care Team (Late st Contact Info) Description 11/05/1998 Outpatient [facility] Primary Care - [address] [place] [address] Wilber Esquivel DO * Social History Tobacco Use Types Packs/Day Years Used Date Smoking Tobacco: Never Assessed Comments Unknown Sex and Gender Information Value Date Recorded Sex Assigned at Not on file Legal Sex Female 5:20 AM TOWNSHIP CLERK Gender Identity Not on file Sexual Orientation Not on file documented as of this encounter Plan of Treatment Not on file documented as of this encounter Visit Diagnoses Not on filedocumented in this encounter Care Teams Balcony Worker Relationship Specialty Start Date End Date Wilber Esquivel DO * PCP - General 03/13/01 documented as of this encounter
--- OUTSIDE RECORDS SUMMARY | 2025-07-15 09:28 | XMS_ITS | Encounter Summary ---
Author Organization [facility] Address [address] [place] [address] Care Team Providers Care Software Development Advisor Name Role Phone Wilber Esquivel DO Primary Care Provider Encounter Details Date Type Department Care Team (Late st Contact Info) Description 07/02/2003 Outpatient [facility] Primary Care - [address] [place] [address] Wilber Esquivel DO * Social History Tobacco Use Types Packs/Day Years Used Date Smoking Tobacco: Never Assessed Comments Unknown Sex and Gender Information Value Date Recorded Sex Assigned at Not on file Legal Sex Female 5:20 AM MANAGER BABY Gender Identity Not on file Sexual Orientation Not on file documented as of this encounter Plan of Treatment Not on file documented as of this encounter Visit Diagnoses Not on filedocumented in this encounter Care Teams Software Development Advisor Relationship Specialty Start Date End Date Wilber Esquivel DO * PCP - General 03/13/01 documented as of this encounter
--- OUTSIDE RECORDS SUMMARY | 2025-07-15 09:28 | XMS_ITS | Encounter Summary ---
Author Organization [facility] Address [address] [place] [address] Care Team Providers Care Steel Layer Name Role Phone Wilber Esquivel DO Primary Care Provider [phone] Encounter Details Date Type Department Care Team (Latest Contact Info) Description 06/03/2005 Outpatient Historical [facility] Wilber Esquivel DO * COUGH (Primary Dx) Social History Tobacco Use Types Packs/Day Years Used Date Smoking Tobacco: Never Assessed Comments Unknown Sex and Gender Information Value Date Recorded Sex Assigned at Not on file Legal Sex Female 5:20 AM FORENSICS ANALYST Gender Identity Not on file Sexual Orientation Not on file documented as of this encounter Plan of Treatment Not on file documented as of this encounter Visit Diagnoses Diagnosis Cough- Primary documented in this encounter Care Teams Steel Layer Relationship Specialty Start Date End Date Wilber Esquivel DO * PCP - General 03/13/01 documented as of this encounter
--- OUTSIDE RECORDS SUMMARY | 2025-07-15 09:28 | XMS_ITS | Encounter Summary ---
Author Organization [facility] Address [address] [place] [address] Care Team Providers Care Drywaller Name Role Phone Wilber Esquivel DO Primary Care Provider [phone] Encounter Details Date Type Department Care Team (Late st Contact Info) Description 11/22/2006 Outpatient [facility] Primary Care - [address] [place] [address] Wilber Esquivel DO * Social History Tobacco Use Types Packs/Day Years Used Date Smoking Tobacco: Never Assessed Comments Unknown Sex and Gender Information Value Date Recorded Sex Assigned at Not on file Legal Sex Female 5:20 AM CSO Gender Identity Not on file Sexual Orientation Not on file documented as of this encounter Plan of Treatment Not on file documented as of this encounter Visit Diagnoses Not on filedocumented in this encounter Care Teams Drywaller Relationship Specialty Start Date End Date Wilber Esquivel DO * PCP - General 03/13/01 documented as of this encounter
--- OUTSIDE RECORDS SUMMARY | 2025-07-15 09:28 | XMS_ITS | Encounter Summary ---
Author Organization [facility] Address [address] [place] [address] Care Team Providers Care Drying And Winding Supervisor Name Role Phone Wilber Esquivel DO Primary Care Provider [phone] Encounter Details Date Type Department Care Team (Latest Contact Info) Description 01/25/2007 Outpatient Historical [facility] Wilber Esquivel DO * Pure Hypercholesterolemia (Primary Dx) Social History Tobacco Use Types Packs/Day Years Used Date Smoking Tobacco: Never Assessed Comments Unknown Sex and Gender Information Value Date Recorded Sex Assigned at Not on file Legal Sex Female 5:20 AM INSERT OPERATOR Gender Identity Not on file Sexual [...] Provider HEMATOLOGY ORDERABLES Edited Performing Organization Address [facility] Co de Phone Number INTERFACE [...] Provider HEMATOLOGY ORDERABLES Edited Performing Organization Address [place]/[facility] Co de Phone Number INTERFACE [...] Provider CHEMISTRY ORDERABLES Edited Performing Organization Address [facility] de Phone Number INTERFACE SYSTEM Refer to [...] Provider CHEMISTRY ORDERABLES Edited Performing Organization Address [facility] Co de Phone Number INTERFACE [...] on the [facility] Intranet at: [email or web address] Select: Lab Policies and Procedures Select: Reference Ranges - Lipids 01/25/2007 2:57 PM CDT Narrative INTERFACE SYSTEM - 01/25/2007 6:08 PM CDT Ordered by an unspecified provider. us Historical Provider CHEMISTRY ORDERABLES Edited INTERFACE SYSTEM Refer to clinic/hospital department documented in this encounter Visit Diagnoses Diagnosis Pure hypercholesterolemia- Primary documented in this encounter Care Teams Drying And Winding Supervisor Relationship Specialty Start Date End Date Wilber Esqiuvel DO * PCP - General 03/13/01 documented as of this encounter
--- OUTSIDE RECORDS SUMMARY | 2025-07-15 09:28 | XMS_ITS | Encounter Summary ---
Author Organization [facility] Address [address] [place] [address] Care Team Providers Care Cannoneer Name Role Phone Wilber Esquivel DO Primary Care Provider Encounter Details Date Type Department Care Team (Late st Contact Info) Description 04/27/2005 Outpatient [facility] Primary Care - [address] [place] [address] Wilber Esquivel DO * Social History Tobacco Use Types Packs/Day Years Used Date Smoking Tobacco: Never Assessed Comments Unknown Sex and Gender Information Value Date Recorded Sex Assigned at Not on file Legal Sex Female 5:20 AM DOMESTIC TRAVEL CONSULTANT Gender Identity Not on file Sexual Orientation Not on file documented as of this encounter Plan of Treatment Not on file documented as of this encounter Visit Diagnoses Not on filedocumented in this encounter Care Teams Cannoneer Relationship Specialty Start Date End Date Wilber Esquivel DO * PCP - General 03/13/01 documented as of this encounter
--- OUTSIDE RECORDS SUMMARY | 2025-07-15 09:28 | XMS_ITS | Encounter Summary ---
Author Organization [facility] Address [address] [place] [address] Care Team Providers Care Recruiter Name Role Phone Wilber Esquivel DO Primary Care Provider [phone] Encounter Details Date Type Department Care Team (Late st Contact Info) Description 01/02/2003 Outpatient [facility] Primary Care - [address] [place] [address] Wilber Esquivel DO * Social History Tobacco Use Types Packs/Day Years Used Date Smoking Tobacco: Never Assessed Comments Unknown Sex and Gender Information Value Date Recorded Sex Assigned at Not on file Legal Sex Female 5:20 AM PHOTO PRINTER Gender Identity Not on file Sexual Orientation Not on file documented as of this encounter Plan of Treatment Not on file documented as of this encounter Visit Diagnoses Not on filedocumented in this encounter Care Teams Recruiter Relationship Specialty Start Date End Date Wilber Esquivel DO * PCP - General 03/13/01 documented as of this encounter
--- OUTSIDE RECORDS SUMMARY | 2025-07-15 09:28 | XMS_ITS | Encounter Summary ---
Author Organization [facility] Address [address] [place] [address] Care Team Providers Care Imager Name Role Phone Wilber Esquivel DO Primary Care Provider Encounter Details Date Type Department Care Team (Late st Contact Info) Description 07/16/2002 Outpatient Historical [facility] Silvano Jones MD [address] [place] [address] [place] [address] SCREENING MAL NEOP-COLON (Primary Dx) Social History Tobacco Use Types Packs/Day Years Used Date Smoking Tobacco: Never Assessed Comments Unknown Sex and Gender Information Value Date Recorded Sex Assigned at Not on file Legal Sex Female 5:20 AM CYBER THREAT ANALYST Gender Identity Not on file Sexual Orientation Not on file documented as of this encounter Plan of Treatment Not on file documented as of this encounter Visit Diagnoses Diagnosis Special screening for malignant neoplasms, colon- Primary documented in this encounter Care Teams Imager Relationship Specialty Start Date End Date Wilber Esquivel DO * PCP - General 03/13/01 documented as of this encounter
--- OUTSIDE RECORDS SUMMARY | 2025-07-15 09:28 | XMS_ITS | Encounter Summary ---
Author Organization [facility] Address [address] [place] [address] Care Team Providers Care Contact Worker Name Role Phone Wilber Esquivel DO Primary Care Provider [phone] Encounter Details Date Type Department Care Team (Late st Contact Info) Description 05/16/2006 Outpatient [facility] Primary Care - [address] [place] [address] Wilber Esquivel DO * Social History Tobacco Use Types Packs/Day Years Used Date Smoking Tobacco: Never Assessed Comments Unknown Sex and Gender Information Value Date Recorded Sex Assigned at Not on file Legal Sex Female 5:20 AM B2B SALES EXECUTIVE Gender Identity Not on file Sexual Orientation Not on file documented as of this encounter Plan of Treatment Not on file documented as of this encounter Visit Diagnoses Not on filedocumented in this encounter Care Teams Contact Worker Relationship Specialty Start Date End Date Wilber Esquivel DO * PCP - General 03/13/01 documented as of this encounter
--- OUTSIDE RECORDS SUMMARY | 2025-07-15 09:28 | XMS_ITS | Encounter Summary ---
Author Organization [facility] Address [address] [place] [address] Care Team Providers Care Technical Internship Name Role Phone Wilber Esquivel DO Primary Care Provider [phone] Encounter Details Date Type Department Care Team (Latest Contact Info) Description 03/13/2001 Outpatient Historical [facility] Wilber Esquivel DO * Other screening mammogram (Primary Dx) Social History Tobacco Use Types Packs/Day Years Used Date Smoking Tobacco: Never Assessed Comments Unknown Sex and Gender Information Value Date Recorded Sex Assigned at Not on file Legal Sex Female 5:20 AM CEO Gender Identity Not on file Sexual Orientation Not on file documented as of this encounter Plan of Treatment Not on file documented as of this encounter Visit Diagnoses Diagnosis Other screening mammogram- Primary documented in this encounter Care Teams Technical Internship Relationship Specialty Start Date End Date Wilber Esquivel DO * PCP - General 03/13/01 documented as of this encounter
--- OUTSIDE RECORDS SUMMARY | 2025-07-15 09:28 | XMS_ITS | Encounter Summary ---
Author Organization [facility] Address [address] [place] [address] Care Team Providers Care Screw Eye Assembler Name Role Phone Wilber Esquivel DO Primary Care Provider [phone] Encounter Details Date Type Department Care Team (Latest Contact Info) Description 10/11/[address] [facility] Wilber Esquivel DO * Pure Hypercholesterolemia (Primary Dx) Social History Tobacco Use Types Packs/Day Years Used Date Smoking Tobacco: Never Assessed Comments Unknown Sex and Gender Information Value Date Recorded Sex Assigned at Not on file Legal Sex Female 5:20 AM POURER BUGGY LADLE Gender Identity Not on file Sexual Orientation Not on file documented as of this encounter Plan of Treatment Not on file documented as of this encounter Procedures Procedure Name Priority Date/Time Associated Diagnosis Comments HEMOGLOBIN A1C Routine 10/11/2006 10:24 AM POURER BUGGY LADLE FOLATE RBC AND HEMATOCRIT Routine 10/11/2006 10:24 AM POURER BUGGY LADLE VITAMIN B12 LEVEL Routine 10/11/2006 10: 24 AM POURER BUGGY LADLE documented in this encounter Results * HEMOGLOBIN A1C (10/11/2006 10:24 AM POURER BUGGY LADLE) HEMOGLOBIN A1C 5.8 4.1 - 6.1 % of Hgb INTERFACE SYSTEM GLUCOSE, MEAN BLOOD 129 mg/dL INTERFACE SYSTEM 10/11/2006 10:2 4 AM POURER BUGGY LADLE Narrative INTERFACE SYSTEM - 10/11/2006 7:41 PM POURER BUGGY LADLE Ordered by an unspecified provider. [facility] Provider CHEMISTRY ORDERABLES Edited Performing Organization Address [facility] Phone Number INTERFACE SYSTEM Refer to clinic/hospital department * FOLATE RBC AND HEMATOCRIT (10/11/2006 10:24 AM POURER BUGGY LADLE) HEMATOCRIT, FOLATE 43.7 35.5 - 44.0 % INTERFACE SYSTEM RBC FOLATE 1036 >=533 ng/mL INTERFACE SYSTEM Comment: RBC Folate Interpretation: Deficient <110 ng/mL 10/11/2006 10:2 4 AM POURER BUGGY LADLE Narrative INTERFACE SYSTEM - 10/11/2006 3:06 PM POURER BUGGY LADLE Ordered by an unspecified provider. [facility] Provider CHEMISTRY ORDERABLES Edited Performing Organization Address [facility] Phone Number INTERFACE SYSTEM Refer to clinic/hospital department * VITAMIN B12 (10/11/2006 10:24 AM POURER BUGGY LADLE) VITAMIN B12 294 243 - 894 pg/mL INTERFACE SYSTEM Comment: It has been reported that between 5 to 10% of patients with values between 200 and 400 pg/mL may experience neuropsychiatric and hematologic abnormalities due to occult B12 deficiency. Less than 1% of patients with values above 400 pg/mL will have symptoms. 10/11/2006 10:2 4 AM POURER BUGGY LADLE Narrative INTERFACE SYSTEM - 10/11/2006 2:16 PM POURER BUGGY LADLE Ordered by an unspecified provider. [facility] Provider CHEMISTRY ORDERABLES Edited Performing Organization Address [facility] Phone Number INTERFACE SYSTEM Refer to clinic/hospital department documented in this encounter Visit Diagnoses Diagnosis Pure hypercholesterolemia- Primary documented in this encounter Care Teams Screw Eye Assembler Relationship Specialty Start Date End Date Wilber Esquivel DO * PCP - General 03/13/01 documented as of this encounter
--- OUTSIDE RECORDS SUMMARY | 2025-07-15 09:28 | XMS_ITS | Encounter Summary ---
Author Organization [facility] Address 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
--- OUTSIDE RECORDS SUMMARY | 2025-07-15 09:28 | XMS_ITS | Encounter Summary ---
Author Organization [facility] Address 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
--- OUTSIDE RECORDS SUMMARY | 2025-07-15 09:28 | XMS_ITS | Encounter Summary ---
Author Organization [facility] Address 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
--- OUTSIDE RECORDS SUMMARY | 2025-07-15 09:28 | XMS_ITS | Encounter Summary ---
Author Organization [facility] Address 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
--- OUTSIDE RECORDS SUMMARY | 2025-07-15 09:28 | XMS_ITS | Encounter Summary ---
Author Organization [facility] Address 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
--- OUTSIDE RECORDS SUMMARY | 2025-07-15 09:28 | XMS_ITS | Encounter Summary ---
Author Organization [facility] Address 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
--- OUTSIDE RECORDS SUMMARY | 2025-07-15 09:28 | XMS_ITS | Encounter Summary ---
Author Organization [facility] Address [address] [place] [address] Care Team Providers Care Senior Engineering Manager Name Role Phone Wilber Esquivel DO Primary Care Provider [phone] Encounter Details Date Type Department Care Team (Latest Contact Info) Description 05/16/[address] 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 Gender Identity Not on file Sexual Orientation [...] INTERFACE SYSTEM Comment: Lab test performed by: [facility] [id number] [place] [address] ALICIA GALAN MD 05/16/2006 11:1 5 AM CDT us Historical Provider CHEMISTRY ORDERABLES Final R esult Performing Organization Address [facility] Phone Number INTERFACE SYSTEM Refer to clinic/hospital [...] ORDERABLES Final Resul t Performing Organization Address [facility] Phone Number INTERFACE SYSTEM Refer to clinic/hospital [...] ORDERABLES Final R esult Performing Organization Address City/[facility] de Phone Number INTERFACE SYSTEM Refer [...] Historical Provider CHEMISTRY ORDERABLES [facility] Performing Organization Address [facility] Phone Number INTERFACE SYSTEM Refer to clinic/hospital [...] the [facility] Intranet at: [email or web address] Select: Lab Policies and Procedures Select: Reference Ranges - Lipids 05/16/2006 11:1 3 AM CDT Historical Provider CHEMISTRY ORDERABLES Final R esult Performing Organization Address City/[facility] Co de Phone Number INTERFACE [...] Primary documented in this encounter Care Teams Senior Engineering Manager Relationship Specialty Start Date End Date Wilber Esquivel DO * PCP - General 03/13/01 documented as of this encounter
--- OUTSIDE RECORDS SUMMARY | 2025-07-15 09:28 | XMS_ITS | Encounter Summary ---
Author Organization [facility] Address 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
--- OUTSIDE RECORDS SUMMARY | 2025-07-15 09:28 | XMS_ITS | Encounter Summary ---
Author Organization [facility] Address [address] [place] [address] Care Team Providers Care Patient Service Representative Name Role Phone Wilber Esquivel DO Primary Care Provider [phone] Encounter Details Date Type Department Care Team (Late st Contact Info) Description 06/20/2002 Outpatient [facility] Primary Care - [address] [place] [address] Wilber Esquivel DO * Social History Tobacco Use Types Packs/Day Years Used Date Smoking Tobacco: Never Assessed Comments Unknown Sex and Gender Information Value Date Recorded Sex Assigned at Not on file Legal Sex Female 5:20 AM MANAGER TARGET Gender Identity Not on file Sexual Orientation Not on file documented as of this encounter Plan of Treatment Not on file documented as of this encounter Visit Diagnoses Not on filedocumented in this encounter Care Teams Patient Service Representative Relationship Specialty Start Date End Date Wilber Esquivel DO * PCP - General 03/13/01 documented as of this encounter
--- OUTSIDE RECORDS SUMMARY | 2025-07-15 09:28 | XMS_ITS | Encounter Summary ---
Author Organization [facility] Address [address] [place] [address] Care Team Providers Care Italian Teacher Name Role Phone Wilber Esquivel DO Primary Care Provider Encounter Details Date Type Department Care Team (Late st Contact Info) Description 07/18/2002 Outpatient [facility] Primary Care - [address] [place] [address] Wilber Esquivel DO * Social History Tobacco Use Types Packs/Day Years Used Date Smoking Tobacco: Never Assessed Comments Unknown Sex and Gender Information Value Date Recorded Sex Assigned at Not on file Legal Sex Female 5:[address] Gender Identity Not on file Sexual Orientation Not on file documented as of this encounter Plan of Treatment Not on file documented as of this encounter Visit Diagnoses Not on filedocumented in this encounter Care Teams Italian Teacher Relationship Specialty Start Date End Date Wilber Esquivel DO * PCP - General 03/13/01 documented as of this encounter
--- OUTSIDE RECORDS SUMMARY | 2025-07-15 09:28 | XMS_ITS | Encounter Summary ---
Author Organization [facility] Address 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
--- OUTSIDE RECORDS SUMMARY | 2025-07-15 09:28 | XMS_ITS | Encounter Summary ---
Author Organization [facility] Address [address] [place] [address] Care Team Providers Care Handle Attacher Name Role Phone Wilber Esquivel DO Primary Care Provider [phone] Encounter Details Date Type Department Care Team (Late st Contact Info) Description 03/18/2004 Outpatient [facility] Primary Care - [address] [place] [address] Wilber Esquivel DO * Social History Tobacco Use Types Packs/Day Years Used Date Smoking Tobacco: Never Assessed Comments Unknown Sex and Gender Information Value Date Recorded Sex Assigned at Not on file Legal Sex Female 5:20 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
--- OUTSIDE RECORDS SUMMARY | 2025-07-15 09:28 | XMS_ITS | Encounter Summary ---
Author Organization [facility] Address [address] [place] [address] Care Team Providers Care Deliver Driver Name Role Phone Wilber Esquivel DO Primary Care Provider [phone] Encounter Details Date Type Department Care Team (Latest Contact Info) Description 03/06/2003 Outpatient Historical HIS 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
--- OUTSIDE RECORDS SUMMARY | 2025-07-15 09:28 | XMS_ITS | Encounter Summary ---
Author Organization [facility] Address [address] [place] [address] Care Team Providers Care Windows Support Engineer Name Role Phone Wilber Esquivel DO Primary Care Provider [phone] Encounter Details Date Type Department Care Team (Late st Contact Info) Description 12/23/2003 Outpatient [facility] Primary Care - [address] [place] [address] Wilber Esquivel DO * Social History Tobacco Use Types Packs/Day Years Used Date Smoking Tobacco: Never Assessed Comments Unknown Sex and Gender Information Value Date Recorded Sex Assigned at Not on file Legal Sex Female 5:20 AM FORECLOSURE PARALEGAL Gender Identity Not on file Sexual Orientation Not on file documented as of this encounter Plan of Treatment Not on file documented as of this encounter Visit Diagnoses Not on filedocumented in this encounter Care Teams Windows Support Engineer Relationship Specialty Start Date End Date Wilber Esquivel DO * PCP - General 03/13/01 documented as of this encounter
--- OUTSIDE RECORDS SUMMARY | 2025-07-15 09:28 | XMS_ITS | Encounter Summary ---
Author Organization [facility] Address 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
--- OUTSIDE RECORDS SUMMARY | 2025-07-15 09:28 | XMS_ITS | Encounter Summary ---
Author Organization [facility] Address 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
--- OUTSIDE RECORDS SUMMARY | 2025-07-15 09:28 | XMS_ITS | Encounter Summary ---
Author Organization [facility] Address [address] [place] [address] Care Team Providers Care Armature Balancer Name Role Phone Wilber Esquivel DO Primary Care Provider Encounter Details Date Type Department Care Team (Late st Contact Info) Description 1999 Outpatient [facility] Primary Care - [address] [place] [address] Wilber Esquivel DO * Social [...] on filedocumented in this encounter Care Teams Armature Balancer Relationship Specialty Start Date End Date Wilber Esquivel DO * PCP - General 03/13/01 documented as of this encounter
--- OUTSIDE RECORDS SUMMARY | 2025-07-15 09:28 | XMS_ITS | Encounter Summary ---
Author Organization [facility] Address [address] [place] [address] Care Team Providers Care Accounts Receivable Supervisor Name Role Phone Wilber Esquivel DO Primary Care Provider Encounter Details Date Type Department Care Team (Late st Contact Info) Description 12/06/2006 Outpatient [facility] Primary Care - [address] [place] [address] Wilber Esquivel DO * Social History Tobacco Use Types Packs/Day Years Used Date Smoking Tobacco: Never Assessed Comments Unknown Sex and Gender Information Value Date Recorded Sex Assigned at Not on file Legal Sex Female 5:20 AM REHABILITATOR Gender Identity Not on file Sexual Orientation Not on file documented as of this encounter Plan of Treatment Not on file documented as of this encounter Visit Diagnoses Not on filedocumented in this encounter Care Teams Accounts Receivable Supervisor Relationship Specialty Start Date End Date Wilber Esquivel DO * PCP - General 03/13/01 documented as of this encounter
--- OUTSIDE RECORDS SUMMARY | 2025-07-15 09:28 | XMS_ITS | Encounter Summary ---
Author Organization [facility] Address [address] [place] [address] Care Team Providers Care Special Educator Name Role Phone Wilber Esquivel DO Primary Care Provider [phone] Encounter Details Date Type Department Care Team (Late st Contact Info) Description 06/21/2001 Outpatient [facility] Primary Care - [address] [place] [address] Wilber Esquivel DO * Social History Tobacco Use Types Packs/Day Years Used Date Smoking Tobacco: Never Assessed Comments Unknown Sex and Gender Information Value Date Recorded Sex Assigned at Not on file Legal Sex Female 5:20 AM MEDICAL OFFICE ADMINISTRATOR Gender Identity Not on file Sexual Orientation Not on file documented as of this encounter Plan of Treatment Not on file documented as of this encounter Visit Diagnoses Not on filedocumented in this encounter Care Teams Special Educator Relationship Specialty Start Date End Date Wilber Esqiuvel DO * PCP - General 03/13/01 documented as of this encounter
--- OUTSIDE RECORDS SUMMARY | 2025-07-15 09:28 | XMS_ITS | Encounter Summary ---
Author Organization [facility] Address 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
--- OUTSIDE RECORDS SUMMARY | 2025-07-15 09:28 | XMS_ITS | Encounter Summary ---
Author Organization [facility] Address [address] [place] [address] Care Team Providers Care Eyeglass Frames Inspector Name Role Phone Wilber Esquivel DO Primary Care Provider [phone] Encounter Details Date Type Department Care Team (Latest Contact Info) Description 03/18/2005 Outpatient Historical HIS [facility] Wilber Esquivel DO * SCREENING MAMM-MAILG NEOPL-OTHER (Primary Dx) Social History Tobacco Use Types Packs/Day Years Used Date Smoking Tobacco: Never Assessed Comments Unknown Sex and Gender Information Value Date Recorded Sex Assigned at Not on file Legal Sex Female 5:20 AM INTAKE CLERK Gender Identity Not on file Sexual Orientation Not on file documented as of this encounter Plan of Treatment Not on file documented as of this encounter Visit Diagnoses Diagnosis Other screening mammogram- Primary documented in this encounter Care Teams Eyeglass Frames Inspector Relationship Specialty Start Date End Date Wilber Esquivel DO * PCP - General 03/13/01 documented as of this encounter
--- OUTSIDE RECORDS SUMMARY | 2025-07-15 09:28 | XMS_ITS | Encounter Summary ---
Author Organization [facility] Address [address] [place] [address] Care Team Providers Care Em Physician Name Role Phone Wilber Esquivel DO Primary Care Provider Encounter Details Date Type Department Care Team (Late st Contact Info) Description 12/21/2006 Outpatient [facility] Primary Care - [address] [place] [address] Wilber Esquivel DO * Social History Tobacco Use Types Packs/Day Years Used Date Smoking Tobacco: Never Assessed Comments Unknown Sex and Gender Information Value Date Recorded Sex Assigned at Not on file Legal Sex Female 5:20 AM SPIKEMAKING SUPERVISOR Gender Identity Not on file Sexual Orientation Not on file documented as of this encounter Plan of Treatment Not on file documented as of this encounter Visit Diagnoses Not on filedocumented in this encounter Care Teams Em Physician Relationship Specialty Start Date End Date Wilber Esquivel DO * PCP - General 03/13/01 documented as of this encounter
--- OUTSIDE RECORDS SUMMARY | 2025-07-15 09:28 | XMS_ITS | Encounter Summary ---
Author Organization [facility] Address [address] [place] [address] Care Team Providers Care Boat Garnisher Name Role Phone Wilber Esquivel DO Primary Care Provider Encounter Details Date Type Department Care Team (Late st Contact Info) Description 02/26/2000 Outpatient [facility] Primary Care - [address] [place] [address] Wilber Esquivel DO * Social History Tobacco Use Types Packs/Day Years Used Date Smoking Tobacco: Never Assessed Comments Unknown Sex and Gender Information Value Date Recorded Sex Assigned at Not on file Legal Sex Female 5:20 AM TAILOR MEN'S READY TO WEAR Gender Identity Not on file Sexual Orientation Not on file documented as of this encounter Plan of Treatment Not on file documented as of this encounter Visit Diagnoses Not on filedocumented in this encounter Care Teams Boat Garnisher Relationship Specialty Start Date End Date Wilber Esquivel DO * PCP - General 03/13/01 documented as of this encounter
--- OUTSIDE RECORDS SUMMARY | 2025-07-15 09:28 | XMS_ITS | Encounter Summary ---
Author Organization [facility] Address 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
--- OUTSIDE RECORDS SUMMARY | 2025-07-15 09:28 | XMS_ITS | Encounter Summary ---
Author Organization [facility] Address 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
--- OUTSIDE RECORDS SUMMARY | 2025-07-15 09:28 | XMS_ITS | Encounter Summary ---
Author Organization [facility] Address 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
--- OUTSIDE RECORDS SUMMARY | 2025-07-15 09:28 | XMS_ITS | Encounter Summary ---
Author Organization [facility] Address 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
--- OUTSIDE RECORDS SUMMARY | 2025-07-15 09:28 | XMS_ITS | Encounter Summary ---
Author Organization [facility] Address 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
--- OUTSIDE RECORDS SUMMARY | 2025-07-15 09:29 | XMS_ITS | Encounter Summary ---
Author Organization [facility] Address [address] [place] [address] Care Team Providers Care Educational Assistant Teacher Name Role Phone Wilber Esquivel DO Primary Care Provider Encounter Details Date Type Department Care Team (Late st Contact Info) Description 01/06/2004 Outpatient [facility] Primary Care - [address] [place] [address] Wilber Esquivel DO * Social History Tobacco Use Types Packs/Day Years Used Date Smoking Tobacco: Never Assessed Comments Unknown Sex and Gender Information Value Date Recorded Sex Assigned at Not on file Legal Sex Female 5:20 AM FINISHER HAND Gender Identity Not on file Sexual Orientation Not on file documented as of this encounter Plan of Treatment Not on file documented as of this encounter Visit Diagnoses Not on filedocumented in this encounter Care Teams Educational Assistant Teacher Relationship Specialty Start Date End Date Wilber Esquivel DO * PCP - General 03/13/01 documented as of this encounter
--- OUTSIDE RECORDS SUMMARY | 2025-07-15 09:29 | XMS_ITS | Encounter Summary ---
Author Organization [facility] Address 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
--- OUTSIDE RECORDS SUMMARY | 2025-07-15 09:29 | XMS_ITS | Encounter Summary ---
Author Organization [facility] Address 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
--- OUTSIDE RECORDS SUMMARY | 2025-07-15 09:29 | XMS_ITS | Encounter Summary ---
Author Organization [facility] Address 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
--- OUTSIDE RECORDS SUMMARY | 2025-07-15 09:29 | XMS_ITS | Encounter Summary ---
Author Organization [facility] Address 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
--- OUTSIDE RECORDS SUMMARY | 2025-07-15 09:29 | XMS_ITS | Encounter Summary ---
Author Organization [facility] Address [address] [place] [address] Care Team Providers Care Rheumatologist Name Role Phone Wilber Esquivel DO Primary Care Provider Encounter Details Date Type Department Care Team (Late st Contact Info) Description 09/28/2004 Outpatient [facility] Primary Care - [address] [place] [address] Wilber Esquivle DO * Social History Tobacco Use Types Packs/Day Years Used Date Smoking Tobacco: Never Assessed Comments Unknown Sex and Gender Information Value Date Recorded Sex Assigned at Not on file Legal Sex Female 5:20 AM RAC SPECIALIST Gender Identity Not on file Sexual Orientation Not on file documented as of this encounter Plan of Treatment Not on file documented as of this encounter Visit Diagnoses Not on filedocumented in this encounter Care Teams Rheumatologist Relationship Specialty Start Date End Date Wilber Esquivel DO * PCP - General 03/13/01 documented as of this encounter
--- OUTSIDE RECORDS SUMMARY | 2025-07-15 09:29 | XMS_ITS | Encounter Summary ---
Author Organization [facility] Address 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
--- OUTSIDE RECORDS SUMMARY | 2025-07-15 09:29 | XMS_ITS | Encounter Summary ---
Author Organization [facility] Address [address] [place] [address] Care Team Providers Care Associate Vice President Name Role Phone Wilber Esquivel DO Primary Care Provider Encounter Details Date Type Department Care Team (Late st Contact Info) Description 11/19/2004 Outpatient [facility] Primary Care - [address] [place] [address] Wilber Esquivel DO * Social History Tobacco Use Types Packs/Day Years Used Date Smoking Tobacco: Never Assessed Comments Unknown Sex and Gender Information Value Date Recorded Sex Assigned at Not on file Legal Sex Female 5:20 AM SOC ANALYST Gender Identity Not on file Sexual Orientation Not on file documented as of this encounter Plan of Treatment Not on file documented as of this encounter Visit Diagnoses Not on filedocumented in this encounter Care Teams Associate Vice President Relationship Specialty Start Date End Date Wilber Esquivel DO * PCP - General 03/13/01 documented as of this encounter
== END 2025-07-15 08:51 | disposition home or self-care (01) ==
PROVIDERS: PCP Family Medicine; Visit Provider Psychiatry & Neurology Neurology
DX: I73.9 Peripheral vascular disease, unspecified (principal); E11.42 Type 2 diabetes mellitus with diabetic polyneuropathy; I70.90 Unspecified atherosclerosis
CPT/HCPCS: 93925

== ENCOUNTER 2025-07-26 09:16 | Outpatient (CLI) | payer MEDICARE, OTHER, SELFPAY ==
[2025-07-26 15:18] LABS: CRP 0.6 mg/dL (<1.0); Creatine Kinase 170 U/L (30-135)
[2025-07-30 08:09] LABS: ANA by IFA Rfx Titer/Pattern Negative (.); Vit. B1, Whole Blood 122.2 nmol/L (66.5-200.0)
[2025-07-30 13:09] LABS: Immunoglobulin A, Qn 286 mg/dL (64-422); Immunoglobulin G, Qn 1096 mg/dL (586-1602); Immunoglobulin M, Qn 51 mg/dL (26-217)
== END 2025-07-26 09:17 | disposition home or self-care (01) ==
LOC: ANHGOSHLAB 09:17
PROVIDERS: PCP Family Medicine; Visit Provider Psychiatry & Neurology Neurology
DX: E11.42 Type 2 diabetes mellitus with diabetic polyneuropathy (principal); I73.9 Peripheral vascular disease, unspecified
CPT/HCPCS: 36415; 82550; 82784; 83090; 84207; 84425; 84446; 86038; 86140; 86334

== ENCOUNTER 2025-08-05 14:32 | Outpatient (CLI) | payer MEDICARE, OTHER, SELFPAY ==
--- NOTE | ~2025-08-05 | MR_ITS ---
EXAMINATION: MR lumbar spine wo con DATE: 08/05/2025 15:09 INDICATION: Lumbosacral radiculopathy TECHNIQUE: Magnetic resonance imaging (MRI) of the lumbar spine was performed without intravenous contrast. Sequences included sagittal T2-weighted FSE, sagittal T2-weighted FS FSE, sagittal T1-weighted FSE, and axial T2-weighted FSE. COMPARISON: None FINDINGS: 3 mm anterolisthesis L3 on L4 and 8 mm anterolisthesis L4 on L5. Vertebral body heights are normal. Mild fibrovascular degenerative endplate changes at L2-L3 and L3-4. Bone marrow signal is otherwise unremarkable. Moderate disc height loss at L4-L5, mild to moderate disc height loss at L3-L4 and mild disc height loss at T10-T11 through and L2-L3. The conus medullaris terminates at L1. There is normal signal in the caudal spinal cord. Bilateral T2 hyperintense renal cysts, the largest incompletely visualized on the right measuring at least 3.5 cm. Paravertebral soft tissues are unremarkable. The following disc levels are specifically discussed: T12-L1: Disc is mildly bulging. There is mild bilateral facet joint osteoarthritis. There is mild bilateral neural foraminal stenosis. There is mild central canal stenosis. L1-L2: Disc is bulging. There is mild right and mild to moderate left facet joint osteoarthritis. There is mild to moderate bilateral neural foraminal stenosis. There is mild central canal stenosis. L2-L3: Broad-based disc extrusion extending from foraminal zone to foraminal zone with disc material extending up to 4 mm cephalad and caudal to the level of the endplates. There is moderate right and severe left facet joint osteoarthritis. There is moderate bilateral neural foraminal stenosis. There is mild to moderate central canal stenosis. L3-L4: Broad-based disc extrusion extending from foraminal zone to foraminal zone with disc material extending up to 6 mm cephalad to the level of the inferior endplate of L3. There is severe bilateral facet joint osteoarthritis. There is moderate right and moderate to severe left neural foraminal stenosis. There is severe central canal stenosis. L4-L5: Disk is bulging with annular fissure and small central disc extrusion with disc material extending up to 3 mm cephalad to the level of the inferior endplate of L4. There is severe bilateral facet joint osteoarthritis. There is moderate bilateral neural foraminal stenosis. There is mild central canal stenosis with no evident the left and right lateral recesses. L5-S1: Disc is minimally bulging. There is severe bilateral facet joint osteoarthritis. There is mild bilateral neural foraminal stenosis. There is no central canal stenosis. IMPRESSION: 1. Moderate cervical spondylosis most notable for severe central canal stenosis and moderate right-sided and moderate to severe left-sided neural from stenosis at L3-L4. Reviewed, dictated and finalized at location A. ING LATHE TENDER IMPRESSION: 1. Moderate cervical spondylosis most notable for severe central canal stenosis and moderate right-sided and moderate to severe left-sided neural from stenosi s at L3-L4.
== END 2025-08-05 14:33 | disposition home or self-care (01) ==
PROVIDERS: PCP Family Medicine; Visit Provider Psychiatry & Neurology Neurology
DX: M43.02 Spondylolysis, cervical region (principal); M48.061 Spinal stenosis, lumbar region without neurogenic claudication; E11.42 Type 2 diabetes mellitus with diabetic polyneuropathy
CPT/HCPCS: 72148